=== PATIENT | female | born 1970 | race Caucasian/White ===

== ENCOUNTER → 2018-08-28 13:44 | Outpatient (CLI) | payer OTHER, SELFPAY ==
[2018-08-31 12:50] LABS: HPV Reflexed? NOT INDICATED
== END ==
PROVIDERS: Visit Provider Obstetrics & Gynecology
DX: Z12.4 Encounter for screening for malignant neoplasm of cervix (principal)
CPT/HCPCS: 88175; G0145

== ENCOUNTER → 2018-10-16 16:47 | Outpatient (CLI) | payer OTHER, SELFPAY ==
--- NOTE | 2018-10-16 16:52 | BI_ITS ---
MAMMOGRAPHY - BILATERAL SCREENING REASON FOR EXAM: Female, 48 years old. Routine annual screening examination. PERTINENT HISTORY: Non-contributory. TECHNIQUE: Digital bilateral breast derrick (3D mammographic acquisition) in the CC and MLO projections. 2-D mediolateral oblique (MLO) and craniocaudad (CC) views of both breasts were obtained. CAD: Full Field Digital Mammography with Computer Added Detection was performed. COMPARISON: Comparison is made with prior study dated September 20, 2017 and August 01, 2016. FINDINGS: Breast Composition: The breasts are heterogeneously dense, which may obscure small masses. There are no dominant masses or suspicious calcifications. No other significant abnormalities are identified. There has been no significant change since the prior study. BI/SCREENING MAMM (CAD), BILAT IMPRESSION: Stable bilateral screening mammogram. Yearly follow-up mammogram recommended. (A) ASSESSMENT CATEGORY: BIRADS Category 1: Negative. A letter regarding these results will be sent to the patient by the facility within 30 days. Approximately 10% of breast cancers are not detected by mammography. A normal mammogram should not delay biopsy of a clinically suspicious abnormality. [id number] Electronically Signed: Moody Campbell MD at 8:15 EST Tel [phone], Service support ,
--- OUTSIDE RECORDS SUMMARY | 2019-01-18 05:21 | XMS RPT_ITS ---
:1970 Author Organization [facility] Care Team Providers Name Role Phone Vane Cruz Attending Unavailable Vane Cruz Referring Unavailable Primay Care Physicia, No Primary Care Unavailable Vane Cruz Attending Unavailable PROBLEMS PROBLEMS DATE TYPE CONDITION / CODE ATTENDING STATUS SOURCE 08/28/2018 Unknown Z12.4 - Vane Cruz Active Marlyn Encounter for Community screening for Hospital malignant Repository neoplasm of cervix / Z12.4(ICD-10) PROCEDURES PROCEDURES No Procedure Records FoundRESULTS RESULTS SCREENING MAMM (CAD), Observed: 10/16/2018 Status: F Source: [facility] BILAT 4[facility] Services [address] [place] [address] SCREENING MAMM (CAD), BILAT MR#: [id number] Acct: [id number] Name: BONNIE CHEN Rep #: [id number] : 1970 F 48 From: Moody Campbell MD PCP: Care Physician, No Primary Status: REG CLI Study: SCREENING MAMM (CAD), BILAT Date of Exam: 10/16/18 Exam# [id number] Ordering Dr: Vane Cruz MD MAMMOGRAPHY - BILATERAL SCREENING REASON FOR EXAM: Female, 48 years old. Routine annual screening examination. PERTINENT HISTORY: Non-contributory. TECHNIQUE: Digital bilateral breast derrick (3D mammographic acquisition) in the CC and MLO projections. 2-D mediolateral oblique (MLO) and craniocaudad (CC) views of both breasts were obtained. CAD: Full Field Digital Mammography with Computer Added Detection was performed. COMPARISON: Comparison is made with prior study dated September 20, 2017 and August 01, 2016. FINDINGS: Breast Composition: The breasts are heterogeneously dense, which may obscure small masses. There are no dominant masses or suspicious calcifications. No other significant abnormalities are identified. There has been no significant change since the prior study. BI/SCREENING MAMM (CAD), BILAT IMPRESSION: Stable bilateral screening mammogram. Yearly follow-up mammogram recommended. (A) ASSESSMENT CATEGORY: BIRADS Category 1: Negative. A letter regarding these results will be sent to the patient by the facility within 30 days. Approximately 10% of breast cancers are not detected by mammography. A normal mammogram should not delay biopsy of a clinically suspicious abnormality. [id number] Electronically Signed: Moody Campbell MD at 8:15 EST Tel [phone], Service support , CC: No Primary Care Physician; Vane Cruz MD Manager Performance: Signed PAP I-G W/RFX HRHPV Collected: 08/28/2018 Status: F Source: MAR[facility]N 11:45 AM [facility] REPOSITORY Order Comment: CYTOLOGY INFORMATION: - CLINICAL INFORMATION: - DATE LMP/MENOPAUSE: 07/04/18 LMP - COLLECTION VIAL: Thin Prep Vial - EVP SALES SOURCE: CERVICAL/ENDOCERVICAL - COLLECTION TECHNIQUE: BRUSH/SPATULA Specimen Comment: [id number] Specimen Comment: Source.............Cervix;Endocervix Specimen Comment: LMP / Prev Treat...[id number]=[id number] Specimen Comment: No. of containers..01 ThinPrep Vial TYPE CODE TESTS RESULT OUT OF RANGE REFERENCE UNITS LAB L7400.0800 . Normal DIAGN Comment Result Comment: NEGATIVE FOR INTRAEPITHELIAL LESION AND MALIGNANCY. LAB L7400.0900 . Normal ADEQ Comment Result Comment: Satisfactory for evaluation. Endocervical and/or squamous metaplastic cells (endocervical component) are present. LAB L7400.1400 . Normal PERFORM Comment Result Comment: Kristina Ambriz, Oyster Worker (ASCP) LAB L7400.2575 . Normal TEST METHOD Comment Result Comment: This liquid based ThinPrep(R) pap test was screened with the use of an image guided system. LAB L7400.2600 . Normal . COMM LAB L7400.2700 . Normal PAPSMR Comment Result Comment: The Pap smear is a screening test designed to aid in the detection of premalignant and malignant conditions of the uterine cervix. It is not a diagnostic procedure and should not be used as the sole means of detecting cervical cancer. Both false-positive and false-negative reports do occur. LAB L7400.2800 . Normal HPV RFLX Comment Result Comment: The HPV DNA reflex criteria were not met with this specimen result therefore, no HPV testing was performed. Performed at: [address] [id number] Family Services Assistant: Glendy Lopez MD, Phone: [phone] Performed By: #### L7400.0350 #### [facility] (refer to report for specific site) refer to report for address and phone number ALLERGIES ALLERGIES No Allergies Records FoundENCOUNTERS ENCOUNTERS ADMIT/DISCHARGE ACCOUNT ADMITTING ENCOUNTER LOCATION SOURCE NUMBER CLASS 10/16/2018 [id number] Ambulatory Marlyn Coleman 9 [facility] ing:OPBI Repository 08/28/2018 [id number] Ambulatory Coleman Coleman 3 [facility] ing:LABSPEC Repository PAYERS PAYERS ENCOUNTER GUARANTOR PAYER SUBSCRIBER SOURCE 10/16/2018 BONNIE [facility] BONNIE [id number] Insurance:AULTCAREPol GUSTAVODOB: Community BERT icy [place]: [id number] [id number] Repository [address]Cgj: 330) Date:2971-11-67[phone] () [address], [place] [address]ZS: 10/16/2018 Secondary NOT GIVENUNK Coleman Insurance:SELF PAY [facility] [place] Number: Effective Repository Date:2018-08-29 08/28/2018 Bonnie Primary Bonnie Marlyn [id number] Insurance:AULTCAREPol GustavoDOB: Community Bert icy Number: [id number] [id number] Repository [address]a: (330) Date:1113-89-05[phone] () [address], [place] [address]SF: 08/28/2018 Secondary NOT GIVENUNK Coleman Insurance:SELF PAY [facility] [place] Number: Effective Repository Date:2018-08-28
== END ==
PROVIDERS: Referring Provider Obstetrics & Gynecology; Visit Provider Obstetrics & Gynecology
DX: Z12.31 Encounter for screening mammogram for malignant neoplasm of breast (principal)
CPT/HCPCS: 77063; 77067

== ENCOUNTER → 2019-10-21 12:15 | Outpatient (CLI) | payer OTHER, SELFPAY ==
--- NOTE | 2019-10-21 12:20 | BI_ITS ---
MAMMOGRAPHY - BILATERAL SCREENING 3-D TOMOSYNTHESIS REASON FOR EXAM: Female, 49 years old. NO FM HX , GAINED 20# PERTINENT HISTORY: No significant family history. TECHNIQUE: 2-D mammograms and 3-D Tomosynthesis of the breast (s) were performed. CAD was performed. COMPARISON: 10/16/2018, 09/20/2017, 08/01/2016 FINDINGS: The breast composition is heterogeneously dense that can obscure small breast masses. Scattered benign calcifications are seen. No dense spiculated masses or suspicious microcalcifications are identified. No architectural distortion is identified. There is no skin thickening or retraction. There has been no significant change since the prior study. BI/SCREEN MAMM (CAD) W/MAGUE BILAT IMPRESSION: No mammographic signs of malignancy. Routine yearly mammograms recommended. ASSESSMENT CATEGORY: BIRADS Category 1: Negative. A letter regarding these results will be sent to the patient by the facility within 30 days. FOLLOW UP RECOMMENDATION: Yearly follow up mammogram recommended. (A) Approximately 10% of breast cancers are not detected by mammography. A normal mammogram should not delay biopsy of a clinically suspicious abnormality. Electronically Signed: Nestor Mathis MD at 13:15 EST Tel [phone], Service support ,
== END ==
PROVIDERS: Family Provider Nurse Practitioner; PCP Nurse Practitioner; Referring Provider Obstetrics & Gynecology; Visit Provider Obstetrics & Gynecology
DX: Z12.31 Encounter for screening mammogram for malignant neoplasm of breast (principal)
CPT/HCPCS: 77063; 77067

== ENCOUNTER → 2020-05-26 15:40 | Outpatient (CLI) | payer OTHER, SELFPAY ==
--- NOTE | 2020-05-26 15:43 | RAD_ITS ---
STUDY: X-RAY CHEST REASON FOR EXAM: Female, 50 years old. Pain left lateral chest wall radiating into back 1.5 months TECHNIQUE: PA and lateral views of the chest. COMPARISON: None. FINDINGS: The lungs are clear and expanded. There is no demonstrated pleural abnormality. Normal size heart. Normal mediastinum and my. Normal visualized pulmonary arteries. Normal visualized aortic arch and descending thoracic aorta. Normal visualized thoracic spine. Normal visualized ribs, clavicles, and shoulders. There is no demonstrated abnormality of the visualized soft tissue structures of the upper abdomen. RAD/Chest PA and Lateral IMPRESSION: Normal x-ray examination of the chest. Electronically Signed: Davidson Lee MD at 16:11 EDT , Service support ,
== END ==
PROVIDERS: PCP Nurse Practitioner; Referring Provider Nurse Practitioner; Visit Provider Nurse Practitioner
DX: R07.9 Chest pain, unspecified (principal)
CPT/HCPCS: 71046

== ENCOUNTER → 2020-06-24 09:32 | Outpatient (CLI) | payer OTHER, SELFPAY ==
--- NOTE | 2020-06-24 09:41 | US_ITS ---
STUDY: ULTRASOUND BREAST - LEFT REASON FOR EXAM: Female, 50 years old. Pain in the left breast. TECHNIQUE: Axial and longitudinal images of the LEFT breast were performed with a high resolution ultrasound transducer. # OF IMAGES: 94 COMPARISON: Comparison is made with prior mammogram done earlier in the day. FINDINGS: LEFT Breast: There is a 5 mm x 3 mm x 9 mm slightly irregular hypoechoic nodule at the 12 o''clock lesion of the breast at 1 cm from nipple. A biopsy recommended. US/Breast Limited Unilateral IMPRESSION: 5 mm x 3 mm x 9 mm slightly irregular hypoechoic nodule at the 12 o''clock position of the breast at 1 cm from nipple. Biopsy recommended. ASSESSMENT CATEGORY: BIRADS Category 4: Suspicious - Biopsy Should Be Considered. A letter regarding these results will be sent to the patient by the facility within 30 days. Electronically Signed: Moody Campbell, at 13:31 EDT , Service support ,
--- NOTE | 2020-06-24 09:41 | BI_ITS ---
MAMMOGRAPHY - BILATERAL DIAGNOSTIC REASON FOR EXAM: Female, 50 years old. 3 month history of left breast pain. PERTINENT HISTORY: Non-contributory. TECHNIQUE: Digital bilateral breast derrick (3D mammographic acquisition) in the CC and MLO projections. 2-D mediolateral oblique (MLO) and craniocaudad (CC) views of both breasts were obtained. CAD: Full Field Digital Mammography with Computer Added Detection was performed. COMPARISON: Comparison is made with prior study dated 10/21/2019 and 09/20/2017. FINDINGS: Breast Composition: The breasts are heterogeneously dense, which may obscure small masses. There are no dominant masses or suspicious calcifications. Stable small benign-appearing bilateral axillary lymph nodes. No other significant abnormalities are identified. There has been no significant change since the prior study. BI/DIAG MAMM W/CAD, BILAT IMPRESSION: Stable bilateral diagnostic mammogram. With the patient''s history of left breast pain, correlation with ultrasound is recommended. ASSESSMENT CATEGORY: BIRADS Category 0: Incomplete. Need additional imaging evaluation. A letter regarding these results will be sent to the patient by the facility within 30 days. Approximately 10% of breast cancers are not detected by mammography. A normal mammogram should not delay biopsy of a clinically suspicious abnormality. Electronically Signed: Moody Campbell, at 13:30 EDT , Service support ,
== END ==
PROVIDERS: PCP Nurse Practitioner; Referring Provider Nurse Practitioner; Visit Provider Nurse Practitioner
DX: N64.4 Mastodynia (principal)
CPT/HCPCS: 76642; 77062; 77066; G0279

== ENCOUNTER → 2020-06-26 | Outpatient (CLI) | payer OTHER, SELFPAY ==
--- NOTE | 2020-06-26 14:15 | BRBX_PTH ---
PATIENT: LISA HCEN LOC: [facility] U#:[id number] AGE/SX: 50/F ROOM: RE06/26/[address]: Dr. Manohar Snyder MD : 1970 BED: DIS: 06/26/2020 SPEC #: [id number] RECD: 06/26/20 15:16 STATUS: TOYIN BRAXTON #: [id number] ERI: 06/26/20 14:[address]: Manohar Snyder DEPT: SURGICAL PATHOLOGY RECD BY: Saturnino Helm ENTERED: 06/29/20 09:05 SP TYPE: BREAST BX OTHR DR: VINICIUS Childers Tissues: Left breast, NOS Procedures: Surgery Specimen Level IV HEADER OPERATION: Ultrasound-guided left breast needle core biopsy PRE-OP DIAGNOSIS: Left breast mass N63.20 TISSUE SUBMITTED: Left breast tissue ISCHEMIC TIME: <1 minute FIXATION TIME: 77.5 hours MICROSCOPIC DIAGNOSIS Left breast mass, ultrasound-guided needle core biopsy: Fragments of benign breast tissue with focal dense fibrosis. Negative for atypia or malignancy. See comment. OPAL:sofia 06/30/20 COMMENT Correlation with clinical, radiologic findings and appropriate follow up are necessary. MICROSCOPIC DESCRIPTION Slides are reviewed. GROSS DESCRIPTION Received in fixative is one container labeled with the patient name and designated left breast biopsy. The specimen consists of multiple elongated fragments of emmanuel-yellow fibroadipose tissue that in aggregate measure 2 x 1.5 x 0.1 cm. The entire specimen is submitted in one cassette. / OPAL:sfoia 06/29/20 TC:5 CPT: 46832
[2020-06-26 14:38] VITALS: BMI 27.3
== END | disposition home or self-care (01) ==
LOC: LABSPEC 15:54
PROVIDERS: PCP Nurse Practitioner; Referring Provider Surgery; Visit Provider Surgery
DX: N63.20 Unspecified lump in the left breast, unspecified quadrant (principal)
CPT/HCPCS: 88305

== ENCOUNTER → 2020-11-05 | Outpatient (CLI) | payer OTHER, SELFPAY ==
[2020-11-05 11:55] VITALS: BMI 29.5
[2020-11-11 13:54] LABS: HPV APTIMA, High Risk Negative (Negative)
== END | disposition home or self-care (01) ==
LOC: LABSPEC 16:34
PROVIDERS: PCP Nurse Practitioner; Visit Provider Obstetrics & Gynecology
DX: Z12.4 Encounter for screening for malignant neoplasm of cervix (principal)
CPT/HCPCS: 87624; 88175; G0145

== ENCOUNTER → 2020-12-30 08:55 | Outpatient (CLI) | payer OTHER, SELFPAY ==
[2020-11-05 11:55] VITALS: BMI 29.5
--- NOTE | 2020-12-30 09:00 | US_ITS ---
STUDY: ULTRASOUND BREAST - LEFT REASON FOR EXAM: Female, 50 years old. Six-month follow-up for breast biopsy. TECHNIQUE: Axial and longitudinal images of the LEFT breast were performed with a high resolution ultrasound transducer. # OF IMAGES: 25 COMPARISON: Comparison is made with prior ultrasound dated 06/24/2020. FINDINGS: LEFT Breast: A tissue clip marker is seen within the 9 mm x 8 mm x 3 mm hypoechoic nodule at the 12 o''clock position breast at 1 cm from nipple. A small amount of the residual hematoma is seen surrounding the nodule. US/Breast Limited Unilateral IMPRESSION: Tissue clip marker is seen within the hypoechoic nodule with small residual hematoma. ASSESSMENT CATEGORY: BIRADS Category 2: Benign. A letter regarding these results will be sent to the patient by the facility within 30 days. Electronically Signed: Modoy Campbell MD at 10:37 EST , Service support ,
--- NOTE | 2020-12-30 09:00 | BI_ITS ---
MAMMOGRAPHY - UNILATERAL DIAGNOSTIC: LEFT BREAST REASON FOR EXAM: Female, 50 years old. Six-month follow-up following ultrasound-guided left breast biopsy. PERTINENT HISTORY: Non-contributory. TECHNIQUE: Digital unilateral breast derrick (3D mammographic acquisition) in the CC and MLO projections. 2-D mediolateral oblique (MLO) and craniocaudad (CC) views of both breasts were obtained. CAD: Full Field Digital Mammography with Computer Added Detection was performed. COMPARISON: Comparison is made with prior study dated 06/24/2020. FINDINGS: Breast Composition: The breasts are heterogeneously dense, which may obscure small masses. There are no dominant masses or suspicious calcifications. A tissue clip marker is seen in the slightly upper anterior central portion of the left breast. No other significant abnormalities are identified. BI/DIAG MAMM W/CAD, UNILAT IMPRESSION: Stable unilateral diagnostic mammogram. One year follow-up mammogram recommended. (A) ASSESSMENT CATEGORY: BIRADS Category 2: Benign. A letter regarding these results will be sent to the patient by the facility within 30 days. Approximately 10% of breast cancers are not detected by mammography. A normal mammogram should not delay biopsy of a clinically suspicious abnormality. Electronically Signed: Moody Campbell MD at 10:13 EST , Service support ,
== END ==
PROVIDERS: PCP Nurse Practitioner; Referring Provider Surgery; Visit Provider Surgery
DX: N63.20 Unspecified lump in the left breast, unspecified quadrant (principal)
CPT/HCPCS: 76642; 77061; 77065; G0279

== ENCOUNTER 2021-01-01 06:54 | Day surgery (SDC) | payer OTHER, SELFPAY ==
[2020-11-05 11:55] VITALS: BMI 29.5
[2021-01-01] VITALS (7 sets, daily range): BP systolic 92–118; BP diastolic 57–84; PULSE 59–88; RESP 16–18; TEMP 36.4–37; O2SAT 95–99; BMI 30.6
[2021-01-01 07:23] LABS: Internal QC Validated? YES +Cl - CLEAR BKGD; Pregnancy, Urine Negative Negative
[2021-01-01] MEDS: Lactated Ringers 1,000 ML 100 ML IV (07:38)
--- NOTE | 2021-01-01 08:00 | COL_PTH ---
PATIENT: LISA CHEN LOC: [facility] U#:[id number] AGE/SX: 50/F ROOM: RE01/01/[address]: Dr. Manohar Snyder MD : 1970 BED: DIS: 01/01/2021 SPEC #: [id number] RECD: 01/01/21 10:31 STATUS: TOYIN BRAXTON #: [id number] ERI: 01/01/21 08:[address]: Manohar Snyder DEPT: SURGICAL PATHOLOGY RECD BY: Janell March ENTERED: 01/01/21 11:00 SP TYPE: COLON OTHR DR: Helen Kerr, CHARLY-Emy Tissues: Colon, NOS Procedures: Surgery Specimen Level V HEADER OPERATION: Colonoscopy - open access (MAC) PRE-OP DIAGNOSIS: Screening colonoscopy TISSUE SUBMITTED: Sigmoid polyp MICROSCOPIC DIAGNOSIS Sigmoid colon polyp, biopsy: Hyperplastic polyp. AM:sofia 01/04/2021 MICROSCOPIC DESCRIPTION Slides are reviewed. GROSS DESCRIPTION Received in fixative is one container labeled with the patient's name and designated sigmoid polyp. The specimen consists of multiple irregular fragments of light emmanuel soft tissue that in aggregate measure 0.8 x 0.3 x 0.2 cm. The specimen is totally submitted in one cassette. / SJ:sofia 01/01/21 TC:5 CPT: 82401
--- NOTE | 2021-01-01 08:01 | H&P.OPEN ---
History of Present Illness Date of Admission: 01/01/21 The patient is a 50 year old F here for screening colonoscopy. The patient has never had a colonoscopy in the past. She has no abdominal pain or blood in her stool. The she reports that her grandmother had colon cancer. Past Medical/Surgical History - Planned Operation Planned Operative Procedure/s: cscope open access Date of Operative Procedure: 01/01/21 Permit Signed: No S.O.S: No Is This Patient Having a Total Joint: No - Previous Hospitalizations/Surgeries HX Hospitalizations: No HX of Surgeries: hernia repair. foot surgery. dental work Any Problems With Anesthesia: No - needed extra for dental work You/Your Family Experience Fever (Hyperthermia) With Anes: No Cholinesterase deficiency: No - Cardiovascular Hx Chest Pain within Last 2 months: No Hx of Irregular Heartbeat and/or Afib: No Hx Heart Attack: No Hx Congestive Heart Failure: No Hx Rheumatic Fever: No Hx Hypertension: No Hx Internal Defibrillator: No Hx Pacemaker: No Hx Cardiac Catheterization: No Hx Cardiac Surgery/Stents/Etc.: No Hx Stress Test: No - echo 2017 HX Edema: No Hx Pain in Legs when Walking/Leg Cramps: No - Respiratory Chronic Cough: No HX of Shortness of Breath: Yes - sob with 2 flights of stairs Hoarseness: No Hx Chronic Obstructive Pulmonary Disease (COPD): No Hx Asthma: No Hx Emphysema: No Hx Sleep Apnea: No Hx Oxygen Use at Home: No Hx Respiratory Tract Infection/Cold (presently): No Do You Snore Loudly (louder than talking or can be heard): No Do You Often Feel Tired/ Fatigued/ Sleepy Dring Daytime?: No Has Anyone Observed You Stop Breathing During Sleep?: No Result (for STOP score): Negative Hx Smoking: Yes - quit 5 months ago Smoking Status: Former smoker - Gastrointestinal Hx Gastroesophageal Reflux: No - heartburn just recently Hx Gastrointestinal Disorders: No Hx Gastrointestinal Bleed: No Hx Ulcer: No Hx Hiatal Hernia: No Difficulty Chewing/Swallowing: No Recent Onset of Swallowing Problems: No Special diet followed at home: No Hx Unplanned Weight Loss of 20#: No HX Unplanned Weight Gain of 20#: No - Neurological Hx Seizures: No HX Syncope/Blackout Spells/Unconsciousness: No Hx CVA/Stroke: No Hx Transient Ischemic Attacks (TIA): No Hx Multiple Sclerosis: No Hx Parkinson's Disease: No Hx Head/Neck Injury: No Hx Headaches: No Hx Back Injury/Pain: No Recent Onset of Speech Difficulty: No Restless Legs: No Does patient have nerve stimulator: No Patient instructed to have device shut off: No Rep notified?: No - Blood Disorder Hx Leukemia: No Bleeding Tendencies: No Hx Deep Vein Thrombosis: No Hx High Cholesterol: No Blood Transmitted Disease: No Hx Hepatitis: Yes - auto immune hepatitis Hx Cirrhosis: No Hx Anemia: No Hx Blood Disorders: No - Reproduction : No Is Patient Lactating: No Hx Hysterectomy: No Hx Tubal Ligation: No Are You Post Menopause: No Pt Instructed Not To Have Any Sex From Now Until Surgery: No - Genitourinary Hx Renal Disease: No - Musculoskeletal Hx Arthritis: No Hx Rheumatoid Arthritis: No Hx Gout: No Recent Onset of an Orthopedic Problem: No - Endocrine Hx Diabetes: No Thyroid Disease: No Hx Steroid Therapy: No - Psycho/Social Hx Substance Use: No Hx Alcohol Use: Yes - rarely Hx Anxiety: No Hx Depression: No Mental Illness: No Hx Dementia: No - Miscellaneous Hx Cancer: No Recent Exposure to Contagious Disease: No Active MRSA: No Hx of C-Diff: No Any Loose Teeth: No Allergies No Known Allergies Allergy (Verified 01/01/21 07:19) - Discharge Is Pt Admitted From a [facility], or a [facility]: No After D/C, Where Do you Plan to Go: Return Home - Physical Exam Vitals/I&O's: Vital Signs Temp Pulse Resp BP Pulse Ox 98.6 F 78 16 118/84 H 96 01/01/21 07:27 01/01/21 07:27 01/01/21 07:27 01/01/21 07:27 01/01/21 07:27 Oxygen Delivery Method Room Air Weight: 189 lb 9.561 oz Body Mass Index (BMI) 30.6 General: Alert, Oriented x3 Neck: No JVD Lungs: Normal air movement Cardiovascular: Regular rate, Regular Rhythm Abdomen: Soft, Non Tender, Non-Distended Microbiology Past 72 Hours 12/31/20 10:00 Interface Orders SARS-CoV-2 Antigen (Rapid) - Final Laboratory Results 01/01/21 07:08: Urine Test Negative Current Medications Lactated Ringer's () 1,000 mls @ 100 mls/hr IV .Q10H MAYANK Last Admin: 01/01/21 07:38 Dose: 100 mls/hr Documented by: Assessment/Plan All Active Problems (Last Reviewed 11/05/20 @ 11:55 by Rupali Saucedo) Hx of hernia repair (Acute) Fatigue (Acute) 50-year-old female for screening colonoscopy I explained endoscopy in detail to the patient. I explained the risks including but not limited to stroke or heart attack with anesthesia, perforation of the GI tract, bleeding, infection. I explained that any of these could necessitate further emergency surgery. The patient understands and all questions were answered sufficiently. The patient wishes to proceed with procedure. Manohar Snyder MD Pager: [facility] [address] [place] [address] [address] [place] [address] Office: Surgery Risks - Colonoscopy Risks Include but are not Limited To: Risks include but are not limited to: Bleeding, perforation requiring further surgery, inability to complete colonoscopy requiring barium enema.
--- NOTE | 2021-01-01 08:39 | OP.COLON_ITS ---
Patient Name: Bonnie Pickett Procedure Date: 01/01/2021 8:03 AM Date of : 1970 Age: 50 Procedure: Colonoscopy Indications: Screening for colorectal malignant neoplasm Providers: Manohar Snyder MD Referring MD: Helen Kerr NP Medicines: Monitored Anesthesia Care Patient Profile: This is a 50 year old female. Refer to note in patient chart for documentation of history and physical. Last Colonoscopy: none. The patient's first colonoscopy is today. Complications: No immediate complications. Procedure: Pre-Anesthesia Assessment: - Prior to the procedure, a History and Physical was performed, and patient medications and allergies were reviewed. The patient's tolerance of previous anesthesia was also reviewed. The risks and benefits of the procedure and the sedation options and risks were discussed with the patient. All questions were answered, and informed consent was obtained. Prior Anticoagulants: The patient has taken no previous anticoagulant or antiplatelet agents. After reviewing the risks and benefits, the patient was deemed in satisfactory condition to undergo the procedure. After I obtained informed consent, the scope was passed under direct vision. Throughout the procedure, the patient's blood pressure, pulse, and oxygen saturations were monitored continuously. The pediatric colonoscope was introduced through the anus and advanced to the cecum, identified by appendiceal orifice and ileocecal valve. The colonoscopy was performed without difficulty. The patient tolerated the procedure well. The quality of the bowel preparation was good. Scope In: 8:16:07 AM Scope Withdrawal Time 0 hours 5 minutes 27 seconds Scope Out: 8:37:14 AM Total Procedure Duration Time 0 hours 21 minutes 7 seconds Findings: A small polyp was found in the sigmoid colon. The polyp was removed with a hot snare. Resection and retrieval were complete. The exam was otherwise without abnormality on direct and retroflexion views. Impression: - One small polyp in the sigmoid colon, removed with a hot snare. Resected and retrieved. - The examination was otherwise normal on direct and retroflexion views. Recommendation: - Discharge patient to home. - Resume previous diet. - Continue present medications. - Await pathology results. - Repeat colonoscopy for surveillance based on pathology results. Procedure Code(s): --- Professional --- 09291, Colonoscopy, flexible; with removal of tumor(s), polyp(s), or other lesion(s) by snare technique Diagnosis Code(s): --- Professional --- Z12.11, Encounter for screening for malignant neoplasm of colon D12.5, Benign neoplasm of sigmoid colon CPT copyright 2017 [employer]. All rights reserved. The codes documented in this report are preliminary and upon laundry machine mechanic review may be revised to meet current compliance requirements. Manohar Snyder MD 01/01/2021 8:39:40 AM This report has been signed electronically. Number of Addenda: 0 Note Initiated On: 01/01/2021 8:03 AM
--- NOTE | 2021-01-01 08:40 | OP.CCLET_ITS ---
01/01/2021 Helen Kerr, CHARLY [address] [place] [address] Re : Colonoscopy procedure for Bonnie Pickett Dear Ms. Kerr This procedure was performed on Friday, January 01, 2021. My impressions and recommendations are as follows: Impressions : - One small polyp in the sigmoid colon, removed with a hot snare. Resected and retrieved. - The examination was otherwise normal on direct and retroflexion views. Recommendations : - Discharge patient to home. - Resume previous diet. - Continue present medications. - Await pathology results. - Repeat colonoscopy for surveillance based on pathology results. My findings are described in the full procedure note, which is enclosed. If I can be of further assistance, please feel free to contact me at Doctor phone number(s): , Work: . Sincerely, Manohar Snyder MD 01/01/2021 8:39:40 AM This report has been signed electronically.
== END 2021-01-01 10:04 | disposition home or self-care (01) ==
LOC: EN 06:56 → AC 06:57
PROVIDERS: Anesthesiology; PCP Nurse Practitioner; Referring Provider Nurse Practitioner; Visit Provider Surgery
PROC: 0DJD8ZZ Inspection of Lower Intestinal Tract, Via Natural or Artificial Opening Endoscopic (ICD-10-PCS; CPT 45378; principal; 2021-01-01 07:55)
DX: Z12.11 Encounter for screening for malignant neoplasm of colon (principal); K63.5 Polyp of colon; Z80.0 Family history of malignant neoplasm of digestive organs; Z20.828 Contact with and (suspected) exposure to other viral communicable diseases; K75.4 Autoimmune hepatitis; Z87.891 Personal history of nicotine dependence
CPT/HCPCS: 45385; 81025; 87426; 88307; C9803; J7120; J2405

== ENCOUNTER → 2021-10-18 14:24 | Outpatient (CLI) | payer OTHER, SELFPAY ==
[2021-10-18 17:13] LABS: Cholesterol 159 mg/dL (200); Glucose 91 mg/dL (74-106); High Density Lipoprotein 42 mg/dL; Thyroid Stim Hormone (TSH) 0.88 uIU/mL (0.358-3.74); Triglycerides 69 mg/dL; Very Low Density Lipoprotein 14 mg/dL (5-40)
== END ==
PROVIDERS: PCP Nurse Practitioner; Referring Provider Obstetrics & Gynecology; Visit Provider Obstetrics & Gynecology
DX: N95.1 Menopausal and female climacteric states (principal); Z13.220 Encounter for screening for lipoid disorders; Z13.1 Encounter for screening for diabetes mellitus; Z13.29 Encounter for screening for other suspected endocrine disorder; Z13.21 Encounter for screening for nutritional disorder
CPT/HCPCS: 36415; 80061; 82306; 82947; 84443

== ENCOUNTER 2021-12-31 11:01 | Outpatient (CLI) | payer OTHER, SELFPAY ==
--- NOTE | 2021-12-31 11:04 | BI_ITS ---
MAMMOGRAPHY - BILATERAL SCREENING REASON FOR EXAM: Female, 51 years old. Routine annual screening examination. PERTINENT HISTORY: Non-contributory. Prior left ultrasound-guided breast biopsy. TECHNIQUE: Digital bilateral breast mague (3D mammographic acquisition) in the CC and MLO projections. 2-D mediolateral oblique (MLO) and craniocaudad (CC) views of both breasts were obtained. CAD: Full Field Digital Mammography with Computer Added Detection was performed. COMPARISON: Comparison is made with prior study dated 12/30/2020 and 06/24/2020. FINDINGS: Breast Composition: The breasts are heterogeneously dense, which may obscure small masses. There are no dominant masses or suspicious calcifications. A tissue clip marker seen along the anterior upper medial retroareolar region of the breast and keep with prior biopsy. Stable small benign-appearing bilateral axillary lymph nodes. No other significant abnormalities are identified. There has been no significant change since the prior study. BI/SCRN MAMM (CAD)W/MAGUE BILAT IMPRESSION: Stable bilateral screening mammogram. Yearly follow-up mammogram recommended. (A) ASSESSMENT CATEGORY: BIRADS Category 2: Benign. A letter regarding these results will be sent to the patient by the facility within 30 days. Approximately 10% of breast cancers are not detected by mammography. A normal mammogram should not delay biopsy of a clinically suspicious abnormality. [id number] Electronically Signed: Moody Campbell MD at 12:25 EST ,
== END 2021-12-31 23:59 | disposition home or self-care (01) ==
LOC: OPBI 11:02
PROVIDERS: PCP Nurse Practitioner; Visit Provider Obstetrics & Gynecology
DX: Z12.31 Encounter for screening mammogram for malignant neoplasm of breast (principal)
CPT/HCPCS: 77063; 77067

== ENCOUNTER 2022-01-23 00:17 | Emergency (ER) | payer OTHER, SELFPAY ==
[2022-01-23 00:17] VITALS: BP 165/112; PULSE 132; RESP 19; TEMP 36.9; O2SAT 98; BMI 20.7
--- NOTE | 2022-01-23 00:26 | EKG12_ITS ---
Test Reason : CP Blood Pressure : / mmHG Vent. Rate : 117 BPM Atrial Rate : 117 BPM P-R Int : 150 ms QRS Dur : 072 ms QT Int : 296 ms P-R-T Axes : 048 039 021 degrees QTc Int : 412 ms Sinus tachycardia Nonspecific ST and T wave abnormality Abnormal ECG Confirmed by JUDAH TAPIA, UMM ([id number]), movie editor KVNG SCHWARTZ ([id number]) on 01/25/2022 10:49:05 AM Referred By: Confirmed By:UMM SO MD
--- NOTE | 2022-01-23 00:28 | EDS_ITS ---
HPI History of Present Illness Chief Complaint: Chest Pain Informant: patient Onset/Context/Timing Onset: Yesterday Current Severity: Moderate Maximum Severity: Moderate Narrative Narrative: Patient presents secondary to chest pressure and palpitations. She states all day yesterday she just felt off and would have intermittent palpitations. Over the last hour she feels like it is gotten worse. She describes a squeezing sensation in her chest. She started checking her blood pressure and noted it to be elevated. PFSH PFS Medical History Back problem Breast lump in female Carpal tunnel syndrome Fatigue Hormone deficiency Kidney stones Home Medications lactobacillus combination no.9 4 billion cell capsule 4,000 mmu cells PO DAILY 06/26/20 [History Last Taken Unknown] multivitamin 1 tab PO DAILY 06/26/20 [History Last Taken Unknown] bupropion HCl 150 mg tablet,12 hr sustained-release 150 mg PO BID 09/16/20 [History Last Taken Unknown] estradiol 0.05 mg/24 hr semiweekly transdermal patch 1 patch TD 2XW #8 ea 10/15/21 [Rx Last Taken Unknown] norethindrone acetate [Aygestin] 5 mg PO DAILY 01/23/22 [History Last Taken Unknown] Allergy/AdvReac Type Severity Reaction Status Date / Time No Known Allergies Allergy Verified 01/23/22 00:20 Family History Mother Thyroid cancer Brain aneurysm Father Cancer Heart disease Hypertension CHF (congestive heart failure) Other Arthritis Colon cancer Diabetes Lung cancer Surgical History Hx of hernia repair Social History Smoking Status: Former smoker second hand exposure: Yes alcohol intake: never substance use type: does not use caffeine: No what type of physical activity do you participate in: aerobics and weight training frequency: 3-4 times per week seatbelt use: always do you feel safe at home: Yes additional social history: - Meet Does Not Take Aspirin Does Take Ibuprofen As Needed ROS ROS ED Constitutional Constitutional ED: Denies chills or fever(s) Eyes Eyes: Denies change in vision ENT ENT ED: Denies sore throat Cardiovascular Cardiovascular: Reports chest pain and palpitations Respiratory/Chest Respiratory/Chest: Reports dyspnea; Denies cough Gastrointestinal Gastrointestinal: Denies abdominal pain, nausea or vomiting Genitourinary Genitourinary ED: Denies dysuria Musculoskeletal Musculoskeletal: Denies back pain or neck pain Integumentary Denies rash Psychiatric Psychiatric: Reports anxiety Allergic/Immunologic Allergic/Immunologic ED: Denies urticaria EXAM Physical Exam Const Vital Signs: 01/23/22 00:17 01/23/22 00:38 01/23/22 02:40 Temperature 98.4 F Temperature Source Temporal Pulse Rate 132 H 84 Respiratory Rate 19 H 16 Blood Pressure 165/112 H 168/100 H Blood Pressure Mean 129 122 Pulse Ox 98 100 95 Oxygen Delivery Method Room Air Room Air Room Air 01/23/22 02:55 Temperature Temperature Source Pulse Rate 68 Respiratory Rate 17 Blood Pressure 153/87 H Blood Pressure Mean 109 Pulse Ox 99 Oxygen Delivery Method Room Air Positive well nourished and well developed General Appearance ED: well developed HEENT Reports normocephalic and head/scalp atraumatic Eyes PERRL and EOMs intact bilaterally Neck supple Chest Wall inspection of chest normal and palpation of chest normal Resp normal respiratory effort and clear to auscultation bilaterally Cardio regular rhythm Rate: tachycardic GI normal to inspection, nondistended, normoactive bowel sounds and non-tender Palpation: soft Extremity normal to inspection General Extremety ED: Negative for edema General Extremity: Negative for edema Neuro oriented x3 and no sensory deficits noted Sensorium / Orientation: alert Motor Exam: strength 5/5 throughout Psych Mood & Affect: anxious Skin no rashes or lesions noted MDM MDM MDM Narrative Medical decision making narrative: Patient was given aspirin on arrival. Lab work, chest x-ray, EKG ordered. Lab Data Attestation: I reviewed the patient's lab results. Labs: Laboratory Results - last 24 hr 01/23/22 01/23/22 01/23/22 00:28 00:28 00:30 WBC 5.0 RBC 4.77 Hgb 15.2 H Hct 44.5 MCV 93.3 MCH 31.9 MCHC 34.2 RDW Std Deviation 44.8 H RDW Coeff of Gloria 13.1 Plt Count 251 MPV 9.7 Immature Gran % (Auto) 0.400 Neut % (Auto) 60.6 Lymph % (Auto) 28.3 [place] % (Auto) 7.7 Eos % (Auto) 2.2 Baso % (Auto) 0.8 Absolute Neuts (auto) 3.0 Absolute Lymphs (auto) 1.40 Nucleated RBC % 0 D-Dimer Quant (PE/DVT) < 0.27 L Sodium 140 Potassium 3.7 Chloride 109 H Carbon Dioxide 24.0 Anion Gap 7 BUN 12 Creatinine 1.03 H Estim Creat Clear Calc 96.19 Est GFR (MDRD) Af Amer 72 Est GFR (MDRD) Non-Af 60 BUN/Creatinine Ratio 11.7 Glucose 177 H Calcium 9.0 Troponin I High Sens < 3 L TSH 4.18 H 01/23/22 02:25 WBC RBC Hgb Hct MCV MCH MCHC RDW Std Deviation RDW Coeff of Gloria Plt Count MPV Immature Gran % (Auto) Neut % (Auto) Lymph % (Auto) [place] % (Auto) Eos % (Auto) Baso % (Auto) Absolute Neuts (auto) Absolute Lymphs (auto) Nucleated RBC % D-Dimer Quant (PE/DVT) Sodium Potassium Chloride Carbon Dioxide Anion Gap BUN Creatinine Estim Creat Clear Calc Est GFR (MDRD) Af Amer Est GFR (MDRD) Non-Af BUN/Creatinine Ratio Glucose Calcium Troponin I High Sens 4 TSH Radiography Chest X-Ray - ED: 1 View, Read by ED Physician, Normal, Heart, Lungs and Mediastinum Diagnostic Testing: Clinical Impression(s) from Imaging Studies Chest X-Ray 01/23/22 00:32 IMPRESSION: 1. No active cardiopulmonary disease. 2. No interval change since the previous study of 05/18/2020. Electronically Signed: Ivan Hermosillo MD at 0:54 EDT , EKG Initial EKG: Attestation: I personally reviewed and interpreted this EKG as follows: Interpretation: Sinus Tachycardia (Sinus tach at 117. No acute ST santos ge.) Treatment and Re-Evaluation Narrative: On repeat evaluation patient resting comfortably. Heart rate is in the 80s. EKG reveals no acute ischemia. Lab work reveals normal D-dimer and initial troponin less than 3. Repeat troponin is still normal at 4. Chest x- ray reveals no acute abnormalities. Patient is reassured with these findings. I did encourage return if she develops further chest pain, palpitations, shortness of breath. Otherwise she is to follow with her PCP this week for potential outpatient stress test. Patient is comfortable with this plan. Discharge Plan Triage Chief Complaint: Chest Pain ED Provider: Luann Brothers Dx/Rx/DC Orders Clinical Impression: Atypical chest pain, Palpitations Instructions: ED Chest Pain, Uncertain Cause, ED Palpitations Prescriptions: No Action multivitamin Tablet 1 tab PO DAILY RF: 0 Adult 50 Plus Probiotic 4 billion cell capsule 4,000 mmu cells PO DAILY RF: 0 bupropion HCl [Wellbutrin SR] 150 mg tablet sustained-release 12 hr 150 mg PO BID RF: 0 estradiol 0.05 mg/24 hr patch semiweekly 1 patch TD 2XW Qty: 8 RF: 12 norethindrone acetate [Aygestin] 5 mg tablet 5 mg PO DAILY RF: 0 Primary Care Provider: Helen Kerr NP Referrals: Helen Kerr NP, SUPER[employer] [Primary Care Provider] - 5-7 Days Disposition Disposition: Home, Self Care Discharge Date/Time: 01/23/22 02:58
--- NOTE | 2022-01-23 00:32 | RAD_ITS ---
STUDY: AP PORTABLE UPRIGHT CHEST OF 1132 HOURS ON 01/23/2022 REASON FOR EXAM: 51-year-old female with chest pain. TECHNIQUE: A single view AP portable upright chest x-ray was performed per protocol. COMPARISON: 05/18/2020. FINDINGS: Normal osseous structures. Heart, my, diaphragm, and lungs have a normal appearance. No infiltrates, atelectasis, effusion, pulmonary mass lesions. No interval change since previous study 05/18/2020. RAD/Chest 1 View (Portable) IMPRESSION: 1. No active cardiopulmonary disease. 2. No interval change since the previous study of 05/18/2020. Electronically Signed: Ivan Hermosillo MD at 0:54 EDT ,
[2022-01-23] MEDS: Aspirin 81 MG TAB.CHEW 324 MG PO (00:37)
[2022-01-23 00:38] VITALS: O2SAT 100
[2022-01-23 00:39] LABS: Basophil# 0.04 X10^3/uL; Basophil% 0.8 % (0-1); Eosinophil# 0.11 X10^3/uL; Eosinophils% 2.2 % (0-5); Hematocrit 44.5 % (37-47); Hemoglobin 15.2 g/dL (12.0-15.0); Lymphocyte % 28.3 % (19-41); Mean Corp Hgb Conc 34.2 g/dL (32-36); Mean Corpuscular Hgb 31.9 pg (27.0-32.0); Mean Corpuscular Volume 93.3 fL (81-99); Mean Platelet Vol. 9.7 fl (6.2-12.0); Monocyte# 0.38 X10^3/uL; Monocyte% 7.7 % (0-10); NRBC Flagged by Analyzer 0 % (0-5); Neutrophil % 60.6 % (47-70); Platelet Count 251 K/mm3 (150-450); RBC Distribution Width CV 13.1 % (11.6-14.6); RBC Distribution Width SD 44.8 fl (35.1-43.9); Red Blood Count 4.77 M/mm3 (4.2-5.4)
[2022-01-23 00:51] LABS: D-Dimer Quantitative (DVT/PE) < 0.27 FEU/ug/m (0.27-0.49)
[2022-01-23 01:05] LABS: Anion Gap 7 (5-15); BUN 12 mg/dL (7-18); BUN/Creat Ratio 11.7 RATIO (10-20); Chloride 109 mmol/L (98-107); Creatinine, Serum 1.03 mg/dL (0.55-1.02); EST Glomerular Filtration Rate 60 mL/min (>60); Est Glom Filt Rate - Afr Amer 72 mL/min (>60); Estimated Creatinine Clearance 96.19 ml/min; Glucose 177 mg/dL (74-106); Potassium 3.7 mmol/L (3.5-5.1); Sodium Level 140 mmol/L (136-145); Thyroid Stim Hormone (TSH) 4.18 uIU/mL (0.358-3.74); Troponin-I HS < 3 pg/mL (3.0-54.0)
[2022-01-23 02:40] VITALS: BP 168/100; PULSE 84; RESP 16; O2SAT 95
[2022-01-23 02:49] LABS: Troponin-I HS 4 pg/mL (3.0-54.0)
[2022-01-23 02:55] VITALS: BP 153/87; PULSE 68; RESP 17; O2SAT 99
== END 2022-01-23 02:58 | disposition home or self-care (01) ==
PROVIDERS: Emergency Provider Emergency Medicine; PCP Nurse Practitioner; Visit Provider Emergency Medicine
DX: R07.89 Other chest pain (principal); R00.2 Palpitations; Z87.891 Personal history of nicotine dependence; Z87.442 Personal history of urinary calculi
CPT/HCPCS: 71045; 80048; 84443; 84484; 85025; 85379; 93005; 99285; A4216

== ENCOUNTER → 2023-02-08 | Outpatient (CLI) | payer OTHER, SELFPAY ==
[2023-02-08 14:18] LABS: Hemoglobin A1c 5.8 % (3.8-5.6)
[2023-02-08 14:21] LABS: T4 Free Direct 0.93 ng/dL (0.76-1.46); Thyroid Stim Hormone (TSH) 1.62 uIU/mL (0.358-3.74)
== END | disposition home or self-care (01) ==
LOC: LAB 12:48
PROVIDERS: PCP Nurse Practitioner Family; Referring Provider Registered Nurse; Visit Provider Registered Nurse
DX: R53.83 Other fatigue (principal)
CPT/HCPCS: 36415; 83036; 84439; 84443

== ENCOUNTER → 2023-02-22 | Outpatient (CLI) | payer OTHER, SELFPAY ==
--- NOTE | 2023-02-22 08:09 | BI_ITS ---
MAMMOGRAPHY - BILATERAL SCREENING REASON FOR EXAM: Female, 52 years old. Routine annual screening examination. PERTINENT HISTORY: History of prior left breast biopsy. TECHNIQUE: Digital bilateral breast mague (3D mammographic acquisition) in the CC and MLO projections. 2-D mediolateral oblique (MLO) and craniocaudad (CC) views of both breasts were obtained. CAD: Full Field Digital Mammography with Computer Added Detection was performed. COMPARISON: Comparison is made with prior study dated December 31, 2021 and December 30, 2020. FINDINGS: Breast Composition: The breasts are heterogeneously dense, which may obscure small masses. There are no dominant masses or suspicious calcifications. A tissue clip marker is seen in the superior retroareolar region of the left breast. Stable benign-appearing bilateral axillary lymph nodes. No other significant abnormalities are identified. There has been no significant change since the prior study. BI/SCRN MAMM (CAD)W/MAGUE BILAT IMPRESSION: Stable bilateral screening mammogram. Yearly follow-up mammogram recommended. (A) ASSESSMENT CATEGORY: BIRADS Category 2: Benign. A letter regarding these results will be sent to the patient by the facility within 30 days. Approximately 10% of breast cancers are not detected by mammography. A normal mammogram should not delay biopsy of a clinically suspicious abnormality. [id number] Electronically Signed: Moody Campbell MD at 9:41 EDT ,
== END | disposition home or self-care (01) ==
LOC: OPBI 08:07
PROVIDERS: PCP Nurse Practitioner Family; Referring Provider Obstetrics & Gynecology; Visit Provider Obstetrics & Gynecology
DX: Z12.31 Encounter for screening mammogram for malignant neoplasm of breast (principal)
CPT/HCPCS: 77063; 77067

== ENCOUNTER → 2023-03-31 | Outpatient (CLI) | payer OTHER, SELFPAY ==
[2023-03-31 12:23] LABS: Absolute Lymphocyte Count 1.51 X10^3/uL (0.83-4.51); Absolute Neutrophil Count 2.7 X10^3/uL (2.0-7.7); Basophil# 0.04 X10^3/uL; Basophil% 0.9 % (0-1); Eosinophil# 0.11 X10^3/uL; Eosinophils% 2.4 % (0-5); Hematocrit 43.4 % (37-47); Hemoglobin 13.9 g/dL (12.0-15.0); Lymphocyte # 1.51 X10^3/ul (0.83-4.51); Lymphocyte % 32.7 % (19-41); Mean Corpuscular Volume 93.7 fL (81-99); Monocyte# 0.26 X10^3/uL; Monocyte% 5.6 % (0-10); NRBC Flagged by Analyzer 0 % (0-5); Neutrophil # 2.67 X10^3/uL (2.7-7.7); Neutrophil % 57.8 % (47-70); Platelet Count 258 K/mm3 (150-450); RBC Distribution Width CV 13.6 % (11.6-14.6); RBC Distribution Width SD 46.4 fl (35.1-43.9); Red Blood Count 4.63 M/mm3 (4.2-5.4); White Blood Count 4.6 K/mm3 (4.4-11.0)
[2023-03-31 13:00] LABS: ALB/GLOB Ratio 1.1 RATIO (0.9-2.4); AST(SGOT) 17 U/L (15-37); Alanine Aminotransfer ALT/SGPT 22 U/L (13-56); Albumin, Serum 3.8 g/dL (3.2-5.0); Alkaline Phosphatase 114 U/L (45-117); Anion Gap 6 (5-15); BUN 15 mg/dL (7-18); BUN/Creat Ratio 24.2 RATIO (10-20); Calcium,Total 9.1 mg/dL (8.5-10.1); Chloride 110 mmol/L (98-107); Cholesterol 220 mg/dL (200); Creatinine, Serum 0.62 mg/dL (0.55-1.02); EST Glomerular Filtration Rate 107 mL/min (>60); Est Glom Filt Rate - Afr Amer 129 mL/min (>60); Globulin 3.5 g/dL (2.2-4.2); Glucose 102 mg/dL (74-106); High Density Lipoprotein 55 mg/dL; Potassium 4.3 mmol/L (3.5-5.1); Protein, Total 7.3 g/dL (6.4-8.2); Sodium Level 142 mmol/L (136-145); Triglycerides 127 mg/dL; Very Low Density Lipoprotein 25 mg/dL (5-40)
[2023-03-31 13:34] LABS: Protein, Urine (Random) < 6.0 mg/dL (<11.9)
[2023-04-05 14:10] LABS: Vitamin D 1,25-Dihydroxy 58.1 pg/mL (24.8-81.5)
== END | disposition home or self-care (01) ==
PROVIDERS: PCP Nurse Practitioner Family; Referring Provider Obstetrics & Gynecology; Visit Provider Obstetrics & Gynecology
DX: R73.03 Prediabetes (principal)
CPT/HCPCS: 36415; 80053; 80061; 82570; 82652; 84156; 85025

== ENCOUNTER → 2023-04-17 | Outpatient (CLI) | payer OTHER, SELFPAY | END | disposition home or self-care (01) | PROVIDERS: PCP Nurse Practitioner Family; Referring Provider Obstetrics & Gynecology; Visit Provider Obstetrics & Gynecology | DX: R73.03 Prediabetes (principal) | CPT/HCPCS: 93005 ==

== ENCOUNTER 2023-04-25 08:56 | Outpatient (RCR) | payer OTHER, SELFPAY | END 2023-04-28 23:59 | LOC: NS 08:56 | PROVIDERS: PCP Nurse Practitioner Family; Referring Provider Obstetrics & Gynecology; Visit Provider Obstetrics & Gynecology | DX: Z71.3 Dietary counseling and surveillance (principal); E78.5 Hyperlipidemia, unspecified; E66.9 Obesity, unspecified; Z68.34 Body mass index [BMI] 34.0-34.9, adult; R73.03 Prediabetes | CPT/HCPCS: 97802 ==

== ENCOUNTER → 2023-09-20 | Outpatient (CLI) | payer OTHER, SELFPAY ==
[2023-09-20 17:06] LABS: Absolute Lymphocyte Count 1.58 X10^3/uL (0.83-4.51); Basophil# 0.02 X10^3/uL; Basophil% 0.3 % (0-1); Eosinophil# 0.08 X10^3/uL; Eosinophils% 1.3 % (0-5); Hematocrit 41.9 % (37-47); Hemoglobin 13.5 g/dL (12.0-15.0); Lymphocyte # 1.58 X10^3/ul (0.83-4.51); Lymphocyte % 26.6 % (19-41); Mean Corp Hgb Conc 32.2 g/dL (32-36); Mean Corpuscular Hgb 30.3 pg (27.0-32.0); Mean Corpuscular Volume 93.9 fL (81-99); Monocyte# 0.26 X10^3/uL; Monocyte% 4.4 % (0-10); NRBC Flagged by Analyzer 0 % (0-5); Neutrophil # 3.99 X10^3/uL (2.7-7.7); Neutrophil % 67.2 % (47-70); Platelet Count 249 K/mm3 (150-450); RBC Distribution Width CV 13.6 % (11.6-14.6); Red Blood Count 4.46 M/mm3 (4.2-5.4); White Blood Count 5.9 K/mm3 (4.4-11.0)
[2023-09-20 17:19] LABS: Hemoglobin A1c 5.5 % (3.8-5.6)
[2023-09-20 18:05] LABS: ALB/GLOB Ratio 1.2 RATIO (0.9-2.4); AST(SGOT) 17 U/L (15-37); Alanine Aminotransfer ALT/SGPT 21 U/L (13-56); Albumin, Serum 3.8 g/dL (3.2-5.0); Alkaline Phosphatase 100 U/L (45-117); Anion Gap 8 (5-15); BUN 22 mg/dL (7-18); BUN/Creat Ratio 36.7 RATIO (10-20); Calcium,Total 8.8 mg/dL (8.5-10.1); Chloride 107 mmol/L (98-107); Cholesterol 184 mg/dL (200); EST Glomerular Filtration Rate 111 mL/min (>60); Est Glom Filt Rate - Afr Amer 135 mL/min (>60); Globulin 3.3 g/dL (2.2-4.2); Glucose 86 mg/dL (74-106); High Density Lipoprotein 56 mg/dL; Potassium 3.8 mmol/L (3.5-5.1); Protein, Total 7.1 g/dL (6.4-8.2); Sodium Level 140 mmol/L (136-145); Triglycerides 143 mg/dL; Very Low Density Lipoprotein 29 mg/dL (5-40)
== END | disposition home or self-care (01) ==
LOC: BIMLAB 15:47
PROVIDERS: PCP Internal Medicine; Referring Provider Internal Medicine; Visit Provider Internal Medicine
DX: Z00.00 Encounter for general adult medical examination without abnormal findings (principal); R73.03 Prediabetes
CPT/HCPCS: 36415; 80053; 80061; 83036; 85025

== ENCOUNTER → 2024-01-15 | Outpatient (CLI) | payer OTHER, SELFPAY ==
[2024-01-15 17:03] LABS: Absolute Lymphocyte Count 1.62 X10^3/uL (0.83-4.51); Absolute Neutrophil Count 2.9 X10^3/uL (2.0-7.7); Basophil# 0.04 X10^3/uL; Basophil% 0.8 % (0-1); Eosinophil# 0.13 X10^3/uL; Eosinophils% 2.6 % (0-5); Hematocrit 42.2 % (37-47); Hemoglobin 13.4 g/dL (12.0-15.0); Lymphocyte # 1.62 X10^3/ul (0.83-4.51); Lymphocyte % 32.8 % (19-41); Mean Corp Hgb Conc 31.8 g/dL (32-36); Mean Corpuscular Hgb 29.6 pg (27.0-32.0); Mean Corpuscular Volume 93.2 fL (81-99); Mean Platelet Vol. 10.3 fl (6.2-12.0); Monocyte# 0.28 X10^3/uL; Monocyte% 5.7 % (0-10); NRBC Flagged by Analyzer 0 % (0-5); Neutrophil # 2.86 X10^3/uL (2.7-7.7); Neutrophil % 57.9 % (47-70); Platelet Count 238 K/mm3 (150-450); RBC Distribution Width CV 13.4 % (11.6-14.6); RBC Distribution Width SD 45.8 fl (35.1-43.9); Red Blood Count 4.53 M/mm3 (4.2-5.4); White Blood Count 4.9 K/mm3 (4.4-11.0)
[2024-01-15 17:36] LABS: Vitamin B12 481 pg/mL (211-911)
[2024-01-15 17:52] LABS: Hemoglobin A1c 5.6 % (3.8-5.6)
[2024-01-15 18:13] LABS: ALB/GLOB Ratio 1.2 RATIO (0.9-2.4); AST(SGOT) 21 U/L (15-37); Alanine Aminotransfer ALT/SGPT 23 U/L (13-56); Albumin, Serum 3.7 g/dL (3.2-5.0); Alkaline Phosphatase 89 U/L (45-117); Anion Gap 4 (5-15); BUN 12 mg/dL (7-18); BUN/Creat Ratio 19.9 RATIO (10-20); Calcium,Total 8.8 mg/dL (8.5-10.1); Chloride 108 mmol/L (98-107); Cholesterol 197 mg/dL (200); EST Glomerular Filtration Rate 110 mL/min (>60); Est Glom Filt Rate - Afr Amer 133 mL/min (>60); Globulin 3.1 g/dL (2.2-4.2); Glucose 98 mg/dL (74-106); High Density Lipoprotein 51 mg/dL; Protein, Total 6.8 g/dL (6.4-8.2); Sodium Level 140 mmol/L (136-145); Thyroid Stim Hormone (TSH) 0.94 uIU/mL (0.358-3.74); Triglycerides 393 mg/dL; Very Low Density Lipoprotein 79 mg/dL (5-40)
== END | disposition home or self-care (01) ==
LOC: BIMLAB 15:24
PROVIDERS: PCP Internal Medicine
DX: E56.9 Vitamin deficiency, unspecified (principal); E66.3 Overweight; E34.9 Endocrine disorder, unspecified
CPT/HCPCS: 36415; 80053; 80061; 82607; 82746; 83036; 84443; 85025

== ENCOUNTER → 2024-04-02 | Outpatient (CLI) | payer OTHER, SELFPAY ==
--- NOTE | 2024-04-02 09:41 | BI_ITS ---
MAMMOGRAPHY - BILATERAL SCREENING REASON FOR EXAM: Female, 54 years old. Routine annual screening examination. PERTINENT HISTORY: Non-contributory. Prior left breast biopsy. TECHNIQUE: Digital bilateral breast mague (3D mammographic acquisition) in the CC and MLO projections. 2-D mediolateral oblique (MLO) and craniocaudad (CC) views of both breasts were obtained. CAD: Full Field Digital Mammography with Computer Added Detection was performed. COMPARISON: Comparison is made with prior study dated February 22, 2023 and December 31, 2021. FINDINGS: Breast Composition: The breasts are heterogeneously dense, which may obscure small masses. There are no dominant masses or suspicious calcifications. A tissue clip marker is seen in the superior retroareolar region of the left breast. No other significant abnormalities are identified. There has been no significant change since the prior study. BI/SCRN MAMM (CAD)W/MAGUE BILAT IMPRESSION: Stable bilateral screening mammogram. Yearly follow-up mammogram recommended. (A) ASSESSMENT CATEGORY: BIRADS Category 2: Benign. A letter regarding these results will be sent to the patient by the facility within 30 days. Approximately 10% of breast cancers are not detected by mammography. A normal mammogram should not delay biopsy of a clinically suspicious abnormality. [id number] Electronically Signed: Moody Campbell MD at 10:40 EDT ,
== END | disposition home or self-care (01) ==
LOC: OPBI 09:41
PROVIDERS: PCP Internal Medicine; Referring Provider Nurse Practitioner Women's Health; Visit Provider Nurse Practitioner Women's Health
DX: Z12.31 Encounter for screening mammogram for malignant neoplasm of breast (principal)
CPT/HCPCS: 77063; 77067

== ENCOUNTER → 2024-09-11 | Outpatient (CLI) | payer OTHER, SELFPAY ==
[2024-09-11 12:20] LABS: Hematocrit 42.2 % (37-47); Hemoglobin 13.9 g/dL (12.0-15.0); Mean Corp Hgb Conc 32.9 g/dL (32-36); Mean Corpuscular Hgb 30.8 pg (27.0-32.0); Mean Corpuscular Volume 93.6 fL (81-99); Mean Platelet Vol. 9.9 fl (6.2-12.0); Platelet Count 292 K/mm3 (150-450); RBC Distribution Width CV 13.4 % (11.6-14.6); RBC Distribution Width SD 45.4 fl (35.1-43.9); Red Blood Count 4.51 M/mm3 (4.2-5.4)
[2024-09-11 12:50] LABS: AST(SGOT) 18 U/L (15-37); Alanine Aminotransfer ALT/SGPT 29 U/L (13-56); Albumin, Serum 3.7 g/dL (3.2-5.0); Alkaline Phosphatase 94 U/L (45-117); Anion Gap 4 (5-15); BUN 19 mg/dL (7-18); BUN/Creat Ratio 28.6 RATIO (10-20); Calcium,Total 9.2 mg/dL (8.5-10.1); Chloride 110 mmol/L (98-107); Cholesterol 232 mg/dL (200); Creatinine, Serum 0.66 mg/dL (0.55-1.02); EST Glomerular Filtration Rate 98 mL/min (>60); Est Glom Filt Rate - Afr Amer 119 mL/min (>60); Globulin 3.7 g/dL (2.2-4.2); Glucose 99 mg/dL (74-106); High Density Lipoprotein 49 mg/dL; Potassium 4.4 mmol/L (3.5-5.1); Protein, Total 7.4 g/dL (6.4-8.2); Sodium Level 139 mmol/L (136-145); Thyroid Stim Hormone (TSH) 0.973 uIU/mL (0.358-3.740); Triglycerides 168 mg/dL; Very Low Density Lipoprotein 34 mg/dL (5-40)
[2024-09-11 13:47] LABS: Hemoglobin A1c 5.6 % (3.8-5.6)
== END | disposition home or self-care (01) ==
LOC: BIMLAB 09:47
PROVIDERS: PCP Internal Medicine; Referring Provider Physician Assistant; Visit Provider Physician Assistant
DX: E78.00 Pure hypercholesterolemia, unspecified (principal); R73.03 Prediabetes; E66.89 Other obesity not elsewhere classified; Z68.34 Body mass index [BMI] 34.0-34.9, adult
CPT/HCPCS: 36415; 80053; 80061; 83036; 84443; 85027

== ENCOUNTER → 2024-12-05 | Outpatient (CLI) | payer OTHER, SELFPAY ==
--- NOTE | 2024-12-05 14:59 | BD_ITS ---
PROCEDURE: DEXA BONE DENSITY STUDY REASON FOR EXAM: 54-year-old female. Osteoporosis screening. TECHNIQUE: DEXA scan of the lumbar spine and both hips. COMPARISON: None. FINDINGS: Lumbar spine: T-score -0.6. (Bone mineral density 0.982 g per cm2.); Left hip: T-score 0.790. (Bone mineral density 1.035 g per cm2.); Right hip: T-score -0.2. (Bone mineral density 0.822 g per cm2); FRAX* Results: 10 Year Probability of Fracture: Hip Fracture(1): 0.1% Major Osteoporotic Fracture(2): 5.0% *FRAX is a trademark of the [employer]'s [place] [facility] Metabolic Bone Disease, World Health Organization (WHO) Collaborating [place]. 1-The 10-year probability of fracture may be lower than reported if the patient has received treatment. 2-Major Osteoporotic Fracture: Clinical Spine, Forearm, Hip or Shoulder. The T-scores are also available for review on the [facility] PACS or by accessing the [facility] electronic medical record. BD/Dexa Bone Density Study IMPRESSION: Normal bone mineral density. Reading Location: [facility]
== END | disposition home or self-care (01) ==
LOC: OPBD 14:58
PROVIDERS: PCP Internal Medicine; Referring Provider Nurse Practitioner Family; Visit Provider Nurse Practitioner Family
DX: Z78.0 Asymptomatic menopausal state (principal)
CPT/HCPCS: 77080

== ENCOUNTER 2024-12-19 16:49 | Outpatient (CLI) | payer OTHER, SELFPAY ==
--- NOTE | 2024-12-19 16:54 | CT_ITS ---
PROCEDURE: LOW DOSE CT LUNG SCREENING REASON FOR EXAM: Patient has smoked 1 pack per day for 30 years. Patient quit smoking in July of 2020. TECHNIQUE: Low Dose CT Lung Screening without contrast COMPARISON: None. FINDINGS: PULMONARY NODULES: (Only nodules >6mm are reported) Nodules described below are on series 1 unless otherwise specified. Pulmonary Nodules: No concerning pulmonary nodules. Hardware:None Lymph Nodes:No mediastinal hilar or axillary lymphadenopathy. Heart and Vasculature:Normal heart size. No pericardial effusion.Thoracic aorta and pulmonary arteries have normal contours; noncontrast technique limits evaluation. Coronary Artery Calcifications: Absent Lungs and Airways: Mild emphysematous changes are present. Mild scarring at the lung bases. Pleura:No pleural effusion. No pneumothorax. Upper Abdomen:Visualized portions of the upper abdominal viscera are unremarkable. Bones:Bone windows are unremarkable. CT/Low Dose CT Lung Screening IMPRESSION: 1. BASED ON THE ACR LUNG RADS FOR THE MOST SUSPICIOUS NODULE (IF ANY) DESCRIBE D IN THIS REPORT, THE OVERALL LUNG RADS SCORE IS 1. 1 - NEGATIVE. RECOMMEND 12-MONTH SCREENING LDCT.. 2. SMOKING CESSATION COUNSELING IS RECOMMENDED IF THE PATIENT IS STILL SMOKING . 3. OTHER SIGNIFICANT FINDINGSNone. One or more dose reduction techniques were used (e.g., Automated exposure contr ol, adjustment of the mA and/or kV according to patient size, use of iterative reconstruction technique). The following information is provided for reference:Lung-RADS 2021 Assessment C ategories. Additional information involving Lung-RADS is available at [email or web address]. 0-INCOMPLETE 1-NEGATIVE:No nodules or definitely benign nodules. Complete, central, popcorn , or centric ring calcifications OR fat containing 2-BENIGN APPEARANCE (based on imaging features or indolent behavior). Juxtaple ural nodule: < 10mm AND solid; smooth margins; oval, entiform, or triangular shape Solid nodule: <6mm at baseline or new< 4mm Part solid Nodule: < 6mm total mean diameter at baseline Nonsolid nodule:(GGN) < 30mm OR >=30mm stable or slowly growing Airway nodule, subsegmental at baseline, new, or stable Category 3 nodule stabl e or decreased in size at 6-month follow-up CT or Category 3 or 4A nodules that resolve on follow-up OR category 4B findings prov en to be benign following diagnotic work up. 3 - Probably Benign (Based on imaging features or behavior) Solid Nodule: >= 6 to <8mm at baseline OR new 4 to <6mm Part-solid nodule: >= 6mm toal mean diam. with solid component <6mm at baseline OR new < 6mm total mean diam. Non-solid nodule: GGN >= 30mm at baseline or new Atypical pulmonary cyst: Growing cystic component (mean diam.) of thick-walled cyst Category 4A nodule stable or decreased in size at 3-month follow-up CT (excl.ai rway). 4A - Suspicious Solid nodule: >=8 to < 15mm at baseline OR growing < 8mm OR new 6 to < 8mm Part solid nodule: >= 6mm total mean diam. w/ solid component >=6mm to < 8mm at baseline OR new or growing < 4mm solid component Airway nodule, segmental or more proximal at baseline or new Atypical pulmonary cyst: Thick-walled OR multilocular at baseline OR becomes mu ltilocular 4B - Very Suspicious Airway nodule, segmental or more proximal, and stable or growing Solid nodule: >= 15mm at baseline OR new or growing >= 8mm Part solid nodule: Solid component >= 8mm OR new or growing >= 4mm solid compon ent Atypical pulmonary cyst: Thick-walled with growing wall thickness/nodularity OR Growing multilocular (mean diam.) OR Multilocular with increased loculation or new/increased opacity Slow-growing solid or part solid nodule w/ growth over multiple screening exams 4X - Very Suspicious Category 3 or 4 nodules with additional features that increase the suspicion fo r lung cancer. S - Clinically Significant or potentially significant findings (non-lung cancer ) 3. OTHER SIGNIFICANT FINDINGSNone. One or more dose reduction techniques were used (e.g., Automated exposure contr ol, adjustment of the mA and/or kV according to patient size, use of iterative reconstruction technique). The following information is provided for reference:Lung-RADS 202 Assessment C ategories. Additional information involving Lung-RADS is available at [email or web address]. 0-INCOMPLETE 1-NEGATIVE:No nodules or definitely benign nodules. Complete, central, popcorn , or centric ring calcifications OR fat containing 2-BENIGN APPEARANCE (based on imaging features or indolent behavior). Juxtaple ural nodule: < 10mm AND solid; smooth margins; oval, entiform, or triangular shape Solid nodule: <6mm at baseline or new< 4mm Part solid Nodule: < 6mm total mean diameter at baseline Nonsolid nodule:(GGN) < 30mm OR >=30mm stable or slowly growing Airway nodule, subsegmental at baseline, new, or stable Category 3 nodule stabl e or decreased in size at 6-month follow-up CT or Category 3 or 4A nodules that resolve on follow-up OR category 4B findings prov en to be benign following diagnotic work up. 3 - Probably Benign (Based on imaging features or behavior) Solid Nodule: >= 6 to <8mm at baseline OR new 4 to <6mm Part-solid nodule: >= 6mm toal mean diam. with solid component <6mm at baseline OR new < 6mm total mean diam. Non-solid nodule: GGN >= 30mm at baseline or new Atypical pulmonary cyst: Growing cystic component (mean diam.) of thick-walled cyst Category 4A nodule stable or decreased in size at 3-month follow-up CT (excl.ai rway). 4A - Suspicious Solid nodule: >=8 to < 15mm at baseline OR growing < 8mm OR new 6 to < 8mm Part solid nodule: >= 6mm total mean diam. w/ solid component >=6mm to < 8mm at baseline OR new or growing < 4mm solid component Airway nodule, segmental or more proximal at baseline or new Atypical pulmonary cyst: Thick-walled OR multilocular at baseline OR becomes mu ltilocular 4B - Very Suspicious Airway nodule, segmental or more proximal, and stable or growing Solid nodule: >= 15mm at baseline OR new or growing >= 8mm Part solid nodule: Solid component >= 8mm OR new or growing >= 4mm solid compon ent Atypical pulmonary cyst: Thick-walled with growing wall thickness/nodularity OR Growing multilocular (mean diam.) OR Multilocular with increased loculation or new/increased opacity Slow-growing solid or part solid nodule w/ growth over multiple screening exams 4X - Very Suspicious Category 3 or 4 nodules with additional features that increase the suspicion fo r lung cancer. S - Clinically Significant or potentially significant findings (non-lung cancer ) Reading Location: [place] [id number]
== END 2024-12-19 23:59 | disposition home or self-care (01) ==
LOC: CT 16:53
PROVIDERS: PCP Internal Medicine; Referring Provider Nurse Practitioner Family; Visit Provider Nurse Practitioner Family
DX: Z87.891 Personal history of nicotine dependence (principal)
CPT/HCPCS: 71271

== ENCOUNTER → 2025-05-19 | Outpatient (CLI) | payer OTHER, SELFPAY ==
--- NOTE | 2025-05-19 12:45 | BI_ITS ---
EXAM: Digital screening mammogram with mague and CAD DATE: 05/19/2025 CLINICAL HISTORY: F, Age 55 y/o , SCREEN FOR BREAST CANCER TECHNIQUE: SCRN MAMM (CAD)W/MAGUE BILAT COMPARISON: Prior exam(s) were compared. FINDINGS: TISSUE DENSITY: There are scattered areas of fibroglandular density. Bilateral Breast Mammographic Findings: No suspicious masses, calcifications or areas of architectural distortion. BI/SCRN MAMM (CAD)W/MAGUE BILAT IMPRESSION: No mammographic evidence of malignancy in either breast OVERALL FINAL ASSESSMENT BI-RADS 1: NEGATIVE. RECOMMENDATION: Routine annual follow-up in 1 Year A letter with findings and recommendations will be mailed to the patient. Reading Location: [facility]
== END | disposition home or self-care (01) ==
LOC: OPBI 12:47
PROVIDERS: PCP Nurse Practitioner Family; Referring Provider Nurse Practitioner Family; Visit Provider Nurse Practitioner Family
DX: Z12.31 Encounter for screening mammogram for malignant neoplasm of breast (principal)
CPT/HCPCS: 77063; 77067

== ENCOUNTER 2025-06-28 12:50 | Emergency (ER) | payer OTHER, SELFPAY ==
[2025-06-28 12:50] VITALS: BP 139/87; PULSE 93; RESP 20; TEMP 36.8; O2SAT 100; BMI 28.1
--- OUTSIDE RECORDS SUMMARY | 2025-06-28 13:28 | XMS RPT_ITS | CCD ---
Author Organization [facility] Care Team Providers Care Advertising Strategist Name Role Phone Emmayoni Janice Unavailable Lupe Murillo Unavailable Lela Rabago Unavailable Gene Andrade Unavailable Unavailable Unavailable Unavailable Lucero French Unavailable Unavailable Gravius, Kaycee Unavailable Unavailable Eugenie Lee Unavailable Manohar Snyder Unavailable David, Viviana Unavailable Unavailable Gene Parikh Unavailable Unavailable Ciesa FAITHHelen E Unavailable Lupe Murillo Unavailable Lela Rabago MD Unavailable Eugenie Lee MD Unavailable Manohar Snyder Unavailable Gene Parikh LPN Unavailable Unavailable Viviana Hernandez LPN Unavailable Unavailable Lucero French LPN Unavailable Unavailable Gravius STAGE ELECTRICIAN HELPER, Kaycee Unavailable Unavailable Unavailable Unavailable Ciesa AUTO PARTS HANDLER, AUTO PARTS HANDLER-C [facility] Primary Care Provider Ciesa AUTO PARTS HANDLER, AUTO PARTS HANDLER-C Helen Referring Provider [phone] Dr. Kelsea Chu Attending Provider Marv AUTO PARTS HANDLER, AUTO PARTS HANDLER-C Tiffany Attending Provider [phone] Usha Helen Unavailable Cibarbara Helen Unavailable Ciesa AUTO PARTS HANDLER, AUTO PARTS HANDLER-C [facility] Primary Care Provider Ciesa AUTO PARTS HANDLER, AUTO PARTS HANDLER-C Helen Referring Provider [phone] ABIGAIL Jacobs Attending Provider Dr. Kelsea Chu Attending Provider Len, AUTO PARTS HANDLER-C Lu Primary Care Provider Len, AUTO PARTS HANDLER-C Lu Referring Provider Dr. Kelsea Chu Attending Provider ELKIN Robbins Attending Provider Dr. Chanel Cisneros Attending Provider [phone] Dr. Chanel Cisneros Primary Care Provider Dr. Chanel Cisneros Referring Provider [phone] ELKIN Paul Attending Provider Blayne TAPIA, Dr. Buchanan Primary Care Provider Blayne TAPIA, Dr. Buchanan Referring Provider [phone] [place] PARKS-CErick Attending Provider Kendall AUTO PARTS HANDLER-CSisi Attending Provider Kendall AUTO PARTS HANDLER-C, Sisi Referring Provider Len AUTO PARTS HANDLER-C, Lu Primary Care Provider Len AUTO PARTS HANDLER-C, Lu Referring Provider Dr. Scott Fleming MD Attending Provider Aman Triana Attending Unavailable Oleghe, Efewongbe Primary Care Unavailable Oleghe, Efewongbe Referring Unavailable Michael Fields Attending Unavailable Oleghe, Efewongbe Primary Care Unavailable Oleghe, Efewongbe Referring Unavailable Scott Fleming Attending Unavailable Len, Lu Primary Care Unavailable Len, Lu Referring Unavailable Oleghe, Efewongbe Referring Unavailable Oleghe, Efewongbe Primary Care Unavailable Sisi Argueta Attending Unavailable Oleghe, Efewongbe Referring Unavailable Oleghe, Efewongbe Primary Care Unavailable Erick Niño NP Attending Unavailable Len, Lu Referring Unavailable Oleghe, Efewongbe Primary Care Unavailable Lu Harrington Attending Unavailable Len, Lu Referring Unavailable Oleghe, Efewongbe Primary Care Unavailable Lu Harrington Attending Unavailable Lu Harrington Primary Care Unavailable Scott Fleming Referring Unavailable Scott Fleming Attending Unavailable Aman Triana Attending Unavailable Aman Triana Referring Unavailable Chanel Cisneros Primary Care Unavailable Sisi Argueta Attending Unavailable Sisi Argueta Referring Unavailable Lu Harrington Primary Care Unavailable Medications Current Medications Medication Drug Class(es) Dates Sig (Normalized) Sig (Original) [id number] 200 actuat albuterol 0.09 mg/actuat metered dose inhaler (20 sources) beta2-Adrenergic Agonist Start: 02-16-2025 Albuterol Sulfate 90 mcg/actuation HFA aerosol inhaler Active 2 NMA INHALATION EVERY 4-6 HOURS as needed for shortness of breath or wheezing 6.7 0 February 16, 2025 12:00am Start: 07-28-2014 End: 11-16-2016 Proventil HFA 108 (90 Base) MCG/ACT Inhalation Aerosol Solution 2 (two) Aerosol Soln q 6 hr prn for 0 days Quantity: 1 {Inhaler} Refills: 0 Ordered: 16-Nov-2016 Brenna Edward RN Start : 28-Jul-2014 End : 16-Nov-2016 Inactive Start: 07-28-2014 End: 11-16-2016 Proventil HFA 108 (90 Base) MCG/ACT Inhalation Aerosol Solution 2 (two) Aerosol Soln q 6 hr prn for 0 days Quantity: 1 {Inhaler} Refills: 0 Ordered: 16-Nov-2016 Brenna Edward RN Start : 28-Jul-2014 End : 16-Nov-2016 Inactive cholecalciferol 0.025 mg oral capsule (1 source) Vitamin D Start: 06-06-2025 take 1 capsule by mouth once daily Cholecalciferol (Vitamin D3) 25 mcg (1,000 unit) capsule Active 25 ug PO daily June 06, 2025 12:00am doxycycline hyclate 20 mg oral tablet (20 sources) Tetracycline- class Drug Start: 05-06-2025 take 1 tablet by mouth twice daily Doxycycline Hyclate 20 mg tablet Active 20 mg PO TWICE A DAY May 06, 2025 12:00am Start: 02-16-2025 End: 02-23-2025 take 1 capsule by mouth twice daily Doxycycline Hyclate 100 mg capsule Discontinued 100 mg PO TWICE A DAY 14 7 0 February 16, 2025 12:00am February 22, 2025 12:00am February 23, 2025 12:08am Start: 09-11-2024 End: 02-16-2025 take 1 tablet by mouth twice daily Doxycycline Hyclate 20 mg tablet Discontinued 20 mg PO TWICE A DAY September 11, 2024 1:00am February 16, 2025 9:43am Rosacea Start: 03-12-2024 End: 09-02-2024 Doxycycline Hyclate 50 mg ca psule Discontinued 20 mg PO TWICE A DAY March 12, 2024 12:00am September 02, 2024 12:55pm Start: 12-26-2011 End: 01-09-2012 take 1 tablet by mouth twice daily DOXYCYCLINE HYCLATE, 100MG (Oral Tablet) 1 Tablet bid for 14 days Quantity: 28 {Tablet} Refills: 0 Ordered: 26-Dec-2011 Start : 26-Dec-2011 End : 09-Jan-2012 Inactive ivermectin 10 mg/ml topical cream (4 sources) Antiparasitic, Pediculicide Start: 06-06-2025 Ivermectin 1 % cream Active 1 NMA TOPICAL AT BEDTIME June 06, 2025 12:00am Start: 03-12-2024 End: 02-16-2025 Ivermectin 1 % cream Discont inued 1 NMA TOPICAL DAILY March 12, 2024 12:00am February 16, 2025 9:43am Lactobacillus Combination No.9 (Adult 50 Plus Probiotic) 4 billion cell capsule (9 sources) Start: 06-26-2020 take 4 capsules by mouth once daily Lactobacillus Combination No.9 (Adult 50 Plus Probiotic) 4 billion cell capsule Active 4000 MMU CELLS PO DAILY June 26, 2020 2:41pm administer with a meal Start: 06-26-2020 take 4 capsules by m outh once daily Lactobacillus Combination No.9 (Adult 50 Plus Probiotic) 4 billion cell capsule Active 4000 NMA PO DAILY June 26, 2020 12:00am administer with a meal Start: 06-26-2020 take 4 capsules by m outh once daily Lactobacillus Combination No.9 (Adult 50 Plus Probiotic) 4 billion cell capsule Active 4000 MMU CELLS PO DAILY June 25, 2020 11:00pm administer with a meal Start: 06-26-2020 take 4 capsules by m outh once daily Lactobacillus Combination No.9 (Adult 50 Plus Probiotic) 4 billion cell capsule Active 4000 MMU CELLS PO DAILY June 26, 2020 12:00am administer with a meal 24 hr metFORMIN hydrochloride 500 mg extended release oral tablet (4 sources) Biguanide Start: 06-06-2025 take 1 tablet by mouth once daily Metformin (Glucophage Xr) 500 mg tablet extended release 24 hr Active 500 mg PO daily June 06, 2025 12:00am Start: 05-06-2025 End: 06-06-2025 Metformin 1,000 mg tablet Di scontinued 1250 mg PO daily May 06, 2025 12:00am June 06, 2025 1:34pm Multivitamin preparation (6 sources) Start: 06-26-2020 take 1 tablet by mouth once daily Multivitamin Active 1 TABLET PO DAILY June 26, 2020 2:40pm Start: 06-26-2020 take 1 tablet by fred th once daily Multivitamin Active 1 TABLET PO DAILY June 25, 2020 11:00pm Start: 06-26-2020 take 1 tablet by fred th once daily Multivitamin Active 1 TABLET PO DAILY June 26, 2020 12:00am Multivitamin tablet (3 sources) Start: 06-26-2020 Multivitamin t ablet Active 1 {tbl} PO DAILY June 26, 2020 12:00am saw palmetto-pumpkin seed oi l (1 source) Start: 06-13-2025 saw palmetto-p umpkin seed oil Active 1 NMA PO DAILY June 13, 2025 12:00am topiramate 25 mg oral tablet (8 sources) Start: 05-06-2025 Topiramate 25 mg tablet Active 44 mg PO TWICE A DAY May 06, 2025 12:00am Start: 07-31-2023 End: 03-12-2024 take 1 tablet by mouth twice daily before breakfast Topiramate (Topamax) 25 mg tablet Discontinued 25 mg PO TWICE A DAY 60 July 31, 2023 12:00am March 12, 2024 3:22pm take before breakfast and before dinner Completed/Discontinued Medications Medication Drug Class(es) Dates Sig (Normalized) Sig (Original) amoxicillin 500 mg oral capsule (5 sources) Penicillin-class Antibacterial Start: 08-13-2023 End: 08-23-2023 take 1 capsule by mouth twice daily Amoxicillin 500 mg capsule Discontinued 500 mg PO TWICE A DAY 20 10 August 13, 2023 12:00am August 22, 2023 12:00am August 23, 2023 12:10am amoxicillin 875 mg / clavulanate 125 mg oral tablet (20 sources) Penicillin-class Antibacterial Start: 09-11-2024 End: 02-16-2025 Amoxicillin-Pot Clavulanate 875-125 mg tablet Discontinued 1 {tbl} PO TWICE A DAY September 11, 2024 1:00am February 16, 2025 9:43am Start: 12-08-2016 End: 05-26-2020 take 1 tablet by mouth twice daily Augmentin 875-125 MG Oral Tablet 1 Tablet bid for 0 days Quantity: 20 {Tablet} Refills: 0 Ordered: 08-Dec-2016 Gene Parikh LPN Start : 08-Dec-2016 End : 26-May-2020 Discontinued Comments: This order discontinued per [facility]. Comment on above: This order discontin ued per [facility]. azaTHIOprine 50 mg oral tablet (17 sources) Purine Antimetabolite End: 06-27-20 12 take 1 tablet by mouth once daily AZATHIOPRINE, 50MG (Oral Tablet) 1 qd for 0 days Refills: 0 Ordered: 27-Jun-2012 Jelena Frost End : 27-Jun-2012 Inactive 12 hr buPROPion hydrochloride 150 mg extended release oral tablet (20 sources) Aminoketone Start: 01-15-20 22 take 1 tablet by mouth twice daily Wellbutrin SR 150 MG Oral Tablet Extended Release 12 Hour 1 (one) Tablet bid for 90 days Quantity: 180 {Tablet} Refills: 1 Ordered: 14-Jan-2022 Helen Kerr Mary Start : 14-Jan-2022 Active Start: 07-07-2021 take 1 tablet by fred th twice daily Wellbutrin SR 150 MG Oral Tablet Extended Release 12 Hour 1 (one) Tablet bid for 90 days Quantity: 180 {Tablet} Refills: 1 Ordered: 07-Jul-2021 Helen Kerr CNP, CNP Helen Barnhart Start : 07-Jul-2021 Active Start: 01-04-2021 take 1 tablet by fred th twice daily Wellbutrin SR 150 MG Oral Tablet Extended Release 12 Hour 1 (one) Tablet bid for 90 days Quantity: 180 {Tablet} Refills: 1 Ordered: 04-Jan-2021 Helen Kerr CNP, CNP, Mary E Start : 04-Jan-2021 Active Start: 06-15-2020 End: 02-08-2023 take 1 tablet by mouth twice daily Bupropion Hcl (Wellbutrin Sr) 150 mg tablet sustained-release 12 hr Discontinued 150 mg PO TWICE A DAY September 16, 2020 1:00am February 08, 2023 12:00pm calcium carbonate 1500 mg / cholecalciferol 200 unt oral tablet (17 sources) Vitamin D End: 05-13-2013 take 1 tablet by mouth once daily CALCIUM + D, [id number] (Oral Tablet) 1 qd for 0 days Refills: 0 Ordered: 13-May-2013 End : 13-May-2013 Inactive cefuroxime 500 mg oral tablet (17 sources) Cephalosporin Antibacterial Start: 12-26-2011 End: 01-09-2012 take 1 tablet by mouth twice daily CEFTIN, 500MG (Oral Tablet) 1 Tablet bid for 14 days Quantity: 28 Refills: 0 Ordered: 26-Dec-2011 Start : 26-Dec-2011 End : 09-Jan-2012 Inactive cephalexin 500 mg oral capsule (17 sources) Cephalosporin Antibacterial Start: 11-18-2013 End: 07-28-2014 take 1 capsule by mouth three times daily KEFLEX, 500MG (Oral Capsule) 1 (one) Capsule tid for 0 days Quantity: 30 {Capsule} Refills: 0 Ordered: 28-Jul-2014 Brenna Edward RN Start : 18-Nov-2013 End : 28-Jul-2014 Inactive 24 hr clarithromycin 500 mg extended release oral tablet (17 sources) Macrolide Antimicrobial Start: 07-23-2007 End: 08-27-2007 take 2 tablets by mouth once daily BIAXIN XL PAC, 500MG (Oral Tablet Extended Release 24 Hour) 2 (two) Tablet ER 24HR QD for 0 days Quantity: 14 {Tablet_ER_24HR} Refills: 0 Ordered: 23-Jul-2007 MARIA Minor LPN Start : 23-Jul-2007 End : 27-Aug-2007 Discontinued codeine phosphate 2 mg/ml / guaiFENesin 20 mg/ml oral solution (17 sources) Opioid Agonist Start: 07-28-2014 End: 11-16-2016 Cheratussin AC 100-10 MG/5ML Oral Syrup 1 Teaspoon(s) q6 hrs prn cough for 0 days Quantity: 6 {Ounce} Refills: 0 Ordered: 16-Nov-2016 Brenna Edward RN Start : 28-Jul-2014 End : 16-Nov-2016 Inactive Comments: six ounces Comment on above: six ounces Curamed + DIM Complex (12 sources) Curamed + DIM Complex Active dexamethasone 6 mg oral tablet (4 sources) Corticosteroid Start: 10-19-2023 End: 09-11-2024 take 1 tablet by mouth once daily Dexamethasone 6 mg tablet Discontinued 6 mg PO DAILY 5 0 October 19, 2023 1:00am September 11, 2024 9:58am docosahexaenoic acid 120 mg / eicosapentaenoic acid 180 mg oral capsule (16 sources) End: 05-13-2013 take 1 capsule by mouth once daily OMEGA-3, 1000MG (Oral Capsule) 1 qd for 0 days Refills: 0 Ordered: 13-May-2013 End : 13-May-2013 Inactive ergocalciferol 1.25 mg oral capsule (17 sources) Provitamin D2 Compound Start: 12-28-2011 End: 06-27-2012 take 1 capsule by mouth two times weekly ERGOCALCIFEROL, [id number] (Oral Capsule) 1 Capsule twice weekly for 0 days Quantity: 24 {Capsule} Refills: 0 Ordered: 27-Jun-2012 Jelena Frost Start : 28-Dec-2011 End : 27-Jun-2012 Inactive 84 hr estradiol 0.85346 mg/hr transdermal system (20 sources) Estrogen Start: 05-24-2022 End: 05-06-2025 apply 1 dose transdermal route two times weekly, then apply 1 dose transdermal route once Estradiol 0.025 mg/24 hr patch semiweekly Discontinued 1 NMA TD TWICE A WEEK April 23, 2025 9:15am May 06, 2025 10:40am apply 1 patch for 3 days alternating with 1 patch for 4 days each week Start: 05-24-2022 End: 02-08-2023 apply 1 dose transdermal route two times weekly, then apply 1 dose transdermal route once Estradiol Discontinued 1 PATCH TD TWICE A WEEK January 18, 2023 2:36pm February 08, 2023 12:27pm apply 1 patch for 3 days alternating with 1 patch for 4 days each week Start: 03-11-2022 End: 02-08-2023 Estradiol 0.0375 mg/24 hr pa tch semiweekly Discontinued 1 NMA TD TWICE A WEEK 8 March 11, 2022 12:00am February 08, 2023 12:05pm apply 1 patch for 3 days alternating with 1 patch for 4 days each week for 3 wks per 4-wk cycle Start: 03-11-2022 End: 02-08-2023 Estradiol Discontinued 1 PAT CH TD TWICE A WEEK March 11, 2022 12:00am February 08, 2023 12:05pm apply 1 patch for 3 days alternating with 1 patch for 4 days each week for 3 wks per 4-wk cycle Start: 10-15-2021 End: 02-08-2023 apply 1 dose transdermal route two times weekly, then apply 1 dose transdermal route once Estradiol 0.05 mg/24 hr patch semiweekly Discontinued 1 NMA TD TWICE A WEEK 8 October 15, 2021 2:17pm February 08, 2023 12:01pm apply 1 patch for 3 days alternating with 1 patch for 4 days each week Start: 10-15-2021 End: 02-08-2023 apply 1 dose transdermal route two times weekly, then apply 1 dose transdermal route once Estradiol Discontinued 1 PATCH TD TWICE A WEEK 8 October 15, 2021 2:17pm February 08, 2023 12:01pm apply 1 patch for 3 days alternating with 1 patch for 4 days each week Start: 09-28-2020 End: 10-15-2021 apply 1 dose transdermal route two times weekly, then apply 1 dose transdermal route once Estradiol 0.025 mg/24 hr patch semiweekly Discontinued 1 NMA TD TWICE A WEEK 8 January 25, 2021 1:12pm October 15, 2021 2:25pm apply 1 patch for 3 days alternating with 1 patch for 4 days each week Start: 09-28-2020 End: 10-15-2021 apply 1 dose transdermal route two times weekly, then apply 1 dose transdermal route once Estradiol Discontinued 1 PATCH TD TWICE A WEEK January 25, 2021 1:12pm October 15, 2021 2:25pm apply 1 patch for 3 days alternating with 1 patch for 4 days each week 84 hr estradiol 0.96110 mg/hr / norethindrone acetate 0.69713 mg/hr transdermal system (9 sources) Estrogen Start: 09-16-2020 End: 09-28-2020 Estradiol-Norethindrone Acet (Combipatch) 0.05-0.14 mg/24 hr patch semiweekly Discontinued 1 NMA TD TWICE A WEEK 06 10September 16, 2020 1:00am September 28, 2020 12:06pm apply 1 patch every 3 days alternating with 1 patch every 4 days Start: 09-16-2020 End: 09-28-2020 Estradiol-Norethindrone Acet (Combipatch) 0.05-0.14 mg/24 hr patch semiweekly Discontinued 1 PATCH TD TWICE A WEEK September 16, 2020 1:00am September 28, 2020 12:06pm apply 1 patch every 3 days alternating with 1 patch every 4 days hormonal supplement (9 sources) Start: 06-26-2020 End: 01-15-2021 take 1 tablet by mouth once daily hormonal supplement Discontinued 1 TABLET PO daily June 26, 2020 2:54pm January 15, 2021 8:11am Start: 06-26-2020 End: 01-15-2021 hormonal supplement Disconti nued 1 {tbl} PO daily 0 June 26, 2020 12:00am January 15, 2021 8:11am Start: 06-26-2020 End: 01-15-2021 take 1 tablet by mouth once daily hormonal supplement Discontinued 1 TABLET PO daily June 25, 2020 11:00pm January 15, 2021 7:11am Start: 06-26-2020 End: 01-15-2021 take 1 tablet by mouth once daily hormonal supplement Discontinued 1 TABLET PO daily June 26, 2020 12:00am January 15, 2021 8:11am lansoprazole 30 mg delayed release oral capsule (17 sources) Proton Pump Inhibitor Start: 11-02-2007 End: 01-13-2009 PREVACID, 30MG (Oral Capsule Delayed Release) Capsule DR QD for 0 days Quantity: 30 {Capsule_DR} Refills: 2 Ordered: 13-Jan-2009 MARIA Minor LPN Start : 02-Nov-2007 End : 13-Jan-2009 Inactive LORazepam 0.5 mg oral tablet (17 sources) Benzodiazepine Start: 06-27-2011 End: 06-27-2012 take 1 tablet by mouth every eight hours as needed for anxiety ATIVAN, 0.5MG (Oral Tablet) 1 Tablet q8hrs prn anxiety for 0 days Quantity: 15 {Tablet} Refills: 0 Ordered: 27-Jun-2012 Jelena Frost Start : 27-Jun-2011 End : 27-Jun-2012 Inactive magnesium glycinate 100 mg oral tablet (5 sources) Start: 09-20-2023 End: 09-11-2024 take 1 tablet by mouth once daily Magnesium Glycinate 100 mg tablet Discontinued 100 mg PO DAILY September 20, 2023 1:00am September 11, 2024 9:58am magnesium hydroxide 1200 mg chewable tablet (7 sources) Start: 03-31-2023 End: 10-18-2023 Magnesium Hydroxide (Dulcolax (Magnesium Hydroxide)) 1,200 mg tablet,chewable Discontinued mg PO March 31, 2023 12:00am October 18, 2023 5:21pm medroxyPROGESTERone acetate 2.5 mg oral tablet (20 sources) Progestin Start: 05-24-2022 End: 03-17-2025 take 1 tablet by mouth once daily Medroxyprogesterone 2.5 mg tablet Discontinued 2.5 mg PO DAILY 28 10February 19, 2024 11:46am March 12, 2024 3:44pm norethindrone acetate 5 mg oral tablet (20 sources) Start: 10-15-2021 End: 02-08-2023 Norethindrone Acetate (Aygestin) 5 mg tablet Discontinued 5 mg PO DAILY January 23, 2022 12:20am February 08, 2023 12:02pm take 14 days out of the month. Start: 01-15-2021 End: 10-15-2021 take 1 tablet by mouth once daily Norethindrone Acetate 5 mg tablet Discontinued 5 mg PO DAILY 28 10January 25, 2021 2:26pm October 15, 2021 2:25pm OMEGA-3, 1000MG (Oral Capsule) (1 source) End: 05-13-2013 take 1 capsule by mouth once daily OMEGA-3, 1000MG (Oral Capsule) 1 qd for 0 days Refills: 0 Ordered: 13-May-2013 End : 13-May-2013 Inactive phentermine hydrochloride 37.5 mg oral tablet (20 sources) Sympathomimetic Amine Anorectic Start: 04-28-2023 End: 03-12-2024 Phentermine (Adipex-P) 37.5 mg tablet Discontinued 18.75 mg PO daily 13 11July 31, 2023 4:23pm March 12, 2024 3:22pm Menopausal syndrome Menopausal and female climacteric states BMI 32 microencapsulated potassium chloride 10 meq extended release oral tablet (17 sources) End: 01-13-2009 take 4 tablets by mouth once daily K-DUR, 10MEQ (Oral Tablet Extended Release) 4 qd for 0 days Refills: 0 Ordered: 13-Jan-2009 MARIA Minor LPN End : 13-Jan-2009 Inactive predniSONE 20 mg oral tablet (20 sources) Start: 07-28-2014 End: 11-16-2016 take 1 tablet by mouth twice daily, then take 1 tablet by mouth once daily, then take 0.5 tablet by mouth once daily PredniSONE 20 MG Oral Tablet 1 Tablet uad for 0 days Quantity: 11 {Tablet} Refills: 0 Ordered: 16-Nov-2016 Brenna Edward RN Start : 28-Jul-2014 End : 16-Nov-2016 Inactive Comments: 1 tab bid for 2 days, 1 tab qd for 3 days then 1/2 tab qd for 4 days End: 01-13-2009 take 1.5 tablets by mouth once daily PREDNISONE, 10MG (Oral Tablet) 1.5 tablets qd for 0 days Refills: 0 Ordered: 13-Jan-2009 MARIA Minor LPN End : 13-Jan-2009 Inactive Comment on above: 1 tab bid for 2 days , 1 tab qd for 3 days then 1/2 tab qd for 4 days 24 hr venlafaxine 75 mg extended release oral capsule (20 sources) Serotonin and Norepinephrine Reuptake Inhibitor Start: 3 End: 7 take 1 capsule by mouth once daily Effexor XR 75 MG Oral Capsule Extended Release 24 Hour 1 Capsule ER 24HR daily for 0 days Quantity: 30 {Capsule_ER_24HR} Refills: 0 Ordered: 16-Nov-2016 Brenna Edward RN Start : 13-May-2013 End : 16-Nov-2016 Inactive Start: 06-27-2011 End: 05-13-2013 take 1 capsule by mouth once daily EFFEXOR XR, 37.5MG (Oral Capsule Extended Release 24 Hour) 1 Capsule ER 24HR daily for 0 days Quantity: 30 {Capsule_ER_24HR} Refills: 0 Ordered: 13-May-2013 Start : 27-Jun-2011 End : 13-May-2013 Inactive NEGATED: Highlighted row has not occurred!drug or medication (14 sources) No Known Histori joel Medications NEGATED: Highlighted row has not occurred!No Known Historical Medications (2 sources) No Known Histori joel Medications Problems Active Problems Problem Classification Problem Date Documented Date Episodic/Chronic Abdominal pain (20 sources) Acute abdominal pain; Translations: [Generalized abdominal pain] Resolved : 05-26-20 20 05-26-2020 Episodic Comment on above: deveoping flu? vs gb /pancreas?-gastritis? no ppi at this time better after PPIreve iwed with patient recent tests Administrative/soci al admission (7 sources) Patient encounter status; Translations: [Encounter for smoking cessation counseling] 06-15-2020 Episodic Allergic reactions (18 sources) Contact dermatitis due to poison jose manuel; Translations: [Poison jose manuel] Resolved : 05-26-20 20 05-26-2020 Episodic Anxiety disorders (20 sources) Anxiety state; Translations: [Anxiety] 05-26-2020 Chronic Comment on above: marriage better, mor e patience, weight back now. talk about when stop. if just situational could take til spring. if notice help all round had for years, could stay on. 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 Calculus of urinary tract (9 sources) Kidney stone; Translations: [Calculus of kidney] 09-21-2021 Episodic Cardiac dysrhythmias (9 sources) Palpitations; Translations: [Palpitations] 01-31-2022 Episodic Chronic obstructive pulmonary disease and bronchiectasis (19 sources) Bronchitis; Translations: [Bronchitis] Resolved : 08-27-20 07 05-26-2020 Episodic Chronic obstructive pulmonary disease and bronchiectasis (20 sources) Chronic obstructive pulmonary disease and bronchiectasis Disorders of lipid metabolism (15 sources) Hypercholesterolemia; Translations: [Pure hypercholesterolemia, unspecified] Onset: 10-10-20 24 04-28-2023 Chronic Fever of unknown origin (20 sources) Fever with chills; Translations: [Fever and chills] Resolved : 05-26-20 20 05-26-2020 Episodic Hepatitis (20 sources) Other chronic hepatitis; Translations: [Chronic hepatitis] Onset: 04-29-2005-26-2020 Chronic Comment on above: autoimmune hepatitis on imuran 50mg daily since 2006, [place] Jeremiah Abdalla biopsied liver 2007Normal liver function Hepatitis (3 sources) Hepatitis Influenza (18 sources) Influenza due to Influenza A virus subtype H1N1; Translations: [Influenza A (H1N1)] Resolved : 05-26-2005-26-2020 Episodic Malaise and fatigue (20 sources) Fatigue; Translations: [Fatigue] Onset: 06-13-20 Resolved : 05-26-2005-26-2020 Episodic Menopausal disorders (20 sources) Menopausal syndrome; Translations: [Menopausal and female climacteric states] Chronic Comment on above: estradiol patch, ora l progesterone Miscellaneous mental health disorders (12 sources) Binge eating disorder; Translations: [Binge eating disorder] 03-31-2023 Chronic Comment on above: 1-2x monthly. review ed CBT support. recommended book. discussed warning signs with food restrictions. Mood disorders (20 sources) Depression; Translations: [Depressive disorder] Onset: 06-27-2005-26-2020 Chronic Comment on above: better Nonmalignant breast conditions (20 sources) Pain of breast; Translations: [Breast pain] 06-15-2020 Episodic Comment on above: left breast chest wa ll Nonspecific chest pain (20 sources) Chest pain; Translations: [Atypical chest pain] Onset: 06-13-2005-26-2020 Episodic Comment on above: work up normal, ches t xray normal, last mammogram in Sep 2019 normal, has anxiety and menopause like symptoms. Had relief with prednisone. Now pain in other side of breast reproducible. Nutritional deficiencies (19 sources) Vitamin D deficiency; Translations: [Vitamin D deficiency, unspecified] 05-26-2020 Chronic Other circulatory disease (20 sources) Abnormal chest sounds; Translations: [Abnormal lung sounds] Resolved : 05-26-2005-26-2020 Episodic Other endocrine disorders (9 sources) Decreased estradiol level; Translations: [Other specified endocrine disorders] 10-15-2021 Episodic Other injuries and conditions due to external causes (19 sources) Injury of upper extremity; Translations: [Arm wound] Resolved : 11-16-19 17 05-26-2020 Episodic Comment on above: left elbow Other lower respiratory disease (20 sources) Cough; Translations: [Cough] Resolved : 05-26-20 20 05-26-2020 Episodic Other lower respiratory disease (2 sources) Other forms of dyspnea; Translations: [Other forms of dyspnea] Onset: 06-13-20 Episodic Other nervous system disorders (9 sources) Carpal tunnel syndrome; Translations: [Carpal tunnel syndrome, unspecified upper limb] 09-21-2021 Chronic Other nutritional; endocrine; and metabolic disorders (20 sources) Body mass index 30+ - obesity; Translations: [BMI 30.0-30.9,adult] 05-26-2020 Chronic Comment on above: LCF. plan adipex. m onitor bps Other nutritional; endocrine; and metabolic disorders (20 sources) Overweight; Translations: [Overweight] 05-26-2020 Chronic Other nutritional; endocrine; and metabolic disorders (20 sources) Body mass index 25-29 - overweight; Translations: [BMI 28.0-28.9,adult] 05-26-2020 Chronic Other nutritional; endocrine; and metabolic disorders (1 source) Body mass index (BMI) 30.0-30.9, adult; Translations: [Body Mass Index 30.0-30.9, adult] Chronic Other nutritional; endocrine; and metabolic disorders (13 sources) Obesity; Translations: [Other obesity] 04-03-2023 Chronic Comment on above: Nutrition plan: low glycemic index, 145-1800/2000calorie Balanced calorie restricted nutritional plan. s/p administrative staff supervisor consult Medication plan: continue 18.75mg phentermine. added topamax 25 BID on 07/31/23 control- postmenopausalBehavior intervention: recommend daily journal of food intake with electronic methodsExercise plan: increase daily steps and NEAT activity Other nutritional; endocrine; and metabolic disorders (6 sources) Body mass index (BMI) 34.0-34.9, adult; Translations: [Body Mass Index 34.0-34.9, adult] Onset: 09-11-20 24 03-31-2023 Chronic Other nutritional; endocrine; and metabolic disorders (6 sources) Other obesity; Translations: [Obesity, unspecified] Onset: 09-11-20 24 03-31-2023 Chronic Other nutritional; endocrine; and metabolic disorders (4 sources) Body mass index 25-29 - overweight; Translations: [BMI 28.0-28.9,adult] 06-24-2020 Episodic Other nutritional; endocrine; and metabolic disorders (6 sources) Overweight; Translations: [Overweight] 06-15-2020 Episodic Other nutritional; endocrine; and metabolic disorders (4 sources) Overweight in adulthood with body mass index of 25 or more but less than 30; Translations: [BMI 28.0-28.9,adult] 06-15-2020 Episodic Other nutritional; endocrine; and metabolic disorders (5 sources) Weight gain; Translations: [Abnormal weight gain] 02-08-2023 Episodic Other nutritional; endocrine; and metabolic disorders (3 sources) Abnormal weight gain; Translations: [Abnormal weight gain] 02-08-2023 Episodic Other nutritional; endocrine; and metabolic disorders (3 sources) Weight increased; Translations: [Abnormal weight gain] 02-08-2023 Episodic Other screening for suspected conditions (not mental disorders or infectious disease) (20 sources) Ultrasonography of breast abnormal; Translations: [Abnormal ultrasound of breast] Onset: 05-22-20 25 06-24-2020 Episodic Other upper respiratory infections (20 sources) Chronic sinusitis; Translations: [Sinobronchitis] Resolved : 05-26-20 20 05-26-2020 Chronic Pneumonia (except that caused by tuberculosis or sexually transmitted disease) (18 sources) Infective pneumonia; Translations: [Pneumonia, organism unspecified] Resolved : 11-16-19 17 05-26-2020 Episodic Residual codes; unclassified (18 sources) FH: Cardiac disorder; Translations: [Family history of heart disease] 05-26-2020 Episodic Residual codes; unclassified (18 sources) Influenza-like symptoms; Translations: [Flu-like symptoms] Resolved : 05-26-20 20 05-26-2020 Episodic Residual codes; unclassified (9 sources) History of hernia repair; Translations: [Other specified postprocedural states] 09-21-2021 Episodic Comment on above: 1989 Spondylosis; intervertebral disc disorders; other back problems (20 sources) Degeneration of intervertebral disc; Translations: [Degenerative disc disease] 05-26-2020 Chronic Spondylosis; intervertebral disc disorders; other back problems (9 sources) Back problem; Translations: [Dorsopathy, unspecified] 09-21-2021 Episodic Substance-related disorders (20 sources) Smoker; Translations: [Smoker] 05-26-2020 Chronic Syncope (18 sources) Vasovagal syncope; Translations: [Vasovagal episode] Resolved : 05-26-20 20 05-26-2020 Episodic Comment on above: occured during sutur ing left elbow resolved with oxygen, and recumbant position Unclassified (20 sources) Unclassified (20 sources) DEFICIENCY, VITAMIN D NOS (268.9) Unclassified (20 sources) Degenerative Disc Disease (722.6) Unclassified (20 sources) Patient encounter status; Translations: [Encounter for screening mammogram for breast cancer (Renamed from Encounter for screening mammogram for malignant neoplasm of breast)] 05-26-2020 Unclassified (20 sources) Chronic prednisone use Resolved : 05-26-2005-26-2020 Unclassified (16 sources) Screening for lipid disorders (V77.91) Unclassified (20 sources) WWV Resolved : 05-19-20 09 05-26-2020 Comment on above: Dr. minor Unclassified (20 sources) BMI 28.0-28.9,adult Unclassified (4 sources) BRONCHITIS, NOT SPECIFIED ACUTE OR CHRONIC (490.) Viral infection (20 sources) Viral infection, unspecified; Translations: [Viral disease] Resolved : 05-19-20 09 09-14-2015 Episodic Comment on above: not seem bacterial-- -will hold off because not want to make stomach works Past or Other Problems Problem Classification Problem Date Documented Date Episodic/Chronic Diabetes mellitus without complication (19 sources) Prediabetes; Translations: [Prediabetes] Onset: 09-11-2024 04-03-2023 Episodic Comment on above: consider low glycemi c index diet with calorie restriction, recommend nutrition consult and consider mounjaro/ozempic with 5-10% weight reduction recommended Influenza (16 sources) Influenza Mood disorders (20 sources) Mood disorders Other upper respiratory infections (20 sources) Acute sinusitis; Translations: [Sinusitis, acute] Onset: 02-16-2025 05-26-2020 Episodic Pneumonia (except that caused by tuberculosis or sexually transmitted disease) (20 sources) Pneumonia (except that caused by tuberculosis or sexually transmitted disease) Residual codes; unclassified (1 source) Asymptomatic menopausal state; Translations: [Asymptomatic menopausal state] Onset: 12-20-2024 Episodic Screening and history of mental health and substance abuse codes (1 source) Personal history of nicotine dependence; Translations: [Personal history of nicotine dependence] Onset: 01-14-2025 Episodic Unclassified (20 sources) Anxiety state, unspecified (300.00) Unclassified (20 sources) Abdominal pain, acute Unclassified (16 sources) Vasovagal episode Unclassified (17 sources) Deliveries (Parity); Translations: [Deliveries (Parity)] 05-26-2020 Comment on above: Term, 2 Unclassified (20 sources) Arm wound Unclassified (17 sources) Pregnancies (); Translations: [Pregnancies ()] 05-26-2020 Comment on above: 2 Unclassified (20 sources) Abdominal Pain,General (789.07) Unclassified (16 sources) Abnormal Lung Sounds/Rales (786.7) Unclassified (16 sources) SINUSITIS, ACUTE NOS (461.9) Unclassified (16 sources) Family history of heart disease Unclassified (16 sources) BMI 31.0-31.9,adult Unclassified (16 sources) BMI 30.0-30.9,adult Unclassified (16 sources) Flu-like symptoms Unclassified (16 sources) Abnormal lung sounds Unclassified (16 sources) Poison jose manuel (692.6) Unclassified (20 sources) Breast pain Unclassified (12 sources) Encounter for smoking cessation counseling Unclassified (20 sources) Abnormal ultrasound of breast Unclassified (4 sources) Sinobronchitis Results Test Name Value Interpretation Reference Range Facility Cardiology Visit Reporton Cardiology Visit Report [facility] [address] [place] [address] OFFICE VISIT Date of Service: 06/13/25 MR#: [id number] Acct: [id number] Name: LISA CHEN Rep #: [id number] : 1970 Provider: Dr. Scott augustin MD Age/Sex: 55/F Location: [facility] [place] Status: Signed HPI HPI History of Present Illness Details: Patient is a very pleasant 55-year-old white female that comes today for new patient visit. She is the of one of our patients with coronary disease. Then noting that for the past year she has been having dyspnea on exertion and a squeezing sensation in her chest with a climbing a flight of stairs. She has gotten back into a walking program over the last 4 weeks and the symptoms have started to jony. She does have a significant family history of coronary disease her father at age 55 and she is been going through menopause for several years. She also has a history of hyperlipidemia and diabetes mellitus. Hemoglobin A1c is runs between 5.8 and 5.9. Patient quit smoking about 5 years ago she was evaluated in the emergency department December 2021 with chest pressure and palpitations. She had heart rates in the 160 bpm range which appeared to be sinus tachycardia. She was taking Wellbutrin at the time and it was thought that this was the etiology of her symptoms. Her troponins were negative and her EKG showed sinus tachycardia with no ST or T wave changes. Patient's last lipids August 2024 total cholesterol was 232 HDL 49 LDL 149 and triglycerides 168. And remote echo in 2016 showed normal LV size and function with a EF of 55% 1+ TR and pulmonary artery pressures of 24. Patient denies any PND orthopnea denies any lower extremity edema. Intake Vital Signs 05/06/25 10:03 06/13/25 14:57 Height 5 ft 7 in 5 ft 7 in Weight: 214 lb 6 oz 214 lb BMI 33.5 33.5 BP 117/80 119/80 Blood Pressure Location Lt brachial Position Sitting Respiration 18 Pulse 72 Pulse Source Monitor Pulse Oximetry (%) 92 Oxygen Delivery Method room air Intake Visit Reasons: Angina/SOB/Edema/Fatig ue (Self) Skidder Driver Required: No Accompanied by: Self Is patient in pain?: No Allergies No Known Allergies Allergy (Verified 06/13/25 14:57) Medications ???Medication ???Instructions ???Recorded ???Confirmed ???Type lactobacillus combination no.9 4 4,000 mmu cells PO DAILY 06/26/20 06/13/25 History billion cell capsule (Adult 50 Plus Probiotic) multivitamin 1 tab PO DAILY 06/26/20 06/13/25 H istory albuterol sulfate 90 mcg/actuation 2 puff inhalation Q4-6H PRN /06/13/25 Rx aerosol inhaler shortness of breath or wheezing #6.7 grams medroxyprogesterone 2.5 mg tablet 2.5 mg PO DAILY #30 TABLETS 03/1706/13/25 Rx doxycycline hyclate 20 mg tablet 20 mg PO BID 05/06/25 06/13/25 His tory estradiol 0.025 mg/24 hr 1 patch transdermal 2XW #24 ea 06/2306/13/25 Rx semiweekly transdermal patch topiramate 25 mg tablet 44 mg PO BID 05/06/25 06/13/25 His tory cholecalciferol (vitamin D3) 25 25 mcg PO QDAY 06/06/25 06/13/25 H istory mcg (1,000 unit) capsule ivermectin 1 % topical cream 1 applic topical QHS 06/06/2505/30 History metformin 500 mg tablet,extended 500 mg PO QDAY 06/06/25 06/13/25 H istory release 24 hr (Glucophage XR) saw palmetto-pumpkin seed oil 1 cap PO DAILY 06/13/25 06/13/25 H istory Ejection fraction %: 55 Have you fallen in the past year?: No PFSH Medical History Autoimmune hepatitis Hyperlipidemia Borderline type 2 diabetes mellitus Kidney stones Hormone deficiency Carpal tunnel syndrome Breast lump in female Back problem Fatigue Surgical History H/O foot surgery Hx of hernia repair Family History Mother Thyroid cancer Brain aneurysm Father Cancer Heart disease Hypertension CHF (congestive heart failure) Other Arthritis Colon cancer Diabetes Lung cancer Social History Smoking Status: Former smoker alcohol intake: current alcohol intake frequency: holidays/special occasions only substance use type: does not use caffeine: No what type of physical activity do you participate in: none seatbelt use: always do you feel safe at home: Yes additional social history: - Meet ROS Const Const: Positive for fatigue; Negative for weakness ENT ENT: Positive for dizziness (intermittently); Negative for balance problems Cardio Chest Pain: Yes Palpitations: Yes Edema: Bilateral Muscle aches with walking: None Resp Respiratory: Positive for SOB with acti (more content not included)... [facility] Breast imaging reportOrdered By: Jessica José on 05-19-2025 Study report [facility] Imaging Services [address] [place] [address] SCRN MAMM (CAD)W/MAGUE BILAT MR#: [id number] Acct: [id number] Name: LISA CHEN Rep #: [id number] : 1970 F 55 From: Hubert Gonzalez MD PCP: VINICIUS Deras Status: REG C LI Study:SCRN MAMM (CAD)W/MAGUE BILAT Date of Exa m: 05/19/25 Exam# [id number] Ordering Dr: Sisi Argueta EXAM: Digital screening mammogram with mague and CAD DATE: 05/19/2025 CLINICAL HISTORY: F, Age 55 y/o , SCREEN FOR BREAST CANCER TECHNIQUE: SCRN MAMM (CAD)W/MAGUE BILAT COMPARISON: Prior exam(s) were compared. FINDINGS: TISSUE DENSITY: There are scattered areas of fibroglandular density. Bilateral Breast Mammographic Findings: No suspicious masses, calcifications or areas of architectural distortion. BI/SCRN MAMM (CAD)W/MAGUE BILAT IMPRESSION: No mammographic evidence of malignancy in either breast OVERALL FINAL ASSESSMENT BI-RADS 1: NEGATIVE. RECOMMENDATION: Routine annual follow-up in 1 Year A letter with findings and recommendations will be mailed to the patient. Reading Location: [facility] CC: VINICIUS Argueta; VINICIUS Harrington ~ Wellness Program Manager: Signed [facility] SCRN MAMM (CAD)W/MAGUE BILATo n 05-19-2025 SCRN MAMM (CAD)W/MAGUE BILAT [facility] Imaging Services [address] [place], [place] [address] SCRN MAMM (CAD)W/MAGUE BILAT MR#: [id number] Acct: [id number] Name: LISA CHEN Rep #: [id number] : 1970 F 55 From: Jessica King i, MD PCP: VINICIUS Deras Status: REG CLI Study: SCRN MAMM (CAD)W/MAGUE BILAT Date of Exam: 04/30 11/23 Exam# [id number] Ordering Dr: Sisi Argueta EXAM: Digital screening mammogram with mague and CAD DATE: 05/19/2025 CLINICAL HISTORY: F, Age 55 y/o , SCREEN FOR BREAST CANCER TECHNIQUE: SCRN MAMM (CAD)W/MAGUE BILAT COMPARISON: Prior exam(s) were compared. FINDINGS: TISSUE DENSITY: There are scattered areas of fibroglandular density. Bilateral Breast Mammographic Findings: No suspicious masses, calcifications or areas of architectural distortion. BI/SCRN MAMM (CAD)W/MAGUE BILAT IMPRESSION: No mammographic evidence of malignancy in either breast OVERALL FINAL ASSESSMENT BI-RADS 1: NEGATIVE. RECOMMENDATION: Routine annual follow-up in 1 Year A letter with findings and recommendations will be mailed to the patient. Reading Location: [facility] CC: VINICIUS Argueta; VINICIUS Harrington Wellness Program Manager: Signed [facility] Business Services Analyst Office Visit Reporton 05-06-2025 Business Services Analyst Office Visit Report [facility] [address], [address] [place] [address] OFFICE VISIT Date of Service: 05/06/25 MR#: [id number] Acct: [id number] Name: LISA CHEN Rep #: [id number] : 1970 Provider: VINICIUS Georges Age/Sex: 55/F [place] [facility] Status: Signed Intake Vital Signs 09/11/24 09:00 05/06/25 10:03 Height 5 ft 7 in 5 ft 7 in Weight: 214 lb 6 oz BMI 33.5 BP 117/80 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) Skidder Driver Required: No Is patient in pain?: No Allergies No Known Allergies Allergy (Verified 05/06/25 10:07) Medications ???Medication ???Instructions ???Recorded ???Confirmed ???Type lactobacillus combination no.9 4 4,000 mmu cells PO DAILY 06/26/20 05/06/25 History billion cell capsule (Adult 50 Plus Probiotic) multivitamin 1 tab PO DAILY 06/26/20 05/06/25 H istory albuterol sulfate 90 mcg/actuation 2 puff inhalation Q4-6H PRN 01/2905/06/25 Rx aerosol inhaler shortness of breath or wheezing #6.7 grams medroxyprogesterone 2.5 mg tablet 2.5 mg PO DAILY #30 TABLETS 03/1705/06/25 Rx doxycycline hyclate 20 mg tablet 20 mg PO BID 05/06/25 05/06/25 His tory estradiol 0.025 mg/24 hr 1 patch transdermal 2XW #24 ea 06/2305/06/25 Rx semiweekly transdermal patch metformin 1,000 mg tablet 1,250 mg PO QDAY 05/06/25 05/06/25 History topiramate 25 mg tablet 44 mg PO BID 05/06/25 05/06/25 His tory Is last menstrual period known: No Patient : No : No PFSH Medical History Hyperlipidemia Borderline type 2 diabetes mellitus Kidney stones Hormone deficiency Carpal tunnel syndrome Breast lump in female Back problem Fatigue Surgical History H/O foot surgery Hx of hernia repair Family History Mother Thyroid cancer Brain aneurysm Father Cancer Heart disease Hypertension CHF (congestive heart failure) Other Arthritis Colon cancer Diabetes Lung cancer Social History Smoking Status: Former smoker second hand exposure: Yes alcohol intake: never substance use type: does not use caffeine: No what type of physical activity do you participate in: none seatbelt use: always do you feel safe at home: Yes additional social history: - Meet History 2 Elective abortions Hx Para 2 Spontaneous abortions Hx # Term Pregnancies Ectopic pregnancies Hx # Pregnancies Multiple births # of living children Past Pregnancies Del. Date Name GA/Weeks Outcome Route Bth Weight Gen Labor Lgth Anesthesia Del [facility] Provider FOB Unknown Efrain Unknown [facility] Encounter for routine gynecological examination Details: LISA CHEN is a 55 year old who presents for annual exam. She reports no concerns today; feels knee deep in menopause. She continues with estradiol patch and progesterone. Doing well with these. Feels they are helpful to her symptoms. Last PAP: 2020; normal. HPV neg History of abnormal PAP: no Last mammogram: 2023; normal History of abnormal mammogram: previous biopsy left breast negative. Colon cancer screenin; normal Other preventative health care screenings: Dr. Harrington, PCP Female Reproductive History Questions: metorrhagia: No, sexually active: Yes, dyspareunia: No and PCB: No Menopausal Symptoms: Yes hot flashes, No night sweats, Yes weight change, Yes mood changes, No difficulty concentrating, Yes sleep problems and Yes change in libido ROS Const Constitutional: Denies body ache, fatigue, fever(s) or night sweats Eyes Eyes: Denies change in vision ENT ENT: Denies dizziness Cardio Card: Denies chest pain, chest pain at rest or palpitations Resp Resp: Denies cough or dyspnea on exertion GI GI: Denies abdominal pain, constipation or nausea : Reports hot flashes; Denies nipple discharge, pelvic pain, vaginal discharge, vaginal dryness, vaginal odor or vaginal pruritus Skin Skin/Breast: Denies alopecia, rash, breast mass, breast pain, breast skin changes or nipple discharge Neuro Neuro: Denies dizziness Psych Psych: Reports change in libido; Denies anxiety, depression or difficulty concentrating Endo Endo: Denies cold intolerance, excessive sweating or heat intolerance Exam Const General: cooperative, healthy appearing, comfortable, no acute distress, well groomed and well hydrated Nutritional Appearance: well nourished Orientation: alert, awake and oriented x3 HENMT Head: normal to inspection and normocephalic Ears: hearing grossly normal bilaterally and external ears normal Nose: exte (more content not included)... [facility] Urgent Care Visit Reporton 0 02-16-2025 Urgent Care Visit Report [facility] [address], [address] [place] [address] OFFICE VISIT Date of Service: 02/16/25 MR#: [id number] Acct: [id number] Name: LISA CHEN Rep #: [id number] : 1970 Provider: VINICIUS palacios Age/Sex: 54/F Location[place] [facility] Status: Signed Intake Vital Signs 09/11/24 09:00 02/16/25 09:42 Height 5 ft 7 in Weight: 223 lb 2 oz BMI 34.9 BP 122/84 H 120/78 Blood Pressure Location Lt brachial Rt brachial Position Sitting Sitting Respiration 16 16 Pulse 69 65 Pulse Source Monitor NIBP Temp 97.0 F L 98.5 F Temp Source Temporal Oral Pulse Oximetry (%) 96 98 Oxygen Delivery Method room air room air Intake Visit Reasons: CONCERN FOR SINUS INFECTION Chief Complaint: cough, MANN, drainage, fatigue, congest Skidder Driver Required: No Is patient in pain?: No Allergies No Known Allergies Allergy (Verified 02/16/25 09:43) Medications ???Medication ???Instructions ???Recorded ???Confirmed ???Type lactobacillus combination no.9 4 4,000 mmu cells PO DAILY 06/26/20 09/11/24 History billion cell capsule (Adult 50 Plus Probiotic) multivitamin 1 tab PO DAILY 06/26/20 09/11/24 H istory estradiol 0.025 mg/24 hr 1 patch transdermal 2XW #24 ea 09/11/24 Rx semiweekly transdermal patch medroxyprogesterone 2.5 mg tablet 2.5 mg PO DAILY #90 tabs 03/12/24 09/11/24 Rx albuterol sulfate 90 mcg/actuation 2 puff inhalation Q4-6H PRN 01/2902/16/25 Rx aerosol inhaler shortness of breath or wheezing #6.7 grams doxycycline hyclate 100 mg capsule 100 mg PO BID 7 days #14 caps 02/16/25 Rx Is last menstrual period known: No Post menopausal: Yes Patient : No Have you fallen in the past year?: No Nurse's Note: cough, MANN, drainage, fatigue, congest x 9 days. denies fever PFSH Medical History Hyperlipidemia Borderline type 2 diabetes mellitus Kidney stones Hormone deficiency Carpal tunnel syndrome Breast lump in female Back problem Fatigue Surgical History H/O foot surgery Hx of hernia repair Family History Mother Thyroid cancer Brain aneurysm Father Cancer Heart disease Hypertension CHF (congestive heart failure) Other Arthritis Colon cancer Diabetes Lung cancer Social History Smoking Status: Former smoker second hand exposure: Yes alcohol intake: never substance use type: does not use caffeine: No what type of physical activity do you participate in: none seatbelt use: always do you feel safe at home: Yes additional social history: - Meet HPI HPI Chief Complaint: cough, MANN, drainage, fatigue, congest Details: LISA CHEN, is a 54 F who presents to the office today for concerns regarding cough, headache, nasal drainage, fatigue, and nasal congestion for the last 9 days. She denies fever. This is worsening. She denies history of seasonal allergies. Her drainage is yellow/green. She feels it to settle in her chest. Her symptoms worsening when bending. ROS Const Constitutional: Positive for fatigue and headache(s); No body ache, chills, fever(s) or change in appetite Eyes Eyes: No blurry vision, change in vision, double vision, irritation, discharge, vision loss, dry eyes, bulging eyes, floaters, visual disturbances, eye pain, Light sensitivity, spots in vision, tunnel vision or other ENT ENT: Positive for nasal congestion, nasal discharge and headache(s); No ear or mastoid pain, ear discharge, ear pressure, tinnitus, dizziness/vertigo, nosebleed/epistaxis, nose pain, sinus pressure, sinus pain, post nasal drip, facial pain, dental pain, difficulty swallowing, bad breath, hoarseness, lip swelling, mouth lesions, mouth pain, neck pain, sore throat, tongue swelling or throat swelling Resp Respiratory: Positive for cough; No change in phlegm color, chest congestion, hemoptysis, pain on inspiration, shortness of breath, pain with cough, stridor or wheezing Cardio Cardiology: No chest pain at rest, chest pain with exertion, shortness of breath, dyspnea on exertion or lightheadedness Gastro GI: No abdominal pain, change in bowel habits or difficulty swallowing Genitourinary-Female: No burning urination or urinary frequency Musc Musculoskeletal: No joint pain or neck pain Skin Skin: No rash Neuro Neurology: Positive for headache(s); No visual disturbances Psych Psychiatric: No change in appetite Endo Endocrine: Positive for fatigue Aller/Imm Allergy/Immunologic: No lip swelling, throat swelling, tongue swelling or wheezing Exam Const General: cooperative, (more content not included)... Normal [facility] Low Dose CT Lung Screeningon 12-19-[address] Lung Screening [facility] Imaging Services [address] [place] [address] Lung Screening MR#: [id number] Acct: [id number] Name: LISA CHEN Rep #: [id number] : 1970 F 54 From: Moody bradley MD PCP: Dr. Chanel Cisneros MD Status: REG CLI Study: Low Dose CT Lung Screening Date of Exam: 12/19 Exam# [id number] Ordering Dr: Lu Harrington [employer] PROCEDURE: LOW DOSE CT LUNG SCREENING REASON FOR EXAM: Patient has smoked 1 pack per day for 30 years. Patient quit smoking in July of 2020. TECHNIQUE: Low Dose CT Lung Screening without contrast COMPARISON: None. FINDINGS: PULMONARY NODULES: (Only nodules >6mm are reported) Nodules described below are on series 1 unless otherwise specified. Pulmonary Nodules: No concerning pulmonary nodules. Hardware:None Lymph Nodes:No mediastinal hilar or axillary lymphadenopathy. Heart and Vasculature:Normal heart size. No pericardial effusion.Thoracic aorta and pulmonary arteries have normal contours; noncontrast technique limits evaluation. Coronary Artery Calcifications: Absent Lungs and Airways: Mild emphysematous changes are present. Mild scarring at the lung bases. Pleura:No pleural effusion. No pneumothorax. Upper Abdomen:Visualized portions of the upper abdominal viscera are unremarkable. Bones:Bone windows are unremarkable. CT/Low Dose CT Lung Screening IMPRESSION: 1. BASED ON THE ACR LUNG RADS FOR THE MOST SUSPICIOUS NODULE (IF ANY) DESCRIBED IN THIS REPORT, THE OVERALL LUNG RADS SCORE IS 1. 1 - NEGATIVE. RECOMMEND 12-MONTH SCREENING LDCT.. 2. SMOKING CESSATION COUNSELING IS RECOMMENDED IF THE PATIENT IS STILL SMOKING. 3. OTHER SIGNIFICANT FINDINGSNone. One or more dose reduction techniques were used (e.g., Automated exposure control, adjustment of the mA and/or kV according to patient size, use of iterative reconstruction technique). The following information is provided for reference:Lung-RADS 202 Assessment Categories. Additional information involving Lung-RADS is available at www.acr.org. 0-INCOMPLETE 1-NEGATIVE:No nodules or definitely benign nodules. Complete, central, popcorn, or centric ring calcifications OR fat containing 2-BENIGN APPEARANCE (based on imaging features or indolent behavior). Juxtapleural nodule: < 10mm AND solid; smooth margins; oval, entiform, or triangular shape Solid nodule: <6mm at baseline or new< 4mm Part solid Nodule: < 6mm total mean diameter at baseline Nonsolid nodule:(GGN) < 30mm OR >=30mm stable or slowly growing Airway nodule, subsegmental at baseline, new, or stable Category 3 nodule stable or decreased in size at 6-month follow-up CT or Category 3 or 4A nodules that resolve on follow-up OR category 4B findings proven to be benign following diagnotic work up. 3 - Probably Benign (Based on imaging features or behavior) Solid Nodule: >= 6 to <8mm at baseline OR new 4 to <6mm Part-solid nodule: >= 6mm toal mean diam. with solid component <6mm at baseline OR new < 6mm total mean diam. Non-solid nodule: GGN >= 30mm at baseline or new Atypical pulmonary cyst: Growing cystic component (mean diam.) of thick-walled cyst Category 4A nodule stable or decreased in size at 3-month follow-up CT (excl.airway). 4A - Suspicious Solid nodule: >=8 to < 15mm at baseline OR growing < 8mm OR new 6 to < 8mm Part solid nodule: >= 6mm total mean diam. w/ solid component >=6mm to < 8mm at baseline OR new or growing < 4mm solid component Airway nodule, segmental or more proximal at baseline or new Atypical pulmonary cyst: Thick-walled OR multilocular at baseline OR becomes multilocular 4B - Very Suspicious Airway nodule, segmental or more proximal, and stable or growing Solid nodule: >= 15mm at baseline OR new or growing >= 8mm Part solid nodule: Solid component >= 8mm OR new or growing >= 4mm solid component Atypical pulmonary cyst: Thick-walled with growing wall thickness/nodularity OR Growing multilocular (mean diam.) OR Multilocular with increased loculation or new/increased opacity Slow-growing solid or part solid nodule w/ growth over multiple screening exams 4X - Very Suspicious Category 3 or 4 nodules with additional features that increase the suspicion for lung cancer. S - Clinically Significant or potentially significant findings (non-lung cancer) 3. OTHER SIGNIFICANT FINDINGSNone. One or more dose reduction techniques were used (e.g., Automated exposure control, adjustment of the mA and/or kV according to patient size, use of iterative reconstruction technique). The following information is provided for reference:Lung-RADS 2022 Assessment Categories. Additional information involving Lung-RADS is available at www.acr.org. 0-INCOMPLETE 1-NEGATIVE:No nodules or definitely benign nodules. Complete, central, popcorn, or centric ri (more content not included)... Normal [facility] Dexa Bone Density Studyon Dexa Bone Density Study [facility] Imaging Services [address] [place] [address] Dexa Bone Density Study MR#: [id number] Acct: [id number] Name: LISA CHEN Rep #: [id number] : 1970 F 54 From: Alonzo Connell i DO PCP: Dr. Chanel Cisneros MD Status: REG CLI Study: Dexa Bone Density Study Date of Exam: 12/05/24 Exam# [id number] Ordering Dr: Lu Harrington [employer] PROCEDURE: DEXA BONE DENSITY STUDY REASON FOR EXAM: 54-year-old female. Osteoporosis screening. TECHNIQUE: DEXA scan of the lumbar spine and both hips. COMPARISON: None. FINDINGS: Lumbar spine: T-score -0.6. (Bone mineral density 0.982 g per cm2.); Left hip: T-score 0.790. (Bone mineral density 1.035 g per cm2.); Right hip: T-score -0.2. (Bone mineral density 0.822 g per cm2); FRAX* Results: 10 Year Probability of Fracture: Hip Fracture(1): 0.1% Major Osteoporotic Fracture(2): 5.0% *FRAX is a trademark of the [employer]'s [place] for Metabolic Bone Disease, World Health Organization (WHO) Collaborating [place]. 1-The 10-year probability of fracture may be lower than reported if the patient has received treatment. 2-Major Osteoporotic Fracture: Clinical Spine, Forearm, Hip or Shoulder. The T-scores are also available for review on the [facility] PACS or by accessing the [facility] electronic medical record. BD/Dexa Bone Density Study IMPRESSION: Normal bone mineral density. Reading Location: [facility] CC: VINICIUS Harrington; Dr. Chanel Cisneros MD Wellness Program Manager: Signed Normal [facility] CBC-Complete Blood Cnt No Di ffon 09-11-2024 Erythrocyte distribution width (RBC) [Ratio] 13.4 % Normal 11.6-14.6 [facility] Comment on above: Performed By: #### L 501.9985, L100.0500, L501.9520, L500.4050, L500.4100 #### [facility] [address] [place], [address] Hematocrit (Bld) [Volume fraction] 42.2 % Normal 37-47 [facility] Comment on above: Performed By: #### L 501.9985, L100.0500, L501.9520, L500.4050, L500.4100 #### [facility] [address] [place], [address] Hemoglobin (Bld) [Mass/Vol] 13.9 g/dL Normal 12.0-15.0 [facility] Comment on above: Performed By: #### L 501.9985, L100.0500, L501.9520, L500.4050, L500.4100 #### [facility] [address] [place], [address] MCH (RBC) [Entitic mass] 30.8 pg Normal 27.0-32.0 [facility] Comment on above: Performed By: #### L 501.9985, L100.0500, L501.9520, L500.4050, L500.4100 #### [facility] [address] [place], [address] MCHC (RBC) [Mass/Vol] 32.9 g/dL Normal 32-36 [facility] Comment on above: Performed By: #### L 501.9985, L100.0500, L501.9520, L500.4050, L500.4100 #### [facility] [address] [place], [address] MCV (RBC) [Entitic vol] 93.6 fL Normal 81-99 [facility] Comment on above: Performed By: #### L 501.9985, L100.0500, L501.9520, L500.4050, L500.4100 #### [facility] [address] [place], [address] Platelet mean volume (Bld) [Entitic vol] 9.9 fL Normal 6.2-12.0 [facility] Comment on above: Performed By: #### L 501.9985, L100.0500, L501.9520, L500.4050, L500.4100 #### [facility] [address] [place], [address] Platelets (Bld) [#/Vol] 292 10*3/uL Normal 150-450 [facility] Comment on above: Performed By: #### L 501.9985, L100.0500, L501.9520, L500.4050, L500.4100 #### [facility] [address] [place], [address] RBC (Bld) [#/Vol] 4.51 10*6/uL Normal 4.2-5.4 [facility] Comment on above: Performed By: #### L 501.9985, L100.0500, L501.9520, L500.4050, L500.4100 #### [facility] [address] [place], [address] RDW SD 45.4 fl High 35.1-43.9 [facility] Comment on above: Performed By: #### L 501.9985, L100.0500, L501.9520, L500.4050, L500.4100 #### [facility] [address] [place], [address] WBC (Bld) [#/Vol] 6.0 10*3/uL Normal 4.4-11.0 [facility] Comment on above: Performed By: #### L 501.9985, L100.0500, L501.9520, L500.4050, L500.4100 #### [facility] [address] [place], [address] Comprehensive Metabolic Prof ilon 09-11-2024 Albumin [Mass/Vol] 3.7 g/dL Normal 3.2-5.0 [facility] Comment on above: Performed By: #### L 501.9985, L100.0500, L501.9520, L500.4050, L500.4100 #### [facility] [address] [place], [address] Albumin/Globulin [Mass ratio] 1.0 {ratio} Normal 0.9-2.4 [facility] Comment on above: Performed By: #### L 501.9985, L100.0500, L501.9520, L500.4050, L500.4100 #### [facility] [address] [place], [address] ALK P 94 U/L Normal 45-117 [facility] Comment on above: Performed By: #### L 501.9985, L100.0500, L501.9520, L500.4050, L500.4100 #### [facility] [address] [place], [address] ALT [Catalytic activity/Vol] 29 U/L Normal 13-56 [facility] Comment on above: Performed By: #### L 501.9985, L100.0500, L501.9520, L500.4050, L500.4100 #### [facility] [address] [place], [address] AST [Catalytic activity/Vol] 18 U/L Normal 15-37 [facility] Comment on above: Performed By: #### L 501.9985, L100.0500, L501.9520, L500.4050, L500.4100 #### [facility] [address] [place], [address] Bilirubin [Mass/Vol] 0.40 mg/dL Normal 0.20-1.00 [facility] Comment on above: Result Comment: For patients on eltrombopag therapy, use of Dimension [place] TBIL is not recommended. Performed By: #### L 501.9985, L100.0500, L501.9520, L500.4050, L500.4100 #### [facility] [address] [place], [address] BUN/CRE 28.6 RATIO High 10-20 [facility] Comment on above: Performed By: #### L 501.9985, L100.0500, L501.9520, L500.4050, L500.4100 #### [facility] [address] [place], [address] CA,Total 9.2 mg/dL Normal 8.5-10.1 [facility] Comment on above: Performed By: #### L 501.9985, L100.0500, L501.9520, L500.4050, L500.4100 #### [facility] [address] [place], [address] Chloride [Moles/Vol] 110 mmol/L High 98-107 [facility] Comment on above: Performed By: #### L 501.9985, L100.0500, L501.9520, L500.4050, L500.4100 #### [facility] [address] [place], [address] CO2 [Moles/Vol] 26.0 mmol/L Normal 21.0-32.0 [facility] Comment on above: Performed By: #### L 501.9985, L100.0500, L501.9520, L500.4050, L500.4100 #### [facility] [address] [place], [address] Creatinine [Mass/Vol] 0.66 mg/dL Normal 0.55-1.02 [facility] Comment on above: Result Comment: The validity of the calculated GFR GFRAA in patients over 70 years has not been determined. Clinical correlation is essential. Performed By: #### L 501.9985, L100.0500, L501.9520, L500.4050, L500.4100 #### [facility] [address] [place], [address] EST GFR - AA 119 mL/min Normal >60 [facility] Comment on above: Result Comment: Afri can Ivorian GFR Calc Performed By: #### L 501.9985, L100.0500, L501.9520, L500.4050, L500.4100 #### [facility] [address] [place], [address] GAP 4 Low 5-15 [facility] Comment on above: Performed By: #### L 501.9985, L100.0500, L501.9520, L500.4050, L500.4100 #### [facility] [address] [place], [address] GFR/1.73 sq M.predicted among non-blacks MDRD (S/P/Bld) [Vol rate/Area] 98 mL/min/{1.73_m2} Normal >60 [facility] Comment on above: Result Comment: Non- GFR Calc Performed By: #### L 501.9985, L100.0500, L501.9520, L500.4050, L500.4100 #### [facility] [address] [place], [address] Globulin (S) [Mass/Vol] 3.7 g/dL Normal 2.2-4.2 [facility] Comment on above: Performed By: #### L 501.9985, L100.0500, L501.9520, L500.4050, L500.4100 #### [facility] [address] [place], [address] Glucose [Mass/Vol] 99 mg/dL Normal 74-106 [facility] Comment on above: Performed By: #### L 501.9985, L100.0500, L501.9520, L500.4050, L500.4100 #### [facility] [address] [place], [address] Potassium [Moles/Vol] 4.4 mmol/L Normal 3.5-5.1 [facility] Comment on above: Performed By: #### L 501.9985, L100.0500, L501.9520, L500.4050, L500.4100 #### [facility] [address] [place], [address] Sodium [Moles/Vol] 139 mmol/L Normal 136-145 [facility] Comment on above: Performed By: #### L 501.9985, L100.0500, L501.9520, L500.4050, L500.4100 #### [facility] [address] [place], [address] T PROT 7.4 g/dL Normal 6.4-8.2 [facility] Comment on above: Performed By: #### L 501.9985, L100.0500, L501.9520, L500.4050, L500.4100 #### [facility] [address] [place], [address] Urea nitrogen [Mass/Vol] 19 mg/dL High 7-18 [facility] Comment on above: Performed By: #### L 501.9985, L100.0500, L501.9520, L500.4050, L500.4100 #### [facility] [address] [place], [address] Hemoglobin A1con 09-11-2024 HbA1c (Bld) [Mass fraction] 5.6 % Normal 3.8-5.6 [facility] Comment on above: Result Comment: Norm al < 5.7 % Prediabetic 5.7 - 6.4 % Diabetic >or= 6.5 % Please note range changes. Performed By: #### L 501.9985, L100.0500, L501.9520, L500.4050, L500.4100 ####[facility] [address] [place], [address] Internal Medicine Office Vis iton 09-11-2024 Internal Medicine Office Visit [facility] [address] [place], [place] [address] OFFICE VISIT Date of Service: 09/11/24 MR#: [id number] Acct: [id number] Name: LISA CHEN Rep #: [id number] : 1970 Provider: ELKIN Alexandre Age/Sex: 54/F Location[place] [facility] Status: Signed Intake Vital Signs 03/12/24 15:23 09/11/24 09:00 Height 5 ft 7 in 5 ft 7 in Weight: 223 lb 2 oz BMI 34.9 BP 122/84 H Blood Pressure Location Lt brachial Position Sitting Respiration 16 Pulse 69 Pulse Source Monitor Temp 97.0 F L Temp Source Temporal Pulse Oximetry (%) 96 Oxygen Delivery Method room air Intake Visit Reasons: acute - wellness Chief Complaint: wellness Skidder Driver Required: No Accompanied by: Self Is patient in pain?: No Allergies No Known Allergies Allergy (Verified 09/11/24 08:58) Medications ???Medication ???Instructions ???Recorded ???Confirmed ???Type lactobacillus combination no.9 4 4,000 mmu cells PO DAILY 06/26/20 09/11/24 History billion cell capsule (Adult 50 Plus Probiotic) multivitamin 1 tab PO DAILY 06/26/20 09/11/24 History estradiol 0.025 mg/24 hr 1 patch transdermal 2XW #24 ea 03/12/24 09/11/24 Rx semiweekly transdermal patch ivermectin 1 % topical cream 1 applic topical DAILY 03/12/24 09/11/24 History medroxyprogesterone 2.5 mg tablet 2.5 mg PO DAILY #90 tabs 03/12/24 09/11/24 Rx amoxicillin 875 mg-potassium 1 tab PO BID #20 tabs 09/11/24 09/11/24 Rx clavulanate 125 mg tablet doxycycline hyclate 20 mg tablet 20 mg PO BID Rosacea 09/11/24 09/11/24 History PFSH Medical History Hyperlipidemia Borderline type 2 diabetes mellitus Kidney stones Hormone deficiency Carpal tunnel syndrome Breast lump in female Back problem Fatigue Surgical History H/O foot surgery Hx of hernia repair Family History Mother Thyroid cancer Brain aneurysm Father Cancer Heart disease Hypertension CHF (congestive heart failure) Other Arthritis Colon cancer Diabetes Lung cancer Social History Smoking Status: Former smoker second hand exposure: Yes alcohol intake: never substance use type: does not use caffeine: No what type of physical activity do you participate in: none seatbelt use: always do you feel safe at home: Yes additional social history: - Meet HPI HPI Chief Complaint: wellness Details: LISA CHEN, is a 54 F who presents to the office today for some routine blood work. She states that she has always been borderline with her diabetes and so wanted to have some things checked again There is family history thyroid cancer in her mother, CHF and diabetes in her father, Patient has been dealing with some nasal congestion as well as some sinus pains or pressures and headaches in the past few weeks. she denies blood pressure issues She does see eye doctor annually She sees dentist twice a year She does not exercise regularly. 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 She states that she knows she has too much sugar and that she consumes a lot of calories. Patient does not use nicotine (has been 4 years since quitting) She does not consume ETOH but a couple times a year Patient is UTD with colonoscopy Patient does see CASE CONSULTANT regularly and thus is UTD with PAP smears and mammograms. They do have her on a lot of hormone medications at this time. She has not had DEXA scan She states that as far as she knows she is UTD with adult immunizations. She does not get flu shot and has not had covid shots, singles shots or pneumonia shots. ROS Const Constitutional: No body ache, chills, excessive sweating, fatigue, fever(s), frequent falls, headache(s), snoring, weakness or change in appetite Eyes Eyes: No blurry vision, change in vision, eye pain or Light sensitivity ENT ENT: No abnormal hearing, ear or mastoid pain, tinnitus, nasal congestion, headache(s), neck pain or sore throat Resp Respiratory: No cough, shortness of breath, snoring or wheezing Cardio Cardiology: No chest pain at rest, chest pain with exertion, excessive sweating, dyspnea on exertion, lightheadedness, orthopnea or palpitations Gastro GI: No abdominal pain, change in bowel habits, constipation, cramping, diarrhea, nausea/dyspepsia or vomiting Genitourinary-Female: No burning urination, painful urination, urinary incontinence or urinary frequency Musc Musculoskeletal: No abnormal gait, joint pain, back pain, limited range of motion, muscle weakness, neck pain or numbness Skin Skin: No dry skin, redness, lesions, itchy eyes, rash or (more content not included)... Normal [facility] Lipid Profileon 09-11-2024 Cholesterol [Mass/Vol] 232 mg/dL High 200 [facility] Comment on above: Result Comment: <200 mg/dL Desirable 200-240 mg/dL Borderline >240 mg/dL High Risk Performed By: #### L 501.9985, L100.0500, L501.9520, L500.4050, L500.4100 #### [facility] [address] [place], [address] Cholesterol in HDL [Mass/Vol] 49 mg/dL Normal [facility] Comment on above: Result Comment: The drugs N-Acetylcysteine and Metamizole may falsely depress this assay. Reference Range HDL <40 mg/dL Low HDL Cholesterol HDL >or= 60 mg/dL High HDL Cholesterol Performed By: #### L 501.9985, L100.0500, L501.9520, L500.4050, L500.4100 #### [facility] [address] [place], [address] Cholesterol in LDL [Mass/Vol] 149 mg/dL High 0-130 [facility] Comment on above: Performed By: #### L 501.9985, L100.0500, L501.9520, L500.4050, L500.4100 #### [facility] [address] [place], [address] Cholesterol in VLDL [Mass/Vol] 34 mg/dL Normal 5-40 [facility] Comment on above: Performed By: #### L 501.9985, L100.0500, L501.9520, L500.4050, L500.4100 #### [facility] [address] [place], [address] Triglyceride [Mass/Vol] 168 mg/dL Normal [facility] Comment on above: Result Comment: The drugs N-Acetylcysteine and Metamizole may falsely depress this assay. Serum Triglycerides Reference Interval Normal <150 mg/dL Borderline high 150 - 199 mg/dL High 200 - 499 mg/dL Very High > or = 500 mg/dL Performed By: #### L 501.9985, L100.0500, L501.9520, L500.4050, L500.4100 #### [facility] [address] [place], [address] Thyroid Stim Hormone (TSH)on 09-11-2024 TSH 0.973 uIU/mL Normal 0.358-3.740 [facility] Comment on above: Performed By: #### L 501.9985, L100.0500, L501.9544, L500.4055, L500.3349 #### [facility] [address] [place], [address] Urgent Care Visit Reporton 1 11-02-2023 Urgent Care Visit Report [facility] [address], [address] [place] [address] OFFICE VISIT Date of Service: 09/02/24 MR#: [id number] Acct: [id number] Name: LISA CHEN Rep #: [id number] : 1970 Provider: ELKIN Borges Age/Sex: 54/F Location: [facility] Status: Signed Intake Vital Signs 03/12/24 15:23 09/02/24 11:46 Height 5 ft 7 in BP 122/60 H Blood Pressure Location Rt brachial Position Sitting Respiration 16 Pulse 83 Pulse Source NIBP Temp 98.3 F Temp Source Oral Pulse Oximetry (%) 96 Oxygen Delivery Method room air Intake Visit Reasons: fever/st/cough/mann Chief Complaint: ST, MANN, fever, cough Skidder Driver Required: No Is patient in pain?: Yes Allergies No Known Allergies Allergy (Verified 09/02/24 11:55) Medications ???Medication ???Instructions ???Recorded ???Confirmed ???Type lactobacillus combination no.9 4 4,000 mmu cells PO DAILY 06/26/20 03/12/24 History billion cell capsule (Adult 50 Plus Probiotic) multivitamin 1 tab PO DAILY 06/26/20 03/12/24 History magnesium glycinate 100 mg (as 100 mg PO DAILY 09/20/23 03/12/24 History glycinate) tablet dexamethasone 6 mg tablet 6 mg PO DAILY #5 tabs 10/19/23 03/12/24 Rx estradiol 0.025 mg/24 hr 1 patch transdermal 2XW #24 ea 03/12/24 03/12/24 Rx semiweekly transdermal patch ivermectin 1 % topical cream 1 applic topical DAILY 03/12/24 03/12/24 History medroxyprogesterone 2.5 mg tablet 2.5 mg PO DAILY #90 tabs 03/12/24 03/12/24 Rx Is last menstrual period known: No Post menopausal: Yes Patient : No Have you fallen in the past year?: No Nurse's Note: ST, MANN, fever, slight cough x 24 hours. concern for strep. considering covid/flu testing, unsure if willing. PFSH Medical History (Updated 03/12/24 @ 15:46 by Tiffany Fair [employer], [employer]) Hyperlipidemia Borderline type 2 diabetes mellitus Kidney stones Hormone deficiency Carpal tunnel syndrome Breast lump in female Back problem Fatigue Surgical History H/O foot surgery Hx of hernia repair Family History Mother Thyroid cancer Brain aneurysm Father Cancer Heart disease Hypertension CHF (congestive heart failure) Other Arthritis Colon cancer Diabetes Lung cancer Social History Smoking Status: Former smoker second hand exposure: Yes alcohol intake: never substance use type: does not use caffeine: No what type of physical activity do you participate in: none seatbelt use: always do you feel safe at home: Yes additional social history: - Meet HPI HPI Chief Complaint: ST, MANN, fever, cough Details: LISA CHEN, is a 54 F who presents to the office today for initial evaluation [facility] the [facility] for approximately 1 day history of sore throat, headache, fever (? Tmax), cough. Patient notes no complaints of chest pain or shortness of breath or dyspnea on exertion. Several close contacts recently dx???d w/ similar URI complaints. No ddtk-okx-elvtuox taken to assist. No other associated symptoms and no other alleviating/aggravatin g factors. ROS Const Constitutional: No other (As above) Exam Const General: cooperative, healthy appearing and no acute distress Orientation: alert, awake and oriented x3 HENMT Head: normal to inspection Ears: hearing grossly normal bilaterally, external ears normal, TM's normal bilaterally and EAC's normal Nose: external nose normal, nares normal, septum normal and clear nasal discharge Face and sinus: normal facial exam, sinuses nontender and face symmetric Mouth: oral mucosae normal, lip normal, tongue normal and oropharynx normal Throat: posterior oropharynx normal, tonsils w/ trace erythema, uvula midline and no postnasal drainage Eyes General: appearance normal, both eyes and all related structures Neck Neck: normal visual inspection, full ROM, no lymphadenopathy, no meningeal signs and supple Neck mass: No Thyroid: thyroid normal Lymphatic: no lymphadenopathy noted Chest Chest palpation inspection: normal inspection of the chest Resp Effort Inspection: normal respiratory effort, able to speak in complete sentences and no unsolicited cough during today's exam Auscultation: Bilateral: Clear to Auscultation Cardio Palpation: normal PMI Rate: tachycardic Rhythm: regular rhythm Heart Sounds: S1 normal, S2 normal, no gallops, no murmurs and no rubs Pulses: radial pulses present Skin General: no rashes or lesions noted Neuro General: patient alert, patient awake and patient oriented x3 Cognition: normal cognition Speech: speech normal Psych Appearance: grossly normal Mental Status: mental status grossly no (more content not included)... Normal [facility] Absolute lymphocyte counton 01-15-2024 Lymphocytes Auto (Unsp spec) [#/Vol] 1.62 10*3/uL 0.83-4.51 [facility] Automated lymphocyte count a s percentage of total leukocyteson 01-15-2024 Lymphocytes/100 WBC Auto (Unsp spec) 32.8 % 19-41 [facility] Basophil percentageon 2023 Basophils/100 WBC (Bld) 0.8 % 0-1 [facility] Bilirubin [Mass/Vol] 0.40 mg/dL 0.20-1.00 [facility] Comment on above: For patients on eltr ombopag therapy, use of Dimension [place] TBIL is not recommended. Chloride [Moles/Vol] 108 mmol/L 98-107 [facility] Cholesterol [Mass/Vol] 197 mg/dL <200 [facility] Comment on above: <200 mg/dL Desirable 200-240 mg/dL Borderline >240 mg/dL High Risk Eosinophils/100 WBC (Bld) 2.6 % 0-5 [facility] Glucose [Mass/Vol] 98 mg/dL 74-106 [facility] Hemoglobin (Bld) [Mass/Vol] 13.4 g/dL 12.0-15.0 [facility] Monocytes/100 WBC (Bld) 5.7 % 0-10 [facility] Neutrophils (Bld) [#/Vol] 2.9 10*3/uL 2.0-7.7 [facility] Neutrophils/100 WBC (Bld) 57.9 % 47-70 [facility] Potassium [Moles/Vol] 4.0 mmol/L 3.5-5.1 [facility] Protein [Mass/Vol] 6.8 g/dL 6.4-8.2 [facility] Sodium [Moles/Vol] 140 mmol/L 136-145 [facility] Triglyceride [Mass/Vol] 393 mg/dL <199 [facility] Comment on above: The drugs N-Acetylcy steine and Metamizole may falsely depress this assay.Serum Triglycerides Reference Interval Normal <150 mg/dL Borderline high 150 - 199 mg/dL High 200 - 499 mg/dL Very High > or = 500 mg/dL WBC (Bld) [#/Vol] 4.9 10*3/uL 4.4-11.0 [facility] Determination of erythrocyte mean corpuscular volume (MCV)on 01-15-2024 MCV (RBC) [Entitic vol] 93.2 fL 81-99 [facility] Erythrocyte distribution wid th ratioon 01-15-2024 Erythrocyte distribution width (RBC) [Ratio] 13.4 % 11.6-14.6 [facility] Erythrocyte distribution wid th standard deviationon 01-15-2024 Erythrocyte distribution width (RBC) [Entitic vol] 45.8 fL 35.1-43.9 [facility] Hematocrit Auto (Bld) [Volum e fraction]on 01-15-2024 Hematocrit (Bld) [Volume fraction] 42.2 % 37-47 [facility] Immature granulocytes/100 WB C Auto (Bld)on 01-15-2024 Immature granulocytes/100 WBC (Bld) 0.200 % 0.0-0.9 [facility] Comment on above: IG% - Immature Granu locytes (promyelocytes, myelocytes and metamyelocytes) > 1% indicates that a LEFT SHIFT is Present. Laboratory - Chemistry and C hemistry - challengeon 01-15-2024 Albumin/Globulin [Mass ratio] 1.2 {ratio} 0.9-2.4 [facility] ALP [Catalytic activity/Vol] 89 U/L 45-117 [facility] ALT [Catalytic activity/Vol] 23 U/L 13-56 [facility] Cholesterol in HDL [Mass/Vol] 51 mg/dL >40 [facility] Comment on above: The drugs N-Acetylcy steine and Metamizole may falsely depress this assay. Reference Range HDL <40 mg/dL Low HDL Cholesterol HDL >or= 60 mg/dL High HDL Cholesterol Cholesterol in LDL [Mass/Vol] 67 mg/dL 0-130 [facility] CO2 [Moles/Vol] 28.0 mmol/L 21.0-32.0 [facility] Cobalamin (Vitamin B12) [Mass/Vol] 481 pg/mL 211-911 [facility] Globulin (S) [Mass/Vol] 3.1 g/dL 2.2-4.2 [facility] Urea nitrogen/Creatinine [Mass ratio] 19.9 mg/mg 10-20 [facility] Laboratory - Hematology and Cell countson 01-15-2024 MCH (RBC) [Entitic mass] 29.6 pg 27.0-32.0 [facility] MCHC (RBC) [Mass/Vol] 31.8 g/dL 32-36 [facility] Nucleated RBC/100 WBC (Bld) [Ratio] 0 % 0-5 [facility] Platelet mean volume (Bld) [Entitic vol] 10.3 fL 6.2-12.0 [facility] Platelets (Bld) [#/Vol] 238 10*3/uL 150-450 [facility] No Panel Informationon 01-14 Estimated GFR (MDRD) Amer 133 mL/min >60 [facility] Comment on above: GFR Calc Estimated GFR (MDRD) Non-Af Amer 110 mL/min >60 [facility] Comment on above: Non- GFR Calc Folate 30.60 ng/mL 3.1-55.4 [facility] Comment on above: Slight Hemolysis, Re sult may be falsely increased. VLDL Cholesterol 79 mg/dL 5-40 [facility] RBC Auto (Bld) [#/Vol]on RBC (Bld) [#/Vol] 4.53 10*6/uL 4.2-5.4 [facility] Serum or plasma calcium jade urement (mass/volume)on 01-15-2024 Calcium [Mass/Vol] 8.8 mg/dL 8.5-10.1 [facility] Serum or plasma creatinine m easurement (mass/volume)on 01-15-2024 Creatinine [Mass/Vol] 0.60 mg/dL 0.55-1.02 [facility] Comment on above: The validity of the calculated GFR & GFRAA in patients over 70 years has not been determined. Clinical correlation is essential. Serum or plasma thyroid stim ulating hormone (TSH) measurement (units/volume)on 01-15-2024 TSH Qn 0.94 uIU/mL 0.358-3.74 [facility] Serum or plasma urea nitroge n measurement (mass/volume)on 01-15-2024 Urea nitrogen [Mass/Vol] 12 mg/dL 7-18 [facility] Thin prep Papanicolaou smear with manual screeningon 01-15-2024 Thin prep Papanicolaou smear with manual screening 3.7 g/dL 3.2-5.0 [facility] Thin prep Papanicolaou smear with manual screening 21 U/L 15-37 [facility] Thin prep Papanicolaou smear with manual screening 4 5-15 [facility] Whole blood hemoglobin A1c/t otal hemoglobin ratio (mass fraction)on 01-15-2024 HbA1c (Bld) [Mass fraction] 5.6 % 3.8-5.6 [facility] Comment on above: Normal < 5.7 % Predi abetic 5.7 - 6.4 % Diabetic >or= 6.5 % Please note range changes. Laboratory - Microbiology an d Antimicrobial susceptibilityon 10-18-2023 SARS-CoV-2 (COVID-19) RNA TOM+probe Ql (Unsp spec) Detected [facility] No Panel Informationon 10-18 Influenza Types A,B Rapid (Clinic) Not detected [facility] Absolute lymphocyte countOrd ered By: Chanel Cisneros on 09-20-2023 Lymphocytes Auto (Unsp spec) [#/Vol] 1.58 10*3/uL 0.83-4.51 [facility] Basophil percentageOrdered B y: Chanel Cisneros on 09-20-2023 Basophils/100 WBC (Bld) 0.3 % 0-1 [facility] Bilirubin [Mass/Vol] 0.30 mg/dL 0.20-1.00 [facility] Comment on above: For patients on eltr ombopag therapy, use of Dimension [place] TBIL is not recommended. Chloride [Moles/Vol] 107 mmol/L 98-107 [facility] Cholesterol [Mass/Vol] 184 mg/dL <200 [facility] Comment on above: <200 mg/dL Desirable 200-240 mg/dL Borderline >240 mg/dL High Risk Eosinophils/100 WBC (Bld) 1.3 % 0-5 [facility] Glucose [Mass/Vol] 86 mg/dL 74-106 [facility] Neutrophils (Bld) [#/Vol] 4.0 10*3/uL 2.0-7.7 [facility] Neutrophils/100 WBC (Bld) 67.2 % 47-70 [facility] Potassium [Moles/Vol] 3.8 mmol/L 3.5-5.1 [facility] Protein [Mass/Vol] 7.1 g/dL 6.4-8.2 [facility] Sodium [Moles/Vol] 140 mmol/L 136-145 [facility] Triglyceride [Mass/Vol] 143 mg/dL <199 [facility] Comment on above: The drugs N-Acetylcy steine and Metamizole may falsely depress this assay.Serum Triglycerides Reference Interval Normal <150 mg/dL Borderline high 150 - 199 mg/dL High 200 - 499 mg/dL Very High > or = 500 mg/dL WBC (Bld) [#/Vol] 5.9 10*3/uL 4.4-11.0 [facility] Blood erythrocytes count (nu mber/volume)Ordered By: Chanel Cisneros on 09-20-2023 RBC (Bld) [#/Vol] 4.46 10*6/uL 4.2-5.4 [facility] Blood hemoglobin measurement (mass/volume)Ordered By: Chanel Cisneros on 09-20-2023 Hemoglobin (Bld) [Mass/Vol] 13.5 g/dL 12.0-15.0 [facility] Blood lymphocytes/100 leukoc ytesOrdered By: Chanel Cisneros on 09-20-2023 Lymphocytes/100 WBC (Bld) 26.6 % 19-41 [facility] Blood monocytes/100 leukocyt esOrdered By: [facility] on 09-20-2023 Monocytes/100 WBC (Bld) 4.4 % 0-10 [facility] Blood platelet mean volumeOr dered By: vanessafanwoodniesha Cisneros on 09-20-2023 Platelet mean volume (Bld) [Entitic vol] 10.0 fL 6.2-12.0 [facility] Determination of erythrocyte mean corpuscular volume (MCV)Ordered By: vanessafanwoodniesha Cisneros on 09-20-2023 MCV (RBC) [Entitic vol] 93.9 fL 81-99 [facility] Hematocrit Auto (Bld) [Volum e fraction]Ordered By: [facility] Jamesobey on 09-20-2023 Hematocrit (Bld) [Volume fraction] 41.9 % 37-47 [facility] Laboratory - Chemistry and C hemistry - challengeOrdered By: jacob Cisnreos on 09-20-2023 ALP [Catalytic activity/Vol] 100 U/L 45-117 [facility] ALT [Catalytic activity/Vol] 21 U/L 13-56 [facility] CO2 [Moles/Vol] 25.0 mmol/L 21.0-32.0 [facility] Globulin (S) [Mass/Vol] 3.3 g/dL 2.2-4.2 [facility] Urea nitrogen/Creatinine [Mass ratio] 36.7 mg/mg 10-20 [facility] Laboratory - Hematology and Cell countsOrdered By: jacob Ramirezobey on 09-20-2023 Erythrocyte distribution width (RBC) [Entitic vol] 47.0 fL 35.1-43.9 [facility] Erythrocyte distribution width (RBC) [Ratio] 13.6 % 11.6-14.6 [facility] Immature granulocytes/100 WBC (Bld) 0.200 % 0.0-0.9 [facility] Comment on above: IG% - Immature Granu locytes (promyelocytes, myelocytes and metamyelocytes) > 1% indicates that a LEFT SHIFT is Present. MCH (RBC) [Entitic mass] 30.3 pg 27.0-32.0 [facility] Nucleated RBC/100 WBC (Bld) [Ratio] 0 % 0-5 [facility] MCHC Auto (RBC) [Mass/Vol]Or dered By: Chanel Cisneros on 09-20-2023 MCHC (RBC) [Mass/Vol] 32.2 g/dL 32-36 [facility] No Panel InformationOrdered By: Chanel Cisneros on 09-20-2023 Estimated GFR (MDRD) Amer 135 mL/min >60 [facility] Comment on above: GFR Calc Estimated GFR (MDRD) Non-Af Amer 111 mL/min >60 [facility] Comment on above: Non- GFR Calc Platelets bldOrdered By: Jostin Cisneros on 09-20-2023 Platelets (Bld) [#/Vol] 249 10*3/uL 150-450 [facility] Serum or plasma albumin jade urement (mass/volume)Ordered By: Chanel Cisneros on 09-20-2023 Albumin [Mass/Vol] 3.8 g/dL 3.2-5.0 [facility] Serum or plasma albumin/glob ulin mass ratioOrdered By: Chanel Cisneros on 09-20-2023 Albumin/Globulin [Mass ratio] 1.2 {ratio} 0.9-2.4 [facility] Serum or plasma calcium jade urement (mass/volume)Ordered By: Chanel Cisneros on 09-20-2023 Calcium [Mass/Vol] 8.8 mg/dL 8.5-10.1 [facility] Serum or plasma cholesterol in HDL measurement (mass/volume)Ordered By: Chanel Cisneros on 09-20-2023 Cholesterol in HDL [Mass/Vol] 56 mg/dL >40 [facility] Comment on above: The drugs N-Acetylcy steine and Metamizole may falsely depress this assay. Reference Range HDL <40 mg/dL Low HDL Cholesterol HDL >or= 60 mg/dL High HDL Cholesterol Serum or plasma cholesterol in VLDL measurement (mass/volume)Ordered By: Chanel Cisneros on 09-20-2023 Cholesterol in VLDL [Mass/Vol] 29 mg/dL 5-40 [facility] Serum or plasma creatinine m easurement (mass/volume)Ordered By: Chanel Cisneros on 09-20-2023 Creatinine [Mass/Vol] 0.60 mg/dL 0.55-1.02 [facility] Comment on above: The validity of the calculated GFR & GFRAA in patients over 70 years has not been determined. Clinical correlation is essential. Serum or plasma low density lipoprotein (LDL) cholesterol measurement (mass/volume)Ordered By: Chanel Cisneros on 09-20-2023 Cholesterol in LDL [Mass/Vol] 99 mg/dL 0-130 [facility] Serum or plasma urea nitroge n measurement (mass/volume)Ordered By: Chanel Cisneros on 09-20-2023 Urea nitrogen [Mass/Vol] 22 mg/dL 7-18 [facility] Thin prep Papanicolaou smear with manual screeningOrdered By: jacob Cisneros on 09-20-2023 Thin prep Papanicolaou smear with manual screening 17 U/L 15-37 [facility] Thin prep Papanicolaou smear with manual screening 8 5-15 [facility] Whole blood hemoglobin A1c/t otal hemoglobin ratio (mass fraction)Ordered By: Chanel Cisneros on 09-20-2023 HbA1c (Bld) [Mass fraction] 5.5 % 3.8-5.6 [facility] Comment on above: Normal < 5.7 % Predi abetic 5.7 - 6.4 % Diabetic >or= 6.5 % Please note range changes. Absolute lymphocyte countOrd ered By: Dr. Chu on 03-31-2023 Lymphocytes Auto (Unsp spec) [#/Vol] 1.51 10*3/uL 0.83-4.51 [facility] Basophil percentageOrdered B y: Dr. Cuh on 03-31-2023 Basophils/100 WBC (Bld) 0.9 % 0-1 [facility] Bilirubin [Mass/Vol] 0.30 mg/dL 0.20-1.00 [facility] Comment on above: For patients on eltr ombopag therapy, use of Dimension [place] TBIL is not recommended. Chloride [Moles/Vol] 110 mmol/L 98-107 [facility] Cholesterol [Mass/Vol] 220 mg/dL <200 [facility] Comment on above: <200 mg/dL Desirable 200-240 mg/dL Borderline >240 mg/dL High Risk Eosinophils/100 WBC (Bld) 2.4 % 0-5 [facility] Glucose [Mass/Vol] 102 mg/dL 74-106 [facility] Comment on above: Fasting Glucose resu lt from 100 to 125 mg/dL suggests IMPAIRED HOMEOSTASIS per A.D.A. criteria. Neutrophils (Bld) [#/Vol] 2.7 10*3/uL 2.0-7.7 [facility] Neutrophils/100 WBC (Bld) 57.8 % 47-70 [facility] Potassium [Moles/Vol] 4.3 mmol/L 3.5-5.1 [facility] Protein [Mass/Vol] 7.3 g/dL 6.4-8.2 [facility] Sodium [Moles/Vol] 142 mmol/L 136-145 [facility] Triglyceride [Mass/Vol] 127 mg/dL <199 [facility] Comment on above: The drugs N-Acetylcy steine and Metamizole may falsely depress this assay.Serum Triglycerides Reference Interval Normal <150 mg/dL Borderline high 150 - 199 mg/dL High 200 - 499 mg/dL Very High > or = 500 mg/dL WBC (Bld) [#/Vol] 4.6 10*3/uL 4.4-11.0 [facility] Blood erythrocytes count (nu mber/volume)Ordered By: Dr. Chu on 03-31-2023 RBC (Bld) [#/Vol] 4.63 10*6/uL 4.2-5.4 [facility] Blood hemoglobin measurement (mass/volume)Ordered By: Dr. Chu on 03-31-2023 Hemoglobin (Bld) [Mass/Vol] 13.9 g/dL 12.0-15.0 [facility] Blood lymphocytes/100 leukoc ytesOrdered By: Dr. Chu on 03-31-2023 Lymphocytes/100 WBC (Bld) 32.7 % 19-41 [facility] Blood monocytes/100 leukocyt esOrdered By: Dr. Chu on 03-31-2023 Monocytes/100 WBC (Bld) 5.6 % 0-10 [facility] Blood platelet mean volumeOr dered By: Dr. Chu on 03-31-2023 Platelet mean volume (Bld) [Entitic vol] 10.0 fL 6.2-12.0 [facility] Determination of erythrocyte mean corpuscular volume (MCV)Ordered By: Dr. Chu on 03-31-2023 MCV (RBC) [Entitic vol] 93.7 fL 81-99 [facility] Hematocrit Auto (Bld) [Volum e fraction]Ordered By: Dr. Chu on 03-31-2023 Hematocrit (Bld) [Volume fraction] 43.4 % 37-47 [facility] Laboratory - Chemistry and C hemistry - challengeOrdered By: Dr. Chu on 03-31-2023 ALP [Catalytic activity/Vol] 114 U/L 45-117 [facility] ALT [Catalytic activity/Vol] 22 U/L 13-56 [facility] CO2 [Moles/Vol] 26.0 mmol/L 21.0-32.0 [facility] Globulin (S) [Mass/Vol] 3.5 g/dL 2.2-4.2 [facility] Urea nitrogen/Creatinine [Mass ratio] 24.2 mg/mg 10-20 [facility] Laboratory - Hematology and Cell countsOrdered By: Dr. Chu on 03-31-2023 Erythrocyte distribution width (RBC) [Entitic vol] 46.4 fL 35.1-43.9 [facility] Erythrocyte distribution width (RBC) [Ratio] 13.6 % 11.6-14.6 [facility] Immature granulocytes/100 WBC (Bld) 0.600 % 0.0-0.9 [facility] Comment on above: IG% - Immature Granu locytes (promyelocytes, myelocytes and metamyelocytes) > 1% indicates that a LEFT SHIFT is Present. MCH (RBC) [Entitic mass] 30.0 pg 27.0-32.0 [facility] Nucleated RBC/100 WBC (Bld) [Ratio] 0 % 0-5 [facility] MCHC Auto (RBC) [Mass/Vol]Or dered By: Dr. Chu on 03-31-2023 MCHC (RBC) [Mass/Vol] 32.0 g/dL 32-36 [facility] No Panel InformationOrdered By: Dr. Chu on 03-31-2023 Estimated GFR (MDRD) Amer 129 mL/min >60 [facility] Comment on above: GFR Calc Estimated GFR (MDRD) Non-Af Amer 107 mL/min >60 [facility] Comment on above: Non- GFR Calc Platelets bldOrdered By: Dr. Chu on 03-31-2023 Platelets (Bld) [#/Vol] 258 10*3/uL 150-450 [facility] Serum or plasma albumin jade urement (mass/volume)Ordered By: Dr. Chu on 03-31-2023 Albumin [Mass/Vol] 3.8 g/dL 3.2-5.0 [facility] Serum or plasma albumin/glob ulin mass ratioOrdered By: Dr. Chu on 03-31-2023 Albumin/Globulin [Mass ratio] 1.1 {ratio} 0.9-2.4 [facility] Serum or plasma calcitriol m easurement (mass/volume)Ordered By: Dr. Chu on 03-31-2023 1,25-dihydroxyvitamin D3 [Mass/Vol] 58.1 pg/mL 24.8-81.5 [facility] Comment on above: Performed at: [facility] [address] [id number] Director: Angie Reyes MD, Phone: [phone] Serum or plasma calcium jade urement (mass/volume)Ordered By: Dr. Chu on 03-31-2023 Calcium [Mass/Vol] 9.1 mg/dL 8.5-10.1 [facility] Serum or plasma cholesterol in HDL measurement (mass/volume)Ordered By: Dr. Chu on 03-31-2023 Cholesterol in HDL [Mass/Vol] 55 mg/dL >40 [facility] Comment on above: The drugs N-Acetylcy steine and Metamizole may falsely depress this assay. Reference Range HDL <40 mg/dL Low HDL Cholesterol HDL >or= 60 mg/dL High HDL Cholesterol Serum or plasma cholesterol in VLDL measurement (mass/volume)Ordered By: Dr. Chu on 03-31-2023 Cholesterol in VLDL [Mass/Vol] 25 mg/dL 5-40 [facility] Serum or plasma creatinine m easurement (mass/volume)Ordered By: Dr. Chu on 03-31-2023 Creatinine [Mass/Vol] 0.62 mg/dL 0.55-1.02 [facility] Comment on above: The validity of the calculated GFR & GFRAA in patients over 70 years has not been determined. Clinical correlation is essential. Serum or plasma low density lipoprotein (LDL) cholesterol measurement (mass/volume)Ordered By: Dr. Chu on 03-31-2023 Cholesterol in LDL [Mass/Vol] 140 mg/dL 0-130 [facility] Serum or plasma urea nitroge n measurement (mass/volume)Ordered By: Dr. Chu on 03-31-2023 Urea nitrogen [Mass/Vol] 15 mg/dL 7-18 [facility] Thin prep Papanicolaou smear with manual screeningOrdered By: Dr. Chu on 03-31-2023 Thin prep Papanicolaou smear with manual screening 17 U/L 15-37 [facility] Thin prep Papanicolaou smear with manual screening 6 5-15 [facility] Urine creatinine measurement (mass/volume)Ordered By: Dr. Chu on 03-31-2023 Creatinine (U) [Mass/Vol] 18.40 mg/dL NO RANGE EST. [facility] Urine protein measurement (m ass/volume)Ordered By: Dr. Chu on 03-31-2023 Protein (U) [Mass/Vol] mg/dL 0.0-11.8 [facility] Urine protein/creatinine mas s ratioOrdered By: Dr. Chu on 03-31-2023 Protein/Creatinine (U) [Mass ratio] TNP [facility] Comment on above: Test not performed Laboratory - Chemistry and C hemistry - challengeOrdered By: Gail Jacobs on 02-08-2023 Free T4 [Mass/Vol] 0.93 ng/dL 0.76-1.46 [facility] No Panel InformationOrdered By: Gail Jacobs on 02-08-2023 Thyroid Stimulating Hormone (TSH) 1.62 uIU/mL 0.358-3.74 [facility] Whole blood hemoglobin A1c/t otal hemoglobin ratio (mass fraction)Ordered By: Gail Jacobs on 02-08-2023 HbA1c (Bld) [Mass fraction] 5.8 % 3.8-5.6 [facility] Comment on above: Normal < 5.7 % Predi abetic 5.7 - 6.4 % Diabetic >or= 6.5 % Please note range changes. Absolute lymphocyte counton 01-23-2022 Lymphocytes Auto (Unsp spec) [#/Vol] 1.40 10*3/uL 0.83-4.51 [facility] Work Phone: Basophil percentageon 2021 Basophils/100 WBC (Bld) 0.8 % 0-1 [facility] Work Phone: Chloride [Moles/Vol] 109 mmol/L 98-107 [facility] Work Phone: Eosinophils/100 WBC (Bld) 2.2 % 0-5 [facility] Work Phone: Glucose [Mass/Vol] 177 mg/dL 74-106 [facility] Work Phone: Comment on above: Fasting Glucose resu lt greater than or equal to 126 mg/dL suggests DIABETES MELLITUS per A.D.A. criteria. Neutrophils (Bld) [#/Vol] 3.0 10*3/uL 2.0-7.7 [facility] Work Phone: Neutrophils/100 WBC (Bld) 60.6 % 47-70 [facility] Work Phone: Potassium [Moles/Vol] 3.7 mmol/L 3.5-5.1 [facility] Work Phone: Sodium [Moles/Vol] 140 mmol/L 136-145 [facility] Work Phone: WBC (Bld) [#/Vol] 5.0 10*3/uL 4.4-11.0 [facility] Work Phone: Blood erythrocytes count (nu mber/volume)on 01-23-2022 RBC (Bld) [#/Vol] 4.77 10*6/uL 4.2-5.4 [facility] Work Phone: Blood hemoglobin measurement (mass/volume)on 01-23-2022 Hemoglobin (Bld) [Mass/Vol] 15.2 g/dL 12.0-15.0 [facility] Work Phone: Blood lymphocytes/100 leukoc yteson 01-23-2022 Lymphocytes/100 WBC (Bld) 28.3 % 19-41 [facility] Work Phone: Blood monocytes/100 leukocyt eson 01-23-2022 Monocytes/100 WBC (Bld) 7.7 % 0-10 [facility] Work Phone: Blood platelet mean volumeon 01-23-2022 Platelet mean volume (Bld) [Entitic vol] 9.7 fL 6.2-12.0 [facility] Work Phone: Determination of erythrocyte mean corpuscular volume (MCV)on 01-23-2022 MCV (RBC) [Entitic vol] 93.3 fL 81-99 [facility] Work Phone: Hematocrit Auto (Bld) [Volum e fraction]on 01-23-2022 Hematocrit (Bld) [Volume fraction] 44.5 % 37-47 [facility] Work Phone: Laboratory - Chemistry and C hemistry - challengeon 01-23-2022 CO2 [Moles/Vol] 24.0 mmol/L 21.0-32.0 [facility] Work Phone: Urea nitrogen/Creatinine [Mass ratio] 11.7 mg/mg 10-20 [facility] Work Phone: Laboratory - Hematology and Cell countson 01-23-2022 Erythrocyte distribution width (RBC) [Entitic vol] 44.8 fL 35.1-43.9 [facility] Work Phone: Erythrocyte distribution width (RBC) [Ratio] 13.1 % 11.6-14.6 [facility] Work Phone: Immature granulocytes/100 WBC (Bld) 0.400 % 0.0-0.9 [facility] Work Phone: Comment on above: IG% - Immature Granu locytes (promyelocytes, myelocytes and metamyelocytes) > 1% indicates that a LEFT SHIFT is Present. MCH (RBC) [Entitic mass] 31.9 pg 27.0-32.0 [facility] Work Phone: Nucleated RBC/100 WBC (Bld) [Ratio] 0 % 0-5 [facility] Work Phone: MCHC Auto (RBC) [Mass/Vol]on 01-23-2022 MCHC (RBC) [Mass/Vol] 34.2 g/dL 32-36 [facility] Work Phone: No Panel Informationon 01-23 Troponin I High Sensitivity 4 pg/mL 3.0-54.0 [facility] Work Phone: Comment on above: Please Note: New Shara t Units and Gender Specific Reference Ranges. For more information see Policy Stat Procedure [place] High Sensitivity Troponin (TNIH) and attachments. D-Dimer Quantitative (PE/DVT) < 0.27 FEU/ug/m 0.27-0.49 [facility] Work Phone: Comment on above: NORMAL D-Dimer level (<0.50) indicates no DVT or PE. Estimated Creatinine Clearance Calc 96.19 ml/min [facility] Work Phone: Estimated GFR (MDRD) Amer 72 mL/min >60 [facility] Work Phone: Comment on above: GFR Calc Estimated GFR (MDRD) Non-Af Amer 60 mL/min >60 [facility] Work Phone: Comment on above: Non- GFR Calc Thyroid Stimulating Hormone (TSH) 4.18 uIU/mL 0.358-3.74 [facility] Work Phone: Platelets bldon 01-23-2022 Platelets (Bld) [#/Vol] 251 10*3/uL 150-450 [facility] Work Phone: Serum or plasma calcium jade urement (mass/volume)on 01-23-2022 Calcium [Mass/Vol] 9.0 mg/dL 8.5-10.1 [facility] Work Phone: Serum or plasma creatinine m easurement (mass/volume)on 01-23-2022 Creatinine [Mass/Vol] 1.03 mg/dL 0.55-1.02 [facility] Work Phone: Comment on above: The validity of the calculated GFR & GFRAA in patients over 70 years has not been determined. Clinical correlation is essential. Serum or plasma urea nitroge n measurement (mass/volume)on 01-23-2022 Urea nitrogen [Mass/Vol] 12 mg/dL 7-18 [facility] Work Phone: Thin prep Papanicolaou smear with manual screeningon 01-23-2022 Thin prep Papanicolaou smear with manual screening 7 5-15 [facility] Work Phone: Basophil percentageon 2020 Cholesterol [Mass/Vol] 159 mg/dL <200 [facility] Work Phone: Comment on above: <200 mg/dL Desirable 200-240 mg/dL Borderline >240 mg/dL High Risk Glucose [Mass/Vol] 91 mg/dL 74-106 [facility] Work Phone: Comment on above: Please note revised GLUCOSE reference range effective 2017. Triglyceride [Mass/Vol] 69 mg/dL [facility] Work Phone: Comment on above: The drugs N-Acetylcy steine and Metamizole may falsely depress this assay.Serum Triglycerides Reference Interval Normal <150 mg/dL Borderline high 150 - 199 mg/dL High 200 - 499 mg/dL Very High > or = 500 mg/dL No Panel Informationon 10-18 Thyroid Stimulating Hormone (TSH) 0.88 uIU/mL 0.358-3.74 [facility] Work Phone: Vitamin D 25-Hydroxy 45.0 ng/mL [facility] Work Phone: Comment on above: Vitamin D 25(OH) Sta tus Range Deficiency <20 ng/mL (50nmol/L) Insufficiency 20 - 30 ng/mL (50 - 75 nmol/L) Sufficiency 30 - 100 ng/mL (75 - 250 nmol/L) Toxicity >100 ng/mL (>250 nmol/L) Serum or plasma cholesterol in HDL measurement (mass/volume)on 10-18-2021 Cholesterol in HDL [Mass/Vol] 42 mg/dL [facility] Work Phone: Comment on above: The drugs N-Acetylcy steine and Metamizole may falsely depress this assay. Reference Range HDL <40 mg/dL Low HDL Cholesterol HDL >or= 60 mg/dL High HDL Cholesterol Serum or plasma cholesterol in VLDL measurement (mass/volume)on 10-18-2021 Cholesterol in VLDL [Mass/Vol] 14 mg/dL 5-40 [facility] Work Phone: Serum or plasma low density lipoprotein (LDL) cholesterol measurement (mass/volume)on 10-18-2021 Cholesterol in LDL [Mass/Vol] 103 mg/dL 0-130 [facility] Work Phone: CBC, Platelets & Auto Diff ( [id number])Ordered By: Soccer Referee on 05-26-2020 Basophils (Bld) [#/Vol] 0.1 {x10E3/uL} Normal 0.0-0.2 [facility] Work Phone: Comment on above: PATIENT NOT FASTINGP ERFORMED BY: BRITTON [employer]70 [facility]Critical [facility] [id number] Basophils (Bld) [#/Vol] 0.1 10*3/uL Normal 0.0-0.2 [facility]; [facility] Work Phone: Comment on above: PATIENT NOT FASTINGP ERFORMED BY: [facility]RabbitPaint[facility] [id number] Basophils/100 WBC (Bld) 1 % Normal [facility] Work Phone: Comment on above: PATIENT NOT FASTINGP ERFORMED BY: 6sicuro.itCritical access hospital [id number] Eosinophils (Bld) [#/Vol] 0.0 {x10E3/uL} Normal 0.0-0.4 [facility] Work Phone: Comment on above: PATIENT NOT FASTINGP ERFORMED BY: CB [facility] Frjrah7[address] RoadDublin [place] [id number] Eosinophils (Bld) [#/Vol] 0.0 10*3/uL Normal 0.0-0.4 [facility]; [facility] Work Phone: Comment on above: PATIENT NOT FASTINGP ERFORMED BY: CB [facility] Xgukni2240 [address] RoadDublin [place] [id number] Eosinophils/100 WBC (Bld) 1 % Normal [facility] Work Phone: Comment on above: PATIENT NOT FASTINGP ERFORMED BY: CB [facility] Xxkjmo7730 [address] RoadDublin [place] [id number] Erythrocyte distribution width (RBC) [Ratio] 13.4 % Normal 11.7-15.4 [facility] Work Phone: Comment on above: PATIENT NOT FASTINGP ERFORMED BY: CB [facility] Nqewlj6547 [address] RoadDublin [place] [id number] Hematocrit (Bld) [Volume fraction] 42.5 % Normal 34.0-46.6 [facility] Work Phone: Comment on above: PATIENT NOT FASTINGP ERFORMED BY: CB [facility] Jpenvv7086 [address] RoadDublin [place] [id number] Hemoglobin (Bld) [Mass/Vol] 14.6 g/dL Normal 11.1-15.9 [facility] Work Phone: Comment on above: PATIENT NOT FASTINGP ERFORMED BY: CB [facility] Tmsluz4983 [address] RoadDublin [place] [id number] Immature granulocytes (Bld) [#/Vol] 0.0 {x10E3/uL} Normal 0.0-0.1 [facility] Work Phone: Comment on above: PATIENT NOT FASTINGP ERFORMED BY: CB [facility] Jthbcg4494 [address] RoadDublin [place] [id number] Immature granulocytes (Bld) [#/Vol] 0.0 10*3/uL Normal 0.0-0.1 [facility]; [facility] Work Phone: Comment on above: PATIENT NOT FASTINGP ERFORMED BY: BRITTON InocenciaCorhonda GerberNkjfqj7288 [address]r RoadDublin [place] [id number] Immature granulocytes/100 WBC (Bld) 0 % Normal [facility] Work Phone: Comment on above: PATIENT NOT FASTINGP ERFORMED BY: BRITTON [facility] Vpuisn6131 [address] RoadDublin [place] [id number] Lymphocytes (Bld) [#/Vol] 1.5 {x10E3/uL} Normal 0.7-3.1 [facility] Work Phone: Comment on above: PATIENT NOT FASTINGP ERFORMED BY: BRITTON InocenciaCox Walnut Lawn Ciyktl[address] [facility] [place] [id number] Lymphocytes (Bld) [#/Vol] 1.5 10*3/uL Normal 0.7-3.1 [facility]; [facility] Work Phone: Comment on above: PATIENT NOT FASTINGP ERFORMED BY: BRITTON Arletrhonda VeronicaGosste[address] [facility] [place] [id number] Lymphocytes/100 WBC (Bld) 17 % Normal [facility] Work Phone: Comment on above: PATIENT NOT FASTINGP ERFORMED BY: BRITTON [facility] Cetklk[address] [facility] [place] [id number] MCH (RBC) [Entitic mass] 31.3 pg Normal 26.6-33.0 [facility] Work Phone: Comment on above: PATIENT NOT FASTINGP ERFORMED BY: BRITTON [facility] Duenmr[address] [facility] [place] [id number] MCHC (RBC) [Mass/Vol] 34.4 g/dL Normal 31.5-35.7 [facility] prehensive Internal Medicine Work Phone: Comment on above: PATIENT NOT FASTINGP ERFORMED BY: [facility] Jikdbe3458 [address] RoadDublin [place] [id number] MCV (RBC) [Entitic vol] 91 fL Normal 79-97 [facility] Work Phone: Comment on above: PATIENT NOT FASTINGP ERFORMED BY: BRITTON Neyda Gerber6[address] RoadDublin [place] [id number] Monocytes (Bld) [#/Vol] 0.4 {x10E3/uL} Normal 0.1-0.9 [facility] Work Phone: Comment on above: PATIENT NOT FASTINGP ERFORMED BY: BRITTON [facility] Fayhqe7465 [address] RoadDublin [place] [id number] Monocytes (Bld) [#/Vol] 0.4 10*3/uL Normal 0.1-0.9 [facility]; [facility] Work Phone: Comment on above: PATIENT NOT FASTINGP ERFORMED BY: BRITTON Arletrhonda VeronicaRcsnru1721 [address] RoadDublin [place] [id number] Monocytes/100 WBC (Bld) 5 % Normal [facility] Work Phone: Comment on above: PATIENT NOT FASTINGP ERFORMED BY: BRITTON InocenciaCorhonda Zmvuaw1547 [address] RoadDublin [place] [id number] Neutrophils (Bld) [#/Vol] 6.7 {x10E3/uL} Normal 1.4-7.0 [facility] Work Phone: Comment on above: PATIENT NOT FASTINGP ERFORMED BY: BRITTON [facility] Ajbteo2289 [address] RoadDublin [place] [id number] Neutrophils (Bld) [#/Vol] 6.7 10*3/uL Normal 1.4-7.0 [facility]; [facility] Work Phone: Comment on above: PATIENT NOT FASTINGP ERFORMED BY: BRITTON [facility] Vvhhau3879 [address] RoadDublin [place] [id number] Neutrophils/100 WBC (Bld) 76 % Normal [facility] Work Phone: Comment on above: PATIENT NOT FASTINGP ERFORMED BY: BRITTON [facility] Pmomnh7282 [address] RoadDublin [place] [id number] Platelets (Bld) [#/Vol] 247 {x10E3/uL} Normal 150-450 [facility] Work Phone: Comment on above: PATIENT NOT FASTINGP ERFORMED BY: BRITTON LabCorhonda Viqnsz7933 [address] RoadDublin [place] [id number] Platelets (Bld) [#/Vol] 247 10*3/uL Normal 150-450 [facility]; [facility] Work Phone: Comment on above: PATIENT NOT FASTINGP ERFORMED BY: CB [facility] Njqrze7120 [address] RoadDublin [place] [id number] RBC (Bld) [#/Vol] 4.66 {x10E6/uL} Normal 3.77-5.28 [facility] Work Phone: Comment on above: PATIENT NOT FASTINGP ERFORMED BY: BRITTON [facility] Vysile3984 [address] RoadDublin [place] [id number] RBC (Bld) [#/Vol] 4.66 10*6/uL Normal 3.77-5.28 [facility]; [facility] Work Phone: Comment on above: PATIENT NOT FASTINGP ERFORMED BY: BRITTON [facility] Iunbfj4744 [address] RoadDublin [place] [id number] WBC (Bld) [#/Vol] 8.8 {x10E3/uL} Normal 3.4-10.8 [facility] Work Phone: Comment on above: PATIENT NOT FASTINGP ERFORMED BY: CB [facility] Jtyjrh5384 [address] RoadDublin [place] [id number] WBC (Bld) [#/Vol] 8.8 10*3/uL Normal 3.4-10.8 [facility]; [facility] Work Phone: Comment on above: PATIENT NOT FASTINGP ERFORMED BY: CB [facility] Vxqcfv2625 [address] RoadDublin [place] [id number] Metabolic Panel, Comprehensi ve (02242)Ordered By: Soccer Referee on 05-26-2020 Albumin [Mass/Vol] 4.5 g/dL Normal 3.8-4.8 [facility] Work Phone: Comment on above: PATIENT NOT FASTINGP ERFORMED BY: BRITTON [facility] Fhjssk5819 [address] RoadDublin [place] [id number] Albumin/Globulin [Mass ratio] 2.0 {ratio} Normal 1.2-2.2 [facility] Work Phone: Comment on above: PATIENT NOT FASTINGP ERFORMED BY: CB [facility] Oodyvp6284 [address] RoadDublin [place] [id number] ALP [Catalytic activity/Vol] 79 [iU]/L Normal 39-117 [facility] Work Phone: Comment on above: PATIENT NOT FASTINGP ERFORMED BY: CB [facility] Vhjcba8360 [address] RoadDublin [place] [id number] ALP [Catalytic activity/Vol] 79 U/L Normal 39-117 [facility]; [facility] Work Phone: Comment on above: PATIENT NOT FASTINGP ERFORMED BY: CB [facility] Kqqems7076 [address] RoadDublin [place] [id number] ALT [Catalytic activity/Vol] 13 [iU]/L Normal 0-32 [facility] Work Phone: Comment on above: PATIENT NOT FASTINGP ERFORMED BY: CB [facility] Pmkncx8378 [address] RoadDublin [place] [id number] ALT [Catalytic activity/Vol] 13 U/L Normal 0-32 [facility]; [facility] Work Phone: Comment on above: PATIENT NOT FASTINGP ERFORMED BY: CB [facility] Csvlyx6313 [address] RoadDublin [place] [id number] AST [Catalytic activity/Vol] 17 [iU]/L Normal 0-40 [facility] Work Phone: Comment on above: PATIENT NOT FASTINGP ERFORMED BY: CB [facility] Xstybf2849 [address] RoadDublin [place] [id number] AST [Catalytic activity/Vol] 17 U/L Normal 0-40 [facility]; [facility] Work Phone: Comment on above: PATIENT NOT FASTINGP ERFORMED BY: CB [facility] Lrrctu8576 [address] RoadDublin [place] [id number] Bilirubin [Mass/Vol] 0.3 mg/dL Normal 0.0-1.2 [facility] Work Phone: Comment on above: PATIENT NOT FASTINGP ERFORMED BY: CB [facility] Eshbpj6504 [address] RoadDublin [place] [id number] Calcium [Mass/Vol] 9.4 mg/dL Normal 8.7-10.2 [facility] Work Phone: Comment on above: PATIENT NOT FASTINGP ERFORMED BY: CB [facility] Qsoxes2058 [address] RoadDublin [place] [id number] Chloride [Moles/Vol] 105 mmol/L Normal 96-106 [facility] Work Phone: Comment on above: PATIENT NOT FASTINGP ERFORMED BY: CB [facility] Sajcat4718 [address] RoadDublin [place] [id number] CO2 [Moles/Vol] 24 mmol/L Normal 20-29 [facility] Work Phone: Comment on above: PATIENT NOT FASTINGP ERFORMED BY: CB [facility] Fjushn26[address] RoadDublin [place] [id number] Creatinine [Mass/Vol] 0.66 mg/dL Normal 0.57-1.00 [facility] Work Phone: Comment on above: PATIENT NOT FASTINGP ERFORMED BY: CB [facility] Ddrhlu7170 [address] RoadDublin [place] [id number] GFR/1.73 sq M predicted among blacks CKD-EPI (S/P/Bld) [Vol rate/Area] 119 mL/min/1.73 Normal [facility] Work Phone: Comment on above: PATIENT NOT FASTINGP ERFORMED BY: CB [facility] Ilmxmv2946 [address] RoadDublin [place] [id number] GFR/1.73 sq M predicted among non-blacks CKD-EPI (S/P/Bld) [Vol rate/Area] 103 mL/min/1.73 Normal [facility] Work Phone: Comment on above: PATIENT NOT FASTINGP ERFORMED BY: CB [facility] Icekex1499 [address] RoadDublin [place] [id number] Globulin (S) [Mass/Vol] 2.3 g/dL Normal 1.5-4.5 [facility] Work Phone: Comment on above: PATIENT NOT FASTINGP ERFORMED BY: CB [facility] Ygkzdz2919 [address] RoadDublin [place] [id number] Glucose [Mass/Vol] 99 mg/dL Normal 65-99 [facility] Work Phone: Comment on above: PATIENT NOT FASTINGP ERFORMED BY: CB [facility] Hqysrw8785 [address] RoadDublin [place] [id number] Potassium [Moles/Vol] 4.2 mmol/L Normal 3.5-5.2 [facility] Work Phone: Comment on above: PATIENT NOT FASTINGP ERFORMED BY: CB [facility] Zgfjvv3501 [address] RoadDublin [place] [id number] Protein [Mass/Vol] 6.8 g/dL Normal 6.0-8.5 [facility] Work Phone: Comment on above: PATIENT NOT FASTINGP ERFORMED BY: CB [facility] Rsoapl4000 [address] RoadDublin [place] [id number] Sodium [Moles/Vol] 141 mmol/L Normal 134-144 [facility] Work Phone: Comment on above: PATIENT NOT FASTINGP ERFORMED BY: CB [facility] Uiyrnd1631 [address] RoadDublin [place] [id number] Urea nitrogen [Mass/Vol] 11 mg/dL Normal 6-24 [facility] Work Phone: Comment on above: PATIENT NOT FASTINGP ERFORMED BY: CB [facility] Tcnivt2009 [address] RoadDublin [place] [id number] Urea nitrogen/Creatinine [Mass ratio] 17 mg/mg Normal 9-23 [facility] Work Phone: Comment on above: PATIENT NOT FASTINGP ERFORMED BY: BRITTON [facility] Ogpfzt[address] Or[address] Veducablin [place] [id number] TSH (THYROID STIMULATING HOR JANE) (04498)Ordered By: Soccer Referee on 05-26-2020 TSH Qn 1.150 {uIU/mL} Normal 0.450-4.[address] [facility] [facility] Work Phone: Comment on above: PATIENT NOT FASTINGP ERFORMED BY: CB [facility] Pvpazz0236 [address] RoadDublin [place] [id number] Troponin I (25633)Ordered By : Soccer Referee on 05-26-2020 Troponin I.cardiac [Mass/Vol] ng/mL Normal 0.00-0.04 [facility] Work Phone: Comment on above: PATIENT NOT FASTINGP ERFORMED BY: BRITTON [facility] Bpquew8151 Orr RoadDuCritical access hospital [id number] Troponin I.cardiac [Mass/Vol] ng/mL Normal 0.00-0.04 [facility]; [facility] Work Phone: Comment on above: PATIENT NOT FASTINGP ERFORMED BY: [facility] Nqakrf3882 [address]r RoadDuin [place] [id number] Rapid Flu (16515 x 2)Ordered By: Brenna Edward on 12-08-2016 FLUAV Ag IA Ql (Throat) Positive Normal [facility] Work Phone: Comment on above: . FLUAV Ag IA Ql (Throat) Positive Normal [facility]; [facility] Work Phone: Comment on above: . HGB A1C (31289)Ordered By: S ystem Director Communications on 11-23-2016 HbA1c (Bld) [Mass fraction] 5.6 % Normal 4.8-5.6 [facility] Work Phone: Comment on above: . Pre-diabetes: 5.7 - 6.4 Diabetes: >6.4 Glycemic control for adults with diabetes: <7.0 PATIENT NOT FASTINGP ERFORMED BY: CB [facility] Hlxfyf3210 [address]r RoadDublin [place] [id number] CBC, Platelets & Auto Diff ( 95052)Ordered By: Soccer Referee on 05-13-2013 Basophils (Bld) [#/Vol] 0.0 {x10E3/uL} Normal 0.0-0.2 [facility] Work Phone: Comment on above: PATIENT NOT FASTINGP ERFORMED BY: [address] [id number] Information: ADD [id number] AND DRAW FEE 99 6660 Basophils (Bld) [#/Vol] 0.0 10*3/uL Normal 0.0-0.2 [facility]; [facility] Work Phone: Comment on above: PATIENT NOT FASTINGP ERFORMED BY: [address] [id number] Information: ADD [id number] AND DRAW FEE 99 6660 Basophils/100 WBC (Bld) 1 % Normal 0-3 [facility] Work Phone: Comment on above: PATIENT NOT FASTINGP ERFORMED BY: [address] [id number] Information: ADD [id number] AND DRAW FEE 99 6660 Eosinophils (Bld) [#/Vol] 0.1 {x10E3/uL} Normal 0.0-0.4 [facility] Work Phone: Comment on above: PATIENT NOT FASTINGP ERFORMED BY: [address] [id number] Information: ADD [id number] AND DRAW FEE 99 6660 Eosinophils (Bld) [#/Vol] 0.1 10*3/uL Normal 0.0-0.4 [facility]; [facility] Work Phone: Comment on above: PATIENT NOT FASTINGP ERFORMED BY: [address] [id number] Information: ADD [id number] AND DRAW FEE 99 6660 Eosinophils/100 WBC (Bld) 2 % Normal 0-7 [facility] Work Phone: Comment on above: PATIENT NOT FASTINGP ERFORMED BY: BRITTON Gerber6370 [facility] [id number] Information: ADD [id number] AND DRAW FEE 99 6660 Erythrocyte distribution width (RBC) [Ratio] 13.7 % Normal 12.3-15.4 [facility] Work Phone: Comment on above: PATIENT NOT FASTINGP ERFORMED BY: Arlet Wuhuvl6488 [facility] [id number] Information: ADD [id number] AND DRAW FEE 99 6660 Hematocrit (Bld) [Volume fraction] 42.8 % Normal 34.0-46.6 [facility] Work Phone: Comment on above: PATIENT NOT FASTINGP ERFORMED BY: BRITTON Neyda Veronica[address] [id number] Information: ADD [id number] AND DRAW FEE 99 6660 Hemoglobin (Bld) [Mass/Vol] 14.2 g/dL Normal 11.1-15.9 [facility] Work Phone: Comment on above: PATIENT NOT FASTINGP ERFORMED BY: InocenciaC[facility] Wal[facility] Lawn Yjmfrb[address] [id number] Information: ADD [id number] AND DRAW FEE 99 6660 Immature granulocytes (Bld) [#/Vol] 0.0 {x10E3/uL} Normal 0.0-0.1 [facility] Work Phone: Comment on above: PATIENT NOT FASTINGP ERFORMED BY: InocenciaC[facility] La[facility] Ifbmcq6540[address] [id number] Information: ADD [id number] AND DRAW FEE 99 6660 Immature granulocytes (Bld) [#/Vol] 0.0 10*3/uL Normal 0.0-0.1 [facility]; [facility] Work Phone: Comment on above: PATIENT NOT FASTINGP ERFORMED BY: BRITTON [employer] Uhwzlo4145 [facility] [id number] Information: ADD [id number] AND DRAW FEE 99 6660 Immature granulocytes/100 WBC (Bld) 0 % Normal 0-2 [facility] Work Phone: Comment on above: PATIENT NOT FASTINGP ERFORMED BY: BRITTON Gerber6370 [facility] [id number] Information: ADD [id number] AND DRAW FEE 99 6660 Lymphocytes (Bld) [#/Vol] 1.2 {x10E3/uL} Normal 0.7-4.5 [facility] Work Phone: Comment on above: PATIENT NOT FASTINGP ERFORMED BY: BRITTON [facility] Dsohzj4623 [facility] [id number] Information: ADD [id number] AND DRAW FEE 99 6660 Lymphocytes (Bld) [#/Vol] 1.2 10*3/uL Normal 0.7-4.5 [facility]; [facility] Work Phone: Comment on above: PATIENT NOT FASTINGP ERFORMED BY: BRITTON LabuRpa Rgqiwd7888 [facility] [id number] Information: ADD [id number] AND DRAW FEE 99 6660 Lymphocytes/100 WBC (Bld) 22 % Normal 14-46 [facility] Work Phone: Comment on above: PATIENT NOT FASTINGP ERFORMED BY: BRITTON Veronicalin6370 [facility] [id number] Information: ADD [id number] AND DRAW FEE 99 6660 MCH (RBC) [Entitic mass] 29.9 pg Normal 26.6-33.0 [facility] Work Phone: Comment on above: PATIENT NOT FASTINGP ERFORMED BY: BRITTON [facility] Ujlzxh8944 [facility] [id number] Information: ADD [id number] AND DRAW FEE 99 6660 MCHC (RBC) [Mass/Vol] 33.2 g/dL Normal 31.5-35.7 [facility] Internal Medicine Work Phone: Comment on above: PATIENT NOT FASTINGP ERFORMED BY: BRITTON [facility] Tmnofw8953 [facility] [id number] Information: ADD [id number] AND DRAW FEE 99 6660 MCV (RBC) [Entitic vol] 90 fL Normal 79-97 [facility] Work Phone: Comment on above: PATIENT NOT FASTINGP ERFORMED BY: BRITTON InocenciaRey VeronicaNmchth0569 [facility] [id number] Information: ADD [id number] AND DRAW FEE 99 6660 Monocytes (Bld) [#/Vol] 0.4 {x10E3/uL} Normal 0.1-1.0 [facility] Work Phone: Comment on above: PATIENT NOT FASTINGP ERFORMED BY: BRITTON [facility] Kdiyim[address] [id number] Information: ADD [id number] AND DRAW FEE 99 6660 Monocytes (Bld) [#/Vol] 0.4 10*3/uL Normal 0.1-1.0 [facility]; [facility] Work Phone: Comment on above: PATIENT NOT FASTINGP ERFORMED BY: BRITTON Veronicalin6370 [facility] [id number] Information: ADD [id number] AND DRAW FEE 99 6660 Monocytes/100 WBC (Bld) 8 % Normal 4-13 [facility] Work Phone: Comment on above: PATIENT NOT FASTINGP ERFORMED BY: BRITTON InocenciaRupa Wobbbx88[address] [id number] Information: ADD [id number] AND DRAW FEE 99 6660 Neutrophils (Bld) [#/Vol] 3.7 {x10E3/uL} Normal 1.8-7.8 [facility] Work Phone: Comment on above: PATIENT NOT FASTINGP ERFORMED BY: BRITTON [facility] Elwuyo7881 [facility] [id number] Information: ADD [id number] AND DRAW FEE 99 6660 Neutrophils (Bld) [#/Vol] 3.7 10*3/uL Normal 1.8-7.8 [facility]; [facility] Work Phone: Comment on above: PATIENT NOT FASTINGP ERFORMED BY: BRITTON Gerber6370 [facility]Fre[facility] [id number] Information: ADD [id number] AND DRAW FEE 99 6660 Neutrophils/100 WBC (Bld) 67 % Normal 40-74 [facility] Work Phone: Comment on above: PATIENT NOT FASTINGP ERFORMED BY: BRITTON Gerber6370 [facility]rFre[facility] Institute [id number] Information: ADD [id number] AND DRAW FEE 99 6660 Platelets (Bld) [#/Vol] 261 {x10E3/uL} Normal 140-415 [facility] Work Phone: Comment on above: PATIENT NOT FASTINGP ERFORMED BY: BRITTON Gerber6370 [facility] [id number] Information: ADD [id number] AND DRAW FEE 99 6660 Platelets (Bld) [#/Vol] 261 10*3/uL Normal 140-415 [facility] Internal [facility]; [facility] Work Phone: Comment on above: PATIENT NOT FASTINGP ERFORMED BY: BRITTON Veronicalin6370 [facility] [id number] Information: ADD [id number] AND DRAW FEE 99 6660 RBC (Bld) [#/Vol] 4.75 {x10E6/uL} Normal 3.77-5.28 [facility] Internal Medicine Work Phone: Comment on above: PATIENT NOT FASTINGP ERFORMED BY: BRITTON Veronicalin6370 [facility] [id number] Information: ADD [id number] AND DRAW FEE 99 6660 RBC (Bld) [#/Vol] 4.75 10*6/uL Normal 3.77-5.28 [facility]; [facility] Work Phone: Comment on above: PATIENT NOT FASTINGP ERFORMED BY: BRITTON Veronicalin6370 [facility] [id number] Information: ADD [id number] AND DRAW FEE 99 6660 WBC (Bld) [#/Vol] 5.5 {x10E3/uL} Normal 4.0-10.5 [facility] Internal Medicine Work Phone: Comment on above: PATIENT NOT FASTINGP ERFORMED BY: BRITTON [facility] Ckbyki7655 [address] RoadDublin [place] [id number] Information: ADD [id number] AND DRAW FEE 99 6660 WBC (Bld) [#/Vol] 5.5 10*3/uL Normal 4.0-10.5 [facility]; [facility] Work Phone: Comment on above: PATIENT NOT FASTINGP ERFORMED BY: CB [facility] Tbgcdz5288 [address] RoadDublin [place] [id number] Information: ADD [id number] AND DRAW FEE [id number] HEPATIC FUNCTION PANEL (8007 6)Ordered By: Soccer Referee on 05-13-2013 Bilirubin.direct [Mass/Vol] 0.09 mg/dL Normal 0.00-0.40 [facility] Internal Medicine Work Phone: Comment on above: PATIENT NOT FASTINGP ERFORMED BY: CB [facility] Mkemxj8079 [address] RoadDublin [place] [id number] Metabolic Panel, Comprehensi ve (25644)Ordered By: Soccer Referee on 05-13-2013 Albumin [Mass/Vol] 4.1 g/dL Normal 3.5-5.5 [facility] Work Phone: Comment on above: PATIENT NOT FASTINGP ERFORMED BY: BRITTON [facility] Tzlfps4699 [address] RoadDublin [place] [id number] Albumin/Globulin [Mass ratio] 1.5 {ratio} Normal 1.1-2.5 [facility] Internal Medicine Work Phone: Comment on above: PATIENT NOT FASTINGP ERFORMED BY: CB [facility] Dfhkou0818 [address] RoadDublin [place] [id number] ALP [Catalytic activity/Vol] 95 [iU]/L Normal 42-107 [facility] Internal Medicine Work Phone: Comment on above: Please note refere nce interval change PATIENT NOT FASTINGP ERFORMED BY: CB [facility] Zttjlk4982 [address] RoadDublin [place] [id number] ALP [Catalytic activity/Vol] 95 U/L Normal 42-107 [facility]; [facility] Work Phone: Comment on above: Please note refere nce interval change PATIENT NOT FASTINGP ERFORMED BY: CB [facility] Gbpqrf9605 [address] RoadDublin [place] [id number] ALT [Catalytic activity/Vol] 30 [iU]/L Normal 0-32 [facility] Work Phone: Comment on above: PATIENT NOT FASTINGP ERFORMED BY: CB [facility] Ufhhed1823 [address] RoadDublin [place] [id number] ALT [Catalytic activity/Vol] 30 U/L Normal 0-32 [facility]; [facility] Work Phone: Comment on above: PATIENT NOT FASTINGP ERFORMED BY: CB [facility] Gxerax9189 [address] RoadDublin [place] [id number] AST [Catalytic activity/Vol] 23 [iU]/L Normal 0-40 [facility] Work Phone: Comment on above: PATIENT NOT FASTINGP ERFORMED BY: CB [facility] Izftac2902 [address] RoadDublin [place] [id number] AST [Catalytic activity/Vol] 23 U/L Normal 0-40 [facility]; [facility] Work Phone: Comment on above: PATIENT NOT FASTINGP ERFORMED BY: CB [facility] Jfsudv0176 [address] RoadDublin [place] [id number] Bilirubin [Mass/Vol] 0.3 mg/dL Normal 0.0-1.2 [facility] Work Phone: Comment on above: PATIENT NOT FASTINGP ERFORMED BY: CB [facility] Pmpnkb1789 [address] RoadDublin [place] [id number] Calcium [Mass/Vol] 9.1 mg/dL Normal 8.7-10.2 [facility] Work Phone: Comment on above: PATIENT NOT FASTINGP ERFORMED BY: CB [facility] Wpbrxp5257 [address] RoadDublin [place] [id number] Chloride [Moles/Vol] 105 mmol/L Normal 97-108 [facility] Work Phone: Comment on above: PATIENT NOT FASTINGP ERFORMED BY: CB [facility] Dyvidh3422 [address] RoadDublin [place] [id number] CO2 [Moles/Vol] 21 mmol/L Normal 19-28 [facility] Internal Medicine Work Phone: Comment on above: PATIENT NOT FASTINGP ERFORMED BY: CB [facility] Audifq1006 [address] RoadDublin [place] [id number] Creatinine [Mass/Vol] 0.61 mg/dL Normal 0.57-1.00 [facility] Internal Medicine Work Phone: Comment on above: PATIENT NOT FASTINGP ERFORMED BY: CB [facility] Bxvayc6419 [address] RoadDublin [place] [id number] GFR/1.73 sq M predicted among blacks CKD-EPI (S/P/Bld) [Vol rate/Area] 128 mL/min/1.73 Normal [facility] Work Phone: Comment on above: PATIENT NOT FASTINGP ERFORMED BY: CB [facility] Vcyiyq4600 [address] RoadDublin [place] [id number] GFR/1.73 sq M predicted among non-blacks CKD-EPI (S/P/Bld) [Vol rate/Area] 111 mL/min/1.73 Normal [facility] Work Phone: Comment on above: PATIENT NOT FASTINGP ERFORMED BY: CB [facility] Qcbckm3592 [address] RoadDublin [place] [id number] Globulin (S) [Mass/Vol] 2.7 g/dL Normal 1.5-4.5 [facility] Work Phone: Comment on above: PATIENT NOT FASTINGP ERFORMED BY: CB [facility] Yuioqx0106 [address] RoadDublin [place] [id number] Glucose [Mass/Vol] 94 mg/dL Normal 65-99 [facility] Work Phone: Comment on above: PATIENT NOT FASTINGP ERFORMED BY: CB [facility] Qompgj6393 [address] RoadDublin [place] [id number] Potassium [Moles/Vol] 4.6 mmol/L Normal 3.5-5.2 [facility] Internal Medicine Work Phone: Comment on above: PATIENT NOT FASTINGP ERFORMED BY: BRITTON [facility] Rinkhj6352 [address] RoadDublin [place] [id number] Protein [Mass/Vol] 6.8 g/dL Normal 6.0-8.5 [facility] Work Phone: Comment on above: PATIENT NOT FASTINGP ERFORMED BY: CB [facility] Ehlfru6762 [address] RoadDublin [place] [id number] Sodium [Moles/Vol] 138 mmol/L Normal 134-144 [facility] Work Phone: Comment on above: PATIENT NOT FASTINGP ERFORMED BY: BRITTON [facility] Iwvszj5680 [address] RoadDublin [place] [id number] Urea nitrogen [Mass/Vol] 8 mg/dL Normal 6-24 [facility] Internal Medicine Work Phone: Comment on above: PATIENT NOT FASTINGP ERFORMED BY: BRITTON [facility] Aohvql1395 [address] RoadDublin [place] [id number] Urea nitrogen/Creatinine [Mass ratio] 13 mg/mg Normal 9-23 [facility] Internal Medicine Work Phone: Comment on above: PATIENT NOT FASTINGP ERFORMED BY: BRITTON [facility] Ttbnbz8428 [address] RoadDublin [place] [id number] TSH ([id number])Ordered By: Ryann m Director Communications on 05-13-2013 TSH Qn 1.140 {uIU/mL} Normal 0.450-4.500 [facility] Internal Medicine Work Phone: Comment on above: PATIENT NOT FASTINGP ERFORMED BY: CB [facility] Plgnui6314 [address] RoadDublin [place] [id number] CALCIFEDIOL (76451)Ordered B y: Soccer Referee on 06-27-2012 25-Hydroxyvitamin D2+25-Hydroxyvitamin D3 [Mass/Vol] 50.7 ng/mL Normal 30.0-100.0 [facility] Internal Medicine Work Phone: Comment on above: Vitamin D deficiency has been defined by the [place] of[place]icine and an Endocrine Society practice guideline as alevel of serum 25-OH vitamin D less than 20 ng/mL (1,2).The Endocrine Society went on to further define vitamin Dinsufficiency as a level between 21 and 29 ng/mL (2).1. IOM ([place] of [place]). 2010. Dietary reference intakes for calcium and D. [place]: The National Academies Press.2. Gregory Donahue, Kevon MANN, et al. Evaluation, treatment, and prevention of vitamin D deficiency: an Endocrine Society clinical practice guideline. JCEM. 2010; 96(7):1911-30. PATIENT NOT FASTINGP ERFORMED BY: Sarbari70 [address] [place] [id number] Information: [id number] C-REACTIVE PROTEIN (00172)Or dered By: Soccer Referee on 12-26-2011 CRP [Mass/Vol] 9.4 mg/L Abnormal 0.0-4.9 [facility] Internal Medicine Work Phone: Comment on above: PATIENT NOT FASTINGP ERFORMED BY: [employer] Hfbuxg3874 GlySureblin [place] [id number] CALCIFIDIOL (36198) VIT D 25 Ordered By: Soccer Referee on 12-26-2011 25-Hydroxyvitamin D2+25-Hydroxyvitamin D3 [Mass/Vol] 29.6 ng/mL Abnormal 30.0-100.0 [facility] Work Phone: Comment on above: Vitamin D deficiency has been defined by the [place] of[place] and an Endocrine Society practice guideline as alevel of serum 25-OH vitamin D less than 20 ng/mL (1,2).The Endocrine Society went on to further define vitamin Dinsufficiency as a level between 21 and 29 ng/mL (2).1. IOM ([place]). 2010. Dietary reference intakes for calcium and D. [place]: The National Academies Press.2. Gregory Donahue, Kevon MANN, et al. Evaluation, treatment, and prevention of vitamin D deficiency: an Endocrine Society clinical practice guideline. JCEM. 2010; 96(7):1911-30. PATIENT NOT FASTINGP ERFORMED BY: CB [facility] Nlgbmi2307 Orr [facility] [place] [id number] CBC (AUTO) (78218)Ordered By : Soccer Referee on 12-26-2011 Erythrocyte distribution width (RBC) [Ratio] 13.5 % Normal 11.7-15.0 [facility] Medicine Work Phone: Comment on above: PATIENT NOT FASTINGP ERFORMED BY: CB [facility] Yghlnq7129 [address] [facility] [id number] Hematocrit (Bld) [Volume fraction] 39.8 % Normal 34.0-44.0 [facility] Internal Medicine Work Phone: Comment on above: PATIENT NOT FASTINGP ERFORMED BY: CB [facility] Cbqwov8881 [address] [facility] [id number] Hemoglobin (Bld) [Mass/Vol] 13.6 g/dL Normal 11.5-15.0 [facility] Internal Medicine Work Phone: Comment on above: PATIENT NOT FASTINGP ERFORMED BY: CB [facility] Afxkvk0008 [address] [facility] [id number] MCH (RBC) [Entitic mass] 31.1 pg Normal 27.0-34.0 [facility] Medicine Work Phone: Comment on above: PATIENT NOT FASTINGP ERFORMED BY: CB [facility] Qelrpf5205 [address] [facility] [id number] MCHC (RBC) [Mass/Vol] 34.2 g/dL Normal 32.0-36.0 [facility] Internal Medicine Work Phone: Comment on above: PATIENT NOT FASTINGP ERFORMED BY: CB [facility] Xwplve7371 [address] [facility] [place] [id number] MCV (RBC) [Entitic vol] 91 fL Normal 80-98 [facility] Internal Medicine Work Phone: Comment on above: PATIENT NOT FASTINGP ERFORMED BY: CB [facility] Lfwfqn1929 [address] [facility] [id number] Platelets (Bld) [#/Vol] 227 {x10E3/uL} Normal 140-415 [facility] Work Phone: Comment on above: PATIENT NOT FASTINGP ERFORMED BY: BRITTON Gerber6[address] JarrettD[place] [id number] Platelets (Bld) [#/Vol] 227 10*3/uL Normal 140-415 [facility]; [facility] Work Phone: Comment on above: PATIENT NOT FASTINGP ERFORMED BY: CB [facility] VeronicaLxauyg8038 [address] [facility] [id number] RBC (Bld) [#/Vol] 4.37 {x10E6/uL} Normal 3.80-5.10 [facility] Internal Medicine Work Phone: Comment on above: PATIENT NOT FASTINGP ERFORMED BY: BRITTON Lab[facility]honda GerberXxmxvw4886 [address] [facility] [id number] RBC (Bld) [#/Vol] 4.37 10*6/uL Normal 3.80-5.10 [facility]; [facility] Work Phone: Comment on above: PATIENT NOT FASTINGP ERFORMED BY: BRITTON [facility] Jvtntd3254 [address] [facility] [id number] WBC (Bld) [#/Vol] 5.9 {x10E3/uL} Normal 4.0-10.5 [facility] Internal Medicine Work Phone: Comment on above: PATIENT NOT FASTINGP ERFORMED BY: CB [facility] Fugcom1000 [address] [facility] [place] [id number] WBC (Bld) [#/Vol] 5.9 10*3/uL Normal 4.0-10.5 [facility]; [facility] Work Phone: Comment on above: PATIENT NOT FASTINGP ERFORMED BY: BRITTON [facility] Immhgs2287 [address] [facility] [place] [id number] EBV Panel (79235)Ordered By: Soccer Referee on 12-26-2011 EBV Panel (60341) SPRCS Normal Compreh ensive Internal Medicine Work Phone: Comment on above: EBV Interpretation Emy manriquez . Interpretation VCA-IgM EA-IgG VCA- IgG NA-ABS . Susceptible - - - - Acute Infection + +or- +or- - Convalescent Phase +or- +or- + + Chronic or Reactivated - + + +or- Old Infection - - +or- + + Antibody Present - Antibody Absent PATIENT NOT FASTINGP ERFORMED BY: [employer] Wxxuio6510 [facility] [id number] EBV Panel (50003) >8.0 Abnormal 0.0-0.8 Compre[facility] ensive Internal Medicine Work Phone: Comment on above: Negative <0.9 Equivo joel 0.9 - 1.0 Positive >1.0 PATIENT NOT FASTINGP ERFORMED BY: [employer] Aatvzl7028 [facility] [id number] EBV Panel (59028) <0.2 Normal 0.0-0.8 Compreh ensive Internal Medicine Work Phone: Comment on above: Negative <0.9 Equivo joel 0.9 - 1.0 Positive >1.0 PATIENT NOT FASTINGP ERFORMED BY: [employer] Nucdew3328 [facility] [id number] EBV Panel (43229) 0.5 {AI} Normal 0.0-0.8 Compreh ensive Internal Medicine Work Phone: Comment on above: Negative <0.9 Equivo joel 0.9 - 1.0 Positive >1.0 PATIENT NOT FASTINGP ERFORMED BY: [employer] Znkdqp0113 [facility] [id number] Influenza A&B Viral Culture (58317)Ordered By: Soccer Referee on 12-26-2011 FLUV identified Org specific cx Nom (Unsp spec) FLUABN Normal [facility] Work Phone: Comment on above: Negative:No Influenz a A or B detected. PATIENT NOT FASTINGP ERFORMED BY: [employer] Jjcdnw2058 [facility] [id number] Information: SRC:NOS [id number] METABOLIC PANEL, COMPREHENSI VE (72797)Ordered By: Soccer Referee on 12-26-2011 Albumin [Mass/Vol] 3.8 g/dL Normal 3.5-5.5 [facility] Work Phone: Comment on above: PATIENT NOT FASTINGP ERFORMED BY: BRITTON [facility] Pudpbh3112 [address] RoadDublin [place] [id number] Albumin/Globulin [Mass ratio] 1.5 {ratio} Normal 1.1-2.5 [facility] Work Phone: Comment on above: PATIENT NOT FASTINGP ERFORMED BY: CB [facility] Lmtove0812 [address] RoadDublin [place] [id number] ALP [Catalytic activity/Vol] 77 [iU]/L Normal 25-150 [facility] Work Phone: Comment on above: PATIENT NOT FASTINGP ERFORMED BY: CB [facility] Rikhpa2184 [address] RoadDublin [place] [id number] ALP [Catalytic activity/Vol] 77 U/L Normal 25-150 [facility]; [facility] Work Phone: Comment on above: PATIENT NOT FASTINGP ERFORMED BY: CB [facility] Mxphuu5095 [address] RoadDublin [place] [id number] ALT [Catalytic activity/Vol] 11 [iU]/L Normal 0-40 [facility] Work Phone: Comment on above: PATIENT NOT FASTINGP ERFORMED BY: CB [facility] Vcpocx4246 [address] RoadDublin [place] [id number] ALT [Catalytic activity/Vol] 11 U/L Normal 0-40 [facility]; [facility] Work Phone: Comment on above: PATIENT NOT FASTINGP ERFORMED BY: CB [facility] Mxsyit6754 [address] RoadDublin [place] [id number] AST [Catalytic activity/Vol] 16 [iU]/L Normal 0-40 [facility] Work Phone: Comment on above: PATIENT NOT FASTINGP ERFORMED BY: CB [facility] Amtdqe1831 [address] RoadDublin [place] [id number] AST [Catalytic activity/Vol] 16 U/L Normal 0-40 [facility]; [facility] Work Phone: Comment on above: PATIENT NOT FASTINGP ERFORMED BY: CB [facility] Xgjjcz8559 [address] RoadDublin [place] [id number] Bilirubin [Mass/Vol] 0.3 mg/dL Normal 0.0-1.2 Comp rehensive Internal Medicine Work Phone: Comment on above: PATIENT NOT FASTINGP ERFORMED BY: CB [facility] Yzbgsf5064 [address] RoadDublin [place] [id number] Calcium [Mass/Vol] 8.8 mg/dL Normal 8.7-10.2 [facility] Internal Medicine Work Phone: Comment on above: PATIENT NOT FASTINGP ERFORMED BY: CB [facility] Allopf5258 [address] RoadDublin [place] [id number] Chloride [Moles/Vol] 105 mmol/L Normal 97-108 [facility] Work Phone: Comment on above: PATIENT NOT FASTINGP ERFORMED BY: CB [facility] Pglfvf7442 [address] RoadDublin [place] [id number] CO2 [Moles/Vol] 23 mmol/L Normal 20-[address] [facility] Work Phone: Comment on above: PATIENT NOT FASTINGP ERFORMED BY: CB [facility] Dfugfg0537 [address] RoadDublin [place] [id number] Creatinine [Mass/Vol] 0.58 mg/dL Normal 0.57-1.00 [facility] Work Phone: Comment on above: PATIENT NOT FASTINGP ERFORMED BY: CB [facility] Auzzwk9697 [address] RoadDublin [place] [id number] GFR/1.73 sq M predicted among blacks MDRD (S/P/Bld) [Vol rate/Area] 132 mL/min/{1.73_m2} Normal Comprehensi ve Internal Medicine Work Phone: Comment on above: Note: A persistent e GFR <60 mL/min/1.73 m2 (3 months or more) mayindicate chronic kidney disease. An eGFR >59 mL/min/1.73 m2 with anelevated urine protein also may indicate chronic kidney disease.Calculated using CKD-EPI formula. PATIENT NOT FASTINGP ERFORMED BY: CB [facility] Paxbxu9148 [address] RoadDublin [place] [id number] GFR/1.73 sq M predicted among non-blacks CKD-EPI (S/P/Bld) [Vol rate/Area] 115 mL/min/1.73 Normal [facility] Internal Medicine Work Phone: Comment on above: PATIENT NOT FASTINGP ERFORMED BY: CB [facility] Puxkhd3983 [address] RoadDublin [place] [id number] Globulin (S) [Mass/Vol] 2.6 g/dL Normal 1.5-4.5 [facility] Internal Medicine Work Phone: Comment on above: PATIENT NOT FASTINGP ERFORMED BY: CB [facility] Kujdql9453 [address] RoadDublin [place] [id number] Glucose [Mass/Vol] 85 mg/dL Normal 65-99 [facility] Work Phone: Comment on above: PATIENT NOT FASTINGP ERFORMED BY: CB [facility] Tbwqmw3348 [address] RoadDublin [place] [id number] Potassium [Moles/Vol] 4.3 mmol/L Normal 3.5-5.2 [facility] Internal Medicine Work Phone: Comment on above: PATIENT NOT FASTINGP ERFORMED BY: CB [facility] Bovfjf4439 [address] RoadDublin [place] [id number] Protein [Mass/Vol] 6.4 g/dL Normal 6.0-8.5 [facility] Work Phone: Comment on above: PATIENT NOT FASTINGP ERFORMED BY: CB [facility] Fwqnya7577 [address] RoadDublin [place] [id number] Sodium [Moles/Vol] 140 mmol/L Normal 134-144 [facility] Work Phone: Comment on above: PATIENT NOT FASTINGP ERFORMED BY: CB [facility] Sermuz9699 [address] RoadDublin [place] [id number] Urea nitrogen [Mass/Vol] 7 mg/dL Normal 6-24 [facility] Internal Medicine Work Phone: Comment on above: PATIENT NOT FASTINGP ERFORMED BY: CB [facility] Xdeydw5463 [address] RoadDublin [place] [id number] Urea nitrogen/Creatinine [Mass ratio] 12 mg/mg Normal 9-23 [facility] Internal Medicine Work Phone: Comment on above: PATIENT NOT FASTINGP ERFORMED BY: CB [facility] Qosiwu8632 [address] RoadD[address] [place] [id number] TSH (78982)Ordered By: Syste m Director Communications on 12-26-2011 TSH Qn 1.070 {uIU/mL} Normal 0.450-4.500 [facility] Internal Medicine Work Phone: Comment on above: PATIENT NOT FASTINGP ERFORMED BY: CB [facility] Zjfkiv4476 [address] RoadDublin [place] [id number] CALCIFEDIOL (25302)Ordered B y: Soccer Referee on 06-27-2011 Calcitriol [Mass/Vol] 57.0 ng/mL Normal 32.0-100.0 [facility] Internal Medicine Work Phone: Comment on above: Recent studies consi shivam the lower limit of 32.0 ng/mL to be athreshold for optimal health.Sixto KINGSLEY. J Nutr. 2004;135(2):317-22. PATIENT NOT FASTINGP ERFORMED BY: CB [facility] Gdrwgw7662 [address] RoadDublin [place] [id number] TSH (23392)Ordered By: Ryann m Director Communications on 06-27-2011 TSH Qn 0.709 {uIU/mL} Normal 0.450-4.500 [facility] Internal Medicine Work Phone: Comment on above: PATIENT NOT FASTINGP ERFORMED BY: CB [facility] Gudrch9312 Or[address] [facility] HospitalD[place] [id number] Information: [id number] Amylase (32485)Ordered By: Jose Rabago on 11-02-2007 Amylase [Catalytic activity/Vol] 56 U/L Normal 0-99 [facility] Internal Medicine Work Phone: Comment on above: PATIENT NOT FASTINGP ERFORMED BY: CB [facility] Fwuukq4366 [address] RoadD[address] [place] [id number] CBC (Auto) (90772)Ordered By : Lela Rabago on 11-02-2007 Erythrocyte distribution width (RBC) [Ratio] 14.3 % Normal 11.7-15.0 [facility] Work Phone: Comment on above: PATIENT NOT FASTINGP ERFORMED BY: CB [facility] Edrvcp2887 [address] RoadDublin [place] [id number] Hematocrit (Bld) [Volume fraction] 41.9 % Normal 34.0-44.0 [facility] Work Phone: Comment on above: PATIENT NOT FASTINGP ERFORMED BY: CB [facility] Cfdjtj0988 [address] RoadDublin [place] [id number] Hemoglobin (Bld) [Mass/Vol] 14.7 g/dL Normal 11.5-15.0 [facility] Work Phone: Comment on above: PATIENT NOT FASTINGP ERFORMED BY: CB [facility] Zimwgi5417 [address] RoadDublin [place] [id number] MCH (RBC) [Entitic mass] 32.4 pg Normal 27.0-34.0 [facility] Work Phone: Comment on above: PATIENT NOT FASTINGP ERFORMED BY: CB [facility] Wjkqtv0402 [address] RoadDublin [place] [id number] MCHC (RBC) [Mass/Vol] 35.1 g/dL Normal 32.0-36.0 [facility] Internal Medicine Work Phone: Comment on above: PATIENT NOT FASTINGP ERFORMED BY: CB [facility] Pwgxgh2737 [address] RoadDublin [place] [id number] MCV (RBC) [Entitic vol] 92 fL Normal 80-98 [facility] Work Phone: Comment on above: PATIENT NOT FASTINGP ERFORMED BY: CB [facility] Ndctqq8137 [address] RoadDublin [place] [id number] Platelets (Bld) [#/Vol] 240 {x10E3/uL} Normal 140-415 [facility] Work Phone: Comment on above: PATIENT NOT FASTINGP ERFORMED BY: CB [facility] Xjxkfi4973 [address] RoadDublin [place] [id number] Platelets (Bld) [#/Vol] 240 10*3/uL Normal 140-415 [facility]; [facility] Work Phone: Comment on above: PATIENT NOT FASTINGP ERFORMED BY: CB [facility] Zxlpds3915 [address] RoadDublin [place] [id number] RBC (Bld) [#/Vol] 4.54 {x10E6/uL} Normal 3.80-5.10 [facility] Internal Medicine Work Phone: Comment on above: PATIENT NOT FASTINGP ERFORMED BY: CB [facility] Nbjjct5645 [address] RoadD[address] [place] [id number] RBC (Bld) [#/Vol] 4.54 10*6/uL Normal 3.80-5.10 [facility]; [facility] Internal Medicine Work Phone: Comment on above: PATIENT NOT FASTINGP ERFORMED BY: CB [facility] Hnoohe5664 [address] RoadDublin [place] [id number] WBC (Bld) [#/Vol] 10.1 {x10E3/uL} Normal 4.0-10.5 [facility] Internal Medicine Work Phone: Comment on above: PATIENT NOT FASTINGP ERFORMED BY: CB [facility] Abmnjy9515 [address] RoadDuin [place] [id number] WBC (Bld) [#/Vol] 10.1 10*3/uL Normal 4.0-10.5 [facility]; [facility] Work Phone: Comment on above: PATIENT NOT FASTINGP ERFORMED BY: CB [facility] Lwgsjn3488 [address] [facility]D[place] [id number] Lipase (03550)Ordered By: Yash Rabago on 11-02-2007 Lipase [Catalytic activity/Vol] 27 U/L Normal 0-59 [facility] Work Phone: Comment on above: PATIENT NOT FASTINGP ERFORMED BY: CB [facility] Rgcpbt1189 [address] Roadblin [place] [id number] Metabolic Panel, Comprehensi ve ([id number])Ordered By: Lela Rabago on 11-02-2007 Albumin [Mass/Vol] 4.1 g/dL Normal 3.5-5.5 [facility] Work Phone: Comment on above: PATIENT NOT FASTINGC linical Information: ADD DRAW FEE [id number] A DD [id number] PERFORMED BY: BRITTON [facility] Vmammo9017 [address] [facility] [place] [id number] Albumin/Globulin [Mass ratio] 1.7 {ratio} Normal 1.1-2.5 [facility] Work Phone: Comment on above: PATIENT NOT FASTINGC linical Information: ADD DRAW FEE [id number] A DD [id number] PERFORMED BY: BRITTON LabCorhonda VeronicaLrkwpv5306 [address] [facility] [id number] ALP [Catalytic activity/Vol] 72 [iU]/L Normal 25-150 [facility] Work Phone: Comment on above: PATIENT NOT FASTINGC linical Information: ADD DRAW FEE [id number] A DD [id number] PERFORMED BY: BRITTON LabCorhonda VeronicaOdquvx1052 [address] [facility] [id number] ALP [Catalytic activity/Vol] 72 U/L Normal 25-150 [facility]; [facility] Work Phone: Comment on above: PATIENT NOT FASTINGC linical Information: ADD DRAW FEE [id number] A DD [id number] PERFORMED BY: BRITTON [facility] Ddgjoe2457 [address] [facility] [id number] ALT [Catalytic activity/Vol] 22 [iU]/L Normal 0-40 [facility] Work Phone: Comment on above: PATIENT NOT FASTINGC linical Information: ADD DRAW FEE [id number] A DD [id number] PERFORMED BY: BRITTON [facility] Kwnoca5926 [address] [facility] [id number] ALT [Catalytic activity/Vol] 22 U/L Normal 0-40 [facility]; [facility] Work Phone: Comment on above: PATIENT NOT FASTINGC linical Information: ADD DRAW FEE [id number] A DD [id number] PERFORMED BY: [facility] [employer] [id number] [facility] [id number] AST [Catalytic activity/Vol] 21 [iU]/L Normal 0-40 [facility] Work Phone: Comment on above: PATIENT NOT FASTINGC linical Information: ADD DRAW FEE [id number] A DD [id number] PERFORMED BY: [facility] [employer] [id number] [facility] [id number] AST [Catalytic activity/Vol] 21 U/L Normal 0-40 [facility]; [facility] Work Phone: Comment on above: PATIENT NOT FASTINGC linical Information: ADD DRAW FEE [id number] A DD [id number] PERFORMED BY: [facility] [employer] [id number] [facility] [id number] Bilirubin [Mass/Vol] 0.4 mg/dL Normal 0.1-1.2 [facility] Work Phone: Comment on above: PATIENT NOT FASTINGC linical Information: ADD DRAW FEE [id number] A DD [id number] PERFORMED BY: [facility] [employer] [id number] [facility] [id number] Calcium [Mass/Vol] 9.3 mg/dL Normal 8.5-10.6 [facility] Internal Medicine Work Phone: Comment on above: PATIENT NOT FASTINGC linical Information: ADD DRAW FEE [id number] A DD [id number] PERFORMED BY: [facility] [employer] [id number] [facility] [id number] Chloride [Moles/Vol] 106 mmol/L Normal 96-109 [facility] Work Phone: Comment on above: PATIENT NOT FASTINGC linical Information: ADD DRAW FEE [id number] A DD [id number] PERFORMED BY: [facility] [employer] [id number] [facility] [id number] CO2 [Moles/Vol] 22 mmol/L Normal 20-32 [facility] Internal [facility] Work Phone: Comment on above: PATIENT NOT FASTINGC linical Information: ADD DRAW FEE [id number] A DD [id number] PERFORMED BY: [facility] [id number] [facility] [id number] Creatinine [Mass/Vol] 0.7 mg/dL Normal 0.5-1.5 [facility] Internal Medicine Work Phone: Comment on above: PATIENT NOT FASTINGC linical Information: ADD DRAW FEE [id number] A DD [id number] PERFORMED BY: [facility] [id number] [facility] [id number] Globulin (S) [Mass/Vol] 2.4 g/dL Normal 1.5-4.5 [facility] Internal Medicine Work Phone: Comment on above: PATIENT NOT FASTINGC linical Information: ADD DRAW FEE [id number] A DD [id number] PERFORMED BY: [facility] [id number] [facility] [id number] Glucose [Mass/Vol] 104 mg/dL Abnormal 65-99 [facility] Internal Medicine Work Phone: Comment on above: PATIENT NOT FASTINGC linical Information: ADD DRAW FEE [id number] A DD [id number] PERFORMED BY: [facility] [id number] [facility] [id number] Potassium [Moles/Vol] 4.5 mmol/L Normal 3.5-5.5 [facility] Internal Medicine Work Phone: Comment on above: PATIENT NOT FASTINGC linical Information: ADD DRAW FEE [id number] A DD [id number] PERFORMED BY: [facility]6370 [facility] [id number] Protein [Mass/Vol] 6.5 g/dL Normal 6.0-8.5 [facility] Internal Medicine Work Phone: Comment on above: PATIENT NOT FASTINGC linical Information: ADD DRAW FEE [id number] A DD [id number] PERFORMED BY: [facility]6370 [facility] [id number] Sodium [Moles/Vol] 142 mmol/L Normal 135-148 Com[facility] Work Phone: Comment on above: PATIENT NOT FASTINGC linical Information: ADD DRAW FEE [id number] A DD [id number] PERFORMED BY: [facility] [employer] [id number] Urea nitrogen [Mass/Vol] 13 mg/dL Normal 5-26 [facility] Work Phone: Comment on above: PATIENT NOT FASTINGC linical Information: ADD DRAW FEE [id number] A DD [id number] PERFORMED BY: [facility] [employer] [id number] Urea nitrogen/Creatinine [Mass ratio] 19 mg/mg Normal 8-27 [facility] Work Phone: Comment on above: PATIENT NOT FASTINGC linical Information: ADD DRAW FEE [id number] A DD [id number] PERFORMED BY: [facility] [employer] [facility] [id number] Sed Rate Erythrocyte ([id number]) Ordered By: Lela Rabago on 11-02-2007 ESR (Bld) [Velocity] 2 mm/h Normal 0-20 Comp rehensive [facility] Medicine Work Phone: Comment on above: PATIENT NOT FASTINGP ERFORMED BY: [id number] [facility] [id number] Urinalysis, Office ([id number])Or dered By: MARIA Minor on 11-02-2007 Bilirubin Ql (U) Negative Normal Compre[facility] Work Phone: Bilirubin Ql (U) Negative Normal [facility]; [facility] Work Phone: Glucose Test strip (U) [Mass/Vol] Negative Normal [facility] Work Phone: Glucose Test strip (U) [Mass/Vol] Negative Normal [facility]; [facility] Work Phone: Hemoglobin Ql (U) Negative Normal Compre[facility] ens[facility] Work Phone: Hemoglobin Ql (U) Negative Normal Compre[facility]; [facility] Work Phone: Ketones Ql (U) Negative Normal Comprehens [facility]illary [facility] Work Phone: Ketones Ql (U) Negative Normal [facility]; [facility] Work Phone: Leukocyte esterase Test strip Ql (U) Negative Normal [facility] Work Phone: Leukocyte esterase Test strip Ql (U) Negative Normal [facility]; [facility] Work Phone: Nitrite Ql (U) Negative Normal [facility] Work Phone: Nitrite Ql (U) Negative Normal [facility]; [facility] Work Phone: pH (U) 6.0 [pH] Normal [facility] Work Phone: Protein Ql (U) Negative Normal [facility] Work Phone: Protein Ql (U) Negative Normal [facility]; [facility] Work Phone: Specific gravity (U) [Rel density] 1.025 1 Normal [facility] Work Phone: Urobilinogen (24H U) [Mass/Time] 2 mg/dL Normal [facility] Work Phone: Vital Signs Date Time Vital Sign Value Performing Clinician Facility 06-13-2025 14:57-0400 Body height 170.[address] Chanel Cisneros MD Work Phone: [facility] 06-13-2025 14:57-0400 Body mass index (BMI) [Ratio] 33.5 kg/m2 Dr. Chanel Cisneros MD Work Phone: [facility] 06-13-2025 14:57-0400 Body weight 97.[address] Chanel Cisneros MD Work Phone: [facility] 06-13-2025 14:57-0400 Diastolic blood pressure 80 mm[Hg] Dr. Chanel Cisneros MD Work Phone: [facility] 06-13-2025 14:57-0400 Heart rate 72 /min Dr. Chanel Cisneros MD Work Phone: [facility] 06-13-2025 14:57-0400 Respiratory rate 18 /min Dr. Chanel Cisneros MD Work Phone: [facility] 06-13-2025 14:57-0400 SaO2% (BldA) [Mass fraction] 92 % Dr. Chanel Cisneros MD Work Phone: [facility] 06-13-2025 14:57-0400 Systolic blood pressure 119 mm[Hg] Dr. Chanel Cisneros MD Work Phone: [facility] 05-06-2025 10:03-0400 Body height 170.[address] Chanel Cisneros MD Work Phone: [facility] 05-06-2025 10:03-0400 Body mass index (BMI) [Ratio] 33.5 kg/m2 Dr. Chanel Cisneros MD Work Phone: [facility] 05-06-2025 10:03-0400 Body weight 97.[address] Chanel Cisneros MD Work Phone: [facility] 05-06-2025 10:03-0400 Diastolic blood pressure 80 mm[Hg] Dr. Chanel Cisneros MD Work Phone: [facility] 05-06-2025 10:03-0400 Systolic blood pressure 117 mm[Hg] Dr. Chanel Cisneros MD Work Phone: [facility] 02-16-2025 09:42-0400 Body temperature 98.5 [degF] Dr. Chanel Cisneros MD Work Phone: [facility] 02-16-2025 09:42-0400 Diastolic blood pressure 78 mm[Hg] Dr. Chanel Cisneros MD Work Phone: [facility] 02-16-2025 09:42-0400 Heart rate 65 /min Dr. Chanel Cisneros MD Work Phone: [facility] 02-16-2025 09:42-0400 Respiratory rate 16 /min Dr. Chanel Cisneros MD Work Phone: [facility] 02-16-2025 09:42-0400 SaO2% (BldA) [Mass fraction] 98 % Dr. Chanel Cisneros MD Work Phone: [facility] 02-16-2025 09:42-0400 Systolic blood pressure 120 mm[Hg] Dr. Chanel Cisneros MD Work Phone: [facility] 10-18-2023 16:20-0500 Body temperature 98.4 [degF] Dr. Chanel Cisneros Work Phone: [facility] 10-18-2023 16:20-0500 Diastolic blood pressure 74 mm[Hg] Dr. Chanel Cisneros Work Phone: [facility] 10-18-2023 16:20-0500 Heart rate 92 /min Dr. Chanel Cisneros Work Phone: [facility] 10-18-2023 16:20-0500 Respiratory rate 15 /min Dr. Chanel Cisneros Work Phone: [facility] 10-18-2023 16:20-0500 SaO2% (BldA) [Mass fraction] 97 % Dr. Chanel Cisneros Work Phone: [facility] 10-18-2023 16:20-0500 Systolic blood pressure 136 mm[Hg] Dr. Chanel Cisneros Work Phone: [facility] 09-20-2023 15:23-0500 Body height 170.18 cm [employer]a Harrington Work Phone: [facility] 09-20-2023 15:23-0500 Body mass index (BMI) [Ratio] 31.3 kg/m2 [employer]-Emy Harrington Work Phone: [facility] 09-20-2023 15:23-0500 Body temperature 99.1 [degF] [employer] Lu Len Work Phone: [facility] 09-20-2023 15:23-0500 Body weight 90.71 kg [employer] Lu Len Work Phone: [facility] 09-20-2023 15:23-0500 Diastolic blood pressure 86 mm[Hg] [employer] Lu Len Work Phone: [facility] 09-20-2023 15:23-0500 Heart rate 78 /min [employer] Lu Len Work Phone: [facility] 09-20-2023 15:23-0500 Respiratory rate 16 /min [employer] Lu Len Work Phone: [facility] 09-20-2023 15:23-0500 SaO2% (BldA) [Mass fraction] 96 % [employer] Lu Len Work Phone: [facility] 09-20-2023 15:23-0500 Systolic blood pressure 116 mm[Hg] [employer] Lu Len Work Phone: [facility] 08-13-2023 11:26-0400 Body mass index (BMI) [Ratio] 30.9 kg/m2 [employer] Lu Len Work Phone: [facility] 08-13-2023 11:26-0400 Body temperature 98.6 [degF] [employer] Lu Len Work Phone: [facility] 08-13-2023 11:26-0400 Body weight 89.41 kg [employer] Lu Len Work Phone: [facility] 08-13-2023 11:26-0400 Diastolic blood pressure 78 mm[Hg] [employer] Lu Len Work Phone: [facility] 08-13-2023 11:26-0400 Heart rate 109 /min [employer] Lu Len Work Phone: [facility] 08-13-2023 11:26-0400 Respiratory rate 12 /min [employer] Lu Len Work Phone: [facility] 08-13-2023 11:26-0400 SaO2% (BldA) [Mass fraction] 97 % [employer] Lu Len Work Phone: [facility] 08-13-2023 11:26-0400 Systolic blood pressure 110 mm[Hg] [employer] Lu Len Work Phone: [facility] 07-31-2023 15:36-0400 Body mass index (BMI) [Ratio] 31.1 kg/m2 [employer] Lu Len Work Phone: [facility] 07-31-2023 15:36-0400 Body weight 90.26 kg [employer] Lu Len Work Phone: [facility] 07-31-2023 15:36-0400 Diastolic blood pressure 82 mm[Hg] [employer] Lu Len Work Phone: [facility] 07-31-2023 15:36-0400 Heart rate 81 /min [employer] Lu Len Work Phone: [facility] 07-31-2023 15:36-0400 Systolic blood pressure 128 mm[Hg] [employer] Lu Len Work Phone: [facility] 06-26-2023 15:29-0400 Body mass index (BMI) [Ratio] 31.1 kg/m2 [employer] Lu Len Work Phone: [facility] 06-26-2023 15:29-0400 Body weight 90.32 kg [employer] Lu Len Work Phone: [facility] 06-26-2023 15:29-0400 Diastolic blood pressure 82 mm[Hg] [employer] Lu Len Work Phone: [facility] 06-26-2023 15:29-0400 Heart rate 75 /min [employer] Lu Youngam Work Phone: [facility] 06-26-2023 15:29-0400 Systolic blood pressure 124 mm[Hg] [employer] Lu Youngam Work Phone: [facility] 05-29-2023 14:08-0400 Body mass index (BMI) [Ratio] 32.2 kg/m2 [employer] Lu Len Work Phone: [facility] 05-29-2023 14:08-0400 Body weight 93.44 kg [employer] Lu Len Work Phone: [facility] 05-29-2023 14:08-0400 Diastolic blood pressure 70 mm[Hg] [employer] Lu Len Work Phone: [facility] 05-29-2023 14:08-0400 Heart rate 85 /min [employer] Lu Len Work Phone: [facility] 05-29-2023 14:08-0400 Systolic blood pressure 99 mm[Hg] [employer] Lu Len Work Phone: [facility] 03-31-2023 10:44-0400 Body height 170.18 cm [employer] Helen Emmaa [employer] Work Phone: [facility] 03-31-2023 10:44-0400 Body mass index (BMI) [Ratio] 34.6 kg/m2 [employer] Helen Ciesa [employer] Work Phone: [facility] 03-31-2023 10:44-0400 Body weight 100.3 kg [employer] Helen Ciesa [employer] Work Phone: [facility] 03-31-2023 10:44-0400 Diastolic blood pressure 86 mm[Hg] [employer] Helen Ciesa [employer] Work Phone: [facility] 03-31-2023 10:44-0400 Heart rate 64 /min [employer] Helen Ciesa [employer] Work Phone: [facility] 03-31-2023 10:44-0400 Respiratory rate 16 /min [employer] Helen Cartera [employer] Work Phone: [facility] 03-31-2023 10:44-0400 Systolic blood pressure 132 mm[Hg] [employer] Helen Cartera [employer] Work Phone: [facility] 02-08-2023 11:42-0400 Body height 170.18 cm [employer] Helen Cartera [employer] Work Phone: [facility] 02-08-2023 11:42-0400 Body mass index (BMI) [Ratio] 33.6 kg/m2 [employer] Helen Cartera [employer] Work Phone: [facility] 02-08-2023 11:42-0400 Body weight 97.52 kg [employer] Helen Cartera [employer] Work Phone: [facility] 02-08-2023 11:42-0400 Diastolic blood pressure 86 mm[Hg] [employer] Helen Cartera [employer] Work Phone: [facility] 02-08-2023 11:42-0400 Systolic blood pressure 143 mm[Hg] [employer] Helen Cartera [employer] Work Phone: [facility] 01-23-2022 02:55-0400 Diastolic blood pressure 87 mm[Hg] [employer] Helen Cartera [employer] Work Phone: [facility] Work Phone: 01-23-2022 02:55-0400 Heart rate 68 /min [employer] Helen Cartera [employer] Work Phone: [facility] Work Phone: 01-23-2022 02:55-0400 Respiratory rate 17 /min [employer] Helen Cartera [employer] Work Phone: [facility] Work Phone: 01-23-2022 02:55-0400 SaO2% (BldA) [Mass fraction] 99 % [employer] Helen Cartera [employer] Work Phone: [facility] Work Phone: 01-23-2022 02:55-0400 Systolic blood pressure 153 mm[Hg] [employer] Helen Cartera [employer] Work Phone: [facility] Work Phone: 01-23-2022 00:17-0400 Body height 213.36 cm [employer] Helen Roseannaesa [employer] Work Phone: [facility] Work Phone: 01-23-2022 00:17-0400 Body mass index (BMI) [Ratio] 20.7 kg/m2 [employer] Helen Roseannaesa [employer] Work Phone: [facility] Work Phone: 01-23-2022 00:17-0400 Body temperature 98.4 [degF] [employer] Helen Condonesa [employer] Work Phone: [facility] Work Phone: 01-23-2022 00:17-0400 Body weight 94.3 kg [employer] Helen Cartera [employer] Work Phone: [facility] Work Phone: 11-24-2021 09:54-0500 Body mass index (BMI) [Ratio] 30.2 kg/m2 [employer] Helen Roseannaesa [employer] Work Phone: [facility] Work Phone: 11-24-2021 09:54-0500 Body weight 92.98 kg [employer] Helen Condonesa [employer] Work Phone: [facility] Work Phone: 11-24-2021 09:54-0500 Diastolic blood pressure 90 mm[Hg] [employer] Helen Ciesa [employer] Work Phone: [facility] Work Phone: 11-24-2021 09:54-0500 Systolic blood pressure 129 mm[Hg] [employer] Helen Ciesa [employer] Work Phone: [facility] Work Phone: 10-15-2021 12:03-0500 Body mass index (BMI) [Ratio] 30.4 kg/m2 [employer] Helen Cartera [employer] Work Phone: [facility] Work Phone: 10-15-2021 12:03-0500 Body weight 93.44 kg [employer] Helen Cartera [employer] Work Phone: [facility] Work Phone: 10-15-2021 12:03-0500 Diastolic blood pressure 82 mm[Hg] [employer] Helen Cartera [employer] Work Phone: [facility] Work Phone: 10-15-2021 12:03-0500 Systolic blood pressure 112 mm[Hg] [employer] Helen Cartera [employer] Work Phone: [facility] Work Phone: 06-15-2020 10:15-0400 BMI (Body Mass Index) 28.63 kg/m2 Gene Parikh LPN [facility] Internal Medicine Work Phone: 06-15-2020 10:15-0400 Body Temperature 97.1 [degF] Gene Parikh LPN [facility] Internal Medicine Work Phone: Comment on above: Method: Infrared 06-15-2020 10:15-0400 Body weight 78.03 kg Helen Kerr [facility] Work Phone: 06-15-2020 10:15-0400 Body weight 78.04 kg Gene Parikh LPN [facility] Work Phone: 06-15-2020 10:15-0400 BP Diastolic 70 mm[Hg] Gene Parikh LPN [facility] Work Phone: Comment on above: Patient Position: Sitting; Cuff Location : Left Arm; Cuff Size: Standard 06-15-2020 10:15-0400 BP Systolic 110 mm[Hg] Gene Parikh LPN [facility] Internal Medicine Work Phone: Comment on above: Patient Position: Sitting; Cuff Location : Left Arm; Cuff Size: Standard 06-15-2020 10:15-0400 BSA (Body Surface Area) 1.86 m2 Gene Parikh LPN [facility] Work Phone: 06-15-2020 10:15-0400 Height 165.1 cm Gene Parikh LPN [facility] Work Phone: 06-15-2020 10:15-0400 Pulse (Heart Rate) 81 /min Gene Parikh LPN [facility] Work Phone: Comment on above: Pattern: Regular 06-15-2020 10:15-0400 Pulse Oximetry 97 % Helen Kerr [facility] Work Phone: Comment on above: Room air 06-15-2020 10:15-0400 Respiratory Rate 16 /min Gene Parikh LPN [facility] Internal [facility] Work Phone: Comment on above: Pattern: Unlabored 06-15-2020 10:15-0400 SaO2% (BldA) [Mass fraction] 97 % Geen Parikh LPN [facility]; [facility] Work Phone: Comment on above: Room air 05-26-2020 13:59-0400 BMI (Body Mass Index) 28.63 kg/m2 Gene Parikh LPN Compre[facility] s[facility] Work Phone: 05-26-2020 13:59-0400 Body Temperature 97.1 [degF] Gene Parikh LPN [facility] Medicine Work Phone: Comment on above: Method: Infrared 05-26-2020 13:59-0400 Body weight 78.03 kg Gene Parikh LPN [facility] Work Phone: 05-26-2020 13:59-0400 BP Diastolic 70 mm[Hg] Gene Parikh LPN [facility] Work Phone: Comment on above: Patient Position: Sitting; Cuff Location : Left Arm; Cuff Size: Standard 05-26-2020 13:59-0400 BP Systolic 122 mm[Hg] Gene Parikh LPN [facility] Work Phone: Comment on above: Patient Position: Sitting; Cuff Location : Left Arm; Cuff Size: Standard 05-26-2020 13:59-0400 BSA (Body Surface Area) 1.86 m2 Gene Parikh LPN [facility] Work Phone: 05-26-2020 13:59-0400 Height 165.1 cm Gene Parikh LPN [facility] Work Phone: 05-26-2020 13:59-0400 Pulse (Heart Rate) 84 /min Gene Parikh LPN [facility] Work Phone: Comment on above: Pattern: Regular 05-26-2020 13:59-0400 Pulse Oximetry 94 % Helen Kerr [facility] Work Phone: Comment on above: Room air 05-26-2020 13:59-0400 Respiratory Rate 16 /min Gene Parikh LPN [facility] Work Phone: Comment on above: Pattern: Unlabored 05-26-2020 13:59-0400 SaO2% (BldA) [Mass fraction] 94 % Gene Parikh LPN [facility]; [facility] Work Phone: Comment on above: Room air 12-08-2016 11:52-0500 BMI (Body Mass Index) 30.79 kg/m2 Brenna Edward RN [facility] Work Phone: 12-08-2016 11:52-0500 Body weight 83.92 kg Brenna Edward RN [facility] Work Phone: 12-08-2016 11:52-0500 BP Diastolic 80 mm[Hg] Brenna Edward RN [facility] Work Phone: Comment on above: Patient Position: Sitting; Cuff Location : Left Arm; Cuff Size: Large 12-08-2016 11:52-0500 BP Systolic 122 mm[Hg] Brenna Edward RN [facility] Work Phone: Comment on above: Patient Position: Sitting; Cuff Location : Left Arm; Cuff Size: Large 12-08-2016 11:52-0500 BSA (Body Surface Area) 1.91 m2 Brenna Edward RN [facility] Work Phone: 12-08-2016 11:52-0500 Height 165.1 cm Brenna Edward RN [facility] Work Phone: 12-08-2016 11:52-0500 Pulse (Heart Rate) 79 /min Brenna Edward RN [facility] Work Phone: Comment on above: Pattern: Regular 12-08-2016 11:52-0500 Pulse Oximetry 97 % Helen Kerr [facility] Work Phone: Comment on above: Room air 12-08-2016 11:52-0500 Respiratory Rate 18 /min Brenna Edward RN [facility] Work Phone: Comment on above: Pattern: Unlabored 12-08-2016 11:52-0500 SaO2% (BldA) [Mass fraction] 97 % Brenna Edward RN [facility]; [facility] Work Phone: Comment on above: Room air 11-16-2016 13:33-0500 BMI (Body Mass Index) 31.12 kg/m2 Brenna Edward RN [facility] Work Phone: 11-16-2016 13:33-0500 Body weight 84.82 kg Brenna Edward RN [facility] Work Phone: 11-16-2016 13:33-0500 BP Diastolic 70 mm[Hg] Brenna Edward RN [facility] Work Phone: Comment on above: Patient Position: Sitting; Cuff Location : Left Arm; Cuff Size: Large 11-16-2016 13:33-0500 BP Systolic 102 mm[Hg] Brenna Edward RN [facility] Work Phone: Comment on above: Patient Position: Sitting; Cuff Location : Left Arm; Cuff Size: Large 11-16-2016 13:33-0500 BSA (Body Surface Area) 1.92 m2 Brenna Edward RN [facility] Work Phone: 11-16-2016 13:33-0500 Height 165.1 cm Brenna Edward RN [facility] Work Phone: 11-16-2016 13:33-0500 Pulse (Heart Rate) 83 /min Brenna Edward RN [facility] Work Phone: Comment on above: Pattern: Regular 11-16-2016 13:33-0500 Pulse Oximetry 98 % Helen Kerr [facility] Work Phone: Comment on above: Room air 11-16-2016 13:33-0500 Respiratory Rate 18 /min Brenna Edward RN [facility] Work Phone: Comment on above: Pattern: Unlabored 11-16-2016 13:33-0500 SaO2% (BldA) [Mass fraction] 98 % Brenna Edward RN [facility]; [facility] Work Phone: Comment on above: Room air 07-28-2014 13:06-0400 BMI (Body Mass Index) 30.83 kg/m2 Brenna Edward RN [facility] Work Phone: 07-28-2014 13:06-0400 Body Temperature 98.2 [degF] Brenna Edward RN [facility] Work Phone: Comment on above: Method: Oral 07-28-2014 13:06-0400 Body weight 84.03 kg Brenna Edward RN [facility] Work Phone: 07-28-2014 13:06-0400 BP Diastolic 68 mm[Hg] Brenna Edward RN [facility] Work Phone: Comment on above: Patient Position: Sitting; Cuff Location : Left Arm; Cuff Size: Large 07-28-2014 13:06-0400 BP Systolic 110 mm[Hg] Brenna Edward RN [facility] Work Phone: Comment on above: Patient Position: Sitting; Cuff Location : Left Arm; Cuff Size: Large 07-28-2014 13:06-0400 BSA (Body Surface Area) 1.91 m2 Brenna Edward RN [facility] Work Phone: 07-28-2014 13:06-0400 Height 165.1 cm Brenna Edward RN [facility] Work Phone: 07-28-2014 13:06-0400 Pulse (Heart Rate) 89 /min Brenna Edward RN [facility] Work Phone: Comment on above: Pattern: Regular 07-28-2014 13:06-0400 Pulse Oximetry 98 % Helen Kerr [facility] Work Phone: Comment on above: Room air 07-28-2014 13:06-0400 Respiratory Rate 18 /min Brenna Edward RN [facility] Work Phone: Comment on above: Pattern: Unlabored 07-28-2014 13:06-0400 SaO2% (BldA) [Mass fraction] 98 % Brenna Edward RN [facility]; [facility] Work Phone: Comment on above: Room air 11-12-2013 09:27-0500 BMI (Body Mass Index) 30.83 kg/m2 Helen Kerr [facility] Internal Medicine Work Phone: 11-12-2013 09:27-0500 Body Temperature 98.2 [degF] Helen Kerr [facility] Internal Medicine Work Phone: Comment on above: Method: Oral 11-12-2013 09:27-0500 [facility] 84.03 [facility]: 11-12-2013 09:27-0500 BP Diastolic 80 mm[Hg] [facility] Work Phone: Comment on above: Patient Position: Sitting; Cuff Location : Left Arm; Cuff Size: Standard 11-12-2013 09:27-0500 BP Systolic 120 mm[Hg] [facility] Work [facility]: Comment on above: Patient Position: Sitting; Cuff Location : Left Arm; Cuff Size: Standard 11-12-2013 09:27-0500 BSA (Body Surface Area) 1.91 m2 [facility] Work Phone: 11-12-2013 09:27-0500 Height 165.1 cm [facility] Work Phone: 11-12-2013 09:27-0500 Pulse (Heart Rate) 94 /min [facility] Work Phone: Comment on above: Pattern: Regular 11-12-2013 09:27-0500 Pulse Oximetry 98 % [facility] Work Phone: Comment on above: Room air 11-12-2013 09:27-0500 SaO2% (BldA) [Mass fraction] 98 % Helen Kerr [employer] Work Phone: [facility]; [facility] Work Phone: Comment on above: Room air 05-13-2013 14:41-0400 BMI (Body Mass Index) 30.83 kg/m2 Helen Quintana [facility] Internal Medicine Work Phone: 05-13-2013 14:41-0400 Body Temperature 98.1 [degF] Helen Kerr [facility] Internal Medicine Work Phone: Comment on above: Method: Oral 05-13-2013 14:41-0400 Body weight 84.03 kg Helen Kerr [facility] Internal Medicine Work Phone: 05-13-2013 14:41-0400 BP Diastolic 72 mm[Hg] Helen Kerr [facility] Internal Medicine Work Phone: Comment on above: Patient Position: Sitting; Cuff Location : Left Arm; Cuff Size: Standard 05-13-2013 14:41-0400 BP Systolic 112 mm[Hg] Helen Kerr [facility] Internal Medicine Work Phone: Comment on above: Patient Position: Sitting; Cuff Location : Left Arm; Cuff Size: Standard 05-13-2013 14:41-0400 BSA (Body Surface Area) 1.91 m2 Helen Kerr [facility] Internal Medicine Work Phone: 05-13-2013 14:41-0400 Height 165.1 cm Helen Kerr [facility] Internal Medicine Work Phone: 05-13-2013 14:41-0400 Pulse (Heart Rate) 70 /min Helen Kerr [facility] Internal Medicine Work Phone: Comment on above: Pattern: Regular 05-13-2013 14:41-0400 Pulse Oximetry 98 % Helen Kerr [facility] Internal Medicine Work Phone: Comment on above: Room air 05-13-2013 14:41-0400 SaO2% (BldA) [Mass fraction] 98 % Helen Kerr [employer] Work Phone: [facility]; [facility] Work Phone: Comment on above: Room air 06-27-2012 11:14-0400 BMI (Body Mass Index) 28.12 kg/m2 Jelena Quintana [facility] Internal Medicine Work Phone: 06-27-2012 11:14-0400 Body Temperature 98.2 [degF] Jelena Frost [facility] Internal Medicine Work Phone: Comment on above: Method: Oral 06-27-2012 11:14-0400 Body weight 76.66 kg Jelena Frost [facility] Internal Medicine Work Phone: 06-27-2012 11:14-0400 BP Diastolic 78 mm[Hg] Jelena Frost [facility] Internal Medicine Work Phone: Comment on above: Patient Position: Sitting; Cuff Location : Left Arm; Cuff Size: Standard 06-27-2012 11:14-0400 BP Systolic 118 mm[Hg] Jelena Frost [facility] Internal Medicine Work Phone: Comment on above: Patient Position: Sitting; Cuff Location : Left Arm; Cuff Size: Standard 06-27-2012 11:14-0400 BSA (Body Surface Area) 1.84 m2 Jelena Frost [facility] Internal Medicine Work Phone: 06-27-2012 11:14-0400 Height 165.1 cm Jelena Frost [facility] Internal Medicine Work Phone: 06-27-2012 11:14-0400 Pulse (Heart Rate) 68 /min Jelena Frost [facility] Internal Medicine Work Phone: Comment on above: Pattern: Regular 06-27-2012 11:14-0400 Respiratory Rate 16 /min Jelena Frost [facility] Internal Medicine Work Phone: Comment on above: Pattern: Unlabored 01-06-2012 14:54-0500 BMI (Body Mass Index) 23.96 kg/m2 Helen Quintana [facility] Internal Medicine Work Phone: 01-06-2012 14:54-0500 Body Temperature 98.4 [degF] Helen Kerr [facility] Internal Medicine Work Phone: Comment on above: Method: Oral 01-06-2012 14:54-0500 Body weight 65.32 kg Helen Kerr [facility] Internal Medicine Work Phone: 01-06-2012 14:54-0500 BP Diastolic 70 mm[Hg] Helen Kerr [facility] Internal Medicine Work Phone: Comment on above: Patient Position: Sitting; Cuff Location : Left Arm; Cuff Size: Standard 01-06-2012 14:54-0500 BP Systolic 112 mm[Hg] Helen Kerr [facility] Internal Medicine Work Phone: Comment on above: Patient Position: Sitting; Cuff Location : Left Arm; Cuff Size: Standard 01-06-2012 14:54-0500 BSA (Body Surface Area) 1.72 m2 Helen Kerr [facility] Internal Medicine Work Phone: 01-06-2012 14:54-0500 Height 165.1 cm Helen Kerr [facility] Internal Medicine Work Phone: 01-06-2012 14:54-0500 Pulse (Heart Rate) 76 /min Helen Kerr [facility] Internal Medicine Work Phone: Comment on above: Pattern: Regular 01-06-2012 14:54-0500 Pulse Oximetry 97 % Helen Kerr [facility] Internal Medicine Work Phone: Comment on above: Room air 01-06-2012 14:54-0500 SaO2% (BldA) [Mass fraction] 97 % Helen Kerr [employer] Work Phone: [facility] Internal Medicine; [facility] Work Phone: Comment on above: Room air 12-28-2011 11:23-0500 BMI (Body Mass Index) 23.96 kg/m2 Helen Kerr [facility] Internal Medicine Work Phone: 12-28-2011 11:23-0500 Body Temperature 98.3 [degF] Helen Kerr [facility] Internal Medicine Work Phone: Comment on above: Method: Oral 12-28-2011 11:23-0500 Body weight 65.32 kg Helen Kerr [facility] Internal Medicine Work Phone: 12-28-2011 11:23-0500 BP Diastolic 68 mm[Hg] Helen Kerr [facility] Internal Medicine Work Phone: Comment on above: Patient Position: Sitting; Cuff Location : Left Arm; Cuff Size: Standard 12-28-2011 11:23-0500 BP Systolic 112 mm[Hg] Helen Kerr [facility] Internal Medicine Work Phone: Comment on above: Patient Position: Sitting; Cuff Location : Left Arm; Cuff Size: Standard 12-28-2011 11:23-0500 BSA (Body Surface Area) 1.72 m2 Helen Kerr [facility] Internal Medicine Work Phone: 12-28-2011 11:23-0500 Height 165.1 cm Helen Kerr [facility] Internal Medicine Work Phone: 12-28-2011 11:23-0500 Pulse (Heart Rate) 82 /min Helen Kerr [facility] Internal Medicine Work Phone: Comment on above: Pattern: Regular 12-28-2011 11:23-0500 Pulse Oximetry 97 % Helen Kerr [facility] Internal Medicine Work Phone: Comment on above: Room air 12-28-2011 11:23-0500 Respiratory Rate 15 /min Helen Kerr [facility] Medicine Work Phone: 12-28-2011 11:23-0500 SaO2% (BldA) [Mass fraction] 97 % Helen Kerr [employer] Work Phone: [facility]; [facility] Work Phone: Comment on above: Room air 12-26-2011 13:09-0500 Body Temperature 98.9 [degF] Selena Galindo RN [facility] Work Phone: Comment on above: Method: Oral 12-26-2011 13:09-0500 BP Diastolic 68 mm[Hg] Selena Galindo RN [facility] Work Phone: Comment on above: Patient Position: Sitting; Cuff Location : Left Arm; Cuff Size: Standard 12-26-2011 13:09-0500 BP Systolic 110 mm[Hg] Selena Galindo RN [facility] Work Phone: Comment on above: Patient Position: Sitting; Cuff Location : Left Arm; Cuff Size: Standard 12-26-2011 13:09-0500 Pulse (Heart Rate) 67 /min Selena Galindo RN [facility] Work Phone: Comment on above: Pattern: Regular 12-26-2011 13:09-0500 Pulse Oximetry 97 % Helen Kerr [facility] Work Phone: Comment on above: Room air 12-26-2011 13:09-0500 Respiratory Rate 14 /min Selena Galindo RN [facility] Work Phone: Comment on above: Pattern: Unlabored 12-26-2011 13:09-0500 SaO2% (BldA) [Mass fraction] 97 % Selena Galindo RN [facility]; [facility] Work Phone: Comment on above: Room air 08-25-2011 09:24-0400 BMI (Body Mass Index) 23.96 kg/m2 Kim Cortez RN [facility] Internal Medicine Work Phone: 08-25-2011 09:24-0400 Body Temperature 99.2 [degF] Kim Cortez RN [facility] Work Phone: Comment on above: Method: Oral 08-25-2011 09:24-0400 Body weight 65.32 kg Kim Cortez RN [facility] Work Phone: 08-25-2011 09:24-0400 BP Diastolic 60 mm[Hg] Kim Cortez RN [facility] Work Phone: Comment on above: Patient Position: Sitting; Cuff Location : Left Arm; Cuff Size: Standard 08-25-2011 09:24-0400 BP Systolic 112 mm[Hg] Kim Cortez RN [facility] Work Phone: Comment on above: Patient Position: Sitting; Cuff Location : Left Arm; Cuff Size: Standard 08-25-2011 09:24-0400 BSA (Body Surface Area) 1.72 m2 Kim Cortez RN [facility] Work Phone: 08-25-2011 09:24-0400 Height 165.1 cm Kim Cortez RN [facility] Work Phone: 08-25-2011 09:24-0400 Pulse (Heart Rate) 76 /min Kim Cortez RN [facility] Work Phone: Comment on above: Pattern: Regular 08-25-2011 09:24-0400 Respiratory Rate 18 /min Kim Cortez RN [facility] Work Phone: Comment on above: Pattern: Unlabored 07-13-2011 09:48-0400 BMI (Body Mass Index) 25.5 kg/m2 Helen Kerr [facility] Internal Medicine Work Phone: 07-13-2011 09:48-0400 Body Temperature 99 [degF] [facility] Work Phone: Comment on above: Method: Oral 07-13-2011 09:48-0400 Body weight 69.51 kg [facility] Work Phone: 07-13-2011 09:48-0400 BP Diastolic 68 mm[Hg] [facility] Work Phone: Comment on above: Patient Position: Sitting; Cuff Location : Left Arm; Cuff Size: Standard 07-13-2011 09:48-0400 BP Systolic 102 mm[Hg] [facility] Work Phone: Comment on above: Patient Position: Sitting; Cuff Location : Left Arm; Cuff Size: Standard 07-13-2011 09:48-0400 BSA (Body Surface Area) 1.77 m2 [facility] Work Phone: 07-13-2011 09:48-0400 Height 165.1 cm [facility] Internal Medicine Work Phone: 07-13-2011 09:48-0400 Pulse (Heart Rate) 74 /min [facility] [place] [facility] Work Phone: Comment on above: Pattern: Regular 07-13-2011 09:48-0400 Respiratory Rate 16 /min [facility] Work Phone: 06-27-2011 11:02-0400 BMI (Body Mass Index) 25.5 kg/m2 [facility] Work Phone: 06-27-2011 11:02-0400 Body Temperature 98.5 [degF] [facility] Internal Medicine Work Phone: Comment on above: Method: Oral 06-27-2011 11:02-0400 Body weight 69.51 kg Helen Kerr [facility] Internal Medicine Work Phone: 06-27-2011 11:02-0400 BP Diastolic 70 mm[Hg] Helen Kerr [facility] Medicine Work Phone: Comment on above: Patient Position: Sitting; Cuff Location : Left Arm; Cuff Size: Standard 06-27-2011 11:02-0400 BP Systolic 118 mm[Hg] Helen Kerr [facility] Internal Medicine Work Phone: Comment on above: Patient Position: Sitting; Cuff Location : Left Arm; Cuff Size: Standard 06-27-2011 11:02-0400 BSA (Body Surface Area) 1.77 m2 Helen Kerr [facility] Internal Medicine Work Phone: 06-27-2011 11:02-0400 Height 165.1 cm Helen Kerr [facility] Internal Medicine Work Phone: 06-27-2011 11:02-0400 Pulse (Heart Rate) 72 /min Helen Kerr [facility] Medicine Work Phone: Comment on above: Pattern: Regular 06-27-2011 11:02-0400 Respiratory Rate 16 /min Helen Kerr [facility] Internal Medicine Work Phone: Comment on above: Pattern: Unlabored 03-21-2011 11:22-0400 Body Temperature 98.4 [degF] Brenna Edward RN [facility] Work Phone: Comment on above: Method: Oral 03-21-2011 11:22-0400 Body weight 78.49 kg Brenna Edward RN [facility] Work Phone: 03-21-2011 11:22-0400 BP Diastolic 68 mm[Hg] Brenna Edward RN [facility] Work Phone: Comment on above: Patient Position: Sitting; Cuff Location : Left Arm; Cuff Size: Large 03-21-2011 11:22-0400 BP Systolic 108 mm[Hg] Brenna Edward RN [facility] Work Phone: Comment on above: Patient Position: Sitting; Cuff Location : Left Arm; Cuff Size: Large 03-21-2011 11:22-0400 Pulse (Heart Rate) 68 /min Brenna Edward RN [facility] Work Phone: Comment on above: Pattern: Regular 03-21-2011 11:22-0400 Respiratory Rate 20 /min Brenna Edward RN [facility] Work Phone: Comment on above: Pattern: Unlabored 01-13-2009 10:18-0400 Body weight 78.49 kg MARIA Minor LPN [facility] Work Phone: 01-13-2009 10:18-0400 BP Diastolic 78 mm[Hg] MARIA Minor LPN [facility] Work Phone: Comment on above: Patient Position: Sitting; Cuff Location : Left Arm; Cuff Size: Large 01-13-2009 10:18-0400 BP Systolic 104 mm[Hg] MARIA Minor LPN [facility] Work Phone: Comment on above: Patient Position: Sitting; Cuff Location : Left Arm; Cuff Size: Large 01-13-2009 10:18-0400 Head Circumference 0 cm Helen Kerr [facility] Work Phone: 01-13-2009 10:18-0400 Head Occipital-frontal circumference 0 cm MARIA Minor LPN [facility]; [facility] Work Phone: 01-13-2009 10:18-0400 Height 0 cm MARIA Minor LPN [facility] Work Phone: 01-13-2009 10:18-0400 Pulse (Heart Rate) 62 /min MARIAEDSON Minor LPN [facility] Work Phone: Comment on above: Pattern: Regular 01-13-2009 10:18-0400 Respiratory Rate 16 /min MARIA Minor LPN [facility] Work Phone: Comment on above: Pattern: Unlabored 11-09-2007 08:53-0500 Body Temperature 97.8 [degF] MARIA Minor LPN [facility] Work Phone: Comment on above: Method: Oral 11-09-2007 08:53-0500 Body weight 0 kg MARIA Minor LPN [facility] Work Phone: 11-09-2007 08:53-0500 BP Diastolic 76 mm[Hg] MARIA Minor LPN [facility] Work Phone: Comment on above: Patient Position: Sitting; Cuff Location : Left Arm; Cuff Size: Standard 11-09-2007 08:53-0500 BP Systolic 114 mm[Hg] MARIA Minor LPN [facility] Work Phone: Comment on above: Patient Position: Sitting; Cuff Location : Left Arm; Cuff Size: Standard 11-09-2007 08:53-0500 Head Circumference 0 cm Helen Kerr [facility] Work Phone: 11-09-2007 08:53-0500 Head Occipital-frontal circumference 0 cm MARIA Minor LPN [facility]; [facility] Work Phone: 11-09-2007 08:53-0500 Height 0 cm MARIA Minor LPN [facility] Work Phone: 11-09-2007 08:53-0500 Pulse (Heart Rate) 68 /min MARIA Minor LPN [facility] Work Phone: Comment on above: Pattern: Regular 11-09-2007 08:53-0500 Respiratory Rate 16 /min MARIA Minor LPN [facility] Medicine Work Phone: Comment on above: Pattern: Unlabored 11-02-2007 14:36-0500 Body Temperature 98.3 [degF] MARIA Minor LPN [facility] Work Phone: Comment on above: Method: Oral 11-02-2007 14:36-0500 Body weight 0 kg MARIA Minor LPN [facility] Work Phone: 11-02-2007 14:36-0500 BP Diastolic 78 mm[Hg] MARIA Minor LPN [facility] Medicine Work Phone: Comment on above: Patient Position: Sitting; Cuff Location : Left Arm; Cuff Size: Standard 11-02-2007 14:36-0500 BP Systolic 118 mm[Hg] MARIA Minor LPN [facility] Work Phone: Comment on above: Patient Position: Sitting; Cuff Location : Left Arm; Cuff Size: Standard 11-02-2007 14:36-0500 Head Circumference 0 cm Helen Kerr [facility] Work Phone: 11-02-2007 14:36-0500 Head Occipital-frontal circumference 0 cm MARIA Minor LPN [facility]; [facility] Work Phone: 11-02-2007 14:36-0500 Height 0 cm MARIA Minor LPN [facility] Work Phone: 11-02-2007 14:36-0500 Pulse (Heart Rate) 74 /min MARIA Minor [employer]ICATION[employer] WR[employer] [facility] Work Phone: Comment on above: Pattern: Regular 11-02-2007 14:36-0500 Respiratory Rate 18 /min MARIA Minor LPN [facility] Work Phone: Comment on above: Pattern: Unlabored 08-27-2007 11:56-0400 Body Temperature 98.6 [degF] MARIA Minor LPN [facility] Work Phone: Comment on above: Method: Oral 08-27-2007 11:56-0400 Body weight 0 kg MARIA Minor [employer]ICATION[employer] WRITER [facility] Work Phone: 08-27-2007 11:56-0400 BP Diastolic 76 mm[Hg] MARIA Minor [employer]ICATION[employer] WRITER [facility] Work Phone: Comment on above: Patient Position: Sitting; Cuff Location : Left Arm; Cuff Size: Standard 08-27-2007 11:56-0400 BP Systolic 120 mm[Hg] MARIA Minor LPN [facility] Work Phone: Comment on above: Patient Position: Sitting; Cuff Location : Left Arm; Cuff Size: Standard 08-27-2007 11:56-0400 Head Circumference 0 cm Helen Kerr [facility] Work Phone: 08-27-2007 11:56-0400 Head Occipital-frontal circumference 0 cm MARIA Minor LPN [facility]; [facility] Work Phone: 08-27-2007 11:56-0400 Height 0 cm MARIA Minor LPN [facility] Work Phone: 08-27-2007 11:56-0400 Pulse (Heart Rate) 76 /min MARIA Minor LPN [facility] Work Phone: Comment on above: Pattern: Regular 08-27-2007 11:56-0400 Respiratory Rate 18 /min MARIA Minor LPN [facility] Work Phone: Comment on above: Pattern: Unlabored 07-23-2007 11:19-0400 BMI (Body Mass Index) 28.14 kg/m2 MARIA Minor LPN [facility] Work Phone: 07-23-2007 11:19-0400 Body Temperature 97.6 [degF] MARIA Minor LPN [facility] Work Phone: Comment on above: Method: Oral 07-23-2007 11:19-0400 Body weight 78.47 kg MARIA Minor LPN [facility] Work Phone: 07-23-2007 11:19-0400 BP Diastolic 78 mm[Hg] MARIA Minor LPN [facility] Work Phone: Comment on above: Patient Position: Sitting; Cuff Location : Left Arm; Cuff Size: Standard 07-23-2007 11:19-0400 BP Systolic 122 mm[Hg] MARIA Minor LPN [facility] Work Phone: Comment on above: Patient Position: Sitting; Cuff Location : Left Arm; Cuff Size: Standard 07-23-2007 11:19-0400 BSA (Body Surface Area) 1.88 m2 MARIA Minor LPN [facility] Work Phone: 07-23-2007 11:19-0400 Head Circumference 0 cm Helen Kerr [facility] Work Phone: 07-23-2007 11:19-0400 Head Occipital-frontal circumference 0 cm MARIA Minor LPN [facility]; [facility] Work Phone: 07-23-2007 11:19-0400 Height 167 cm MARIA Minor LPN [facility] Work Phone: 07-23-2007 11:19-0400 Pulse (Heart Rate) 74 /min MARIA Minor LPN [facility] Work Phone: Comment on above: Pattern: Regular 07-23-2007 11:19-0400 Respiratory Rate 20 /min MARIA Minor LPN [facility] Work Phone: Comment on above: Pattern: Unlabored Encounters Encounter Date Encounter Type Care Provider Facility Start: 07-08-2025 ambulatory [facility] Facility :[facility] Start: 06-13-2025 End: 06-13-[address] Scott Fleming MD -[facility] Work Phone: Start: 06-13-2025 End: 06-13-[address] Chanel Cisneros MD Work Phone: -[facility] Start: 05-19-2025 End: 05-19-[address] Chanel Cisneros MD Work Phone: -[facility] Start: 05-19-2025 End: 05-19-2025 Patient encounter procedure Sisi Argueta NP-C [facility] Work Phone: Start: 05-19-2025 End: 05-19-2025 ambulatory Sisi Argueta Facility:[facility] Start: 05-06-2025 End: 05-06-2025 Patient encounter procedure Sisi Argueta [employer]-C -[facility] Work Phone: Start: 05-06-2025 End: 05-06-2025 Patient encounter status Sisi Argueta NP-C [facility] Start: 05-06-2025 End: 05-06-[address] Chanel Cisneros MD Work Phone: -[facility] Start: 02-16-2025 End: 02-16-2025 Patient encounter procedure Erick Niño [employer]-C -[facility] Work Phone: Start: 02-16-2025 End: 02-16-2025 ambulatory Chanel Cisneros Facility:[facility] Start: 12-19-2024 End: 12-19-2024 ambulatory Lu Harrington Facility:[facility] Start: 12-05-2024 End: 12-05-2024 ambulatory Lu Harrington Facility:[facility] Start: 09-11-[address] Chanel Cisneros MD Work Phone: [facility] Start: 09-11-2024 End: 09-11-2024 ambulatory Aman GRANGER Facility:[facility] Start: 09-11-2024 End: 09-11-2024 ambulatory Aman GRANGER Facility:[facility] Start: 09-02-2024 End: 09-02-2024 ambulatory Michael GRANGER Facility:[facility] Start: 01-15-2024 End: 01-15-[address] Chanel Cisneros Work Phone: [facility] Work Phone: Start: 01-15-2024 End: 01-15-[address] Chanel Cisneros Work Phone: [facility] [place] Start: 10-18-2023 End: 10-18-[address] Chanel Cisneros Work Phone: [facility] Work Phone: Start: 09-20-2023 End: 09-20-2023 ambulatory [employer] Lu Harrington Work Phone: [facility] Work Phone: Start: 09-20-2023 Patient encounter status [employer] Lu Harrington Work Phone: [facility] Start: 09-20-2023 End: 09-20-2023 Encounter for general adult medical examination without abnormal findings [employer]-Emy Harrington Work Phone: [facility] Start: 09-20-2023 End: 09-20-2023 Patient encounter procedure [employer] Lu Harrington Work Phone: [facility] Work Phone: Start: 08-13-2023 End: 08-13-2023 Patient encounter procedure [employer] Lu Harrington Work Phone: [facility] Work Phone: Start: 07-31-2023 End: 07-31-2023 Patient encounter procedure [employer] Lu Harrington Work Phone: [facility] Work Phone: Start: 06-26-2023 End: 06-26-2023 Patient encounter procedure [employer] Lu Harrington Work Phone: [facility] Work Phone: Start: 05-29-2023 End: 05-29-2023 Patient encounter procedure [employer] Lu Harrington Work Phone: [facility] Work Phone: Start: 04-17-2023 End: 04-17-2023 ambulatory [employer] Helen Cartera [employer] Work Phone: [facility] Work Phone: Start: 04-17-2023 End: 04-17-2023 Patient encounter procedure [employer]C Helen Cartera [employer] Work Phone: [facility]/Neurology Start: 03-31-2023 End: 03-31-2023 ambulatory [employer]S HANDLER-C Helen Cartera [employer] Work Phone: [facility] Work Phone: Start: 03-31-2023 End: 03-31-2023 Patient encounter procedure [employer] HAND[employer]ER-C Helen Cartera [employer] Work Phone: [facility] Start: 03-31-2023 End: 03-31-2023 Patient encounter procedure [employer]-C Helen Cartera [employer]ER Work Phone: [facility] Start: 02-22-2023 End: 02-22-2023 ambulatory AUT[employer] HAND[employer]ER-C Helen Cartera [employer] Work Phone: [facility] Work Phone: Start: 02-22-2023 End: 02-22-2023 Patient encounter procedure [employer] HAND[employer]ER-C Helen Kerr [employer] Work Phone: [facility] Start: 02-08-2023 End: 02-08-2023 Patient encounter procedure [employer]S [employer]-C Helen Cartera [employer]ER Work Phone: [facility] Start: 01-23-2022 End: 01-23-2022 Emergency department patient visit [employer]-C Helen Kerr [employer] Work Phone: [facility] Start: 12-31-2021 End: 12-31-2021 Patient encounter procedure [employer]S HAND[employer]ER-C Helen Cartera [employer]ER Work Phone: [facility] Start: 11-24-2021 End: 11-24-2021 Patient encounter procedure [employer]S [employer]-C Helen Kerr [employer] Work Phone: [facility] Start: 10-18-2021 Patient encounter procedure [employer]-C Helen Cartera [employer]ER Work Phone: [facility] Start: 10-15-2021 End: 10-15-2021 Patient encounter procedure [employer]S [employer]-C Helen Kerr [employer] Work Phone: [facility] Start: 01-01-2021 End: 01-01-2021 Annotation/Addendum Helen Emmayoni [facility] Start: 06-26-2020 End: 06-26-2020 Annotation/Addendum Helen Emmayoni [facility] Start: 06-26-2020 End: 06-26-2020 Annotation/Addendum Helen Kerr [facility] Start: 06-24-2020 End: 06-24-2020 Annotation/Addendum Helen Condoncharliyoni [facility] Start: 06-18-2020 End: 06-18-2020 Phone Encounter Helen Kerr [facility] Start: 06-15-2020 End: 06-15-2020 Office outpatient visit 15 minutes Helen Ciesa [facility] Start: 06-15-2020 Review Helen Condonbarbara [facility] Start: 05-26-2020 End: 05-26-2020 Office outpatient new 45 minutes Helen Alvarado [facility] Start: 12-08-2016 End: 12-08-2016 Office outpatient visit 25 minutes Helen Alvarado [facility] Start: 11-18-2016 End: 11-18-2016 Lab Order Helen Alvarado [facility] Start: 11-16-2016 End: 11-16-2016 Office outpatient visit 40 minutes Helen Alvarado [facility] Start: 07-28-2014 End: 07-28-2014 Office outpatient visit 25 minutes Helen Alvarado [facility] Start: 11-18-2013 End: 11-18-2013 Patient encounter procedure Helen Alvarado [facility] Start: 11-12-2013 End: 11-12-2013 Office outpatient visit 25 minutes Helen Alvarado [facility] Start: 05-13-2013 End: 05-13-2013 Office outpatient visit 25 minutes Helen Alvarado [facility] Start: 06-27-2012 End: 06-27-2012 Patient encounter procedure Helen Alvarado [facility] Start: 01-06-2012 End: 01-06-2012 Office outpatient visit 15 minutes Helen Alvarado [facility] Start: 12-28-2011 End: 12-28-2011 Office outpatient visit 25 minutes Helen Alvarado [facility] Start: 12-26-2011 End: 12-26-2011 Office outpatient visit 25 minutes Helen Alvarado [facility] Start: 08-25-2011 End: 08-25-2011 Patient encounter procedure Helen Alvarado [facility] Start: 07-13-2011 End: 07-13-2011 Office outpatient visit 15 minutes Helen Alvarado [facility] Start: 06-27-2011 End: 06-27-2011 Office outpatient visit 15 minutes Helen Alvarado [facility] Start: 03-21-2011 End: 03-21-2011 Patient encounter procedure Helen Alvarado [facility] Start: 01-13-2009 End: 01-13-2009 Patient encounter procedure Helen Alvarado [facility] Start: 11-09-2007 End: 11-09-2007 Office outpatient visit 15 minutes Helen Alvarado [facility] Start: 11-02-2007 End: 11-06-2007 Patient encounter procedure Helen Alvarado [facility] Start: 08-27-2007 End: 08-27-2007 Office outpatient visit 15 minutes Helen Kerr [facility] Start: 07-23-2007 End: 07-23-2007 Patient encounter procedure Helen Kerr [facility] Internal [facility] Procedures Date Procedure Procedure Detail Performing Clinician Start: 05-19-[address] Chanel Cisneros MD Work Phone: Start: 02-22-2023 Screening mammography [employer]-C Helen Usha CHARLY Work Phone: Start: 02-22-2023 End: 02-22-2023 SCRN MAMM (CAD)W/MAGUE BILAT Procedure Note: See Note; NOTES: [facility] Imaging Services [address] [place] [address] SCRN MAMM (CAD)W/MAGUE BILAT MR#: [id number] Acct: [id number] Name: LISA CHEN Rep #: [id number] : 1970 F 52 From: Moody bradley MD PCP: Lu Harrington NP-C Status: REG CLI Study: SCRN MAMM (CAD)W/MAGUE BILAT Date of Exam: 01/29 04/21 Exam# [id number] Ordering Dr: Luann Wren DO MAMMOGRAPHY - BILATERAL SCREENING REASON FOR EXAM: Female, 52 years old. Routine annual screening examination. PERTINENT HISTORY: History of prior left breast biopsy. TECHNIQUE: Digital bilateral breast mague (3D mammographic acquisition) in the CC and MLO projections. 2-D mediolateral oblique (MLO) and craniocaudad (CC) views of both breasts were obtained. CAD: Full Field Digital Mammography with Computer Added Detection was performed. COMPARISON: Comparison is made with prior study dated December 31, 2021 and December 30, 2020. FINDINGS: Breast Composition: The breasts are heterogeneously dense, which may obscure small masses. There are no dominant masses or suspicious calcifications. A tissue clip marker is seen in the superior retroareolar region of the left breast. Stable benign-appearing bilateral axillary lymph nodes. No other significant abnormalities are identified. There has been no significant change since the prior study. BI/SCRN MAMM (CAD)W/MAGUE BILAT IMPRESSION: Stable bilateral screening mammogram. Yearly follow-up mammogram recommended. (A) ASSESSMENT CATEGORY: BIRADS Category 2: Benign. A letter regarding these results will be sent to the patient by the facility within 30 days. Approximately 10% of breast cancers are not detected by mammography. A normal mammogram should not delay biopsy of a clinically suspicious abnormality. [id number] Electronically Signed: Moody Campbell MD at 9:41 EDT Reading Location ID and State: [facility] / ID , Service support , CC: AUTO PARTS HANDLERChela Harrington; Dr. Luann Wren DO Wellness Program Manager: Signed Helen Kerr Work Phone: Start: 02-08-2023 End: 02-10-2023 Business Services Analyst Office Visit Report Procedure Note: See Note; NOTES: [facility] 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: No Is patient in pain?: No Allergies No Known Allergies Allergy (Verified 02/08/23 11:41) Medications lactobacillus combination no.9 4 billion cell capsule (Adult 50 Plus Probiotic) 4,000 mmu cells PO DAILY 06/26/20 [History Confirmed 02/08/23] multivitamin 1 tab PO DAILY 06/26/20 [History Confirmed 02/08/23] estradiol 0.025 mg/24 hr semiweekly transdermal patch 1 patch transdermal 2XW #8 ea 02/08/23 [Rx Confirmed 02/08/23] medroxyprogesterone 2.5 mg tablet 2.5 mg PO DAILY #30 tabs 02/08/23 [Rx Confirmed 02/08/23] Post menopausal: No Patient : No : No PFSH Medical History Back problem Breast lump in female Carpal tunnel syndrome Fatigue Hormone deficiency Kidney stones Surgical History Hx of hernia repair Family History Mother Thyroid cancer Brain aneurysm Father Cancer Heart disease Hypertension CHF (congestive heart failure) Other Arthritis Colon cancer Diabetes Lung cancer Social History (Updated 02/08/23 @ 12:03 by Rupali Saucedo) Smoking Status: Former smoker second hand exposure: Yes alcohol intake: never substance use type: does not use caffeine: No what type of physical activity do you participate in: none seatbelt use: always do you feel safe at home: Yes additional social history: - Meet History 2 Elective abortions Hx Para 2 Spontaneous abortions Hx # Term Pregnancies Ectopic pregnancies Hx # Pregnancies Multiple births # of living children Past Pregnancies Del. Date Name GA/Weeks Outcome Route Bth Weight Gen Labor Lgth Anesthesia Del Locatn Provider FOB Unknown Efrain Unknown [facility] Encounter for routine gynecological examination Details: LISA CHEN is a 52 year old who presents for annual exam. Pt continues on HRT for hot flashes symptoms, currently are controlled for her. denies sexual concerns. is concerned with weight gain despite clean eating lifestyle. Has consulted with Vlad in the past for weight management and is interesting in persuing again. reports symptoms of hair loss, fatigue and weight gain. Last PAP: 11/05/2020 History of abnormal PAP: no Last mammogram: 12/31/2021, normal History of abnormal mammogram: na Colon cancer screenin, normal screening Other preventative health care screenings: pcp Female Reproductive History Questions: metorrhagia: No, sexually active: Yes, dyspareunia: No and PCB: No Menopausal Symptoms: No hot flashes, No weight change, No mood changes, No difficulty concentrating, No sleep problems and No change in libido ROS Const ROS Unobtainable: All systems reviewed are unremarkable except as noted in H Constitutional: Reports system reviewed and no additional complaints, except as documented Eyes Eyes: Reports system reviewed and no additional complaints, except as documented ENT ENT: Reports system reviewed and no additional complaints, except as documented Cardio Card: Reports system reviewed and no additional complaints, except as documented Resp Resp: Reports system reviewed and no additional complaints, except as documented GI GI: Reports system reviewed and no additional complaints, except as documented : Reports system reviewed and no additional complaints, except as documented; Denies hot flashes Skin Skin/Breast: Reports system reviewed and no additional complaints, except as documented Neuro Neuro: Reports system reviewed and no additional complaints, except as documented Psych Psych: Reports system reviewed and no additional complaints, except as documented; Denies change in libido or difficulty concentrating Endo Endo: Reports system reviewed and no additional complaints, except as documented Evelio/Lymph Hematologic/Lymphatic: Reports system reviewed and no additional complaints, except as documented Aller/Immun Allergic/Immunologic: Reports system reviewed and no additional complaints, except as documented Exam Const General: cooperative, healthy appearing, comfortable, no acute distress, well developed and well groomed Neck Neck: normal visual inspection, full ROM, no lymphadenopathy and supple Thyroid: thyroid normal Chest Chest palpation inspection: normal inspection of the chest and normal palpation of entire chest wall Breast inspection: normal inspection of the breasts and normal inspection of the axillae Breast palpation: normal palpation of the breasts and normal palpation of the axillae Resp Effort Inspection: normal respiratory effort, able to speak in complete sentences and symmetric chest movement GI Inspection: normal to inspection Palpation: soft and no hepatosplenomegaly Speculum Exam - Vagina: normal appearance of the vagina and normal vaginal discharge Bimanual Exam- Vagina Uterus: normal bimanual exam, normal palpation and uterine size normal Bimanual Exam- Adnexa, other: normal Pelvic Support: normal Skin General: no rashes or lesions noted Psych Appearance: grossly normal and well kempt Coding Level of Care Code Off vis,est,prev 40-64yrs Diagnoses Encounter for routine gynecological examination Z01.419 Weight gain R63.5 Climacteric N95.1 Assessment and Plan Assessment and Plan (1) Encounter for routine gynecological examination: Plan: Cervical cancer screening: utd Breast cancer screening: order placed, DEXA at age 65 colon cancer screening utd other health maintenance examination reviewed and orders placed if needed. Encouraged maintenance of a healthy weight and active lifestyle and handout given. Annual exam handout including recommendations for good health guidelines, Calcium/vitamin D recommendations, and basic screening information given. Problem list up to date, see problem list details for any additional plan information. Follow up in one year for annual health maintenance exam or sooner if needed. (2) Weight gain: Status: Acute Plan: TSH function and hbgA1C ordered (3) Climacteric: Status: Acute Comment: etradiol patch, oral progesterone 14days. increased to .05. Is no longer taking wellbutrin Orders: Orders SCRN MAMM (CAD)W/MAGUE BILAT 02/08/23 Z12.31 - Encounter for screening mammogram for malignant neoplasm of breast Dr. Luann Wren, T4 Free Direct 02/08/23 R53.83 - Other fatigue Gail Jacobs CNM Thyroid Stim Hormone (TSH) 02/08/23 R53.83 - Other fatigue Gail Jacobs CNM Hemoglobin A1c 02/08/23 Z68.30 - Body mass index [BMI] 30.0-30.9, adult Gail Jacobs CNM Medications: Refilled medroxyprogesterone 2.5 mg PO DAILY 30 tabs 12RF Gail Jacobs CNM estradiol apply 1 patch for 3 days alternating with 1 patch for 4 days each week 1 patch transdermal 2XW 8 ea 12RF Gail Jacobs CNM 02/10/23 1741 <Electronically signed by Luann Wren DO> Date Luann Wren DO 02/08/23 1336<Electronically signed by Gail Jacobs CNM> Cosigner Signature: Date (if applicable) Gail Jacobs CNM CC: Helen Kerr Work Phone: Start: 01-26-2022 End: 01-26-2022 Business Services Analyst Office Visit Report Comments: See Note; NOTES: [facility] [address] [place] [address] OFFICE VISIT Date of Service: 01/26/22 MR#: [id number] Acct: [id number] Name: LISA CHEN Rep #: [id number] : 1970 Provider: Dr. 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 Is patient in pain?: No Allergies No Known Allergies Allergy (Verified 01/26/22 09:14) Medications lactobacillus combination no.9 4 billion cell capsule 4,000 mmu cells PO DAILY 06/26/20 [History Confirmed 01/26/22] multivitamin 1 tab PO DAILY 06/26/20 [History Confirmed 01/26/22] bupropion HCl 150 mg tablet,12 hr sustained-release 150 mg PO BID 09/16/20 [History Confirmed 01/26/22] estradiol 0.05 mg/24 hr semiweekly transdermal patch 1 patch TD 2XW #8 ea 10/15/21 [Rx Confirmed 01/26/22] norethindrone acetate [Aygestin] 5 mg PO DAILY 01/23/22 [History Confirmed 01/26/22] Post menopausal: No Patient : No : No PFSH Medical History Back problem Breast lump in female Carpal tunnel syndrome Fatigue Hormone deficiency Kidney stones Surgical History Hx of hernia repair Family History Mother Thyroid cancer Brain aneurysm Father Cancer Heart disease Hypertension CHF (congestive heart failure) Other Arthritis Colon cancer Diabetes Lung cancer Social History Smoking Status: Former smoker second hand exposure: Yes alcohol intake: never substance use type: does not use caffeine: No what type of physical activity do you participate in: aerobics and weight training frequency: 3-4 times per week seatbelt use: always do you feel safe at home: Yes additional social history: - Meet Does Not Take Aspirin Does Take Ibuprofen As Needed Pregancy History 2 Elective abortions Hx Para 2 Spontaneous abortions Hx # Term Pregnancies Ectopic pregnancies Hx # Pregnancies Multiple births # of living children Past Pregnancies Del. Date Name GA/Weeks Outcome Route Bth Weight Gen Labor Lgth Anesthesia Del Locatn Provider FOB Trell Mitchell HPI Encounter for routine gynecological examination: Details: LISA CHEN is a 51 year old who presents for annual exam. She is using vivelle dot and progesterone but still has hot flashes, weight gain and recently high blood pressure. She is on wellbutrin for smoking cessation and it worked but wonders if can stop the wellbutrin now because she is feeling more anxious and tearful Last PAP: 11/05/20- neg with neg HPV History of abnormal PAP: no Last mammogram: this year - normal History of abnormal mammogram: no Colon cancer screening: up to date Other preventative health care screenings: up to date per pcp however needs to follow up for recent ER visit which addressed Details: LISA CHEN is a 51 year old who presents for annual exam. Last PAP: [] History of abnormal PAP: [] Last mammogram: [] History of abnormal mammogram: [] Colon cancer screening: [] Other preventative health care screenings: [] Female Reproductive History Questions: metorrhagia: No, sexually active: Yes, dyspareunia: No and PCB: No Menopausal Symptoms: No hot flashes, No night sweats, No weight change, No mood changes, No difficulty concentrating, No sleep problems and No change in libido ROS Const Constitutional: Reports as per HPI; Denies fatigue, increased appetite, poor appetite, night sweats, weight gain or weight loss Cardio Card: Denies chest pain Resp Resp: Denies cough or dyspnea GI GI: Reports as per HPI; Denies abdominal pain, bloating, constipation, nausea or vomiting : Reports as per HPI and other; Denies difficulty voiding, dysuria, hematuria, hot flashes, nipple discharge, pelvic pain, prolapse symptoms, urinary frequency, urinary incontinence, urinary urgency, vaginal discharge, vaginal dryness, vaginal odor or vaginal pruritus Skin Skin/Breast: Denies changing lesions, breast mass, breast pain, breast skin changes or nipple discharge Psych Psych: Denies anxiety, change in libido, depression or difficulty concentrating Exam Const General: cooperative, healthy appearing, comfortable, no acute distress, well developed and well groomed [facility] Head: normal to inspection and normocephalic Ears: hearing grossly normal bilaterally and external ears normal Nose: external nose normal Face and sinus: normal facial exam Neck Neck: normal visual inspection, full ROM and no lymphadenopathy Thyroid: thyroid normal Chest Chest palpation inspection: normal inspection of the chest Breast inspection: normal inspection of the breasts and normal inspection of the axillae Breast palpation: normal palpation of the breasts, normal palpation of the axillae and no axillary lymphadenopathy Resp Effort Inspection: normal respiratory effort GI Inspection: normal to inspection and non-distended Palpation: soft, no hepatosplenomegaly and no guarding General: bladder normal to palpation External Female Exam: normal external appearance, normal appearance of the urethra and no lesions Urethra: normal appearance of the urethra and normal palpation Speculum Exam - Vagina: normal appearance of the vagina and normal vaginal discharge Speculum Exam - Cervix: normal appearance of the cervix, no cervical discharge, no lesions and nontender Bimanual Exam- Vagina Uterus: normal bimanual exam, uterine size normal, bladder normal to palpation, No tender, uterine mobility normal, consistency normal, non-tender and no cervical motion tenderness Bimanual Exam- Adnexa, other: normal adnexae, no masses and non-tender Skin General: no rashes or lesions noted Neuro General: patient alert, moves all extremities and no focal motor deficits Extrem General: normal to inspection and no pedal edema Psych Appearance: grossly normal Mental Status: mental status grossly normal Affect: normal affect Speech and Movement: speech and movement normal Attitude: cooperative Coding Level of Care Code Off vis,est,prev 40-64yrs Diagnoses Encounter for routine gynecological examination Z01.419 Assessment and Plan Assessment and Plan (1) Encounter for routine gynecological examination: Plan - Dr. Luann Wren, DO: Cervical cancer screening: up to date Breast cancer screening: up to date other health maintenance examination reviewed and orders placed if needed. Encouraged maintenance of a healthy weight and active lifestyle and handout given. Annual exam handout including recommendations for good health guidelines, Calcium/vitamin D recommendations, and basic screening information given. Problem list up to date, see problem list details for any additional plan information. Follow up in one year for annual health maintenance exam or sooner if needed. plan to wean off wellbutrin and possibly wean off estrogen/progesterone Plan Details Other Orders: Orders: SCRN MAMM (CAD)W/MAGUE BILAT 12/31/21 01/26/22 0950 <Electronically signed by Luann Wren DO> Date Luann Wren DO Cosigner Signature: Date (if applicable) CC: Helen Usha Work Phone: Start: 01-23-2022 End: 01-23-2022 Chest 1 View (Portable) Comments: See Note; NOTES: [facility] Imaging Services [address] [place] [id number] Chest 1 View (Portable) MR#: [id number] Acct: [id number] Name: LISA CHEN Rep #: [id number] : 1970 F 51 From: Ivan Hermosillo MD PCP: MICHAEL ChildersC Status: [facility] ER Study: Chest 1 View (Portable) Date of Exam: 01/23/22 Exam# [id number] Ordering Dr: Luann Brothers MD STUDY: AP PORTABLE UPRIGHT CHEST OF 1132 HOURS ON 01/23/2022 REASON FOR EXAM: 51-year-old female with chest pain. TECHNIQUE: A single view AP portable upright chest x-ray was performed per protocol. COMPARISON: 05/18/2020. FINDINGS: Normal osseous structures. Heart, my, diaphragm, and lungs have a normal appearance. No infiltrates, atelectasis, effusion, pulmonary mass lesions. No interval change since previous study 05/18/2020. RAD/Chest 1 View (Portable) IMPRESSION: 1. No active cardiopulmonary disease. 2. No interval change since the previous study of 05/18/2020. Electronically Signed: Ivan Hermosillo MD at 0:54 EDT , CC: VINICIUS Kerr; Dr. Luann Brothers MD Wellness Program Manager: Signed Helen Kerr Work Phone: Start: 01-23-2022 Plain chest X-ray [employer] PARTS HANDLER-Emy Kerr NP Work Phone: Start: 01-23-2022 End: 01-23-2022 Emergency Department Summary Comments: See Note; NOTES: [facility] Medical Records Department [address] [place] [address] Emergency Department Summary 01/23/22 MR#: [id number] Acct: [id number] Name: LISA CHEN Rep #: [id number] : 1970 51 From: Luann Brothers MD PCP: VINICIUS Childers Status:DEP ER Location: ED HPI History of Present Illness Chief Complaint: Chest Pain Informant: patient Onset/Context/Timing Onset: Yesterday Current Severity: Moderate Maximum Severity: Moderate Narrative Narrative: Patient presents secondary to chest pressure and palpitations. She states all day yesterday she just felt off and would have intermittent palpitations. Over the last hour she feels like it is gotten worse. She describes a squeezing sensation in her chest. She started checking her blood pressure and noted it to be elevated. [facility] Medical History Back problem Breast lump in female Carpal tunnel syndrome Fatigue Hormone deficiency Kidney stones Home Medications lactobacillus combination no.9 4 billion cell capsule 4,000 mmu cells PO DAILY 06/26/20 [History Last Taken Unknown] multivitamin 1 tab PO DAILY 06/26/20 [History Last Taken Unknown] bupropion HCl 150 mg tablet,12 hr sustained-release 150 mg PO BID 09/16/20 [History Last Taken Unknown] estradiol 0.05 mg/24 hr semiweekly transdermal patch 1 patch TD 2XW #8 ea 10/15/21 [Rx Last Taken Unknown] norethindrone acetate [Aygestin] 5 mg PO DAILY 01/23/22 [History Last Taken Unknown] Allergy/AdvReac Type Severity Reaction Status Date / Time No Known Allergies Allergy Verified 01/23/22 00:20 Family History Mother Thyroid cancer Brain aneurysm Father Cancer Heart disease Hypertension CHF (congestive heart failure) Other Arthritis Colon cancer Diabetes Lung cancer Surgical History Hx of hernia repair Social History Smoking Status: Former smoker second hand exposure: Yes alcohol intake: never substance use type: does not use caffeine: No what type of physical activity do you participate in: aerobics and weight training frequency: 3-4 times per week seatbelt use: always do you feel safe at home: Yes additional social history: - Meet Does Not Take Aspirin Does Take Ibuprofen As Needed ROS ROS ED Constitutional Constitutional ED: Denies chills or fever(s) Eyes Eyes: Denies change in vision ENT ENT ED: Denies sore throat Cardiovascular Cardiovascular: Reports chest pain and palpitations Respiratory/Chest Respiratory/Chest: Reports dyspnea; Denies cough Gastrointestinal Gastrointestinal: Denies abdominal pain, nausea or vomiting Genitourinary Genitourinary ED: Denies dysuria Musculoskeletal Musculoskeletal: Denies back pain or neck pain Integumentary Denies rash Psychiatric Psychiatric: Reports anxiety Allergic/Immunologic Allergic/Immunologic ED: Denies urticaria EXAM Physical Exam Const Vital Signs: 01/23/22 00:17 01/23/22 00:38 01/23/22 02:40 Temperature 98.4 F Temperature Source Temporal Pulse Rate 132 H 84 Respiratory Rate 19 H 16 Blood Pressure 165/112 H 168/100 H Blood Pressure Mean 129 122 Pulse Ox 98 100 95 Oxygen Delivery Method Room Air Room Air Room Air 01/23/22 02:55 Temperature Temperature Source Pulse Rate 68 Respiratory Rate 17 Blood Pressure 153/87 H Blood Pressure Mean 109 Pulse Ox 99 Oxygen Delivery Method Room Air Positive well nourished and well developed General Appearance ED: well developed HEENT Reports normocephalic and head/scalp atraumatic Eyes PERRL and EOMs intact bilaterally Neck supple Chest Wall inspection of chest normal and palpation of chest normal Resp normal respiratory effort and clear to auscultation bilaterally Cardio regular rhythm Rate: tachycardic GI normal to inspection, nondistended, normoactive bowel sounds and non-tender Palpation: soft Extremity normal to inspection General Extremety ED: Negative for edema General Extremity: Negative for edema Neuro oriented x3 and no sensory deficits noted Sensorium / Orientation: alert Motor Exam: strength 5/5 throughout Psych Mood Affect: anxious Skin no rashes or lesions noted MDM MDM MDM Narrative Medical decision making narrative: Patient was given aspirin on arrival. Lab work, chest x-ray, EKG ordered. Lab Data Attestation: I reviewed the patient's lab results. Labs: Laboratory Results - last 24 hr 01/23/22 01/23/22 01/23/22 00:28 00:28 00:30 WBC 5.0 RBC 4.77 Hgb 15.2 H Hct 44.5 MCV 93.3 MCH 31.9 MCHC 34.2 RDW Std Deviation 44.8 H RDW Coeff of Gloria 13.1 Plt Count 251 MPV 9.7 Immature Gran % (Auto) 0.400 Neut % (Auto) 60.6 Lymph % (Auto) 28.3 Barton % (Auto) 7.7 Eos % (Auto) 2.2 Baso % (Auto) 0.8 Absolute Neuts (auto) 3.0 Absolute Lymphs (auto) 1.40 Nucleated RBC % 0 D-Dimer Quant (PE/DVT) < 0.27 L Sodium 140 Potassium 3.7 Chloride 109 H Carbon Dioxide 24.0 Anion Gap 7 BUN 12 Creatinine 1.03 H Estim Creat Clear Calc 96.19 Est GFR (MDRD) Af Amer 72 Est GFR (MDRD) Non-Af 60 BUN/Creatinine Ratio 11.7 Glucose 177 H Calcium 9.0 Troponin I High Sens < 3 L TSH 4.18 H 01/23/22 02:25 WBC RBC Hgb Hct MCV MCH MCHC RDW Std Deviation RDW Coeff of Gloria Plt Count MPV Immature Gran % (Auto) Neut % (Auto) Lymph % (Auto) Barton % (Auto) Eos % (Auto) Baso % (Auto) Absolute Neuts (auto) Absolute Lymphs (auto) Nucleated RBC % D-Dimer Quant (PE/DVT) Sodium Potassium Chloride Carbon Dioxide Anion Gap BUN Creatinine Estim Creat Clear Calc Est GFR (MDRD) Af Amer Est GFR (MDRD) Non-Af BUN/Creatinine Ratio Glucose Calcium Troponin I High Sens 4 TSH Radiography Chest X-Ray - ED: 1 View, Read by ED Physician, Normal, Heart, Lungs and Mediastinum Diagnostic Testing: Clinical Impression(s) from Imaging Studies Chest X-Ray 01/23/22 00:32 IMPRESSION: 1. No active cardiopulmonary disease. 2. No interval change since the previous study of 05/18/2020. Electronically Signed: Ivan Hermosillo MD at 0:54 EDT , EKG Initial EKG: Attestation: I personally reviewed and interpreted this EKG as follows: Interpretation: Sinus Tachycardia (Sinus tach at 117. No acute ST change.) Treatment and Re-Evaluation Narrative: On repeat evaluation patient resting comfortably. Heart rate is in the 80s. EKG reveals no acute ischemia. Lab work reveals normal D-dimer and initial troponin less than 3. Repeat troponin is still normal at 4. Chest x-ray reveals no acute abnormalities. Patient is reassured with these findings. I did encourage return if she develops further chest pain, palpitations, shortness of breath. Otherwise she is to follow with her PCP this week for potential outpatient stress test. Patient is comfortable with this plan. Discharge Plan Triage Chief Complaint: Chest Pain ED Provider: Luann Brothers Dx/Rx/DC Orders Clinical Impression: Atypical chest pain, Palpitations Instructions: ED Chest Pain, Uncertain Cause, ED Palpitations Prescriptions: No Action multivitamin Tablet 1 tab PO DAILY RF: 0 Adult 50 Plus Probiotic 4 billion cell capsule 4,000 mmu cells PO DAILY RF: 0 bupropion HCl [Wellbutrin SR] 150 mg tablet sustained-release 12 hr 150 mg PO BID RF: 0 estradiol 0.05 mg/24 hr patch semiweekly 1 patch TD 2XW Qty: 8 RF: 12 norethindrone acetate [Aygestin] 5 mg tablet 5 mg PO DAILY RF: 0 Primary Care Provider: Helen Kerr NP Referrals: Helen Kerr NP, [employer] [Primary Care Provider] - 5-7 Days Disposition Disposition: Home, Self Care Discharge Date/Time: 01/23/22 02:58 What to do if you have Problems For any increased pain, shortness of breath, bleeding, nausea or vomiting, chest pain, or any unexpected problems, contact your Primary Care Provider. Call [employer] [facility] ([phone]) or report to the closest Emergency Room. Call 911 if necessary. 01/23/220 <Electronically signed by Luann Brothers MD> Cosigner Signature (if applicable): CC: [employer] Helen Kerr Signed Helen Kerr Work Phone: Start: 01-23-2022 End: 01-25-2022 12 Lead EKG Comments: See Note; NOTES: [facility] Cardiovascular Services [address] [place] [id number] 12 Lead EKG 01/23/22 0023 MR#: [id number] Acct: [id number] Name: LISA CHEN Rep #: [id number] : 1970 51 From: Helder Ballesteros MD Attending Dr: Status: DEP ER Ordering Dr: Luann Brothers MD Date: 01/23/22 Location: ED Sex: F C Admitted: Test Reason : CP Blood Pressure : / mmHG Vent. Rate : 117 BPM Atrial Rate : 117 BPM P-R Int : 150 ms QRS Dur : 072 ms QT Int : 296 ms P-R-T Axes : 048 039 021 degrees QTc Int : 412 ms Sinus tachycardia Nonspecific ST and T wave abnormality Abnormal ECG Confirmed by HELDER BALLESTEROS MD ([id number]), news copy editor KVNG SCHWARTZ ([id number]) on 01/25/2022 10:49:05 AM Referred By: Confirmed By:HELDER BALLESTEROS MD 01/25/22 1049 Date Helder Ballesteros MD CC: [employer] Helen Kerr; Dr. Luann Brothers MD Signed Helen Kerr Work Phone: Start: 12-31-2021 Screening mammography [employer] Helen Kerr [employer] Work Phone: Start: 12-31-2021 End: 12-31-2021 SCRN MAMM (CAD)W/MAGUE BILAT Comments: See Note; NOTES: [facility] Imaging Services [address] [place] [id number] SCRN MAMM (CAD)W/MAGUE BILAT MR#: [id number] Acct: [id number] Name: LISA CHEN Rep #: [id number] : 1970 F 51 From: Moody bradley MD PCP: VINICIUS Childers Status: REG CL Study: SCRN MAMM (CAD)W/MAGUE BILAT Date of Exam: 02/18 Exam# [id number] Ordering Dr: Kelsea Chu MAMMOGRAPHY - BILATERAL SCREENING REASON FOR EXAM: Female, 51 years old. Routine annual screening examination. PERTINENT HISTORY: Non-contributory. Prior left ultrasound-guided breast biopsy. TECHNIQUE: Digital bilateral breast mague (3D mammographic acquisition) in the CC and MLO projections. 2-D mediolateral oblique (MLO) and craniocaudad (CC) views of both breasts were obtained. CAD: Full Field Digital Mammography with Computer Added Detection was performed. COMPARISON: Comparison is made with prior study dated 12/30/2020 and 06/24/2020. FINDINGS: Breast Composition: The breasts are heterogeneously dense, which may obscure small masses. There are no dominant masses or suspicious calcifications. A tissue clip marker seen along the anterior upper medial retroareolar region of the breast and keep with prior biopsy. Stable small benign-appearing bilateral axillary lymph nodes. No other significant abnormalities are identified. There has been no significant change since the prior study. BI/SCRN MAMM (CAD)W/MAGUE BILAT IMPRESSION: Stable bilateral screening mammogram. Yearly follow-up mammogram recommended. (A) ASSESSMENT CATEGORY: BIRADS Category 2: Benign. A letter regarding these results will be sent to the patient by the facility within 30 days. Approximately 10% of breast cancers are not detected by mammography. A normal mammogram should not delay biopsy of a clinically suspicious abnormality. [id number] Electronically Signed: Moody Campbell MD at 12:25 EST Reading Location ID and State: [facility] / ID , Service support , CC: VINICIUS Kerr; Dr. Kelsea Chu MD Wellness Program Manager: Signed Helen Kerr Work Phone: Start: 11-24-2021 End: 11-24-2021 Office Visit Report Comments: See Note; NOTES: [facility] [address] [place] [address] OFFICE VISIT Date of Service: 11/24/21 MR#: [id number] Acct: [id number] Patient: LISA CHEN Rep #: [id number] : 1970 Provider: VINICIUS duque Age/Sex: 51/F [place] [facility] [place]: Signed Intake Vital Signs 11/24/21 10:54 Height 5 ft 9 in Weight: 205 lb BMI 30.2 BP 129/90 H Intake Visit Reasons: adipex weight check 1st visit Chief Complaint: weight check Skidder Driver Required: No Allergies No Known Allergies Allergy (Verified 10/15/21 13:04) Medications lactobacillus combination no.9 4 billion cell capsule 4,000 mmu cells PO DAILY 06/26/20 [History Confirmed 11/24/21] multivitamin 1 tab PO DAILY 06/26/20 [History Confirmed 11/24/21] bupropion HCl 150 mg tablet,12 hr sustained-release 150 mg PO BID 09/16/20 [History Confirmed 11/24/21] estradiol 0.05 mg/24 hr semiweekly transdermal patch 1 patch TD 2XW #8 ea 10/15/21 [Rx Confirmed 11/24/21] norethindrone acetate 5 mg tablet 5 mg PO DAILY #30 tab 10/15/21 [Rx Confirmed 11/24/21] phentermine 37.5 mg tablet 37.5 mg PO QDAY #30 tab 10/15/21 [Rx Confirmed 11/24/21] Is last menstrual period known: No Post menopausal: No Patient : No Nursing Note Only 1# weight loss and elevated BP. Will consult with SM before refilling adipex. 11/24/21 1112 <Electronically signed by Tiffany Fair NP, NP-C> Date Tiffany Fair NP [employer] Cosigner Signature: Date (if applicable) CC: Helen Kerr Work Phone: Start: 10-15-2021 End: 10-15-2021 Business Services Analyst Office Visit Report Comments: See Note; NOTES: [facility] [address] [place] [address] OFFICE VISIT Date of Service: 10/15/21 MR#: [id number] Acct: [id number] Name: LISA CHEN Rep #: [id number] : 1970 Provider: Dr. Kelsea vleasco MD Age/Sex: 51/F [place] [facility] Status: Signed Intake Vital Signs 10/15/21 13:03 Height 5 ft 9 in Weight: 206 lb BMI 30.4 BP 112/82 H Intake Visit Reasons: med check Chief Complaint: med check Skidder Driver Required: No Is patient in pain?: No Allergies No Known Allergies Allergy (Verified 10/15/21 13:04) Medications lactobacillus combination no.9 4 billion cell capsule 4,000 mmu cells PO DAILY 06/26/20 [History Confirmed 10/15/21] multivitamin 1 tab PO DAILY 06/26/20 [History Confirmed 10/15/21] bupropion HCl 150 mg tablet,12 hr sustained-release 150 mg PO BID 09/16/20 [History Confirmed 10/15/21] estradiol 0.05 mg/24 hr semiweekly transdermal patch 1 patch TD 2XW #8 ea 10/15/21 [Rx Confirmed 10/15/21] norethindrone acetate 5 mg tablet 5 mg PO DAILY #30 tab 10/15/21 [Rx Confirmed 10/15/21] phentermine 37.5 mg tablet 37.5 mg PO QDAY #30 tab 10/15/21 [Rx Confirmed 10/15/21] Is last menstrual period known: No Post menopausal: No Patient : No : No PFSH Medical History (Updated 10/15/21 @ 13:[address] Kelsea Chu MD) Back problem Breast lump in female Carpal tunnel syndrome Fatigue Hormone deficiency Kidney stones Surgical History Hx of hernia repair Family History Mother Thyroid cancer Brain aneurysm Father Cancer Heart disease Hypertension CHF (congestive heart failure) Other Arthritis Colon cancer Diabetes Lung cancer Social History Smoking Status: Former smoker second hand exposure: Yes alcohol intake: never substance use type: does not use caffeine: No what type of physical activity do you participate in: aerobics and weight training frequency: 3-4 times per week seatbelt use: always do you feel safe at home: Yes additional social history: - Meet Does Not Take Aspirin Does Take Ibuprofen As Needed HPI med check Details: LISA CHEN is a 51 year old who presents for a med follow up of climacteric. she has had a forty pounds weight gain and initially did well on the combo hrt but now has breakthrough hot flashes, night sweats and issues. she feels fatigued. Pregancy History 2 Elective abortions Hx Para 2 Spontaneous abortions Hx # Term Pregnancies Ectopic pregnancies Hx # Pregnancies Multiple births # of living children Past Pregnancies Del. Date Name GA/Weeks Outcome Route Bth Weight Infant Gen Labor Lgth Anesthesia Del Locatn Provider FOB Unknown Efrain Unknown Paula ROS Const Constitutional: Reports fatigue, weight gain and weight loss; Denies fever(s), headache(s), increased appetite or poor appetite GI GI: Reports as per HPI; Denies abdominal pain, constipation, nausea or vomiting : Reports as per HPI; Denies difficulty voiding, dysuria, hematuria, pelvic pain, urinary frequency, urinary incontinence, urinary hesitancy, urinary urgency, vaginal discharge, vaginal dryness, vaginal odor, vaginal pruritus or other Exam Const General: cooperative, healthy appearing, comfortable, no acute distress and well developed Orientation: alert HENMT Head: normal to inspection and normocephalic Ears: hearing grossly normal bilaterally and external ears normal Nose: external nose normal and nares normal Face and sinus: normal facial exam Neck Neck: normal visual inspection, no lymphadenopathy and trachea midline Thyroid: thyroid normal Resp Effort Inspection: normal respiratory effort Musc Other: gross motor intact no deficits, full bilateral strength Skin General: no rashes or lesions noted Neuro Motor: muscle tone normal throughout Coding Level of Care Code Off vis,est,level 4 Diagnoses Climacteric N95.1 BMI 30.0-30.9,adult Z68.30 Assessment and Plan Assessment and Plan (1) Climacteric: Status: Acute Comment: etradiol patch, oral progesteron 14days. increased to .05. discussed effexor and stopping wellbutrin if persistent mood symptoms. Plan - Dr. Kelsea Chu MD: Problem list updated and treatment plans were reviewed with the patient and relevant educational handouts given. See problem list details for specific plan information. (2) BMI 30.0-30.9,adult: Status: Acute Comment: LCHF. plan adipex. monitor bps Plan Details Other Medications: New: phentermine (Adipex-P) 37.5 mg PO QDAY 30 tabs 0RF Changed: From: estradiol apply 1 patch for 3 days alternating with 1 patch for 4 days each week 1 patch transdermal 2XW 8 ea 12RF To: estradiol apply 1 patch for 3 days alternating with 1 patch for 4 days each week 1 patch transdermal 2XW 8 ea 12RF From: norethindrone acetate 5 mg PO DAILY 30 tabs 12RF To: norethindrone acetate take 14 days out of the month. 5 mg PO DAILY 30 tabs 12RF 10/15/21 1347 <Electronically signed by Kelsea Chu MD> Date Kelsea Chu MD Cosigner Signature: Date (if applicable) CC: Helen Kerr TEST CLERK Work Phone: Start: 01-01-2021 End: 01-01-2021 Operative Report - CC Letter Comments: See Note; NOTES: [facility] Medical Records Department [address] [place] [address] Operative Report - CC Letter MR#: [id number] Acct: [id number] Name: LISA CHEN Rep #: [id number] : 1970 50 From: Manohar Snyder MD PCP: Helen Kerr NP-C Status:[place] [facility] [place] 01/01/2021 Helen Kerr NP [address] [facility] [address] [place] [address] Re : Colonoscopy procedure for Lisa Chen Dear Emmayoni This procedure was performed on Friday, January 01, 2021. My impressions and recommendations are as follows: Impressions : - One small polyp in the sigmoid colon, removed with a hot snare. Resected and retrieved. - The examination was otherwise normal on direct and retroflexion views. Recommendations : - Discharge patient to home. - Resume previous diet. - Continue present medications. - Await pathology results. - Repeat colonoscopy for surveillance based on pathology results. My findings are described in the full procedure note, which is enclosed. If I can be of further assistance, please feel free to contact me at Doctor phone number(s): , Work: . Sincerely, Manohar Snyder MD 01/01/2021 8:39:40 AM This report has been signed electronically. 01/01/21838 Date Manohar Snyder MD Cosigner Signature: Date (if indicated) CC: [employer]-C Helen Kerr; Dr. Manohar Snyder MD Date Dictated: 01/01/21802 Date Transcribed: Wellness Program Manager: AC Signed Helen Kerr Start: 01-01-2021 End: 01-01-2021 Colonoscopy Report Comments: See Note; NOTES: [facility] Medical Records Department [address] [place] [address] Colonoscopy Report MR#: [id number] Acct: [id number] Name: LISA CHNE Rep #: [id number] : 1970 50 From: Manohar Snyder MD PCP: VINICIUS Childers Status:REG [facility] [place] Patient Name: Lisa Chen Procedure Date: 01/01/2021 8:03 AM Date of : 1970 Age: 50 Procedure: Colonoscopy Indications: Screening for colorectal malignant neoplasm Providers: Manohar Snyder MD Referring MD: Helen Kerr NP Medicines: Monitored Anesthesia Care Patient Profile: This is a 50 year old female. Refer to note in patient chart for documentation of history and physical. Last Colonoscopy: none. The patient's first colonoscopy is today. Complications: No immediate complications. Procedure: Pre-Anesthesia Assessment: - Prior to the procedure, a History and Physical was performed, and patient medications and allergies were reviewed. The patient's tolerance of previous anesthesia was also reviewed. The risks and benefits of the procedure and the sedation options and risks were discussed with the patient. All questions were answered, and informed consent was obtained. Prior Anticoagulants: The patient has taken no previous anticoagulant or antiplatelet agents. After reviewing the risks and benefits, the patient was deemed in satisfactory condition to undergo the procedure. After I obtained informed consent, the scope was passed under direct vision. Throughout the procedure, the patient's blood pressure, pulse, and oxygen saturations were monitored continuously. The pediatric colonoscope was introduced through the anus and advanced to the cecum, identified by appendiceal orifice and ileocecal valve. The colonoscopy was performed without difficulty. The patient tolerated the procedure well. The quality of the bowel preparation was good. Scope In: 8:16:07 AM Scope Withdrawal Time 0 hours 5 minutes 27 seconds Scope Out: 8:37:14 AM Total Procedure Duration Time 0 hours 21 minutes 7 seconds Findings: A small polyp was found in the sigmoid colon. The polyp was removed with a hot snare. Resection and retrieval were complete. The exam was otherwise without abnormality on direct and retroflexion views. Impression: - One small polyp in the sigmoid colon, removed with a hot snare. Resected and retrieved. - The examination was otherwise normal on direct and retroflexion views. Recommendation: - Discharge patient to home. - Resume previous diet. - Continue present medications. - Await pathology results. - Repeat colonoscopy for surveillance based on pathology results. Procedure Code(s): --- Professional --- 86778, Colonoscopy, flexible; with removal of tumor(s), polyp(s), or other lesion(s) by snare technique Diagnosis Code(s): --- Professional --- Z12.11, Encounter for screening for malignant neoplasm of colon D12.5, Benign neoplasm of sigmoid colon CPT copyright 2017 [employer]. All rights reserved. The codes documented in this report are preliminary and upon grain operations manager review may be revised to meet current compliance requirements. Manohar Snyder MD 01/01/2021 8:39:40 AM This report has been signed electronically. Number of Addenda: 0 Note Initiated On: 01/01/2021 8:03 AM 01/01/21 0839 Date [facility] Snyder MD [facility] Signature: Date (if indicated) CC: [employer]-C Helen Kerr; Dr. Manohar Snyder MD Date Dictated: 01/01/21802 Date Transcribed: Wellness Program Manager: AMBER Signed Helen Kerr Start: 01-01-2021 End: 01-01-2021 History and Physical Exam Comments: See Note; NOTES: [facility] Medical Records Department [address] [place] [address] History and Physical 01/01/21 0801 MR#: [id number] Acct: [id number] Name: LISA CHNE Rep #: [id number] : 1970 50 From: Manohar Snyder MD PCP: VINICIUS Childers Status:REG [facility] Y Location: [place] [address] History of Present Illness Date of Admission: 01/01/21 The patient is a 50 year old F here for screening colonoscopy. The patient has never had a colonoscopy in the past. She has no abdominal pain or blood in her stool. The she reports that her grandmother had colon cancer. Past Medical/Surgical History - Planned Operation Planned Operative Procedure/s: cscope open access Date of Operative Procedure: 01/01/21 Permit Signed: No S.O.S: No Is This Patient Having a Total Joint: No - Previous Hospitalizations/Surgeries HX Hospitalizations: No HX of Surgeries: hernia repair. foot surgery. dental work Any Problems With Anesthesia: No - needed extra for dental work You/Your Family Experience Fever (Hyperthermia) With Anes: No Cholinesterase deficiency: No - Cardiovascular Hx Chest Pain within Last 2 months: No Hx of Irregular Heartbeat and/or Afib: No Hx Heart Attack: No Hx Congestive Heart Failure: No Hx Rheumatic Fever: No Hx Hypertension: No Hx Internal Defibrillator: No Hx Pacemaker: No Hx Cardiac Catheterization: No Hx Cardiac Surgery/Stents/Etc.: No Hx Stress Test: No - echo 2017 HX Edema: No Hx Pain in Legs when Walking/Leg Cramps: No - Respiratory Chronic Cough: No HX of Shortness of Breath: Yes - sob with 2 flights of stairs Hoarseness: No Hx Chronic Obstructive Pulmonary Disease (COPD): No Hx Asthma: No Hx Emphysema: No Hx Sleep Apnea: No Hx Oxygen Use at Home: No Hx Respiratory Tract Infection/Cold (presently): No Do You Snore Loudly (louder than talking or can be heard): No Do You Often Feel Tired/ Fatigued/ Sleepy Dring Daytime?: No Has Anyone Observed You Stop Breathing During Sleep?: No Result (for STOP score): Negative Hx Smoking: Yes - quit 5 months ago Smoking Status: Former smoker - Gastrointestinal Hx Gastroesophageal Reflux: No - heartburn just recently Hx Gastrointestinal Disorders: No Hx Gastrointestinal Bleed: No Hx Ulcer: No Hx Hiatal Hernia: No Difficulty Chewing/Swallowing: No Recent Onset of Swallowing Problems: No Special diet followed at home: No Hx Unplanned Weight Loss of 20#: No HX Unplanned Weight Gain of 20#: No - Neurological Hx Seizures: No HX Syncope/Blackout Spells/Unconsciousness: No Hx CVA/Stroke: No Hx Transient Ischemic Attacks (TIA): No Hx Multiple Sclerosis: No Hx Parkinson's Disease: No Hx Head/Neck Injury: No Hx Headaches: No Hx Back Injury/Pain: No Recent Onset of Speech Difficulty: No Restless Legs: No Does patient have nerve stimulator: No Patient instructed to have device shut off: No Rep notified?: No - Blood Disorder Hx Leukemia: No Bleeding Tendencies: No Hx Deep Vein Thrombosis: No Hx High Cholesterol: No Blood Transmitted Disease: No Hx Hepatitis: Yes - auto immune hepatitis Hx Cirrhosis: No Hx Anemia: No Hx Blood Disorders: No - Reproduction : No Is Patient Lactating: No Hx Hysterectomy: No Hx Tubal Ligation: No Are You Post Menopause: No Pt Instructed Not To Have Any Sex From Now Until Surgery: No - Genitourinary Hx Renal Disease: No - Musculoskeletal Hx Arthritis: No Hx Rheumatoid Arthritis: No Hx Gout: No Recent Onset of an Orthopedic Problem: No - Endocrine Hx Diabetes: No Thyroid Disease: No Hx Steroid Therapy: No - Psycho/Social Hx Substance Use: No Hx Alcohol Use: Yes - rarely Hx Anxiety: No Hx Depression: No Mental Illness: No Hx Dementia: No - Miscellaneous Hx Cancer: No Recent Exposure to Contagious Disease: No Active MRSA: No Hx of C-Diff: No Any Loose Teeth: No Allergies No Known Allergies Allergy (Verified 01/01/21 07:19) - Discharge Is Pt Admitted From a Custodial, or a Nursing Home: No After D/C, Where Do you Plan to Go: Return Home - Physical Exam Vitals/I O's: Vital Signs Temp Pulse Resp BP Pulse Ox 98.6 F 78 16 118/84 H 96 01/01/21 07:27 01/01/21 07:27 01/01/21 07:27 01/01/21 07:27 01/01/21 07:27 Oxygen Delivery Method Room Air Weight: 189 lb 9.561 oz Body Mass Index (BMI) 30.6 General: Alert, Oriented x3 Neck: No JVD Lungs: Normal air movement Cardiovascular: Regular rate, Regular Rhythm Abdomen: Soft, Non Tender, Non-Distended Microbiology Past 72 Hours 12/31/20 10:00 Interface Orders SARS-CoV-2 Antigen (Rapid) - Final Laboratory Results 01/01/21 07:08: Urine Test Negative Current Medications Lactated Ringer's () 1,000 mls @ 100 mls/hr IV .Q10H MAYANK Last Admin: 01/01/21 07:38 Dose: 100 mls/hr Documented by: Assessment/Plan All Active Problems (Last Reviewed 11/05/20 @ 11:55 by Rupali Saucedo) Hx of hernia repair (Acute) Fatigue (Acute) 50-year-old female for screening colonoscopy I explained endoscopy in detail to the patient. I explained the risks including but not limited to stroke or heart attack with anesthesia, perforation of the GI tract, bleeding, infection. I explained that any of these could necessitate further emergency surgery. The patient understands and all questions were answered sufficiently. The patient wishes to proceed with procedure. Manohar Snyder MD Pager: [facility] [address] [place] [address], [address] [place] [address] Office: Surgery Risks - Colonoscopy Risks Include but are not Limited To: Risks include but are not limited to: Bleeding, perforation requiring further surgery, inability to complete colonoscopy requiring barium enema. 01/01/21 0803 <Electronically signed by Manohar Snyder MD> Date Manohar Snyder MD Cosign Signature: Date (if applicable) CC: [employer]S HANDLER-C Helen Kerr; Dr. Manohar Snyder MD Signed Helen Kerr Start: 12-30-2020 End: 12-30-2020 Breast Limited Unilateral Comments: See Note; NOTES: [facility] [address] [facility] [place] [address] Breast Limited Unilateral MR#: [id number] Acct: [id number] Name: LISA CHEN Rep #: [id number] : 1970 F 50 From: Moody bradley MD PCP: VINICIUS Childers Status: REG CLI Study: Breast Limited Unilateral Date of Exam: Exam# [id number] Ordering Dr: Manohar Snyder STUDY: ULTRASOUND BREAST - LEFT REASON FOR EXAM: Female, 50 years old. Six-month follow-up for breast biopsy. TECHNIQUE: Axial and longitudinal images of the LEFT breast were performed with a high resolution ultrasound transducer. # OF IMAGES: 25 COMPARISON: Comparison is made with prior ultrasound dated 06/24/2020. FINDINGS: LEFT Breast: A tissue clip marker is seen within the 9 mm x 8 mm x 3 mm hypoechoic nodule at the 12 o''clock position breast at 1 cm from nipple. A small amount of the residual hematoma is seen surrounding the nodule. US/Breast Limited Unilateral IMPRESSION: Tissue clip marker is seen within the hypoechoic nodule with small residual hematoma. ASSESSMENT CATEGORY: BIRADS Category 2: Benign. A letter regarding these results will be sent to the patient by the facility within 30 days. Electronically Signed: Moody Campbell MD at 10:37 EST , Service support , CC: AUT[employer] PART[employer] HANDLERChela Kerr; Dr. Manohar Snyder MD Wellness Program Manager: Signed Manohar Snyder Work Phone: Start: 12-30-2020 End: 12-30-2020 DIAG MAMM W/CAD, UNILAT Comments: See Note; NOTES: [facility] Services [address] [place] [id number] DIAG MAMM W/CAD, UNILAT MR#: [id number] Acct: [id number] Name: LISA CHEN Rep #: [id number] : 1970 F 50 From: Moody bradley MD PCP: VINICIUS Childers Status: [facility] CLI Study: DIAG MAMM W/CAD, UNILAT Date of Exam: 12/30/20 Exam# [id number] Ordering Dr: Manohar Snyder MAMMOGRAPHY - UNILATERAL DIAGNOSTIC: LEFT BREAST REASON FOR EXAM: Female, 50 years old. Six-month follow-up following ultrasound-guided left breast biopsy. PERTINENT HISTORY: Non-contributory. TECHNIQUE: Digital unilateral breast mague (3D mammographic acquisition) in the CC and MLO projections. 2-D mediolateral oblique (MLO) and craniocaudad (CC) views of both breasts were obtained. CAD: Full Field Digital Mammography with Computer Added Detection was performed. COMPARISON: Comparison is made with prior study dated 06/24/2020. FINDINGS: Breast Composition: The breasts are heterogeneously dense, which may obscure small masses. There are no dominant masses or suspicious calcifications. A tissue clip marker is seen in the slightly upper anterior central portion of the left breast. No other significant abnormalities are identified. BI/DIAG MAMM W/CAD, UNILAT IMPRESSION: Stable unilateral diagnostic mammogram. One year follow-up mammogram recommended. (A) ASSESSMENT CATEGORY: BIRADS Category 2: Benign. A letter regarding these results will be sent to the patient by the facility within 30 days. Approximately 10% of breast cancers are not detected by mammography. A normal mammogram should not delay biopsy of a clinically suspicious abnormality. Electronically Signed: Moody Campbell MD at 10:13 EST , Service support , CC: VINICIUS Kerr; Dr. Manohar Snyder MD Wellness Program Manager: Signed Manohar Snyder Work Phone: Start: 11-05-2020 End: 11-05-2020 Business Services Analyst Office Visit Report Comments: See Note; NOTES: [facility] [address] [place] [address]. [address] [place] [address] OFFICE VISIT Date of Service: 11/05/20 MR#: [id number] Acct: [id number] Name: LSIA CHEN Rep #: [id number] : 1970 Provider: Dr. Mariama man MD Age/Sex: 50/F Location[place] [facility] Status: Signed Intake Vital Signs 11/05/20 BP 144/92 11/05/20 Height 5 ft 7 in 11/05/20 Weight: 188 lb 6 oz 11/05/20 BP 144/92 H Intake Visit Reasons: 2 mo FU/med check Allergies No Known Allergies Allergy (Verified 11/05/20 11:55) Medications hormonal supplement 1 tab PO QDAY 06/26/20 [History Confirmed 11/05/20] lactobacillus combination no.9 4 billion cell capsule 4,000 mmu cells PO DAILY 06/26/20 [History Confirmed 11/05/20] multivitamin 1 tab PO DAILY 06/26/20 [History Confirmed 11/05/20] bupropion HCl 150 mg tablet,12 hr sustained-release 150 mg PO BID 09/16/20 [History Confirmed 11/05/20] norethindrone acetate 5 mg tablet 5 mg PO DAILY #30 tab 09/28/20 [Rx Confirmed 11/05/20] estradiol 0.025 mg/24 hr semiweekly transdermal patch 1 patch TD 2XW #8 ea 10/19/20 [Rx Confirmed 11/05/20] PFSH Medical History Fatigue (Acute) Surgical History Hx of hernia repair (Acute) Family History Mother Thyroid cancer Brain aneurysm Father Cancer Heart disease Hypertension CHF (congestive heart failure) Social History (Updated 11/05/20 @ 20:[address] Mariama Clarke MD) Smoking Status: Current every day smoker second hand exposure: Yes alcohol intake: never substance use type: does not use caffeine: No what type of physical activity do you participate in: aerobics, weight training frequency: 3-4 times per week seatbelt use: always do you feel safe at home: Yes additional social history: - Meet Pregancy History 2 Elective abortions Hx Para 2 Spontaneous abortions Hx # Term Pregnancies Ectopic pregnancies Hx # Pregnancies Multiple births # of living children Past Pregnancies Del. Date Name GA/Weeks Outcome Route Bth Weight Infant Gen Labor Lgth Anesthesia Del Locatn Provider FOB Unknown Efrain [facility] 2 mo FU/med check: Details: LISA CHEN is a 50 year old who presents for follow-up of hormone replacement therapy and annual exam. Periods every 3-4 months for the past year. Reports vasomotor symptoms significantly improved since starting hormone replacement therapy. Also reports significant decrease in vaginal dryness. Reports overall feeling significantly better. Denies pain with intercourse. Does still endorse decreased sexual desire. Occasional stress incontinence. Still having difficulty losing weight. Reports has now committed more strongly to trying to improve diet and exercise. Last PAP: 2018 History of abnormal PAP: Denies Last mammogram: 2019 History of abnormal mammogram: had benign lump last year Colon cancer screening: Has never had colonoscopy-interested in seeing general surgery to have done. Female Reproductive History Questions: Metorrhagia: No, Sexually active: Yes, Dyspareunia: No, PCB: No Menopausal Symptoms: Yes hot flashes, No night sweats, Yes weight change, No sleep problems, No change in libido Menopausal Treatment: Yes HRT ROS Const Constitutional: Denies difficulty sleeping, fatigue, fever(s), night sweats, weight gain or weight loss GI GI: Denies change in bowel habits, constipation, nausea or vomiting : Reports hot flashes; denies genital lesions, genital itching, blood in urine, light periods, heavy periods, metrorrhagia, nipple discharge, frequent nightime urination, pelvic pain, prolapse symptoms, sexual problems, urinary incontinence, urinary hesitancy, urinary urgency, vaginal discharge, vaginal dryness, vaginal odor or vaginal itching Skin Skin/Breast: Denies breast lump, breast pain, breast skin changes or nipple discharge Psych Psych: Denies anxiety, change in sex drive or depression Exam Const General: cooperative, healthy appearing, comfortable, no acute distress, well developed, well groomed Nutritional Appearance: average body habitus, well nourished Orientation: alert, awake, oriented x3 HENMT Head: normal to inspection, normocephalic, atraumatic Eyes Sclera: sclerae normal Cornea: corneas normal Pupils: PERRL, normal by confrontation, accommodation normal Neck Neck: normal visual inspection Thyroid: thyroid normal, symmetrical, not diffusely enlarged, not firm, no masses, nontender Lymphatic: no lymphadenopathy noted Chest Chest palpation inspection: normal inspection of the chest Breast inspection: normal inspection of the breasts, normal inspection of the axillae Breast palpation: normal palpation of the breasts, normal palpation of the axillae, no axillary lymphadenopathy Resp Effort Inspection: normal respiratory effort, able to speak in complete sentences, symmetric chest movement Cardio Rate: regular rate GI Inspection: normal to inspection Palpation: soft, no guarding, no masses, not rigid, nontender General: bladder normal to palpation External Female Exam: normal external appearance, no erythema, No tenderness of urethra Urethra: nontender Speculum Exam - Vagina: normal appearance of the vagina, normal vaginal discharge, not erythematous, no lacerations, no lesions, No vaginal bleeding, no swelling, nontender Speculum Exam - Cervix: normal appearance of the cervix, no cervical discharge, no lesions, no masses, nontender Bimanual Exam- Vagina Uterus: normal bimanual exam, normal vaginal palpation, uterine size normal, bladder normal to palpation, uterine shape normal, No cervical tenderness, uterine mobility normal, uterine consistency normal, normal cervical palpation, uterus non-tender Bimanual Exam- Adnexa, other: normal adnexae, adnexae mobile, no adnexal masses, pelvic support normal, adnexae non-tender, No cul-de-sac fullness, No cul-de-sac tenderness, No cul-de-sac nodularity, apex supported Recto-Vaginal: no cul-de-sac fullness, no cul-de-sac tenderness, no cul-de-sac nodularlity Pelvic Support: normal, no cystocele, no rectocele, no enterocele, apex supported OB/External Speculum: No vaginal bleeding Speculum Exam: no vaginal bleeding Skin General: no rashes or lesions noted, elasticity normal, turgor normal Neuro General: alert, awake, oriented x3 Cranial Nerves: CN's II-XI intact bilaterally, PERRL, accommodation normal, EOM intact bilaterally Cognition: normal cognition Speech: speech normal Gait: normal gait Psych Appearance: grossly normal, well kempt Mental Status: mental status grossly normal Mood: congruent mood Speech and Movement: speech and movement normal Attitude: cooperative Thought Process: normal Thought Content: normal Judgment: judgment good Assessment Plan 1. Encounter for gynecological examination (general) (routine) without abnormal findings Z01.419 Plan Normal breast and pelvic exams. Last Pap 2018-Pap performed today. Had mammogram earlier this year. Discussed breast self-awareness. Referral placed to Dr. Snyder for colonoscopy for colon cancer screening. Vasomotor symptoms significantly improved since starting hormone replacement therapy. Discussed that we will revisit need for hormone replacement therapy every year to determine timing of weaning off of therapy. Discussed lifestyle modifications for weight loss. Support provided. Handout provided with information regarding healthy lifestyle and health maintenance information Plan Detail Other Orders Orders: PAP IG HPV APTIMA 16/18,45 Today Z12.4 Coding Level of Care Code Off vis,est,prev 40-64yrs Diagnoses Encounter for gynecological examination (general) (routine) without abnormal findings Z01.419 11/05/202018 <Electronically signed by Mariama Clarke MD> Date Mariama Clarke MD Cosigner Signature: Date (if applicable) CC: Helen Kerr Start: 09-16-2020 End: 09-16-2020 Business Services Analyst Office Visit Report Comments: See Note; NOTES: [facility] [address] [place] [address] OFFICE VISIT Date of Service: 09/16/20 MR#: [id number] Acct: [id number] Name: LISA CHEN Rep #: [id number] : 1970 Provider: Dr. 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) Discuss menopause Skidder Driver Required: No Is patient in pain?: No Allergies No Known Allergies Allergy (Verified 09/16/20 14:09) Medications hormonal supplement 1 tab PO QDAY 06/26/20 [History Confirmed 09/16/20] lactobacillus combination no.9 4 billion cell capsule 4,000 mmu cells PO DAILY 06/26/20 [History Confirmed 09/16/20] multivitamin 1 tab PO DAILY 06/26/20 [History Confirmed 09/16/20] bupropion HCl 150 mg tablet,12 hr sustained-release 150 mg PO BID 09/16/20 [History Confirmed 09/16/20] estradiol 0.05 mg-norethindrone 0.14 mg/24 hr semiwkly transderm patch 1 patch TRANSDERMAL 2XW #8 ea 09/16/20 [Rx Confirmed 09/16/20] Post menopausal: No Patient : No : No PFSH Medical History Fatigue (Acute) Surgical History Hx of hernia repair (Acute) Family History Mother Thyroid cancer Brain aneurysm Father Cancer Heart disease Hypertension CHF (congestive heart failure) Social History (Updated 09/16/20 @ 19:[address] 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 Occur at least 1x per hour. Disrupting sleep. Noticing hair loss and brittle hair. Moods very labile. This has gradually worsened over the last 1.5 years. Still having periods about every 3 months. Last period June. Also reports weight gain. Reports occasional vaginal dryness, but no pain with intercourse. Reports these symptoms are so severe that they are interfering with her normal daily life. Female Reproductive History Menopausal Symptoms: Yes hot flashes, Yes night sweats, Yes weight change, Yes mood changes, Yes sleep problems Pregancy History 2 Elective abortions Hx Para 2 Spontaneous abortions Hx # Term Pregnancies Ectopic pregnancies Hx # Pregnancies Multiple births # of living children Past Pregnancies Del. Date Name GA/Weeks Outcome Route Bth Weight Infant Gen Labor Lgth Anesthesia Del Locatn Provider FOB Unknown Efrain Unknown [place] ROS Const Constitutional: Reports difficulty sleeping, night sweats and weight gain : Reports hot flashes; denies pelvic pain Exam Const General: cooperative, healthy appearing, comfortable, well developed, well groomed Neck Neck: normal visual inspection, full ROM Resp Effort Inspection: normal respiratory effort, able to speak in complete sentences, symmetric chest movement Cardio Rate: regular rate Skin General: no rashes or lesions noted, elasticity normal, turgor normal Lesions: no lesions Rashes: no rashes Neuro General: alert, awake, oriented x3 Cranial Nerves: CN's II-XI intact bilaterally, PERRL, EOM intact bilaterally Cognition: normal cognition Speech: speech normal Gait: normal gait Extrem General: normal to inspection, full ROM, no pedal edema Psych Appearance: grossly normal Mental Status: mental status grossly normal Mood: congruent mood Affect: normal affect Speech and Movement: speech and movement normal Attitude: cooperative Thought Process: normal Thought Content: normal Assessment Plan 1. Vasomotor symptoms due to menopause N95.1 Plan Patient presents for discussion of worsening vasomotor symptoms due to menopause. Reports that symptoms have become so severe that they are interfering with her daily life. Reports that her friend was recently started on HRT for management of menopausal symptoms and she is interested in initiation of hormone replacement therapy. Discussed risks, benefits, and alternatives for management of symptoms and patient chooses to remain on HRT. discussed with the patient I will continue to prescribe the lowest dose needed to manage symptoms for the duration of desired therapy. will address annually regarding necessity. Handout provided with information regarding risks and benefits of hormone replacement therapy. We will see patient back in 2 to 3 months to reevaluate symptoms. Plan Detail Other Medications New: estradiol-norethindrone acet 0.05-0.14 mg/24 hr (CombiPatch) apply 1 patch every 3 days alternating with 1 patch every 4 days 1 patch transdermal 2XW 8 ea 12RF Coding Level of Care Code Off vis,est,level 3 Diagnoses Vasomotor symptoms due to menopause N95.1 09/16/201920 <Electronically signed by Mariama Clarke MD> Date Mariama Clarke MD Cosigner Signature: Date (if applicable) CC: Helen Kerr Start: 06-26-2020 End: 06-29-2020 Surgery Visit Report Comments: See Note; NOTES: [facility] [address] [place] [address] OFFICE VISIT Date of Service: 06/26/20 MR#: [id number] Acct: [id number] Name: LISA CHEN Rep #: [id number] : 1970 Provider: Dr. Manohar cifuentes MD Age/Sex: 50/F Location: [facility] Status: Signed Intake Vital Signs 06/26/20 Height 5 ft 7 in 06/26/20 Weight: 175 lb 06/26/20 BMI 27.3 06/26/20 BP 116/80 06/26/20 Blood Pressure Location Rt brachial 06/26/20 Position Sitting 06/26/20 Respiration 16 06/26/20 Pulse 79 06/26/20 Pulse Source Monitor 06/26/20 Temp 98.6 F 06/26/20 Temp Source Temporal 06/26/20 Pulse Oximetry (%) 96 06/26/20 Oxygen Delivery Method room air Intake Visit Reasons: LEFT BREAST BIRADS 4 Skidder Driver Required: No Is patient in pain?: No Allergies No Known Allergies Allergy (Verified 06/26/20 14:39) Medications hormonal supplement 1 tab PO QDAY 06/26/20 [History] lactobacillus combination no.9 4 billion cell capsule 4,000 mmu cells PO DAILY 06/26/20 [History Confirmed 06/26/20] multivitamin 1 tab PO DAILY 06/26/20 [History Confirmed 06/26/20] PFSH Medical History Fatigue (Acute) Surgical History Hx of hernia repair (Acute) Family History Mother Thyroid cancer Brain aneurysm Father Cancer Heart disease Hypertension CHF (congestive heart failure) Social History (Updated 06/29/20 @ 09:[address] Manohar Snyder MD) Smoking Status: Current every day smoker second hand exposure: Yes alcohol intake: current alcohol intake frequency: holidays/special occasions only substance use type: does not use caffeine: No what type of physical activity do you participate in: aerobics, weight training frequency: 3-4 times per week HPI HPI HPI: LISA CHEN is a 50 F who presents to the office today for HPI HPI HPI: LISA CHEN is a 50 F who presents to the office today for left breast lesion. The patient reports no pain in her breast. She says she was having left breast pain but it was more lateral. They did find a lesion at the 12 o'clock position which was given a BI-RADS 4 4. She does not have any family history of breast cancer. ROS General General: Yes weight change and fatigue; no appetite, colon cancer, breast cancer or weakness HEENT HEENT: No difficulty swallowing, eye injury, eye surgery, swollen glands or hoarseness Endo Endocrine: No thyroid disease, diabetes mellitus, thyroid cancer, Hair loss, heat intolerance or cold intolerance Skin Skin: No rash or changing moles Breast Breast: Yes left breast lump, breast pain, abnormal mammogram, abnormal US and breast enlargement; no right breast lump or nipple discharge Musc Musculoskeletal: No back problems, arthritis, rheumatoid arthritis, gout or joint pain Cardio Cardiovascular: No murmur, pacemaker, heart disease, atrial fibrillation, high blood pressure, heart attack, heart stent, palpitations, shortness of breat with exertion or chest pain Psych Psychiatric: No depression, anxiety or hearing voices Resp Respiratory: No shortness of breath, No sleep apnea, No cough, No COPD, No asthma, No emphysema, No wheezing Gastro Gastrointestinal: No abdominal pain, No nausea or vomiting, No diarrhea, No constipation, No blood in stool, No acid reflux, No hemorrhoids, No ulcers, No gallbladder problem, No black,tarry stools Evelio Hematologic: No blood thinners, No blood disorders, No bleeding, No anemia, No blood clots Neuro Neurologic: No system reviewed and no additional complaints, except as docu, No as per HPI, No abnormal walking, No abnormal hearing, No abnormal movements, No abnormal speech, No behavioral changes, No burning sensations, No confusion, No seizure-like activity, No unsteadiness, No dizziness, No localized weakness, No frequent falls, No headache(s), No lack of coordination, No loss of vision, No memory loss, No numbness, No other visual disturbances, No radiating pain, No restless legs, No sensory deficit, No fainting, No tingling, No tremor(s), No weakness, No other Exam Const General: cooperative Orientation: alert, oriented x3 Chest Breast Palpation: No nipple discharge Resp Effort Inspection: normal respiratory effort Auscultation: clear to auscultation bilaterally Cardio Rate: regular rate Rhythm: regular rhythm Heart Sounds: no murmurs GI Inspection: non-distended Palpation: soft, nontender Office Procedures Biopsy Provider Documentation The left breast was prepped and draped in usual sterile fashion ultrasound was used to identify the lesion. The lateral breast was anesthetized with local anesthetic and a small lyndsey was made with a scalpel. The mammotome was placed into the breast tissue under direct ultrasound guidance and the mass was biopsied. The needle was removed and a clip was placed into the mass. The Steri-Strip was then placed over the incision and a bandage was placed over this. Patient tolerated procedure well. Alert Santos Yes Biopsy Breast Biopsy: [id number] US Guidance Procedure Time Out Time Out Informed consent given: Yes Consent signed: Yes Time out checklist: patient, procedure, site marked/identified, positioning of patient, supplies available, allergies confirmed, team agrees on procedure Time out staff in room: Yes Time out verified: Yes Time out date: 06/26/20 Time out time: 13:57 Assessment Plan Problems 1. Left breast mass N63.20 Plan The patient has a small breast mass in the superior position of the left breast. It was identified under ultrasound and an ultrasound-guided biopsy was performed. The patient was given a BI-RADS score of 4. It appears fairly benign on ultrasound. I will call her with results. Manohar Snyder MD Pager: [facility] [address] [place] [address], [address] [place] [address] Office: Orders Orders: Biopsy 06/26/20 N63.20 Coding Level of Care Code Attention Santos Diagnoses Left breast mass N63.20 Additional Codes Biopsy - Breast Biopsy: 95431 US Guidance (81436) 06/29/20 0937 <Electronically signed by Manohar Snyder MD> Date Manohar Antonio Signature: Date (if applicable) CC: VINICIUS Kerr Start: 06-24-2020 End: 06-24-2020 Breast Limited Unilateral Comments: See Note; NOTES: [facility] [address] [place] [address] Breast Limited Unilateral MR#: [id number] Acct: [id number] Name: LISA CHEN Rep #: [id number] : 1970 F 50 From: Moody bradley MD PCP: VINICIUS Childers Status: REG CLI Study: Breast Limited Unilateral Date of Exam: Exam# [id number] Ordering Dr: Helen Kerr STUDY: ULTRASOUND BREAST - LEFT REASON FOR EXAM: Female, 50 years old. Pain in the left breast. TECHNIQUE: Axial and longitudinal images of the LEFT breast were performed with a high resolution ultrasound transducer. # OF IMAGES: 94 COMPARISON: Comparison is made with prior mammogram done earlier in the day. FINDINGS: LEFT Breast: There is a 5 mm x 3 mm x 9 mm slightly irregular hypoechoic nodule at the 12 o''clock lesion of the breast at 1 cm from nipple. A biopsy recommended. US/Breast Limited Unilateral IMPRESSION: 5 mm x 3 mm x 9 mm slightly irregular hypoechoic nodule at the 12 o''clock position of the breast at 1 cm from nipple. Biopsy recommended. ASSESSMENT CATEGORY: BIRADS Category 4: Suspicious - Biopsy Should Be Considered. A letter regarding these results will be sent to the patient by the facility within 30 days. Electronically Signed: Moody Campbell, at 13:31 EDT , Service support , CC: VINICIUS Kerr Wellness Program Manager: Signed Helen Kerr Work Phone: Start: 06-24-2020 End: 06-24-2020 DIAG MAMM W/CAD, BILAT Comments: See Note; NOTES: [facility] Imaging Services [address] [place] [address] DIAG MAMM W/CAD, BILAT MR#: [id number] Acct: [id number] Name: LISA CHEN Rep #: [id number] : 1970 F 50 From: Moody bradley MD PCP: VINICIUS Childers Status: REG CLI Study: DIAG MAMM W/CAD, BILAT Date of Exam: 06/24/20 Exam# [id number] Ordering Dr: Helen Kerr MAMMOGRAPHY - BILATERAL DIAGNOSTIC REASON FOR EXAM: Female, 50 years old. 3 month history of left breast pain. PERTINENT HISTORY: Non-contributory. TECHNIQUE: Digital bilateral breast mague (3D mammographic acquisition) in the CC and MLO projections. 2-D mediolateral oblique (MLO) and craniocaudad (CC) views of both breasts were obtained. CAD: Full Field Digital Mammography with Computer Added Detection was performed. COMPARISON: Comparison is made with prior study dated 10/21/2019 and 09/20/2017. FINDINGS: Breast Composition: The breasts are heterogeneously dense, which may obscure small masses. There are no dominant masses or suspicious calcifications. Stable small benign-appearing bilateral axillary lymph nodes. No other significant abnormalities are identified. There has been no significant change since the prior study. BI/DIAG MAMM W/CAD, BILAT IMPRESSION: Stable bilateral diagnostic mammogram. With the patient''s history of left breast pain, correlation with ultrasound is recommended. ASSESSMENT CATEGORY: BIRADS Category 0: Incomplete. Need additional imaging evaluation. A letter regarding these results will be sent to the patient by the facility within 30 days. Approximately 10% of breast cancers are not detected by mammography. A normal mammogram should not delay biopsy of a clinically suspicious abnormality. Electronically Signed: Moody Adrian, at 13:30 EDT , Service support , CC: VINICIUS Kerr Wellness Program Manager: Signed Helen Kerr Work Phone: Start: 05-26-2020 End: 05-26-2020 Chest PA and Lateral Comments: See Note; NOTES: [facility] Imaging Services [address] [place] [address] Chest PA and Lateral MR#: [id number] Acct: [id number] Name: LISA CHEN Rep #: [id number] : 1970 F 50 From: Davidson Arana i, MD PCP: VINICIUS Childers Status: REG CLI Study: Chest PA and Lateral Date of Exam: 05/26/20 Exam# [id number] Ordering Dr: Helen Kerr STUDY: X-RAY CHEST REASON FOR EXAM: Female, 50 years old. Pain left lateral chest wall radiating into back 1.5 months TECHNIQUE: PA and lateral views of the chest. COMPARISON: None. FINDINGS: The lungs are clear and expanded. There is no demonstrated pleural abnormality. Normal size heart. Normal mediastinum and my. Normal visualized pulmonary arteries. Normal visualized aortic arch and descending thoracic aorta. Normal visualized thoracic spine. Normal visualized ribs, clavicles, and shoulders. There is no demonstrated abnormality of the visualized soft tissue structures of the upper abdomen. RAD/Chest PA and Lateral IMPRESSION: Normal x-ray examination of the chest. Electronically Signed: Davidson Lee MD at 16:11 EDT , Service support , CC: VINICIUS Kerr Wellness Program Manager: Signed Helen Kerr Work Phone: Start: 10-21-2019 End: 10-22-2019 SCREEN MAMM (CAD) W/MAGUE BILAT Comments: See Note; NOTES: [facility] Imaging Services [address] [place] [address] SCREEN MAMM (CAD) W/MAGUE BILAT MR#: [id number] Acct: [id number] Name: LISA CHEN Rep #: [id number] : 1970 F 49 From: Nestor Mathis MD PCP: VINICIUS Childers Status: REG CLI Study: SCREEN MAMM (CAD) W/MAGUE BILAT Date of Exam: 10/21/19 Exam# [id number] Ordering Dr: Vane Cruz MD MAMMOGRAPHY - BILATERAL SCREENING 3-D TOMOSYNTHESIS REASON FOR EXAM: Female, 49 years old. NO FM HX , GAINED 20# PERTINENT HISTORY: No significant family history. TECHNIQUE: 2-D mammograms and 3-D Tomosynthesis of the breast (s) were performed. CAD was performed. COMPARISON: 10/16/2018, 09/20/2017, 08/01/2016 FINDINGS: The breast composition is heterogeneously dense that can obscure small breast masses. Scattered benign calcifications are seen. No dense spiculated masses or suspicious microcalcifications are identified. No architectural distortion is identified. There is no skin thickening or retraction. There has been no significant change since the prior study. BI/SCREEN MAMM (CAD) W/MAGUE BILAT IMPRESSION: No mammographic signs of malignancy. Routine yearly mammograms recommended. ASSESSMENT CATEGORY: BIRADS Category 1: Negative. A letter regarding these results will be sent to the patient by the facility within 30 days. FOLLOW UP RECOMMENDATION: Yearly follow up mammogram recommended. (A) Approximately 10% of breast cancers are not detected by mammography. A normal mammogram should not delay biopsy of a clinically suspicious abnormality. Electronically Signed: Nestor Mathis MD at 13:15 EST Tel [phone], Service support , CC: VINICIUS Kerr; Vane Cruz MD Wellness Program Manager: Signed Helen Kerr Start: 09-20-2017 End: 09-22-2017 SCREENING MAMM (CAD), BILAT Comments: See Note; NOTES: [facility] Services [address] [place] [address] SCREENING MAMM (CAD), BILAT MR#: [id number] Acct: [id number] Name: LISA CHEN Rep #: [id number] : 1970 F 47 From: Moody Campbell MD PCP: Sarah Beth Steele DO Status: [facility] Study: SCREENING MAMM (CAD), BILAT Date of Exam: 09/20/17 Exam# [id number] Ordering Dr: Vane Cruz MD MAMMOGRAPHY - BILATERAL SCREENING REASON FOR EXAM: Female, 47 years old. Routine annual screening examination. PERTINENT HISTORY: Non-contributory. TECHNIQUE: Digital bilateral breast mague (3D mammographic acquisition) in the CC and MLO projections. 2-D mediolateral oblique (MLO) and craniocaudad (CC) views of both breasts were obtained. CAD: Full Field Digital Mammography with Computer Added Detection was performed. COMPARISON: Comparison is made with prior outside examination dated August 01, 2016. FINDINGS: Breast Composition: The breasts are heterogeneously dense, which may obscure small masses. There are no dominant masses or suspicious calcifications. Stable bilateral benign appearing axillary lymphadenopathy. No other significant abnormalities are identified. There has been no significant change since the prior study. HPBI/SCREENING MAMM (CAD), BILAT IMPRESSION: Stable bilateral screening mammogram. Yearly follow-up mammogram recommended. (A) ASSESSMENT CATEGORY: BIRADS Category 2: Benign. A letter regarding these results will be sent to the patient by the facility within 30 days. Approximately 10% of breast cancers are not detected by mammography. A normal mammogram should not delay biopsy of a clinically suspicious abnormality. [id number] Electronically Signed: Moody Campbell MD at 8:01 EST Tel [phone], Service support , CC: Vane Cruz MD; Sarah Beth Steele DO Wellness Program Manager: Signed Helen Kerr Start: 11-21-2016 End: 11-21-2016 Echocardiogram Complete Comments: See Note; NOTES: [facility] Cardiovascular Services [address] [place] [address] Echo Complete 11/21/16 1055 MR#: [id number] Acct: [id number] Name: LISA CHEN Rep #: [id number] : 1970 46 From: Helder Ballesteros MD Attending Dr: Sarah Beth Steele DO Status: REG CLI Ordering Dr: Sarah Beth Steele DO Date: 11/21/16 Location: [facility] Sex: F C Admitted: Reason For Study: ATYPICAL CHEST PAIN Procedure This was a 2D Doppler, Color Flow transthoracic echocardiogram. Exam performed in department. Left Ventricle Normal LV size. Left ventricular systolic function is normal. The estimated ejection fraction is 55 %. No regional wall motion abnormalities noted. Right Ventricle Normal RV size. Normal systolic function. Atria Normal left atrium. Normal right atrium. Mitral Valve Normal mitral valve. Trivial eccentric mitral valve insufficiency. Tricuspid Valve Normal tricuspid valve. Mild (1+) tricuspid valve insufficiency. Pulmonary artery systolic pressure is 24 mmHg. Aortic Valve Normal aortic valve. Trisinus/trileaflet aortic valve. Pulmonic Valve Normal pulmonic valve. Great Vessels Normal aortic root. The pulmonary artery is normal size. Normal inferior vena cava. Pericardium/Pleural No pericardial effusion. MMode/2D Measurements & Calculations LVIDd: 4.7 cm IVSd: 1.1 cm LVOT diam: 2.0 cm LVIDs: 2.7 cm LVPWd: 0.81 cm LVOT area: 3.1 cm2 RVDd: 3.0 cm FS: 42.3 % Ao root diam: 2.8 cm LAV(MOD-bp): 52.1 ml LA A4 area: 17.6 cm2 LA dimension: 3.7 cm LAV(MOD-bp) Indexed: 26.6 ml/m2 LAV(MOD-sp2): 53.3 ml LAV(MOD-sp4): 49.9 ml RA A4 area: 17.2 cm2 Time Measurements MV dec time: 0.21 sec Doppler Measurements & Calculations MV E max sayra: 91.7 cm/sec Lat Peak E' Sayra: 14.0 cm/sec Med Peak E' Sayra: 8.3 cm/sec MV A max sayra: 68.2 cm/sec E/E' lat: 6.6 E/E' med: 11.1 MV E/A: 1.3 MV V2 max: 101.6 cm/sec MV P1/2t max sayra: 96.4 cm/sec Ao V2 max: 143.5 cm/sec MV max P.1 mmHg MV P1/2t: 63.0 msec Ao max P.2 mmHg MV V2 mean: 60.2 cm/sec MV dec slope: 447.9 cm/sec2 ALBERTO(V,D): 2.9 cm2 MV mean P.6 mmHg MVA(P1/2t): 3.5 cm2 MV V2 VTI: 28.9 cm LV V1 max: 136.9 cm/sec MR max sayra: 320.3 cm/sec PI end-d sayra: 75.1 cm/sec LV V1 max P.5 mmHg MR max P.0 mmHg TR max sayra: 227.5 cm/sec TR max P.8 mmHg Interpretation Summary Normal LV size. Left ventricular systolic function is normal. The estimated ejection fraction is 55 %. Mild (1+) tricuspid valve insufficiency. Pulmonary artery systolic pressure is 24 mmHg. Ordering Physician: Sarah Beth Steeel Referring Physician: Sarah Beth Steele M.D. Performed By: Havran, Edda, RDCS 11/21/16 1240 Date Helder Ballesteros MD CC: Sarah Beth Steele DO Date Dictated: 11/21/16 1055 Date Transcribed: 11/21/16 1240 Wellness Program Manager: Signed Sarah Beth Steele Work Phone: Start: 11-18-2016 End: 11-18-2016 Abdomen Limited Comments: See Note; NOTES: [facility] Imaging Services [address] [place] [address] [place] 4d Abdomen Limited MR#: [id number] Acct: [id number] Name: LISA CHEN Rep #: [id number] : 1970 F 46 From: Nichole Browning MD PCP: Sarah Beth Steele DO Status: REG CLI Study: Abdomen Limited Date of Exam: 11/18/16 Exam# [id number] Ordering Dr: Sarah Beth Steele DO STUDY: ABDOMINAL ULTRASOUND - RIGHT UPPER QUADRANT REASON FOR VISIT: Female, 46 years old. Epigastric pain. Patient has history of autoimmune hepatitis. TECHNIQUE: Ultrasound evaluation of the right upper quadrant was performed with real-time and static terrell-scale imaging. TECHNICAL QUALITY: Adequate. COMPARISON: None. FINDINGS: Liver: The liver measures 14 cm. There is a heterogeneous echogenicity of the liver. The bile ducts are within normal limits. There is hepatic color flow. The direction of portal flow is hepatopetal. There is no demonstrated mass lesion. Gallbladder: Normal distended gallbladder. The gallbladder wall measures 2.8 mm. There is a negative sonographic Erwin's sign. There is no pericholecystic fluid. There are no gallstones. Common Bile Duct (C.B.D.): The common bile duct measures 4.3 mm. Pancreas: Normal size of the head, body of the pancreas. There is normal echogenicity of the pancreas. There is no demonstrated pancreatic mass or cyst. Right Kidney: Normal size of the right kidney. The right kidney measures 12x5.5 x 5.5 cm. Normal renal cortex. The right cortex measures 2.2 cm. There is no demonstrated renal mass or cyst. There is no right hydronephrosis. US/Abdomen Limited IMPRESSION: Fatty infiltration of the liver. Electronically Signed: Nichole Browning MD at 9:06 EST Tel , Service support [phone], CC: Sarah Beth Steele DO Wellness Program Manager: Signed Sarah Beth Steele Work Phone: Start: 07-28-2014 End: 07-28-2014 Spmtry w/vc expiratory sneha w/wo mxml vol vntj _ Sarah Beth Steele Work Phone: Comment on above: mild obstruction Plan of Treatment Date Care Activity Detail Author Start: 09-20-2023 Patient referral [facility] Work Phone: Start: 03-31-2023 Vitamin D, 1,25-dihydroxy measurement [facility] Start: 06-15-2020 Procedure Education Eprescribed prescriptions (G8553) [facility] Work Phone: Start: 06-15-2020 Provider Instructions for Treatment Follow up if no improvement or if symptoms worsen [facility] Work Phone: Start: 05-26-2020 Troponin I.cardiac [Mass/Vol] Troponin I (17063) [facility] Work Phone: Start: 05-26-2020 Blood count complete auto&auto difrntl wbc CBC, Platelets & Auto Diff (11626) [facility] Work Phone: Start: 05-26-2020 TSH Qn TSH (THYROID STIMULATING HORMONE) (15492) [facility] Work Phone: Start: 05-26-2020 Comprehensive metabolic panel Metabolic Panel, [facility] (72906) [facility] Work Phone: Start: 05-26-2020 Procedure Education Eprescribed prescriptions (G8553) [facility] Work Phone: Start: 05-26-2020 Provider Instructions for Treatment Follow up in 2 weeks [facility] Work Phone: Start: 12-08-2016 Procedure Education Eprescribed prescriptions (G8553) [facility] Work Phone: Start: 12-08-2016 Provider Instructions for Treatment MDI Education [facility] Work Phone: Start: 11-16-2016 Procedure Education Eprescribed prescriptions (G8553) [facility] Work Phone: Start: 11-16-2016 Provider Instructions for Treatment HTN/CAD Red Flags [facility] Work Phone: Start: 07-28-2014 Provider Instructions for Treatment [facility] Work Phone: Start: 11-12-2013 Provider Instructions for Treatment [facility] Work Phone: Start: 05-13-2013 Provider Instructions for Treatment Follow up in 6 months [facility] Work Phone: Start: 06-27-2012 Patient Education Itching: itching [facility] Work Phone: Start: 01-06-2012 Provider Instructions for Treatment Follow up in 2 weeks [facility] Work Phone: Start: 12-28-2011 Provider Instructions for Treatment Reviewed Lab [facility] Work Phone: Start: 12-26-2011 Provider Instructions for Treatment [facility] Work Phone: Start: 12-26-2011 Heterophile antibodies screen MONOSPOT TEST (17683) [facility] Work Phone: Start: 12-26-2011 Iaadiadoo influenza Rapid Flu (66262 x 2) [facility] Work Phone: Start: 07-13-2011 Provider Instructions for Treatment Follow up in 6 weeks [facility] Work Phone: Start: 06-27-2011 Provider Instructions for Treatment [facility] Work Phone: Start: 03-21-2011 Provider Instructions for Treatment [facility] Work Phone: Start: 01-13-2009 Lipid panel Lipid Panel (74004) [facility] Work Phone: Start: 08-27-2007 Provider Instructions for Treatment FOLLOW UP IN 1 YEAR [facility] Work Phone: Start: 07-23-2007 Provider Instructions for Treatment [facility] Work Phone: Start: 07-23-2007 Hepatic function panel HEPATIC FUNCTION PANEL (93887) [facility] Work Phone: Comment on above: every 4 w Start: 07-23-2007 Microsomal antibodies each Anti-TPO Antibody (11437) [facility] Work Phone: Start: 07-23-2007 Assay of thyroid stimulating hormone tsh TSH (37267) [facility]; [facility] Work Phone: Start: 07-23-2007 TSH Qn TSH (26322) [facility] Work Phone: Start: 07-23-2007 Cobalamin (Vitamin B12) [Mass/Vol] Vitamin B-12 (cyanocobalamin) (72751) [facility] Work Phone: Start: 07-23-2007 Cyanocobalamin vitamin b-12 Vitamin B-12 (cyanocobalamin) (05118) [facility]; [facility] Work Phone: Start: 07-23-2007 Blood count complete automated CBC (Auto) (83790) [facility] Work Phone: Comment on above: now and evry 4 w Start: 07-23-2007 Comprehensive metabolic panel Metabolic Panel, [facility] (55883) [facility] Work Phone: Cardiovascular stres s testing [facility] Electrocardiographic procedure [facility] Evaluation of diagno stic study results [facility] MG Breast - bilatera l Screening [facility] Patient Education ED Chest Pain, Uncertain Cause ED Palpitations [facility] Work Phone: Patient referral [facility] Work Phone: [facility] Work Phone: [facility] Work Phone: [facility] Work Phone: [facility] Work Phone: [facility] Work Phone: [facility] Work Phone: [facility] Work Phone: [facility] Work Phone: [facility] Work Phone: [facility] Work Phone: [facility] Work Phone: [facility] Work Phone: [facility] Work Phone: [facility] Work Phone: [facility] Work Phone: Payers Date Payer Category Payer Unknown [id number] 2024 Self-pay [id number] 2024 Unknown [id number] Unknown Unknown [id number] 2.16.8 [id number] Unknown [id number] 2.16.8 [id number] Unknown [id number] 2.16.8 [id number] Unknown [id number] 2.16.8 [id number] Unknown [id number] 2.16.8 [id number] Unknown [id number] 2.16.8 [id number] Unknown [id number] 2.16.8 [id number] Unknown [id number] 2.16.8 [id number] Unknown [id number] 2.16.8 [id number] Unknown [id number] 2.16.8 [id number] Social History Date Type Detail Facility Caffeine Use Caffeine Use [facility] Work Phone: Comment on above: rare Unemployed not looki ng for work [place] lives with 2 daughters--97, 01 2 Smokes 1 pack of cig arettes per daysame status -- has not smoked d/t illness since Monday -- 2.27.11 Tobacco use: Tobacco use: [facility] Work Phone: Tobacco use: Tobacco use: [facility]; [facility] Work Phone: Start: 01-23-2022 End: 10-18-2023 Tobacco smoking status [facility] Unknown if ever smoked [facility] Start: 12-23-2020 Non-smoker [facility] Start: 1970 Sex Assigned At Female [facility] Start: 10-18-2023 End: 06-13-2025 Tobacco smoking status [facility] Ex-smoker (finding) [facility] Clinical Notes 02-16-2025 Note Date & Type Note Facility 02-16-2025 Evaluation note Diagnosis Onset Date Resolution Sinusitis acute February 16 9:34am Climacteric acute May 06 10:00am Obesity, unspecified acute May 06, 2025 10:00am Encounter for routine gynecological examination noneactive May 06, 2025 10:00am [facility] Work Phone: Chief complaint+Reason for visit Narrative* Chief Complaint HEADACHE, FATIGUE, C ONGESTED Reason for Visit COVID-19 [facility] Work Phone: Evaluation note* Diagnosis Onset Date Resolution Status BMI 30.0-30.9,adult acute Climacteric acute [facility] Work Phone: Evaluation note* Diagnosis Onset Date Resolution Status Climacteric acute Weight gain acute Encounter for routine gynecological examination noneactive [facility] Work Phone: Evaluation note* Diagnosis Onset Date Resolution Status Climacteric acute Weight gain acute Encounter for routine gynecological examination noneactive Binge-eating disorder, mild acute BMI 34.0-34.9,adult acute Climacteric acute Other obesity acute Pre-diabetes acute [facility] Work Phone: Evaluation note* Diagnosis Onset Date Resolution Status Binge-eating disorder, mild acute BMI 34.0-34.9,adult acute Climacteric acute High cholesterol acute Other obesity acute Pre-diabetes acute Binge-eating disorder, mild acute BMI 34.0-34.9,adult acute High cholesterol acute Other obesity acute Pre-diabetes acute Binge-eating disorder, mild acute BMI 34.0-34.9,adult acute Climacteric acute High cholesterol acute Other obesity acute Pre-diabetes acute Acute bacterial sinusitis ac alfonso Borderline type 2 diabetes mellitus acute Encounter to establish care acute Hyperlipidemia acute Preventative health care acu te [facility] Work Phone: Evaluation note* Diagnosis Onset Date Resolution Status COVID-19 acute [facility] Work Phone: Instructions* Name Dates Details How to access health informa tion online Indication:Smoker Start:15-Jun-2020 Instruction Type:Patient Education How to access health informa tion online - Detail Indication:Smoker Start:15-Jun-2020 Instruction Type:Patient Education Patient Instructions Indication:BMI 28.0-28.9,adult Start:15-Jun-2020 Instruction Type:Provider Instructions for Treatment How to access health informa tion online Indication:Smoker Start:26-May-2020 Instruction Type:Patient Education How to access health informa tion online - Detail Indication:Smoker Start:26-May-2020 Instruction Type:Patient Education Patient Instructions Indication:Smoker Start:26-May-2020 Instruction Type:Provider Instructions for Treatment How to access health informa tion online Indication:Smoker Start:08-Dec-2016 Instruction Type:Patient Education How to access health informa tion online - Detail Indication:Smoker Start:08-Dec-2016 Instruction Type:Patient Education Patient Instructions Indication:Smoker Start:08-Dec-2016 Instruction Type:Provider Instructions for Treatment How to access health informa tion online Indication:Smoker Start:16-Nov-2016 Instruction Type:Patient Education How to access health informa tion online - Detail Indication:Smoker Start:16-Nov-2016 Instruction Type:Patient Education Patient Instructions Indication:Smoker Start:16-Nov-2016 Instruction Type:Provider Instructions for Treatment Patient Instructions Indication:Arm wound Start:18-Nov-2013 Instruction Type:Provider Instructions for Treatment Patient Instructions Indication:Arm wound Start:12-Nov-2013 Instruction Type:Provider Instructions for Treatment Patient Instructions Indication:Arm wound Start:12-Nov-2013 Instruction Type:Provider Instructions for Treatment Patient Instructions Indication:Arm wound Start:12-Nov-2013 Instruction Type:Provider Instructions for Treatment Patient Instructions Indication:Depression Start:13-May-2013 Instruction Type:Provider Instructions for Treatment Patient Instructions: cont calamine lotion to dry Indication:Poison jose manuel Start:27-Jun-2012 Instruction Type:Provider Instructions for Treatment [facility] Work Phone: Instructions* Name Dates Details How to access health informa tion online Indication:Smoker Start:15-Jun-2020 Instruction Type:Patient Education How to access health informa tion online - Detail Indication:Smoker Start:15-Jun-2020 Instruction Type:Patient Education Patient Instructions Indication:BMI 28.0-28.9,adult Start:15-Jun-2020 Instruction Type:Provider Instructions for Treatment How to access health informa tion online Indication:Smoker Start:26-May-2020 Instruction Type:Patient Education How to access health informa tion online - Detail Indication:Smoker Start:26-May-2020 Instruction Type:Patient Education Patient Instructions Indication:Smoker Start:26-May-2020 Instruction Type:Provider Instructions for Treatment How to access health informa tion online Indication:Smoker Start:08-Dec-2016 Instruction Type:Patient Education How to access health informa tion online - Detail Indication:Smoker Start:08-Dec-2016 Instruction Type:Patient Education Patient Instructions Indication:Smoker Start:08-Dec-2016 Instruction Type:Provider Instructions for Treatment How to access health informa tion online Indication:Smoker Start:16-Nov-2016 Instruction Type:Patient Education How to access health informa tion online - Detail Indication:Smoker Start:16-Nov-2016 Instruction Type:Patient Education Patient Instructions Indication:Smoker Start:16-Nov-2016 Instruction Type:Provider Instructions for Treatment Patient Instructions Indication:Arm wound Start:18-Nov-2013 Instruction Type:Provider Instructions for Treatment Patient Instructions Indication:Arm wound Start:12-Nov-2013 Instruction Type:Provider Instructions for Treatment Patient Instructions Indication:Arm wound Start:12-Nov-2013 Instruction Type:Provider Instructions for Treatment Patient Instructions Indication:Arm wound Start:12-Nov-2013 Instruction Type:Provider Instructions for Treatment Patient Instructions Indication:Depression Start:13-May-2013 Instruction Type:Provider Instructions for Treatment Patient Instructions: cont calamine lotion to dry Indication:Poison jose manuel Start:27-Jun-2012 Instruction Type:Provider Instructions for Treatment [facility] Work Phone: Instructions* Name Dates Details How to access health informa tion online Indication:Smoker Start:15-Jun-2020 Instruction Type:Patient Education How to access health informa tion online - Detail Indication:Smoker Start:15-Jun-2020 Instruction Type:Patient Education Patient Instructions Indication:BMI 28.0-28.9,adult Start:15-Jun-2020 Instruction Type:Provider Instructions for Treatment How to access health informa tion online Indication:Smoker Start:26-May-2020 Instruction Type:Patient Education How to access health informa tion online - Detail Indication:Smoker Start:26-May-2020 Instruction Type:Patient Education Patient Instructions Indication:Smoker Start:26-May-2020 Instruction Type:Provider Instructions for Treatment How to access health informa tion online Indication:Smoker Start:08-Dec-2016 Instruction Type:Patient Education How to access health informa tion online - Detail Indication:Smoker Start:08-Dec-2016 Instruction Type:Patient Education Patient Instructions Indication:Smoker Start:08-Dec-2016 Instruction Type:Provider Instructions for Treatment How to access health informa tion online Indication:Smoker Start:16-Nov-2016 Instruction Type:Patient Education How to access health informa tion online - Detail Indication:Smoker Start:16-Nov-2016 Instruction Type:Patient Education Patient Instructions Indication:Smoker Start:16-Nov-2016 Instruction Type:Provider Instructions for Treatment Patient Instructions Indication:Arm wound Start:18-Nov-2013 Instruction Type:Provider Instructions for Treatment Patient Instructions Indication:Arm wound Start:12-Nov-2013 Instruction Type:Provider Instructions for Treatment Patient Instructions Indication:Arm wound Start:12-Nov-2013 Instruction Type:Provider Instructions for Treatment Patient Instructions Indication:Arm wound Start:12-Nov-2013 Instruction Type:Provider Instructions for Treatment Patient Instructions Indication:Depression Start:13-May-2013 Instruction Type:Provider Instructions for Treatment Patient Instructions: cont calamine lotion to dry Indication:Poison jose manuel Start:27-Jun-2012 Instruction Type:Provider Instructions for Treatment [facility] Work Phone: reason for referral (narrative)No reason for referral information [facility]: Family History No Family History Records FoundUnknown Family Member Name Dates Details Father Comments:Diabetes Type 1, [place] F, Heart disease, HTN, Bone Cancer at age 55 Status:Active Maternal Grandmother Comments:Leukemia Status:Active Paternal Grandmother Comments:Colon cancer Status:Active Unknown Family Member Name Dates Details Father Comments:Diabetes Type 1, [place] F, Heart disease, HTN, Bone Cancer at age 55 Status:Active Maternal Grandmother Comments:Leukemia Status:Active Paternal Grandmother Comments:Colon cancer Status:Active Unknown Family Member Name Dates Details Father Comments:Diabetes Type 1, [place] F, Heart disease, HTN, Bone Cancer at age 55 Status:Active Maternal Grandmother Comments:Leukemia Status:Active Paternal Grandmother Comments:Colon cancer Status:Active Unknown Family Member Name Dates Details Father Comments:Diabetes Type 1, [place] F, Heart disease, HTN, Bone Cancer at age 55 Status:Active Maternal Grandmother Comments:Leukemia Status:Active Paternal Grandmother Comments:Colon cancer Status:Active Unknown Family Member Name Dates Details Father Comments:Diabetes Type 1, [place] F, Heart disease, HTN, Bone Cancer at age 55 Status:Active Maternal Grandmother Comments:Leukemia Status:Active Paternal Grandmother Comments:Colon cancer Status:Active Unknown Family Member Name Dates Details Father Comments:Diabetes Type 1, [place] F, Heart disease, HTN, Bone Cancer at age 55 Status:Active Maternal Grandmother Comments:Leukemia Status:Active Paternal Grandmother Comments:Colon cancer Status:Active Unknown Family Member Name Dates Details Father Comments:Diabetes Type 1, [place] F, Heart disease, HTN, Bone Cancer at age 55 Status:Active Maternal Grandmother Comments:Leukemia Status:Active Paternal Grandmother Comments:Colon cancer Status:Active Unknown Family Member Name Dates Details Father Comments:Diabetes Type 1, [place] F, Heart disease, HTN, Bone Cancer at age 55 Status:Active Maternal Grandmother Comments:Leukemia Status:Active Paternal Grandmother Comments:Colon cancer Status:Active Unknown Family Member Name Dates Details Father Comments:Diabetes Type 1, [place] F, Heart disease, HTN, Bone Cancer at age 55 Status:Active Maternal Grandmother Comments:Leukemia Status:Active Paternal Grandmother Comments:Colon cancer Status:Active Unknown Family Member Name Dates Details Father Comments:Diabetes Type 1, [place] F, Heart disease, HTN, Bone Cancer at age 55 Status:Active Maternal Grandmother Comments:Leukemia Status:Active Paternal Grandmother Comments:Colon cancer Status:Active Unknown Family Member Name Dates Details Father Comments:Diabetes Type 1, [place] F, Heart disease, HTN, Bone Cancer at age 55 Status:Active Maternal Grandmother Comments:Leukemia Status:Active Paternal Grandmother Comments:Colon cancer Status:Active Unknown Family Member Name Dates Details Father Comments:Diabetes Type 1, [place] F, Heart disease, HTN, Bone Cancer at age 55 Status:Active Maternal Grandmother Comments:Leukemia Status:Active Paternal Grandmother Comments:Colon cancer Status:Active Unknown Family Member Name Dates Details Father Comments:Diabetes Type 1, [place] F, Heart disease, HTN, Bone Cancer at age 55 Status:Active Maternal Grandmother Comments:Leukemia Status:Active Paternal Grandmother Comments:Colon cancer Status:Active Relationship Condition Age at Onset Recorded Date/T robin Not Specified Malignant neoplasm of colon Unknown Diabetes mellitus Unknown Arthritis Unknown Malignant neoplasm of lung Unknown mother Malignant neoplasm of thyroid gland Unkno wn Cerebral aneurysm Unknown father Malignant neoplasm Unknown Cardiac disease Unknown Hypertension Unknown Congestive heart failure Unknown Unknown Family Member Name Dates Details Father Comments:Diabetes Type 1, [place] F, Heart disease, HTN, Bone Cancer at age 55 Status:Active Maternal Grandmother Comments:Leukemia Status:Active Paternal Grandmother Comments:Colon cancer Status:Active Unknown Family Member Name Dates Details Father Comments:Diabetes Type 1, [place] F, Heart disease, HTN, Bone Cancer at age 55 Status:Active Maternal Grandmother Comments:Leukemia Status:Active Paternal Grandmother Comments:Colon cancer Status:Active Instructions Name Dates Details How to access O&P Proa tion online Indication:Smoker Start:26-May-2020 Instruction Type:Patient Education How to access health informa tion online - Detail Indication:Smoker Start:26-May-2020 Instruction Type:Patient Education Patient Instructions Indication:Smoker Start:26-May-2020 Instruction Type:Provider Instructions for Treatment How to access health informa tion online Indication:Smoker Start:08-Dec-2016 Instruction Type:Patient Education How to access health informa tion online - Detail Indication:Smoker Start:08-Dec-2016 Instruction Type:Patient Education Patient Instructions Indication:Smoker Start:08-Dec-2016 Instruction Type:Provider Instructions for Treatment How to access health informa tion online Indication:Smoker Start:16-Nov-2016 Instruction Type:Patient Education How to access health informa tion online - Detail Indication:Smoker Start:16-Nov-2016 Instruction Type:Patient Education Patient Instructions Indication:Smoker Start:16-Nov-2016 Instruction Type:Provider Instructions for Treatment Patient Instructions Indication:Arm wound Start:18-Nov-2013 Instruction Type:Provider Instructions for Treatment Patient Instructions Indication:Arm wound Start:12-Nov-2013 Instruction Type:Provider Instructions for Treatment Patient Instructions Indication:Depression Start:13-May-2013 Instruction Type:Provider Instructions for Treatment Patient Instructions: cont calamine lotion to dry Indication:Poison jose manuel Start:27-Jun-2012 Instruction Type:Provider Instructions for Treatment Name Dates Details How to access health informa tion online Indication:Smoker Start:26-May-2020 Instruction Type:Patient Education How to access health informa tion online - Detail Indication:Smoker Start:26-May-2020 Instruction Type:Patient Education Patient Instructions Indication:Smoker Start:26-May-2020 Instruction Type:Provider Instructions for Treatment How to access health informa tion online Indication:Smoker Start:08-Dec-2016 Instruction Type:Patient Education How to access health informa tion online - Detail Indication:Smoker Start:08-Dec-2016 Instruction Type:Patient Education Patient Instructions Indication:Smoker Start:08-Dec-2016 Instruction Type:Provider Instructions for Treatment How to access health informa tion online Indication:Smoker Start:16-Nov-2016 Instruction Type:Patient Education How to access health informa tion online - Detail Indication:Smoker Start:16-Nov-2016 Instruction Type:Patient Education Patient Instructions Indication:Smoker Start:16-Nov-2016 Instruction Type:Provider Instructions for Treatment Patient Instructions Indication:Arm wound Start:18-Nov-2013 Instruction Type:Provider Instructions for Treatment Patient Instructions Indication:Arm wound Start:12-Nov-2013 Instruction Type:Provider Instructions for Treatment Patient Instructions Indication:Depression Start:13-May-2013 Instruction Type:Provider Instructions for Treatment Patient Instructions: cont calamine lotion to dry Indication:Poison jose manuel Start:27-Jun-2012 Instruction Type:Provider Instructions for Treatment Name Dates Details How to access health informa tion online Indication:Smoker Start:15-Jun-2020 Instruction Type:Patient Education How to access health informa tion online - Detail Indication:Smoker Start:15-Jun-2020 Instruction Type:Patient Education Patient Instructions Indication:Smoker Start:15-Jun-2020 Instruction Type:Provider Instructions for Treatment How to access health informa tion online Indication:Smoker Start:26-May-2020 Instruction Type:Patient Education How to access health informa tion online - Detail Indication:Smoker Start:26-May-2020 Instruction Type:Patient Education Patient Instructions Indication:Smoker Start:26-May-2020 Instruction Type:Provider Instructions for Treatment How to access health informa tion online Indication:Smoker Start:08-Dec-2016 Instruction Type:Patient Education How to access health informa tion online - Detail Indication:Smoker Start:08-Dec-2016 Instruction Type:Patient Education Patient Instructions Indication:Smoker Start:08-Dec-2016 Instruction Type:Provider Instructions for Treatment How to access health informa tion online Indication:Smoker Start:16-Nov-2016 Instruction Type:Patient Education How to access health informa tion online - Detail Indication:Smoker Start:16-Nov-2016 Instruction Type:Patient Education Patient Instructions Indication:Smoker Start:16-Nov-2016 Instruction Type:Provider Instructions for Treatment Patient Instructions Indication:Arm wound Start:18-Nov-2013 Instruction Type:Provider Instructions for Treatment Patient Instructions Indication:Arm wound Start:12-Nov-2013 Instruction Type:Provider Instructions for Treatment Patient Instructions Indication:Depression Start:13-May-2013 Instruction Type:Provider Instructions for Treatment Patient Instructions: cont calamine lotion to dry Indication:Poison jose manuel Start:27-Jun-2012 Instruction Type:Provider Instructions for Treatment Name Dates Details How to access health informa tion online Indication:Smoker Start:15-Jun-2020 Instruction Type:Patient Education How to access health informa tion online - Detail Indication:Smoker Start:15-Jun-2020 Instruction Type:Patient Education Patient Instructions Indication:BMI 28.0-28.9,adult Start:15-Jun-2020 Instruction Type:Provider Instructions for Treatment How to access health informa tion online Indication:Smoker Start:26-May-2020 Instruction Type:Patient Education How to access health informa tion online - Detail Indication:Smoker Start:26-May-2020 Instruction Type:Patient Education Patient Instructions Indication:Smoker Start:26-May-2020 Instruction Type:Provider Instructions for Treatment How to access health informa tion online Indication:Smoker Start:08-Dec-2016 Instruction Type:Patient Education How to access health informa tion online - Detail Indication:Smoker Start:08-Dec-2016 Instruction Type:Patient Education Patient Instructions Indication:Smoker Start:08-Dec-2016 Instruction Type:Provider Instructions for Treatment How to access health informa tion online Indication:Smoker Start:16-Nov-2016 Instruction Type:Patient Education How to access health informa tion online - Detail Indication:Smoker Start:16-Nov-2016 Instruction Type:Patient Education Patient Instructions Indication:Smoker Start:16-Nov-2016 Instruction Type:Provider Instructions for Treatment Patient Instructions Indication:Arm wound Start:18-Nov-2013 Instruction Type:Provider Instructions for Treatment Patient Instructions Indication:Arm wound Start:12-Nov-2013 Instruction Type:Provider Instructions for Treatment Patient Instructions Indication:Depression Start:13-May-2013 Instruction Type:Provider Instructions for Treatment Patient Instructions: cont calamine lotion to dry Indication:Poison jose manuel Start:27-Jun-2012 Instruction Type:Provider Instructions for Treatment Name Dates Details How to access health informa tion online Indication:Smoker Start:15-Jun-2020 Instruction Type:Patient Education How to access health informa tion online - Detail Indication:Smoker Start:15-Jun-2020 Instruction Type:Patient Education Patient Instructions Indication:BMI 28.0-28.9,adult Start:15-Jun-2020 Instruction Type:Provider Instructions for Treatment How to access health informa tion online Indication:Smoker Start:26-May-2020 Instruction Type:Patient Education How to access health informa tion online - Detail Indication:Smoker Start:26-May-2020 Instruction Type:Patient Education Patient Instructions Indication:Smoker Start:26-May-2020 Instruction Type:Provider Instructions for Treatment How to access health informa tion online Indication:Smoker Start:08-Dec-2016 Instruction Type:Patient Education How to access health informa tion online - Detail Indication:Smoker Start:08-Dec-2016 Instruction Type:Patient Education Patient Instructions Indication:Smoker Start:08-Dec-2016 Instruction Type:Provider Instructions for Treatment How to access health informa tion online Indication:Smoker Start:16-Nov-2016 Instruction Type:Patient Education How to access health informa tion online - Detail Indication:Smoker Start:16-Nov-2016 Instruction Type:Patient Education Patient Instructions Indication:Smoker Start:16-Nov-2016 Instruction Type:Provider Instructions for Treatment Patient Instructions Indication:Arm wound Start:18-Nov-2013 Instruction Type:Provider Instructions for Treatment Patient Instructions Indication:Arm wound Start:12-Nov-2013 Instruction Type:Provider Instructions for Treatment Patient Instructions Indication:Depression Start:13-May-2013 Instruction Type:Provider Instructions for Treatment Patient Instructions: cont calamine lotion to dry Indication:Poison jose manuel Start:27-Jun-2012 Instruction Type:Provider Instructions for Treatment Name Dates Details How to access health informa tion online Indication:Smoker Start:15-Jun-2020 Instruction Type:Patient Education How to access health informa tion online - Detail Indication:Smoker Start:15-Jun-2020 Instruction Type:Patient Education Patient Instructions Indication:BMI 28.0-28.9,adult Start:15-Jun-2020 Instruction Type:Provider Instructions for Treatment How to access health informa tion online Indication:Smoker Start:26-May-2020 Instruction Type:Patient Education How to access health informa tion online - Detail Indication:Smoker Start:26-May-2020 Instruction Type:Patient Education Patient Instructions Indication:Smoker Start:26-May-2020 Instruction Type:Provider Instructions for Treatment How to access health informa tion online Indication:Smoker Start:08-Dec-2016 Instruction Type:Patient Education How to access health informa tion online - Detail Indication:Smoker Start:08-Dec-2016 Instruction Type:Patient Education Patient Instructions Indication:Smoker Start:08-Dec-2016 Instruction Type:Provider Instructions for Treatment How to access health informa tion online Indication:Smoker Start:16-Nov-2016 Instruction Type:Patient Education How to access health informa tion online - Detail Indication:Smoker Start:16-Nov-2016 Instruction Type:Patient Education Patient Instructions Indication:Smoker Start:16-Nov-2016 Instruction Type:Provider Instructions for Treatment Patient Instructions Indication:Arm wound Start:18-Nov-2013 Instruction Type:Provider Instructions for Treatment Patient Instructions Indication:Arm wound Start:12-Nov-2013 Instruction Type:Provider Instructions for Treatment Patient Instructions Indication:Depression Start:13-May-2013 Instruction Type:Provider Instructions for Treatment Patient Instructions: cont calamine lotion to dry Indication:Poison jose manuel Start:27-Jun-2012 Instruction Type:Provider Instructions for Treatment Name Dates Details How to access health informa tion online Indication:Smoker Start:15-Jun-2020 Instruction Type:Patient Education How to access health informa tion online - Detail Indication:Smoker Start:15-Jun-2020 Instruction Type:Patient Education Patient Instructions Indication:BMI 28.0-28.9,adult Start:15-Jun-2020 Instruction Type:Provider Instructions for Treatment How to access health informa tion online Indication:Smoker Start:26-May-2020 Instruction Type:Patient Education How to access health informa tion online - Detail Indication:Smoker Start:26-May-2020 Instruction Type:Patient Education Patient Instructions Indication:Smoker Start:26-May-2020 Instruction Type:Provider Instructions for Treatment How to access health informa tion online Indication:Smoker Start:08-Dec-2016 Instruction Type:Patient Education How to access health informa tion online - Detail Indication:Smoker Start:08-Dec-2016 Instruction Type:Patient Education Patient Instructions Indication:Smoker Start:08-Dec-2016 Instruction Type:Provider Instructions for Treatment How to access health informa tion online Indication:Smoker Start:16-Nov-2016 Instruction Type:Patient Education How to access health informa tion online - Detail Indication:Smoker Start:16-Nov-2016 Instruction Type:Patient Education Patient Instructions Indication:Smoker Start:16-Nov-2016 Instruction Type:Provider Instructions for Treatment Patient Instructions Indication:Arm wound Start:18-Nov-2013 Instruction Type:Provider Instructions for Treatment Patient Instructions Indication:Arm wound Start:12-Nov-2013 Instruction Type:Provider Instructions for Treatment Patient Instructions Indication:Depression Start:13-May-2013 Instruction Type:Provider Instructions for Treatment Patient Instructions: cont calamine lotion to dry Indication:Poison jose manuel Start:27-Jun-2012 Instruction Type:Provider Instructions for Treatment Name Dates Details How to access health informa tion online Indication:Smoker Start:15-Jun-2020 Instruction Type:Patient Education How to access health informa tion online - Detail Indication:Smoker Start:15-Jun-2020 Instruction Type:Patient Education Patient Instructions Indication:BMI 28.0-28.9,adult Start:15-Jun-2020 Instruction Type:Provider Instructions for Treatment How to access health informa tion online Indication:Smoker Start:26-May-2020 Instruction Type:Patient Education How to access health informa tion online - Detail Indication:Smoker Start:26-May-2020 Instruction Type:Patient Education Patient Instructions Indication:Smoker Start:26-May-2020 Instruction Type:Provider Instructions for Treatment How to access health informa tion online Indication:Smoker Start:08-Dec-2016 Instruction Type:Patient Education How to access health informa tion online - Detail Indication:Smoker Start:08-Dec-2016 Instruction Type:Patient Education Patient Instructions Indication:Smoker Start:08-Dec-2016 Instruction Type:Provider Instructions for Treatment How to access health informa tion online Indication:Smoker Start:16-Nov-2016 Instruction Type:Patient Education How to access health informa tion online - Detail Indication:Smoker Start:16-Nov-2016 Instruction Type:Patient Education Patient Instructions Indication:Smoker Start:16-Nov-2016 Instruction Type:Provider Instructions for Treatment Patient Instructions Indication:Arm wound Start:18-Nov-2013 Instruction Type:Provider Instructions for Treatment Patient Instructions Indication:Arm wound Start:12-Nov-2013 Instruction Type:Provider Instructions for Treatment Patient Instructions Indication:Depression Start:13-May-2013 Instruction Type:Provider Instructions for Treatment Patient Instructions: cont calamine lotion to dry Indication:Poison jose manuel Start:27-Jun-2012 Instruction Type:Provider Instructions for Treatment Name Dates Details How to access health informa tion online Indication:Smoker Start:15-Jun-2020 Instruction Type:Patient Education How to access health informa tion online - Detail Indication:Smoker Start:15-Jun-2020 Instruction Type:Patient Education Patient Instructions Indication:BMI 28.0-28.9,adult Start:15-Jun-2020 Instruction Type:Provider Instructions for Treatment How to access health informa tion online Indication:Smoker Start:26-May-2020 Instruction Type:Patient Education How to access health informa tion online - Detail Indication:Smoker Start:26-May-2020 Instruction Type:Patient Education Patient Instructions Indication:Smoker Start:26-May-2020 Instruction Type:Provider Instructions for Treatment How to access health informa tion online Indication:Smoker Start:08-Dec-2016 Instruction Type:Patient Education How to access health informa tion online - Detail Indication:Smoker Start:08-Dec-2016 Instruction Type:Patient Education Patient Instructions Indication:Smoker Start:08-Dec-2016 Instruction Type:Provider Instructions for Treatment How to access health informa tion online Indication:Smoker Start:16-Nov-2016 Instruction Type:Patient Education How to access health informa tion online - Detail Indication:Smoker Start:16-Nov-2016 Instruction Type:Patient Education Patient Instructions Indication:Smoker Start:16-Nov-2016 Instruction Type:Provider Instructions for Treatment Patient Instructions Indication:Arm wound Start:18-Nov-2013 Instruction Type:Provider Instructions for Treatment Patient Instructions Indication:Arm wound Start:12-Nov-2013 Instruction Type:Provider Instructions for Treatment Patient Instructions Indication:Depression Start:13-May-2013 Instruction Type:Provider Instructions for Treatment Patient Instructions: cont calamine lotion to dry Indication:Poison jose manuel Start:27-Jun-2012 Instruction Type:Provider Instructions for Treatment Name Dates Details How to access health informa tion online Indication:Smoker Start:15-Jun-2020 Instruction Type:Patient Education How to access health informa tion online - Detail Indication:Smoker Start:15-Jun-2020 Instruction Type:Patient Education Patient Instructions Indication:BMI 28.0-28.9,adult Start:15-Jun-2020 Instruction Type:Provider Instructions for Treatment How to access health informa tion online Indication:Smoker Start:26-May-2020 Instruction Type:Patient Education How to access health informa tion online - Detail Indication:Smoker Start:26-May-2020 Instruction Type:Patient Education Patient Instructions Indication:Smoker Start:26-May-2020 Instruction Type:Provider Instructions for Treatment How to access health informa tion online Indication:Smoker Start:08-Dec-2016 Instruction Type:Patient Education How to access health informa tion online - Detail Indication:Smoker Start:08-Dec-2016 Instruction Type:Patient Education Patient Instructions Indication:Smoker Start:08-Dec-2016 Instruction Type:Provider Instructions for Treatment How to access health informa tion online Indication:Smoker Start:16-Nov-2016 Instruction Type:Patient Education How to access health informa tion online - Detail Indication:Smoker Start:16-Nov-2016 Instruction Type:Patient Education Patient Instructions Indication:Smoker Start:16-Nov-2016 Instruction Type:Provider Instructions for Treatment Patient Instructions Indication:Arm wound Start:18-Nov-2013 Instruction Type:Provider Instructions for Treatment Patient Instructions Indication:Arm wound Start:12-Nov-2013 Instruction Type:Provider Instructions for Treatment Patient Instructions Indication:Depression Start:13-May-2013 Instruction Type:Provider Instructions for Treatment Patient Instructions: cont calamine lotion to dry Indication:Poison jose manuel Start:27-Jun-2012 Instruction Type:Provider Instructions for Treatment Name Dates Details How to access health informa tion online Indication:Smoker Start:15-Jun-2020 Instruction Type:Patient Education How to access health informa tion online - Detail Indication:Smoker Start:15-Jun-2020 Instruction Type:Patient Education Patient Instructions Indication:BMI 28.0-28.9,adult Start:15-Jun-2020 Instruction Type:Provider Instructions for Treatment How to access health informa tion online Indication:Smoker Start:26-May-2020 Instruction Type:Patient Education How to access health informa tion online - Detail Indication:Smoker Start:26-May-2020 Instruction Type:Patient Education Patient Instructions Indication:Smoker Start:26-May-2020 Instruction Type:Provider Instructions for Treatment How to access health informa tion online Indication:Smoker Start:08-Dec-2016 Instruction Type:Patient Education How to access health informa tion online - Detail Indication:Smoker Start:08-Dec-2016 Instruction Type:Patient Education Patient Instructions Indication:Smoker Start:08-Dec-2016 Instruction Type:Provider Instructions for Treatment How to access health informa tion online Indication:Smoker Start:16-Nov-2016 Instruction Type:Patient Education How to access health informa tion online - Detail Indication:Smoker Start:16-Nov-2016 Instruction Type:Patient Education Patient Instructions Indication:Smoker Start:16-Nov-2016 Instruction Type:Provider Instructions for Treatment Patient Instructions Indication:Arm wound Start:18-Nov-2013 Instruction Type:Provider Instructions for Treatment Patient Instructions Indication:Arm wound Start:12-Nov-2013 Instruction Type:Provider Instructions for Treatment Patient Instructions Indication:Depression Start:13-May-2013 Instruction Type:Provider Instructions for Treatment Patient Instructions: cont calamine lotion to dry Indication:Poison jose manuel Start:27-Jun-2012 Instruction Type:Provider Instructions for Treatment Name Dates Details How to access health informa tion online Indication:Smoker Start:15-Jun-2020 Instruction Type:Patient Education How to access health informa tion online - Detail Indication:Smoker Start:15-Jun-2020 Instruction Type:Patient Education Patient Instructions Indication:BMI 28.0-28.9,adult Start:15-Jun-2020 Instruction Type:Provider Instructions for Treatment How to access health informa tion online Indication:Smoker Start:26-May-2020 Instruction Type:Patient Education How to access health informa tion online - Detail Indication:Smoker Start:26-May-2020 Instruction Type:Patient Education Patient Instructions Indication:Smoker Start:26-May-2020 Instruction Type:Provider Instructions for Treatment How to access health informa tion online Indication:Smoker Start:08-Dec-2016 Instruction Type:Patient Education How to access health informa tion online - Detail Indication:Smoker Start:08-Dec-2016 Instruction Type:Patient Education Patient Instructions Indication:Smoker Start:08-Dec-2016 Instruction Type:Provider Instructions for Treatment How to access health informa tion online Indication:Smoker Start:16-Nov-2016 Instruction Type:Patient Education How to access health informa tion online - Detail Indication:Smoker Start:16-Nov-2016 Instruction Type:Patient Education Patient Instructions Indication:Smoker Start:16-Nov-2016 Instruction Type:Provider Instructions for Treatment Patient Instructions Indication:Arm wound Start:18-Nov-2013 Instruction Type:Provider Instructions for Treatment Patient Instructions Indication:Arm wound Start:12-Nov-2013 Instruction Type:Provider Instructions for Treatment Patient Instructions Indication:Depression Start:13-May-2013 Instruction Type:Provider Instructions for Treatment Patient Instructions: cont calamine lotion to dry Indication:Poison jose manuel Start:27-Jun-2012 Instruction Type:Provider Instructions for Treatment Chief Complaint and Reason for Visit Chief Complaint med check NEED ORDER adipex weight check 1st visit SCREENING cp Reason for Visit BMI 30.0-30.9,adult Climacteric Chief Complaint 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 Reason for Visit Climacteric Weight gain Encounter for routine gynecological examination Chief Complaint 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) May 06, 2025 10:00 am Reason for Visit Admit Date Sinusitis February 16, 2025 9:3 4am Climacteric May 06, 2025 10:00 am Obesity, unspecified May 06, 2025 10:0 0am Encounter for routine gynecological exam ination May 06, 2025 10:00am Chief Complaint Admit Date CONCERN FOR SINUS INFECTION February 16, 2025 9:34am 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) May 06, 2025 10:00 am screen for breast cancer May 19, 2025 12:31pm Chief Complaint Admit Date CONCERN FOR SINUS INFECTION February 16, 2025 9:34am 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) May 06, 2025 10:00 am screen for breast cancer May 19, 2025 12:31pm Angina/SOB/Edema/Fatigue (Self) May 302024 2:54pm Advance Directives No Advanced Directives Records Found Advance Directive Response Recorded Date/ Time Living Will No January 23, 2022 12:21am 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 No January 23 12:21am Advance Directive Response Recorded Date/ Time Living Will No July 31 3 3:28pm 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 No July 31 023 3:28pm Advance Directive Response Recorded Date/ Time Living Will No July 31 3 4:28pm 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 No July 31 023 4:28pm Summary Purpose Additional Source Comments Goals (unrecognized section and content) Goals may be documented in a n alternate sectionGoals may be documented in an alternate sectionGoals may be documented in an alternate sectionGoals may be documented in an alternate sectionGoals may be documented in an alternate sectionGoals may be documented in an alternate sectionGoals may be documented in an alternate sectionGoals may be documented in an alternate sectionGoals may be documented in an alternate section Care Teams (unrecognized sec tion and content) Team Status: Active Member Role Status Dates Helen Kerr [employer]S HANDLER, [employer]S HANDLER-C Family Provider Active Lu Harrington [employer]ER-C Primary Care Provider Active Team Status: Inactive Member Role Status Dates Helen Kerr [employer]O PARTS HANDLER, [employer] PARTS HANDLER-C Primary Care Provider, Referring P rovider Active Gail Jacobs CNM Attending Provider Active Team Status: Inactive Member Role Status Dates Lu Harrington [employer]ER-C Primary Care Provider Active Gail Jacobs CNM Attending Provider, Referring Pr ovider Active Team Status: Inactive Member Role Status Dates Lu Harrington , [employer]O PARTS HANDLER-C Primary Care Provider Active Dr. Luann Wren DO Attending Provider, Refe rring Provider Active Team Status: Inactive Member Role Status Dates Helen Kerr [employer]O PARTS HANDLER, [employer] PARTS HANDLER-C Referring Provider Active Dr. Kelsea Chu MD Attending Provider Active Lu Harrington NP-C Primary Care Provider Active Team Status: Inactive Member Role Status Dates Lu Harrington [employer]ER-C Primary Care Provider Active Dr. Kelsea Chu MD Attending Provider, Referr ing Provider Active Team Status: Active Member Role Status Dates Helen Kerr [employer] PARTS HANDLER, [employer] PARTS HANDLER-C Family Provider Active Dr. Chanel Cisneros MD Primary Care Provider Active Team Status: Inactive Member Role Status Dates Lu Harrington NP-C Referring Provider Active Dr. Kelsea Chu MD Attending Provider Active Team Status: Inactive Member Role Status Dates Dr. Kelsea Chu MD Attending Provider Active Team Status: Inactive Member Role Status Dates Dr. Chanel Cisneros MD Attending Provider Active Team Status: Inactive Member Role Status Dates Guerita Waddell PA, PA Attending Provider Active Team Status: Inactive Member Role Status Dates Dr. Chanel Cisneros MD Primary Care P rovider, Attending Provider, Referring Provider Active Team Status: Inactive Member Role Status Dates Dr. Chanel Cisneros MD Primary Care Provider, Refer ring Provider Active Aman Coughlin PA, PA Attending Provider Active Team Status: Inactive Member Role Status Dates Dr. Chanel Cisneros MD Primary Care Provider Active JAK JARAMILLO Attending Provider Active Team Status: Active Member Role/Relationship Status Dates Dr. Chanel Cisneros MD Primary Care Provider Active Team Status: Inactive Member Role/Relationship Status Dates Dr. Chanel Cisneros MD Primary Care Provider Active Start: February 16, 2025 End: February 16, 2025 Dr. Chanel Cisneros MD Referring Provider Active Start: February 16, 2025 End: February 16, 2025 Erick Niño NP, [employer]S HANDLER-C Attending Provider Active S tart: February 16, 2025 End: February 16, 2025 Team Status: Inactive Member Role/Relationship Status Dates Dr. Chanel Cisneros MD Primary Care Provider Active Start: May 06, 2025 End: May 06, 2025 Dr. Chanel Cisneros MD Referring Provider Active Start: May 06, 2025 End: May 06, 2025 VINICIUS Melendez Attending Provider Active Start: May 06, 2025 End: May 06, 2025 Team Status: Active Member Role/Relationship Status Dates VINICIUS Deras Primary Care Provider Active Team Status: Inactive Member Role/Relationship Status Dates VINICIUS Melendez Attending Provider Active Start: May 19, 2025 End: May 19, 2025 VINICIUS Melendez Referring Provider Active Start: May 19, 2025 End: May 19, 2025 VINICIUS Deras Primary Care Provider Active Start: May 19, 2025 End: May 19, 2025 Team Status: Inactive Member Role/Relationship Status Dates VINICIUS Deras Primary Care Provider Active Start: June 13, 2025 End: June 13, 2025 VINICIUS Deras Referring Provider Active Start: June 13, 2025 End: June 13, 2025 Dr. Scott Fleming MD Attending Provider Active Start: June 13, 2025 End: June 13, 2025 INFORMATION SOURCE (unrecogn ized section and content) DATE CREATED AUTHOR 06/22/2025 [facility] FOR RECORDS PERTAINING TO PATIENTS WHO ARE OR HAVE BEEN ENROLLED IN A CHEMICAL DEPENDENCY/SUBSTANCEABUSE PROGRAM, SOME INFORMATION MAY BE OMITTED. This clinical summary was aggregated from multiple sources. Caution should be exercised in using it in the provision of clinical care. This summary normalizes information from multiple sources, and as a consequence, information in this document may materially change the coding, format and clinical context of patient data. In addition, data may be omitted in some cases. CLINICAL DECISIONS SHOULD BE BASED ON THE PRIMARY CLINICAL RECORDS. [employer] [facility]. provides no warranty or guarantee of the accuracy or completeness of information in this document.
--- NOTE | 2025-06-28 13:59 | ED.VIS.GI ---
HPI HPI - GI History of Present Illness Chief Complaint: Flank Pain Informant: patient Abdominal Pain/Flank Pain Onset: Today Context: Sudden Onset Timing: Intermittent Location: Left Flank Current Severity: Moderate Maximum Severity: Moderate Worsened by: Nothing Relieved by: Nothing Nausea/Vomiting/Emesis GI Symptom: Positive for Vomiting Onset: Today Severity: Mild Diarrhea/Melena/Hematochezia GI Symptom: Negative for Diarrhea, Melena or Hematochezia Associated Symptoms Associated Symptoms: Negative for Dysuria, Frequency, Hematuria or Urgency Narrative Narrative: 55-year-old female history of prediabetes, on immune hepatitis prior hernia repair and prior kidney stone. Since she has had urinary symptoms did not drink as much fluids yesterday today had sudden onset left flank pain associated nausea vomiting. Thinks she may have another stone. Denies any dysuria or hematuria. No fall or trauma. Pain is now intermittent. Prior similar symptoms: Yes Recent Illness/Hospitalization: No PFSH PFSH Medical History Autoimmune hepatitis Hyperlipidemia Borderline type 2 diabetes mellitus Kidney stones Hormone deficiency Carpal tunnel syndrome Breast lump in female Back problem Fatigue Home Medications ?Medication ?Instructions ?Recorded ?Last Taken ?Type lactobacillus combination no.9 4 4,000 mmu cells PO DAILY 06/26/20 Unknown History billion cell capsule (Adult 50 Plus Probiotic) multivitamin 1 tab PO DAILY 06/26/20 Unknown History albuterol sulfate 90 mcg/actuation 2 puff inhalation Q4-6H PRN 02/16/25 Unknown Rx aerosol inhaler shortness of breath or wheezing #6.7 grams medroxyprogesterone 2.5 mg tablet 2.5 mg PO DAILY #30 TABLETS 03/17/25 Unknown Rx doxycycline hyclate 20 mg tablet 20 mg PO BID 05/06/25 Unknown History estradiol 0.025 mg/24 hr 1 patch transdermal 2XW #24 ea 05/06/25 Unknown Rx semiweekly transdermal patch topiramate 25 mg tablet 44 mg PO BID 05/06/25 Unknown History cholecalciferol (vitamin D3) 25 25 mcg PO QDAY 06/06/25 Unknown History mcg (1,000 unit) capsule ivermectin 1 % topical cream 1 applic topical QHS 06/06/25 Unknown History metformin 500 mg tablet,extended 500 mg PO QDAY 06/06/25 Unknown History release 24 hr (Glucophage XR) saw palmetto-pumpkin seed oil 1 cap PO DAILY 06/13/25 Unknown History Allergy/AdvReac Type Severity Reaction Status Date / Time No Known Allergies Allergy Verified 06/28/25 12:51 Family History Mother Thyroid cancer Brain aneurysm Father Cancer Heart disease Hypertension CHF (congestive heart failure) Other Arthritis Colon cancer Diabetes Lung cancer Surgical History H/O foot surgery Hx of hernia repair Social History Smoking Status: Former smoker alcohol intake: current alcohol intake frequency: holidays/special occasions only substance use type: does not use caffeine: No what type of physical activity do you participate in: none seatbelt use: always do you feel safe at home: Yes additional social history: - Meet ROS ROS ED ROS Narrative Left flank pain. Nausea vomiting. Constitutional Constitutional ED: Denies chills or fever(s) ENT ENT ED: Denies ear pain Cardiovascular Cardiovascular: Denies chest pain Respiratory/Chest Respiratory/Chest: Denies cough or dyspnea Gastrointestinal Gastrointestinal: Reports abdominal pain, nausea and vomiting Genitourinary Genitourinary ED: Denies dysuria or hematuria Musculoskeletal Musculoskeletal: Denies arthralgias or back pain Integumentary Denies abscess Neurologic Neurologic: Denies headache(s) Psychiatric Psychiatric: Denies anxiety or depression Endocrine Endocrinology: Denies polydipsia Hematologic/Lymphatic Hematologic/Lymphatic: Denies easy bleeding or easy bruising Allergic/Immunologic Allergic/Immunologic ED: Denies mouth swelling, tongue swelling or urticaria EXAM Physical Exam Narrative Exam Narrative: 55-year-old female vital signs stable afebrile. No acute distress. Having intermittent left flank pain. H EENT exam pupils are reactive light. Moist rehemorrhage. Neck nontender no JVD. Lungs clear to auscultation. Heart regular rhythm rate about 90 no murmur. Chest wall ribs nontender. Abdomen soft, nontender nondistended normal bowel sounds no peritoneal signs. No reproducible pain. Back nontender. Moving all 4 extremities. Normal strength. Normal range of motion. She is awake and alert. Answering questions following commands. Const Vital Signs: 06/28/25 12:50 06/28/25 14:07 06/28/25 14:15 Temperature 98.2 F 98.3 F Temperature Source Oral Oral Pulse Rate 93 79 80 Respiratory Rate 20 H 14 16 Blood Pressure 139/87 H 123/70 H 135/84 H Blood Pressure Mean 104 87 101 Pulse Ox 100 93 99 Oxygen Delivery Method Room Air Room Air Positive well nourished and well developed; Negative for cachectic, contractures or unkempt General Appearance ED: well developed and NAD; Negative for unkempt, cachectic, contractures or pallor Nutritional Appearance: Negative for cachectic HEENT Reports moist mucous membranes normocephalic and atraumatic Eyes PERRL and EOMs intact bilaterally Neck no lymphadenopathy, supple and no JVD Resp normal respiratory effort and clear to auscultation bilaterally Cardio regular rate, regular rhythm, S1 normal heart sound, S2 normal heart sound and no murmurs GI non-tender, non-distended and no masses Auscultation: normoactive bowel sounds Palpation: soft; Negative for tender, guarding or rebound tenderness present Back/Spine no CVA tenderness General Back: Negative for CVA tenderness Cervical Spine: Negative for cervical spine tenderness Thoracic Spine / Upper Back: Negative for thoracic spinal tenderness Lumbar Spine / Lower Back: Negative for lumbar spinal tenderness Coccyx: Negative for other Extremity full ROM General Extremety ED: Negative for edema or tenderness General Extremity: Negative for edema Neuro CN's II-XII intact bilaterally and moves all extremities Sensorium / Orientation: alert, oriented to person, oriented to place and oriented to time Motor Exam: strength 5/5 throughout Psych mental status grossly normal and thought process normal Appearance: Negative for unkempt Skin no wounds General Skin Exam: Negative for jaundice or pallor Lesions: no lesions Rashes: no rashes MDM MDM MDM Narrative Medical decision making narrative: 55-year-old female with sudden onset left flank pain today. Differential includes kidney stone versus infection versus other etiology. CAT scan and labs are pending. She will be treated with Zofran for nausea and morphine for pain and Toradol. Repeat exam at 3:20 PM. Patient doing well. Pain-free. Went over test results. She is comfortable being discharged home. She did not want any further pain meds from show use Motrin and Tylenol. Follow-up as needed. History & Record Review Discussion w/independent historian: Patient Additional record(s) reviewed:: Prior inpatient record, Prior outpatient record, Prior ED visit and Prior labs Lab Data Attestation: I reviewed the patient's lab results. Lab results narrative: CBC normal. White count 9. H&H 14 and 43. Platelets 234. Electrolytes unremarkable gap 13 normal BUN and creatinine. Glucose 122. Urinalysis 250 occult blood no nitrates. Greater than 100 red cells. No white cells rare bacteria. CAT scan consistent with a left UVJ stone. Labs: Laboratory Results - last 24 hr 06/28/25 13:09 WBC 9.4 RBC 4.73 Hgb 14.3 Hct 43.0 MCV 90.9 MCH 30.2 MCHC 33.3 RDW Std Deviation 45.2 H RDW Coeff of Gloria 13.4 Plt Count 234 MPV 10.6 Immature Gran % (Auto) 0.300 Neut % (Auto) 81.2 H Lymph % (Auto) 9.4 L [place] % (Auto) 6.1 Eos % (Auto) 2.4 Baso % (Auto) 0.6 Absolute Neuts (auto) 7.6 Absolute Lymphs (auto) 0.88 Nucleated RBC % 0 Sodium 138 Potassium 3.8 Chloride 104 Carbon Dioxide 20.5 L Anion Gap 13 BUN 6 Creatinine 0.64 L Estim Creat Clear Calc 109.16 Est GFR (MDRD) Non-Af 104 BUN/Creatinine Ratio 10.1 Glucose 122 H Calcium 9.2 Urine Color Yellow Urine Clarity Cloudy Urine pH 5.0 Ur Specific [place] 1.020 Urine Protein 100 H Urine Glucose (UA) Normal Urine Ketones Negative Urine Occult Blood 250 H Urine Nitrite Negative Urine Bilirubin Negative Urine Urobilinogen Normal Ur Leukocyte Esterase 25 H Urine RBC > 100 SEEN Urine WBC 0-5 SEEN Ur Squamous Epith Cells 0-5 SEEN Urine Bacteria RARE Urine Mucus 2+ Radiography Diagnostic Testing: Clinical Impression(s) from Imaging Studies Abdomen/Pelvis CT 06/28/25 14:22 IMPRESSION: Minimally obstructing stone left UVJ measuring 3 mm. Correlate for pain and hematuria. Reading Location: [facility] Discharge Plan Triage Chief Complaint: Flank Pain ED Provider: Kelton Bowman Dx/Rx/DC Orders Clinical Impression: Acute flank pain, Kidney stone on left side Instructions: ED Kidney Stone with Pain Prescriptions: No Action multivitamin Tablet 1 tab PO DAILY Adult 50 Plus Probiotic 4 billion cell capsule 4,000 mmu cells PO DAILY Rx Instructions: administer with a meal albuterol sulfate 90 mcg/actuation HFA aerosol inhaler 2 puff inhalation Q4-6H PRN (Reason: shortness of breath or wheezing) Qty: 6.7 0RF topiramate 25 mg tablet 44 mg PO BID doxycycline hyclate 20 mg tablet 20 mg PO BID estradiol 0.025 mg/24 hr patch semiweekly 1 patch transdermal 2XW Qty: 24 3RF Rx Instructions: apply 1 patch for 3 days alternating with 1 patch for 4 days each week metformin [Glucophage XR] 500 mg tablet extended release 24 hr 500 mg PO QDAY cholecalciferol (vitamin D3) 25 mcg (1,000 unit) capsule 25 mcg PO QDAY ivermectin 1 % cream 1 applic topical QHS saw palmetto-pumpkin seed oil 1 cap PO DAILY medroxyprogesterone 2.5 mg tablet 2.5 mg PO DAILY Qty: 30 5RF Primary Care Provider: Lu Harrington Referrals: Lu Harrington, INTERNET DESIGNER-C [Primary Care Provider] - As Needed Activity Restrictions/Additional Instructions: Plenty of fluids. Motrin and Tylenol for pain. You have a kidney stone that is just above your bladder once it passes in your bladder your pain should resolve. Print Language: Australian Disposition Disposition: Home, Self Care
[2025-06-28 14:07] VITALS: BP 123/70; PULSE 79; RESP 14; TEMP 36.8; O2SAT 93
[2025-06-28] MEDS: 0.9% Normal Saline (1000mL) 1,000 ML 999 ML IV (14:08)
[2025-06-28] MEDS: Ketorolac 30 MG/ML Syringe IV (14:09)
[2025-06-28 14:13] LABS: Color, Urine Yellow (Yellow); Glucose, Dipstick Normal (Normal); Hematocrit 43.0 % (37-47); Hemoglobin 14.3 g/dL (12.0-15.0); Immature Granulocytes Count 0.030 X10^3/uL (0.0-0.0); Ketone-Dipstick Negative (Negative); Leukocyte Esterase-Dipstick 25 /ul (Negative); Mean Corp Hgb Conc 33.3 g/dL (32-36); Mean Corpuscular Volume 90.9 fL (81-99); Mean Platelet Vol. 10.6 fl (6.2-12.0); NRBC Flagged by Analyzer 0 % (0-5); Nitrite-Dipstick Negative (Negative); Occult Blood-Urine 250 /ul (Negative); Platelet Count 234 K/mm3 (150-450); Protein-Dipstick 100 mg/dl (Negative); RBC Distribution Width CV 13.4 % (11.6-14.6); RBC Distribution Width SD 45.2 fl (35.1-43.9); Red Blood Count 4.73 M/mm3 (4.2-5.4); Specific Gravity, Urine 1.020 (1.002-1.030); Urine Bilirubin Dipstick Negative (Negative); White Blood Count 9.4 K/mm3 (4.4-11.0)
[2025-06-28 14:15] VITALS: BP 135/84; PULSE 80; RESP 16; O2SAT 99
--- NOTE | 2025-06-28 14:22 | CT_ITS ---
PROCEDURE: ABDOMEN/PELVIS WITHOUT CONT 06/28/2025 REASON FOR EXAM: PAIN TECHNIQUE: Procedure Code: CTABDPEL Modality: CT Procedure: ABDOMEN/PELVIS WITHOUT CONT Noncontrast technique limits evaluation of the abdominal and pelvic viscera. Coronal and Sagittal reconstruction series were provided. One or more dose reduction techniques were used (e.g., Automated exposure control, adjustment of the mA and/or kV according to patient size, use of iterative reconstruction technique). RADIATION DOSE SUMMARY: CTDlvol: 18 mGy DLP: 1002 mGycm COMPARISON: None FINDINGS: Noncontrast appearance of the liver and gallbladder are unremarkable. Normal appearance to the spleen. No pancreatic inflammation. Nonobstructing 3 mm stone in the lower pole of the right kidney. There is a small stone at the left UVJ measuring 3 mm. Subtle fullness of the left ureter. Mild dilatation of the left renal collecting system. This is minimal. CT/Abdomen/Pelvis without Cont IMPRESSION: Minimally obstructing stone left UVJ measuring 3 mm. Correlate for pain and he maturia. Reading [facility]
[2025-06-28 14:24] LABS: Mucous, Urine 2+ /hpf (<or=2+); Red Blood Cells-Urine > 100 SEEN /hpf (0-5); Squamous Epithelial Cells - UA 0-5 SEEN /hpf (5-10)
--- NOTE | 2025-06-28 15:09 | ED.RN ---
lab called at this time to check on pt's chemistry blood results. skilled labor states that she just came on shift and she will check the instrument. skilled labor states that lab results are about done and should result in a few mins. pt updated on delay of care
[2025-06-28 15:11] LABS: Anion Gap 13 (5-15); BUN 6 mg/dL (4-19); BUN/Creat Ratio 10.1 RATIO (10-20); Calcium,Total 9.2 mg/dL (7.6-11.0); Carbon Dioxide 20.5 mmol/L (21.0-32.0); Chloride 104 mmol/L (98-108); Estimated Creatinine Clearance 109.16 ml/min (50-250); Glucose 122 mg/dL (70-99); Potassium 3.8 mmol/L (3.3-5.1)
[2025-06-28 15:35] VITALS: BP 123/69; PULSE 74; RESP 16; TEMP 36.8; O2SAT 99
== END 2025-06-28 15:36 | disposition home or self-care (01) ==
PROVIDERS: Emergency Provider Emergency Medicine; PCP Nurse Practitioner Family; Visit Provider Emergency Medicine
DX: R10.9 Unspecified abdominal pain (principal); E78.5 Hyperlipidemia, unspecified; N20.2 Calculus of kidney with calculus of ureter; Z87.891 Personal history of nicotine dependence; R11.2 Nausea with vomiting, unspecified
CPT/HCPCS: 74176; 80048; 81001; 85025; 96361; 96374; 96375; 99283; A4216; J2405

== ENCOUNTER → 2025-07-22 | Outpatient (CLI) | payer OTHER, SELFPAY ==
--- NOTE | 2025-07-22 20:06 | STRESSREP ---
Stress Test Report Exercise myocardial perfusion stress test. 55-year-old female with a history of chest pain. Stress protocol: Resting EKG demonstrates normal sinus rhythm with a rate of 67 bpm resting blood pressure is 130/88 mmHg. The patient exercised according to the regular Roman protocol for a total duration of 8 minutes attaining a maximum heart rate of 160 bpm which was 96% of maximum predicted heart rate; the maximum workload was 10.1 metabolic equivalents. At rest there were no ST or T wave changes noted to suggest ischemia and at peak exercise upsloping ST changes only were noted which did not meet the criteria for ischemia. No clinical angina was noted the test was terminated due to the target heart rate being achieved/fatigue. The peak blood pressure was 188/90 mmHg. Rate-pressure product was 30,000. Conclusion Normal exercise stress test with no EKG for ischemia at a high workload
== END | disposition home or self-care (01) ==
PROVIDERS: PCP Nurse Practitioner Family; Referring Provider Internal Medicine Cardiovascular Disease; Visit Provider Internal Medicine Cardiovascular Disease
DX: R07.9 Chest pain, unspecified (principal); R06.09 Other forms of dyspnea
CPT/HCPCS: 93017

== ENCOUNTER 2025-08-21 09:28 | Emergency (ER) | payer OTHER, SELFPAY ==
[2025-08-21 09:29] VITALS: BP 128/83; PULSE 73; RESP 20; TEMP 36.6; O2SAT 100
--- NOTE | 2025-08-21 09:51 | EDS_ITS ---
HPI HPI - GI History of Present Illness Chief Complaint: Abd Pain Informant: patient Abdominal Pain/Flank Pain Onset: Today Context: Sudden Onset Timing: Continuous Quality: Burning and - (Tightness) Location: Diffuse Worsened by: - (Sitting) Relieved by: - (Pepto-Bismol) Nausea/Vomiting/Emesis GI Symptom: Positive for Nausea; Negative for Vomiting Diarrhea/Melena/Hematochezia GI Symptom: Negative for Diarrhea, Melena or Hematochezia Associated Symptoms Associated Symptoms: Negative for Dysuria, Frequency or Hematuria Narrative Narrative: Patient presents with abdominal pain that began this morning. Patient states it began rather suddenly. Patient states it has been constant. Patient describes it as burning and tightness. Patient states it is diffuse across her entire abdomen. Patient states it has improved since arriving to the emergency department. Patient states it did get worse when she sat up. Patient states he got somewhat better after taking Pepto-Bismol. Patient admits to some nausea but denies any vomiting. Patient denies any diarrhea, melena, or hematochezia. Patient denies any dysuria, frequency, or hematuria. [facility] Medical History Autoimmune hepatitis Hyperlipidemia Borderline type 2 diabetes mellitus Kidney stones Hormone deficiency Carpal tunnel syndrome Breast lump in female Back problem Fatigue Home Medications ?Medication ?Instructions ?Recorded ?Last Taken ?Type lactobacillus combination no.9 4 4,000 mmu cells PO DA VIVIANA 06/26/20 Unknown History billion cell capsule (Adult 50 Plus Probiotic) multivitamin 1 tab PO DAILY 06/26/20 Unkn own History albuterol sulfate 90 mcg/actuation 2 puff inhalation Q 4-6H PRN 02/16/25 Unknown Rx aerosol inhaler shortness of breath or wheez ing #6.7 grams medroxyprogesterone 2.5 mg tablet 2.5 mg PO DAILY #30 TABLETS 03/17/25 Unknown Rx doxycycline hyclate 20 mg tablet 20 mg PO BID 05/06/25 Unknown History estradiol 0.025 mg/24 hr 1 patch transdermal 2XW #24 ea 05/06/25 Unknown Rx semiweekly transdermal patch topiramate 25 mg tablet 44 mg PO BID 05/06/25 Unknow n History cholecalciferol (vitamin D3) 25 25 mcg PO QDAY 5 Unknown History mcg (1,000 unit) capsule ivermectin 1 % topical cream 1 applic topical QHS 06/23 Unknown History metformin 500 mg tablet,extended 500 mg PO QDAY Unknown History release 24 hr (Glucophage XR) saw palmetto-pumpkin seed oil 1 cap PO DAILY 06/13/25 Unknown History 2.5ml 08/21/25 Unknown History Allergy/AdvReac Type Severity Reaction Status Date / Time No Known Allergies Allergy Verified 08/21/25 09:29 Family History Mother Thyroid cancer Brain aneurysm Father Cancer Heart disease Hypertension CHF (congestive heart failure) Other Arthritis Colon cancer Diabetes Lung cancer Surgical History H/O foot surgery Hx of hernia repair Social History Smoking Status: Former smoker alcohol intake: current alcohol intake frequency: holidays/special occasions only substance use type: does not use caffeine: No what type of physical activity do you participate in: none seatbelt use: always do you feel safe at home: Yes additional social history: - Meet ROS ROS ED Constitutional Constitutional ED: Denies chills or fever(s) Eyes Eyes: Denies blurry vision or change in vision ENT ENT ED: Denies rhinorrhea or sore throat Cardiovascular Cardiovascular: Denies chest pain or palpitations Respiratory/Chest Respiratory/Chest: Denies cough or dyspnea Gastrointestinal Gastrointestinal: Reports abdominal pain and nausea; Denies diarrhea or vomiting Genitourinary Genitourinary ED: Denies dysuria or hematuria Musculoskeletal Musculoskeletal: Reports back pain; Denies neck pain Integumentary Denies abscess or rash Neurologic Neurologic: Denies headache(s) or weakness Allergic/Immunologic Allergic/Immunologic ED: Denies mouth swelling or urticaria EXAM Physical Exam Const Vital Signs: 08/21/25 09:29 08/21/25 10:29 08/21/25 11:00 Temperature 98 F Temperature Source Temporal Pulse Rate 73 84 82 Respiratory Rate 20 H 16 16 Blood Pressure 128/83 H Blood Pressure Mean 98 Pulse Ox 100 99 99 Oxygen Delivery Method Room Air Room Air Room Air Positive well nourished and well developed General Appearance ED: well developed and NAD HEENT Reports moist mucous membranes Neck supple and no JVD Resp normal respiratory effort and clear to auscultation bilaterally Cardio regular rate and regular rhythm GI non-distended Palpation: soft and tender epigastric and RUQ; Negative for guarding or rebound tenderness present Neuro CN's II-XII intact bilaterally, moves all extremities and no sensory deficits noted Sensorium / Orientation: alert Motor Exam: strength 5/5 throughout Psych mental status grossly normal MDM MDM MDM Narrative Medical decision making narrative: Differential diagnosis includes bowel obstruction, perforation, pancreatitis, gastritis, colitis, diverticulitis, pyelonephritis, urinary tract infection, and viral illness. CBC will be obtained to assess for leukocytosis and anemia. Comprehensive metabolic profile will be obtained to assess for hepatic function, renal function, and electrolyte abnormality. Urinalysis will be obtained to assess for urinary tract infection and hematuria. Lipase will be obtained to assess for pancreatitis. CT scan of the abdomen and pelvis will be obtained to assess for bowel obstruction and perforation. Lab Data Attestation: I reviewed the patient's lab results. Lab results narrative: CBC was reviewed and was within normal limits. Comprehensive metabolic profile was reviewed. Glucose was mildly elevated at 140. The remainder is within normal limits. Lipase was reviewed and was normal at 39. Urinalysis was reviewed. There is no evidence of urinary tract infection or hematuria. Labs: Laboratory Results - last 24 hr 08/21/25 08/21/25 09:44 11:47 WBC 4.9 RBC 4.77 Hgb 14.2 Hct 42.9 MCV 89.9 MCH 29.8 MCHC 33.1 RDW Std Deviation 45.5 H RDW Coeff of [place] 13.6 Plt Count 261 MPV 10.3 Immature Gran % (Auto) 0.200 Neut % (Auto) 61.5 Lymph % (Auto) 28.6 [place] % (Auto) 5.7 Eos % (Auto) 3.0 Baso % (Auto) 1.0 Absolute Neuts (auto) 3.0 Absolute Lymphs (auto) 1.41 Nucleated RBC % 0 Sodium 139 Potassium 4.2 Chloride 106 Carbon Dioxide 23.0 Anion Gap 11 BUN 11 Creatinine 0.59 L Est GFR (MDRD) Non-Af 106 BUN/Creatinine Ratio 18.6 Glucose 140 H Calcium 9.0 Total Bilirubin 0.42 AST 29 ALT 23 Alkaline Phosphatase 93 Total Protein 6.8 Albumin 4.1 Globulin 2.6 Albumin/Globulin Ratio 1.6 Lipase 39 Urine Color Yellow Urine Clarity Clear Urine pH 7.0 Ur Specific [place] 1.005 Urine Protein Negative Urine Glucose (UA) Normal Urine Ketones Negative Urine Occult Blood Negative Urine Nitrite Negative Urine Bilirubin Negative Urine Urobilinogen Normal Ur Leukocyte Esterase 25 H Urine RBC 0 SEEN Urine WBC 0 SEEN Ur Squamous Epith Cells 0-5 SEEN Urine Bacteria 0 SEEN Urine Mucus 0 SEEN Radiography Diagnostic Testing: Clinical Impression(s) from Imaging Studies Abdomen/Pelvis CT 08/21/25 10:45 IMPRESSION: Sigmoid diverticulosis without evidence of diverticulitis. Reading Location: [facility] scan of the abdomen and pelvis was obtained. There is diverticulosis but no evidence of diverticulitis. There is no evidence of obstruction or perforation. There is no free air or free fluid. This was interpreted by the radiologist and was also independently reviewed by myself. Treatment and Re-Evaluation :: Patient was given IV fluids and Zofran. Patient was feeling better on reevaluation. Patient was advised of her findings. Patient was instructed to follow-up with her primary care physician in 5 to 7 days. Patient was instructed to return if worse in any way. Patient understood and was agreeable with the plan. All questions were answered. Discharge Plan Triage Chief Complaint: Abd Pain ED Provider: Brett García Dx/Rx/DC Orders Clinical Impression: Abdominal pain, Borderline type 2 diabetes mellitus Instructions: ED Abdominal Pain Unkn Cause Fem Prescriptions: No Action multivitamin Tablet 1 tab PO DAILY Adult 50 Plus Probiotic 4 billion cell capsule 4,000 mmu cells PO DAILY Rx Instructions: administer with a meal albuterol sulfate 90 mcg/actuation HFA aerosol inhaler 2 puff inhalation Q4-6H PRN (Reason: shortness of breath or wheezing) Qty: 6.7 0RF topiramate 25 mg tablet 44 mg PO BID doxycycline hyclate 20 mg tablet 20 mg PO BID estradiol 0.025 mg/24 hr patch semiweekly 1 patch transdermal 2XW Qty: 24 3RF Rx Instructions: apply 1 patch for 3 days alternating with 1 patch for 4 days each week metformin [Glucophage XR] 500 mg tablet extended release 24 hr 500 mg PO QDAY cholecalciferol (vitamin D3) 25 mcg (1,000 unit) capsule 25 mcg PO QDAY ivermectin 1 % cream 1 applic topical QHS saw palmetto-pumpkin seed oil 1 cap PO DAILY 2.5ml medroxyprogesterone 2.5 mg tablet 2.5 mg PO DAILY Qty: 30 5RF Primary Care Provider: Sarah Beth Steele Referrals: Lu Harrington NP-C [Med Staff - [facility] Prof, Internal Medicine] - 5-7 Days Print Language: French Disposition Disposition: Home, Self Care
[2025-08-21 10:29] VITALS: PULSE 84; RESP 16; O2SAT 99
[2025-08-21] MEDS: 0.9% Normal Saline (1000mL) 1,000 ML 999 ML IV (10:30)
[2025-08-21 10:35] LABS: Hematocrit 42.9 % (37-47); Hemoglobin 14.2 g/dL (12.0-15.0); Immature Granulocytes Count 0.010 X10^3/uL (0.0-0.0); Mean Corp Hgb Conc 33.1 g/dL (32-36); Mean Corpuscular Volume 89.9 fL (81-99); Mean Platelet Vol. 10.3 fl (6.2-12.0); NRBC Flagged by Analyzer 0 % (0-5); Platelet Count 261 K/mm3 (150-450); RBC Distribution Width CV 13.6 % (11.6-14.6); RBC Distribution Width SD 45.5 fl (35.1-43.9); Red Blood Count 4.77 M/mm3 (4.2-5.4); White Blood Count 4.9 K/mm3 (4.4-11.0)
--- NOTE | 2025-08-21 10:45 | CT_ITS ---
PROCEDURE: ABDOMEN/PELVIS W IV CONT ONLY 08/21/2025 REASON FOR EXAM: ABDOMINAL PAIN Cramping abdominal pain. TECHNIQUE: Procedure Code: CTABDPELIV Modality: CT Procedure: ABDOMEN/PELVIS W IV CONT ONLY Coronal and Sagittal reconstruction series were provided. CONTRAST: Isovue-300 VOLUME: 100 mL One or more dose reduction techniques were used (e.g., Automated exposure control, adjustment of the mA and/or kV according to patient size, use of iterative reconstruction technique. Isovue-300 RADIATION DOSE SUMMARY: CTDlvol: 14.8 mGy DLP: 1119.88 mGycm COMPARISON: Prior study dated June 28, 2025. FINDINGS: Lung bases: Stable minimal increased markings at the left lung base suggestive of linear scarring. Liver: Normal size. No mass. Gallbladder: Unremarkable. Spleen: Normal size. Pancreas: Normal size without evidence of mass surrounding inflammation or ductal dilation. Adrenals: Unremarkable Kidneys: Normal renal sizes. No hydronephrosis. Bladder: Unremarkable Reproductive Organs: Normal uterine size and contour. Ovaries are unremarkable. Bowel: Colonic diverticulosis without diverticulitis. Appendix: Unremarkable. Lymph nodes: Unremarkable. Vasculature: The abdominal aorta and IVC are normal. Peritoneum / Retroperitoneum: Unremarkable Bones: Degenerative changes of the spine. CT/Abdomen/Pelvis W IV Cont ONLY IMPRESSION: Sigmoid diverticulosis without evidence of diverticulitis. Reading Location: [place] [id number]
[2025-08-21 11:00] VITALS: PULSE 82; RESP 16; O2SAT 99
--- OUTSIDE RECORDS SUMMARY | 2025-08-21 11:15 | XMS RPT_ITS | CCD ---
Author Organization [facility] Care Team Providers Care Claims Service Representative Name Role Phone EmmayoniHelen E Unavailable Lupe Murillo Unavailable Lela Rabago Unavailable [...] Unavailable Lucero French LPN Unavailable Unavailable Gravius HYDROTREATER OPERATOR, Kaycee Unavailable Unavailable Unavailable Unavailable Ciesa VIDEO GAME ENGINEER, VIDEO GAME ENGINEER-C [facility] Primary Care Provider Ciesa VIDEO GAME ENGINEER, VIDEO GAME ENGINEER-C Helen Referring Provider [phone] Dr. Kelsea Chu Attending Provider Marv VIDEO GAME ENGINEER, VIDEO GAME ENGINEER-C Tiffany Attending Provider Usha Helen Unavailable Cibarbara Helen Unavailable Ciesa VIDEO GAME ENGINEER, VIDEO GAME ENGINEER-C [facility] Primary Care Provider Ciesa VIDEO GAME ENGINEER, VIDEO GAME ENGINEER-C Helen Referring Provider [phone] ABIGAIL Jacobs Attending Provider Dr. Kelsea Chu Attending Provider Len, VIDEO GAME ENGINEER-C Lu Primary Care Provider Len, VIDEO GAME ENGINEER-C Lu Referring Provider Dr. Kelsea Chu Attending Provider Bairon GRANGER, PA Guerita Newman Attending Provider Dr. Chanel Cisneros Attending Provider [phone] Dr. Chanel Cisneros Primary Care Provider [phone] Dr. Chanel Cisneros Referring Provider [phone] Ced GRANGER PA Aman Attending Provider Blayne TAPIA, Dr. Buchanan Primary Care Provider Blayne TAPIA, Dr. Buchanan Referring Provider [phone] [place]inas VIDEO GAME ENGINEER-CErick Attending Provider [phone] Kendall VIDEO GAME ENGINEER-CSisi Attending Provider Kendall VIDEO GAME ENGINEER-C, Sisi Referring Provider Len VIDEO GAME ENGINEER-C, Lu Primary Care Provider Len VIDEO GAME ENGINEER-C, Lu Referring Provider Dr. Scott Fleming MD Attending Provider Blayne TAPIA, Dr. Buchanan Primary Care Provider Blayne TAPIA, Dr. Buchanan Referring Provider [phone] Dr. Kelton Bowman MD Emergency Provider Blayne TAPIA, Dr. Buchanan Primary Care Physician Kendall PARKS-CSisi Attending Physician Len PARKS-CLu Primary Care Physician Dr. Scott Fleming MD Attending Physician Colby TAPIA, Dr. Melara Attending Physician [phone] Kelton Bowman MD Emergency Department Physici an Dr. Scott Fleming MD Referring Provider Dr. Scott Fleming MD Nurse Practitioner Favian TAPIA, Dr. Pendleton Attending Physician Aman Triana Attending Unavailable Aman Triana Referring Unavailable Oleghe, Efewongbe Primary Care Unavailable Oleghe, Efewongbe Primary Care Unavailable Lu Harrington Attending Unavailable Len, Lu Referring Unavailable Oleghe, Efewongbe Primary Care Unavailable LenLu Attending Unavailable Len, Lu Referring Unavailable Sisi Argueta Attending Unavailable Sisi Argueta Referring Unavailable Len, Lu Primary Care Unavailable Kelton Bowman Attending Unavailable Len, Lu Primary Care Unavailable Scott Fleming Attending Unavailable Scott Fleming Referring Unavailable Len, Lu Primary Care Unavailable Lonnie, Scott Attending Unavailable Len, Lu Primary Care Unavailable Len, Lu Referring Unavailable Oleghe, Efewongbe Primary Care Unavailable Oleghe, Efewongbe Referring Unavailable Michael Childers Attending Unavailable Oleghe, Efewongbe Primary Care Unavailable Aman Triana Attending Unavailable Oleghe, Efewongbe Referring Unavailable Oleghe, Efewongbe Referring Unavailable Oleghe, Efewongbe Primary Care Unavailable [place] VIDEO GAME ENGINEER, Erick Huitron Attending Unavailable Oleghe, Efewongbe Referring Unavailable Oleghe, Efewongbe Primary Care Unavailable Sisi Argueta Attending Unavailable Helder Ballesteros Attending Unavailable Scott Fleming Consulting Unavailable Scott Fleming Referring Unavailable Len, Lu Primary Care Unavailable Medications Current Medications Medication Drug Class(es) Dates Sig (Normalized) Sig (Original) [id number] 200 actuat albuterol 0.09 mg/actuat metered dose inhaler (20 sources) beta2-Adrenergic Agonist Start: 02-16-2025 Start: 07-28-2014 End: 11-16-2016 Proventil HFA 108 [...] 16-Nov-2016 Inactive cholecalciferol 0.025 mg oral capsule (3 sources) Vitamin D Start: 06-06-2025 take 1 capsule by mouth once daily doxycycline hyclate 20 mg oral tablet (20 sources) Tetracycline-class Drug Start: 05-06-2025 take 1 tablet by mouth twice daily Start: 02-16-2025 End: 02-23-2025 take 1 capsule [...] 09-Jan-2012 Inactive ivermectin 10 mg/ml topical cream (8 sources) Antiparasitic, Pediculicide Start: 06-06-2025 Start: 03-12-2024 End: 02-16-2025 Ivermectin 1 % cream Discont inued 1 NMA TOPICAL DAILY March 12, 2024 12:00am February 16, 2025 9:43am Lactobacillus Combination No.9 (Adult 50 Plus Probiotic) 4 billion cell capsule (11 sources) Start: 06-26-2020 take 4 capsules by mouth once daily Lactobacillus Combination No.9 (Adult 50 Plus Probiotic) 4 billion cell capsule Active 4000 MMU CELLS PO DAILY June 26, 2020 2:41pm administer with a meal Start: 06-26-2020 take 4 capsules by m outh once daily Start: 06-26-2020 take 4 capsules by m [...] administer with a meal 24 hr metFORMIN hydrochlorid e 500 mg extended release oral tablet (8 sources) Biguanide Start: 06-06-2025 take 1 tablet by fred th once daily Start: 05-06-2025 End: 06-06-2025 Metformin 1,000 mg [...] DAILY June 26, 2020 12:00am Multivitamin tablet (5 sources) Start: 06-26-2020 Start: 06-26-2020 Multivitamin t ablet Active 1 {tbl} PO DAILY June 26, 2020 12:00am saw palmetto-pumpkin seed oi l (3 sources) Start: 06-13-2025 Start: 06-13-2025 saw palmetto-p umpkin seed oil Active 1 NMA PO DAILY June 13, 2025 12:00am topiramate 25 mg oral tablet (12 sources) Start: 05-06-2025 Start: 07-31-2023 End: 03-12-2024 take 1 tablet by mouth twice daily before breakfast Topiramate (Topamax) 25 mg tablet Discontinued 25 mg PO TWICE A DAY 60 July 31, 2023 12:00am March 12, 2024 3:22pm take before breakfast and before dinner Completed/Discontinued Medications Medication Drug Class(es) Dates Sig (Normalized) Sig (Original) amoxicillin 500 mg oral capsule (7 sources) Penicillin-class Antibacterial Start: 08-13-2023 End: 08-23-2023 take 1 capsule by mouth twice daily Amoxicillin 500 mg capsule Discontinued 500 mg PO TWICE A DAY 20 August 13, 2023 12:00am August 22, 2023 [...] on above: This order discontin ued per [facility]. azaTHIOprine 50 mg oral tablet (17 sources) [...] Refills: 1 Ordered: 07-Jul-2021 Helen Kerr CNP, CNP, Mary E Start : 07-Jul-2021 Active Start: 01-04-2021 take [...] by mouth once daily CALCIUM + D, [id number] (Oral Tablet) 1 qd for 0 days [...] Complex Active dexamethasone 6 mg oral tablet (6 sources) Corticosteroid Start: 10-19-2023 End: 09-11-2024 take [...] capsule by mouth two times weekly ERGOCALCIFEROL, [id number] (Oral Capsule) 1 Capsule twice weekly for 0 days Quantity: 24 {Capsule} Refills: 0 Ordered: 27-Jun-2012 Jelena Frost Start : 28-Dec-2011 End : 27-Jun-2012 Inactive 84 hr estradiol 0.37913 mg/hr transdermal system (20 sources) Estrogen Start: 05-24-2022 End: 05-06-2025 apply 1 dose transdermal route two times weekly, then apply 1 dose transdermal route once Estradiol 0.025 mg/24 hr patch semiweekly Discontinued 1 NMA TD TWICE A WEEK 24 April 23, 2025 9:15am May 06, 2025 [...] Discontinued 1 PATCH TD TWICE A WEEK October 15, 2021 2:17pm February 08, 2023 [...] 1 PATCH TD TWICE A WEEK 8 January 25, 2021 1:12pm October 15, 2021 2:25pm apply 1 patch for 3 days alternating with 1 patch for 4 days each week 84 hr estradiol 0.13296 mg/hr / norethindrone acetate 0.47579 mg/hr transdermal system (11 sources) Estrogen Start: 09-16-2020 End: 09-28-2020 Estradiol-Norethindrone Acet (Combipatch) 0.05-0.14 mg/24 hr patch semiweekly Discontinued 1 NMA TD TWICE A WEEK 8 September 16, 2020 1:00am September 28, 2020 12:06pm apply 1 patch every 3 days alternating with 1 patch every 4 days Start: 09-16-2020 End: 09-28-2020 Estradiol-Norethindrone Acet (Combipatch) 0.05-0.14 mg/24 hr patch semiweekly Discontinued 1 PATCH TD TWICE A WEEK September 16, 2020 1:00am September 28, 2020 12:06pm apply 1 patch every 3 days alternating with 1 patch every 4 days hormonal supplement (11 sources) Start: 06-26-2020 End: 01-15-2021 take 1 [...] Inactive magnesium glycinate 100 mg oral tablet (7 sources) Start: 09-20-2023 End: 09-11-2024 take 1 tablet by mouth once daily Magnesium Glycinate 100 mg tablet Discontinued 100 mg PO DAILY September 20, 2023 1:00am September 11, 2024 9:58am magnesium hydroxide 1200 mg chewable tablet (9 sources) Start: 03-31-2023 End: 10-18-2023 Magnesium Hydroxide [...] Acute abdominal pain; Translations: [Generalized abdominal pain] Onset: 07-03-20 25 Resolved : 05-26-20 20 05-26-2020 Episodic Comment [...] when stop. if just situational could take spring. if notice help all round had for years, could stay on. 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 Calculus of urinary tract (13 sources) Kidney stone; Translations: [Calculus of kidney] 09-21-2021 Episodic Cardiac dysrhythmias (11 sources) Palpitations; Translations: [Palpitations] 01-31-2022 Episodic Chronic obstructive pulmonary disease and bronchiectasis (19 sources) Bronchitis; Translations: [Bronchitis] Resolved : 08-27-20 07 05-26-2020 Episodic Chronic obstructive pulmonary disease and bronchiectasis (20 sources) Chronic obstructive pulmonary disease and bronchiectasis Disorders of lipid metabolism (20 sources) Hypercholesterolemia; Translations: [Pure hypercholesterolemia, unspecified] Onset: 10-10-20 24 04-28-2023 Chronic Fever of unknown origin (20 sources) Fever with chills; Translations: [Fever and chills] Resolved : 05-26-20 20 05-26-2020 Episodic Hepatitis (20 sources) Other chronic hepatitis; Translations: [Chronic hepatitis] Onset: 04-29-2005-26-2020 Chronic Comment on above: autoimmune hepatitis on imuran 50mg daily since 2006, [place] [facility] [facility] Jeremiah Abdalla biopsied liver 2007Normal liver function Hepatitis (3 sources) Hepatitis Influenza (18 sources) Influenza due to Influenza A virus subtype H1N1; Translations: [Influenza A (H1N1)] Resolved : 05-26-20 20 05-26-2020 Episodic Malaise and fatigue (20 sources) Fatigue; Translations: [Fatigue] Onset: 06-13-20 Resolved : 05-26-2005-26-2020 Episodic Menopausal disorders (20 sources) Menopausal syndrome; Translations: [Menopausal and female climacteric states] Chronic Comment on above: estradiol patch, ora l progesterone Miscellaneous mental health disorders (14 sources) Binge eating disorder; Translations: [Binge eating disorder] 03-31-2023 Chronic Comment on above: 1-2x monthly. review ed CBT support. recommended book. discussed warning signs with food restrictions. Mood disorders (20 sources) Depression; Translations: [Depressive disorder] Onset: 06-27-20 12 05-26-2020 Chronic Comment on above: better Nonmalignant breast conditions (20 sources) Pain of breast; Translations: [Breast pain] 06-15-2020 Episodic Comment on above: left breast chest wa ll Nonspecific chest pain (20 sources) Chest pain; Translations: [Atypical chest pain] Onset: 08-04-20 25 05-26-2020 Episodic Comment on above: work up normal, [...] Resolved : 05-26-2005-26-2020 Episodic Other endocrine disorders (11 sources) Decreased estradiol level; Translations: [Other specified endocrine disorders] 10-15-2021 Episodic Other injuries and conditions due to external causes (19 sources) Injury of upper extremity; Translations: [Arm wound] Resolved : 11-16-1905-26-2020 Episodic Comment on above: left elbow Other lower respiratory disease (20 sources) Cough; Translations: [Cough] Resolved : 05-26-2005-26-2020 Episodic Other lower respiratory disease (2 sources) Other forms of dyspnea; Translations: [Other forms of dyspnea] Onset: 06-13-20 Episodic Other nervous system disorders (11 sources) Carpal tunnel syndrome; Translations: [Carpal tunnel syndrome, unspecified upper limb] 09-21-2021 Chronic Other nutritional; endocrine; and metabolic disorders (20 sources) Body mass index 30+ - obesity; Translations: [BMI 30.0-30.9,adult] 05-26-2020 Chronic Comment on above: LCHF. plan adipex. 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 added [...] endocrine; and metabolic disorders (5 sources) Weight increased; Translations: [Abnormal weight gain] [...] Influenza-like symptoms; Translations: [Flu-like symptoms] Resolved : 07-28-05-26-2020 Episodic Residual codes; unclassified (11 sources) History of hernia repair; Translations: [Other specified postprocedural states] 09-21-2021 Episodic Comment on above: 1989 Spondylosis; intervertebral disc disorders; other back problems (20 sources) Degeneration of intervertebral disc; Translations: [Degenerative disc disease] 05-26-2020 Chronic Spondylosis; intervertebral disc disorders; other back problems (11 sources) Back problem; Translations: [Dorsopathy, unspecified] 09-21-2021 Episodic Substance-related disorders (20 sources) Smoker; Translations: [Smoker] 05-26-2020 Chronic Syncope (18 sources) Vasovagal syncope; Translations: [Vasovagal episode] Resolved : 05-26-2005-26-2020 Episodic Comment on above: occured during sutur [...] (20 sources) Chronic prednisone use Resolved : 05-26-20 20 05-26-2020 Unclassified (16 sources) Screening for lipid disorders [...] Documented Date Episodic/Chronic Diabetes mellitus without complication (20 sources) Prediabetes; Translations: [Prediabetes] Onset: 09-11-2024 04-03-2023 [...] Test Name Value Interpretation Reference Range Facility Cardiovascular stress test r eportOrdered By: Helder Ballesteros on 07-22-2025 Study report [facility] [address] [place] [address] MR#: [id number] Acct: [id number] Name: LISA CHEN Rep #: [id number] : 1970 55 From: Helder Ballesteros MD Primary Care: Lu Harrington NP-C Status : REG CLI Referring Dr: Scott Fleming MD Sex: F C Stress Test Report Exercise myocardial perfusion stress test. 55-year-old female with a history of chest pain. Stress protocol: Resting EKG demonstrates normal sinus rhythm with a rate of 67 bpm resting bloodpressure is 130/88 mmHg. The patient exercised according to the regular Roman protocol for a total duration of 8 minutes attaining a maximum heart rate of 160bpm which was 96% of maximum predicted heart rate; the maximum workload was 10.1metabolic equivalents. At rest there were no ST or T wave changes noted to suggest ischemia and at peak exercise upsloping ST changes only were noted whichdid not meet the criteria for ischemia. No clinical angina was noted the test was terminated due to the target heart rate being achieved/fatigue. The peak blood pressure was 188/90 mmHg. Rate-pressure product was 30,000. Conclusion Normal exercise stress test with no EKG for ischemia at a high workload 07/22/252006 _ Helder Ballesteros MD CC: VIDEO GAME ENGINEER-C Lu Harrington; Dr. Scott Fleming MD ~ Date Dictated: 07/22/252005 Date Transcribed: 07/22/252005 Bilingual Medical Receptionist: [place] Signed [facility] Work Phone: Abdomen/Pelvis without Conto n 06-28-2025 Abdomen/Pelvis without Cont [facility] [address] [place] [address] [id number] Abdomen/Pelvis without Cont MR#: [id number] Acct: [id number] Name: LISA CHEN Rep #: [id number] : 1970 F 55 From: Farhan Stack MD PCP: VINICIUS Deras Status: REG ER Study: Abdomen/Pelvis without Cont Date of Exam: 06/01 Exam# [id number] Ordering Dr: Kelton Bowman MD PROCEDURE: ABDOMEN/PELVIS WITHOUT CONT 06/28/2025 REASON FOR EXAM: PAIN TECHNIQUE: Procedure Code: CTABDPEL Modality: CT Procedure: ABDOMEN/PELVIS WITHOUT CONT Noncontrast technique limits evaluation of the abdominal and pelvic viscera. Coronal and Sagittal reconstruction series were provided. One or more dose reduction techniques were used (e.g., Automated exposure control, adjustment of the mA and/or kV according to patient size, use of iterative reconstruction technique). RADIATION DOSE SUMMARY: CTDlvol: 18 mGy DLP: 1002 mGycm COMPARISON: None FINDINGS: Noncontrast appearance of the liver and gallbladder are unremarkable. Normal appearance to the spleen. No pancreatic inflammation. Nonobstructing 3 mm stone in the lower pole of the right kidney. There is a small stone at the left UVJ measuring 3 mm. Subtle fullness of the left ureter. Mild dilatation of the left renal collecting system. This is minimal. CT/Abdomen/Pelvis without Cont IMPRESSION: Minimally obstructing stone left UVJ measuring 3 mm. Correlate for pain and hematuria. Reading [facility] CC: VINICIUS Harrington; Dr. Kelton Bowman MD Bilingual Medical Receptionist: Signed Normal [facility] Absolute lymphocyte countOrd ered By: Kelton Bowman on 06-28-2025 Lymphocytes Auto (Unsp spec) [#/Vol] 0.88 10*3/uL 0.83-4.51 [facility] Absolute neutrophil countOrd ered By: Kelton Bowamn on 06-28-2025 Neutrophils (Bld) [#/Vol] 7.6 10*3/uL 2.0-7.7 [facility] Anion gap in Serum or Plasma Ordered By: Kelton Bowman on 06-28-2025 Anion gap [Moles/Vol] 13 mmol/L 5-15 [facility] Automated lymphocyte count a s percentage of total leukocytesOrdered By: Kelton Bowman on 06-28-2025 Lymphocytes/100 WBC Auto (Unsp spec) 9.4 % Low 19-41 [facility] BUN/creatinine ratioOrdered By: Kelton Bowman on 06-28-2025 Urea nitrogen/Creatinine [Mass ratio] 10.1 mg/mg 10-20 [facility] Basic Metabolic Profile (BMP )on 06-28-2025 BUN/CRE 10.1 RATIO Normal 10-20 [facility] Comment on above: Performed By: #### L 100.0100, L500.2500 ####[facility] [address] [place], [address] Calcium [Mass/Vol] 9.2 mg/dL Normal 7.6-11.0 [facility] Comment on above: Performed By: #### L 100.0100, L500.2500 ####[facility] [address] [place], [address] Chloride [Moles/Vol] 104 mmol/L Normal 98-108 [facility] Comment on above: Performed By: #### L 100.0100, L500.2500 ####[facility] [address] [place], [address] CO2 [Moles/Vol] 20.5 mmol/L Low 21.0-32.0 [facility] Comment on above: Performed By: #### L 100.0100, L500.2500 ####[facility] [address] [place], [address] Creatinine [Mass/Vol] 0.64 mg/dL Low 0.70-1.20 [facility] Comment on above: Performed By: #### L 100.0100, L500.2500 ####[facility] [address] [place], [address] ECRCL 109.16 ml/min Normal 50-250 [facility] Comment on above: Performed By: #### L 100.0100, L500.2500 ####[facility] [address] [place], [address] GAP 13 Normal 5-15 [facility] Comment on above: Performed By: #### L 100.0100, L500.2500 ####[facility] [address] [place], [address] GFR/1.73 sq M.predicted among non-blacks MDRD (S/P/Bld) [Vol rate/Area] 104 mL/min/{1.73_m2} Normal >60 [facility] Comment on above: Result Comment: mL/m in/1.73m2 CKD-EPI Creatinine Equation (2020) Performed By: #### L 100.0100, L500.2500 ####[facility] [address] [place], [address] Glucose [Mass/Vol] 122 mg/dL High 70-99 [facility] Comment on above: Performed By: #### L 100.0100, L500.2500 ####[facility] [address] [place], [address] Potassium [Moles/Vol] 3.8 mmol/L Normal 3.3-5.1 [facility] Comment on above: Performed By: #### L 100.0100, L500.2500 ####[facility] [address] [place], [address] Sodium [Moles/Vol] 138 mmol/L Normal 133-145 [facility] Comment on above: Performed By: #### L 100.0100, L500.2500 ####[facility] [address] [place], [address] Urea nitrogen [Mass/Vol] 6 mg/dL Normal 4-19 [facility] Comment on above: Performed By: #### L 100.0100, L500.2500 ####[facility] [address] [place], [address] Basophil percentageOrdered B y: Kelton Bowman on 06-28-2025 Basophils/100 WBC (Bld) 0.6 % 0-1 [facility] Bilirubin Test strip Ql (U)O rdered By: Kelton Bowman on 06-28-2025 Bilirubin Ql (U) Negative Negative [facility] CBC W/Diff, Automatedon 06-01 Absolute Lymph 0.88 X10 3/uL Normal 0.83-4.51 [facility] Comment on above: Performed By: #### L 100.0100, L500.2500 ####[facility] [address] [place], [address] Absolute Neut 7.6 X10 3/uL Normal 2.0-7.7 [facility] Comment on above: Performed By: #### L 100.0100, L500.2500 ####[facility] [address] [place], [address] Basophils/100 WBC (Bld) 0.6 % Normal 0-1 [facility] Comment on above: Performed By: #### L 100.0100, L500.2500 ####[facility] [address] [place], [address] Eosinophils/100 WBC (Bld) 2.4 % Normal 0-5 [facility] Comment on above: Performed By: #### L 100.0100, L500.2500 ####[facility] [address] [place], [address] Erythrocyte distribution width (RBC) [Ratio] 13.4 % Normal 11.6-14.6 [facility] Comment on above: Performed By: #### L 100.0100, L500.2500 ####[facility] [address] [place], [address] Hematocrit (Bld) [Volume fraction] 43.0 % Normal 37-47 [facility] Comment on above: Performed By: #### L 100.0100, L500.2500 ####[facility] [address] [place], [address] Hemoglobin (Bld) [Mass/Vol] 14.3 g/dL Normal 12.0-15.0 [facility] Comment on above: Performed By: #### L 100.0100, L500.2500 ####[facility] [address] [place], [address] IG% 0.300 Normal 0.0-0.9 [facility] Comment on above: Result Comment: IG% - Immature Granulocytes (promyelocytes, myelocytes and metamyelocytes) > 1% indicates that a LEFT SHIFT is Present. Performed By: #### L 100.0100, L500.2500 ####[facility] [address] [place], [address] Lymphocytes/100 WBC (Bld) 9.4 % Low 19-41 [facility] Comment on above: Performed By: #### L 100.0100, L500.2500 ####[facility] [address] [place], [address] MCH (RBC) [Entitic mass] 30.2 pg Normal 27.0-32.0 [facility] Comment on above: Performed By: #### L 100.0100, L500.2500 ####[facility] [address] [place], [address] MCHC (RBC) [Mass/Vol] 33.3 g/dL Normal 32-36 [facility] Comment on above: Performed By: #### L 100.0100, L500.2500 ####[facility] [address] [place], [address] MCV (RBC) [Entitic vol] 90.9 fL Normal 81-99 [facility] Comment on above: Performed By: #### L 100.0100, L500.2500 ####[facility] [address] [place], [address] Monocytes/100 WBC (Bld) 6.1 % Normal 0-10 [facility] Comment on above: Performed By: #### L 100.0100, L500.2500 ####[facility] [address] [place], [address] Neutrophils/100 WBC (Bld) 81.2 % High 47-70 [facility] Comment on above: Performed By: #### L 100.0100, L500.2500 ####[facility] [address] [place], [address] Nucleated RBC (Bld) [#/Vol] 0 10*3/uL Normal 0-5 [facility] Comment on above: Performed By: #### L 100.0100, L500.2500 ####[facility] [address] [place], [address] Platelet mean volume (Bld) [Entitic vol] 10.6 fL Normal 6.2-12.0 [facility] Comment on above: Performed By: #### L 100.0100, L500.2500 ####[facility] [address] [place], [address] Platelets (Bld) [#/Vol] 234 10*3/uL Normal 150-450 [facility] Comment on above: Performed By: #### L 100.0100, L500.2500 ####[facility] [address] [place], [address] RBC (Bld) [#/Vol] 4.73 10*6/uL Normal 4.2-5.4 [facility] Comment on above: Performed By: #### L 100.0100, L500.2500 ####[facility] [address] [place], [address] RDW SD 45.2 fl High 35.1-43.9 [facility] Comment on above: Performed By: #### L 100.0100, L500.2500 ####[facility] [address] [place], [address] WBC (Bld) [#/Vol] 9.4 10*3/uL Normal 4.4-11.0 [facility] Comment on above: Performed By: #### L 100.0100, L500.2500 ####[facility] [address] [place], [address] Carbon dioxide, total [Moles /volume] in Central venous bloodOrdered By: Kelton Bowman on 06-28-2025 CO2 [Moles/Vol] 20.5 mmol/L Low 21.0-32.0 [facility] Chloride assayOrdered By: Wayne Bowman on 06-28-2025 Chloride [Moles/Vol] 104 mmol/L 98-108 [facility] Emergency Department Summary on 06-28-2025 Emergency Department Summary [facility] Medical Records Department [address] [place] [address] Emergency Department Summary 06/28/25 MR#: [id number] Acct: [id number] Name: LISA CHEN Rep #: [id number] : 1970 55 From: Kelton Bowman MD PCP: Lu Harrington NP-C Status:REG ER Location: ED HPI HPI - GI History of Present Illness Chief Complaint: Flank Pain Informant: patient Abdominal Pain/Flank Pain Onset: Today Context: Sudden Onset Timing: Intermittent Location: Left Flank Current Severity: Moderate Maximum Severity: Moderate Worsened by: Nothing Relieved by: Nothing Nausea/Vomiting/Emesi s GI Symptom: Positive for Vomiting Onset: Today Severity: Mild Diarrhea/Melena/Hemat ochezia GI Symptom: Negative for Diarrhea, Melena or Hematochezia Associated Symptoms Associated Symptoms: Negative for Dysuria, Frequency, Hematuria or Urgency Narrative Narrative: 55-year-old female history of prediabetes, on immune hepatitis prior hernia repair and prior kidney stone. Since she has had urinary symptoms did not drink as much fluids yesterday today had sudden onset left flank pain associated nausea vomiting. Thinks she may have another stone. Denies any dysuria or hematuria. No fall or trauma. Pain is now intermittent. Prior similar symptoms: Yes Recent Illness/Hospitalizati on: No PFSH PFSH Medical History Autoimmune hepatitis Hyperlipidemia Borderline type 2 diabetes mellitus Kidney stones Hormone deficiency Carpal tunnel syndrome Breast lump in female Back problem Fatigue Home Medications ???Medication ???Instructions ???Recorded ???Last Taken ???Type lactobacillus combination no.9 4 4,000 mmu cells PO DAILY 06/26/20 Unknown History billion cell capsule (Adult 50 Plus Probiotic) multivitamin 1 tab PO DAILY 06/26/20 Unknown Hi story albuterol sulfate 90 mcg/actuation 2 puff inhalation Q4-6H PRN 01/29 Unknown Rx aerosol inhaler shortness of breath or wheezing #6.7 grams medroxyprogesterone 2.5 mg tablet 2.5 mg PO DAILY #30 TABLETS 03/17 Unknown Rx doxycycline hyclate 20 mg tablet 20 mg PO BID 05/06/25 Unknown Hist ory estradiol 0.025 mg/24 hr 1 patch transdermal 2XW #24 ea 06/23 Unknown Rx semiweekly transdermal patch topiramate 25 mg tablet 44 mg PO BID 05/06/25 Unknown Hist ory cholecalciferol (vitamin D3) 25 25 mcg PO QDAY 06/06/25 Unknown Hi story mcg (1,000 unit) capsule ivermectin 1 % topical cream 1 applic topical QHS 06/06/25 Unkn own History metformin 500 mg tablet,extended 500 mg PO QDAY 06/06/25 Unknown Hi story release 24 hr (Glucophage XR) saw palmetto-pumpkin seed oil 1 cap PO DAILY 06/13/25 Unknown Hi story Allergy/AdvReac Type Severity Reaction Status Date / Time No Known Allergies Allergy Verified 06/28/25 12:51 Family History Mother Thyroid cancer Brain aneurysm Father Cancer Heart disease Hypertension CHF (congestive heart failure) Other Arthritis Colon cancer Diabetes Lung cancer Surgical History H/O foot surgery Hx of hernia repair Social History Smoking Status: Former smoker alcohol intake: current alcohol intake frequency: holidays/special occasions only substance use type: does not use caffeine: No what type of physical activity do you participate in: none seatbelt use: always do you feel safe at home: Yes additional social history: - Meet ROS ROS ED ROS Narrative Left flank pain. Nausea vomiting. Constitutional Constitutional ED: Denies chills or fever(s) ENT ENT ED: Denies ear pain Cardiovascular Cardiovascular: Denies chest pain Respiratory/Chest Respiratory/Chest: Denies cough or dyspnea Gastrointestinal Gastrointestinal: Reports abdominal pain, nausea and vomiting Genitourinary Genitourinary ED: Denies dysuria or hematuria Musculoskeletal Musculoskeletal: Denies arthralgias or back pain Integumentary Denies abscess Neurologic Neurologic: Denies headache(s) Psychiatric Psychiatric: Denies anxiety or depression Endocrine Endocrinology: Denies polydipsia Hematologic/Lymphatic Hematologic/Lymphatic : Denies easy bleeding or easy bruising Allergic/Immunologic Allergic/Immunologic ED: Denies mouth swelling, tongue swelling or urticaria EXAM Physical Exam Narrative Exam Narrative: 55-year-old female vital signs stable afebrile. No acute distress. Having intermittent left flank pain. H EENT exam pupils are reactive light. Moist rehemorrhage. Neck nontender no JVD. Lungs clear to auscultation. Heart regular rhythm rate about 90 no murmur. Chest wall ribs nontender. Abdomen soft, no (more content not included)... Normal [facility] Eosinophil percentageOrdered By: Kelton Bowman on 06-28-2025 Eosinophils/100 WBC (Bld) 2.4 % 0-5 [facility] Erythrocyte distribution wid th ratioOrdered By: Kelton Bowman on 06-28-2025 Erythrocyte distribution width (RBC) [Ratio] 13.4 % 11.6-14.6 [facility] Erythrocyte distribution wid th standard deviationOrdered By: Kelton Bowman on 06-28-2025 Erythrocyte distribution width (RBC) [Ratio] 45.2 fl High 35.1-43.9 [facility] Glomerular filtration rate ( GFR) estimation/1.73 sq m using serum, plasma, or whole bOrdered By: Kelton Bowman on 06-28-2025 GFR/1.73 sq M.predicted among non-blacks MDRD (S/P/Bld) [Vol rate/Area] 104 mL/min/{1.73_m2} >60 [facility] Comment on above: mL/min/1.73m2 CKD-EP I Creatinine Equation (2020) Hematocrit Auto (Bld) [Volum e fraction]Ordered By: Kelton Bowman on 06-28-2025 Hematocrit (Bld) [Volume fraction] 43.0 % 37-47 [facility] Hemoglobin measurementOrdere d By: Kelton Bowman on 06-28-2025 Hemoglobin (Bld) [Mass/Vol] 14.3 g/dL 12.0-15.0 [facility] Immature granulocytes/100 WB C Auto (Bld)Ordered By: Kelton Bowman on 06-28-2025 Immature granulocytes/100 WBC (Bld) 0.300 % 0.0-0.9 [facility] Comment on above: IG% - Immature Granu locytes (promyelocytes, myelocytes and metamyelocytes) > 1% indicates that a LEFT SHIFT is Present. Ketones Test strip Ql (U)Ord ered By: Kelton Bowman on 06-28-2025 Ketones Ql (U) Negative Negative [facility] MCV (mean corpuscular volume ) determinationOrdered By: Kelton Bowman on 06-28-2025 MCV (RBC) [Entitic vol] 90.9 fL 81-99 [facility] Mean corpuscular hemoglobin (MCH) determinationOrdered By: Kelton Bowman on 06-28-2025 MCH (RBC) [Entitic mass] 30.2 pg 27.0-32.0 [facility] Mean corpuscular hemoglobin concentration (MCHC) determinationOrdered By: Kelton Bowman on 06-28-2025 MCHC (RBC) [Mass/Vol] 33.3 g/dL 32-36 [facility] Mean platelet volume determi nationOrdered By: Kelton Bowman on 06-28-2025 Platelet mean volume (Bld) [Entitic vol] 10.6 fL 6.2-12.0 [facility] Microscopic analysis of urin e for red blood cells (RBC)Ordered By: Kelton Bowman on 06-28-2025 Microscopic analysis of urine for red blood cells (RBC) > 100 SEEN /hpf 0-5 [facility] Monocyte percentageOrdered B y: Kelton Bowman on 06-28-2025 Monocytes/100 WBC (Bld) 6.1 % 0-10 [facility] Mucus LM Ql (Urine sed)Order ed By: Kelton Bowman on 06-28-2025 Mucus Ql (Urine sed) 2+ /hpf [facility] Neutrophil percentageOrdered By: Kelton Bowman on 06-28-2025 Neutrophils/100 WBC (Bld) 81.2 % High 47-70 [facility] Nitrite Test strip Ql (U)Ord ered By: Kelton Bowman on 06-28-2025 Nitrite Ql (U) Negative Negative [facility] Nucleated red blood cell per centageOrdered By: Kelton Bowman on 06-28-2025 Nucleated RBC/100 WBC (Bld) [Ratio] 0 % 0-5 [facility] Platelet countOrdered By: Wayne Bowman on 06-28-2025 Platelets (Bld) [#/Vol] 234 10*3/uL 150-450 [facility] Potassium measurement (mass/ volume)Ordered By: Kelton Bowman on 06-28-2025 Potassium (Unsp spec) [Mass/Vol] 3.8 mmol/L 3.3-5.1 [facility] Protein Test strip Ql (U)Ord ered By: Kelton Bowman on 06-28-2025 Protein Ql (U) 100 mg/dl High Negative [facility] RBC Auto (Bld) [#/Vol]Ordere d By: Kelton Bowman on 06-28-2025 RBC (Bld) [#/Vol] 4.73 10*6/uL 4.2-5.4 [facility] Serum creatinine measurement (mass/volume)Ordered By: Kelton Bowman on 06-28-2025 Creatinine [Mass/Vol] 0.64 mg/dL Low 0.70-1.20 [facility] Serum glucose measurement (m ass/volume)Ordered By: Kelton Bowman on 06-28-2025 Glucose [Mass/Vol] 122 mg/dL High 70-99 [facility] Serum or plasma calcium jade urement (mass/volume)Ordered By: Kelton Bowman on 06-28-2025 Calcium [Mass/Vol] 9.2 mg/dL 7.6-11.0 [facility] Serum or plasma urea nitroge n measurement (mass/volume)Ordered By: Kelton Bowman on 06-28-2025 Urea nitrogen [Mass/Vol] 6 mg/dL 4-19 [facility] Sodium levelOrdered By: Kelton Bowman on 06-28-2025 Sodium [Moles/Vol] 138 mmol/L 133-145 [facility] Squamous epithelial cells de tection in urine sediment by light microscopyOrdered By: Kelton Bowman on 06-28-2025 Epithelial cells.squamous LM Ql (Urine sed) 0-5 SEEN /hpf 5-10 [facility] Urinalysis, Completeon 06-28 BACTERIA RARE Normal None Seen [facility] Comment on above: Order Comment: CLEAN CATCH Performed By: #### L 400.0001 ####[facility] [address] [place], [address] EPI,SQUAMOUS 0-5 SEEN Normal 5-10 [facility] Comment on above: Order Comment: CLEAN CATCH Performed By: #### L 400.0001 ####[facility] [address] [place], [address] Mucus Ql (Urine sed) 2+ /hpf Normal [facility] Comment on above: Order Comment: CLEAN CATCH Performed By: #### L 400.0001 ####[facility] [address] [place], [address] RBC > 100 SEEN Normal 0-5 [facility] Comment on above: Order Comment: CLEAN CATCH Performed By: #### L 400.0001 ####[facility] [address] [place], [address] WBC 0-5 SEEN Normal 0-5 [facility] Comment on above: Order Comment: CLEAN CATCH Performed By: #### L 400.0001 ####[facility] [address] [place], [place], [id number] Urine clarityOrdered By: Jitendra Bowman on 06-28-2025 Clarity (U) Cloudy Clear [facility] Urine color determinationOrd ered By: Kelton Bowman on 06-28-2025 Color (U) Yellow Yellow [facility] Urine glucose detectionOrder ed By: Kelton Bowman on 06-28-2025 Glucose Ql (U) Normal mg/dl Normal [facility] Urine leukocyte esterase det ection by dipstickOrdered By: Kelton Bowman on 06-28-2025 Leukocyte esterase Test strip Ql (U) 25 /ul High Negative [facility] Urine pHOrdered By: Kelton hernández on 06-28-2025 pH (U) 5.0 [pH] 5.0 - 8.0 [facility] Urine sediment bacteria coun t by microscopy (number/high power field)Ordered By: Kelton Bowman on 06-28-2025 Bacteria LM.HPF (Urine sed) [#/Area] RARE /hpf None Seen [facility] Urine specific gravity measu rementOrdered By: Kelton Bowman on 06-28-2025 Specific gravity (U) [Rel density] 1.020 1.002-1.030 [facility] Urine urobilinogen measureme ntOrdered By: Kelton Bowman on 06-28-2025 Urobilinogen Ql (U) Normal mg/dl Normal [facility] White blood cell (WBC) count Ordered By: Kelton Bowman on 06-28-2025 WBC (Bld) [#/Vol] 9.4 10*3/uL 4.4-11.0 [facility] White blood cell countOrdere d By: Kelton Bowman on 06-28-2025 White blood cell count 0-5 SEEN /hpf 0-5 [facility] Cardiology Visit Reporton Cardiology Visit Report [facility] [place] [address] OFFICE VISIT Date of Service: 06/13/25 MR#: [id number] Acct: [id number] Name: LISA CHEN Rep #: [id number] : 1970 Provider: Dr. Scott augustin MD Age/Sex: 55/F Location: [facility] Status: Signed HPI HPI History of Present [...] and triglycerides 168. And remote echo in 2017 showed normal LV size and function with [...] Delivery Method room air Intake Visit Reasons: Angina/SOB/Edema/Fati milka (Self) [employer] Machine Helper Required: No Accompanied by: Self Is patient in pain?: No Allergies No Known Allergies Allergy (Verified 06/13/25 14:57) Medications ???Medication ???Instructions ???Recorded ???Confirmed ???Type lactobacillus combination no.9 4 4,000 mmu cells PO DAILY 06/26/20 06/13/25 History billion cell capsule (Adult 50 Plus Probiotic) multivitamin 1 tab PO DAILY 06/26/20 06/13/25 H istory albuterol sulfate 90 mcg/actuation 2 puff inhalation Q4-6H PRN 01/2906/13/25 Rx aerosol inhaler shortness of breath or [...] with acti (more content not included)... Normal [facility] Breast imaging reportOrdered By: Jessica José on 05-19-2025 Study report [facility] [address], [place] [address] SCRN MAMM (CAD)W/MAGUE BILAT MR#: [id number] Acct: [id number] Name: LISA CHEN Rep #: [id number] : 1970 F 55 From: Hubert Gonzalez MD PCP: Lu Harrington VIDEO GAME ENGINEERMaryellenC Status: REG C LI Study:SCRN MAMM (CAD)W/MAGUE BILAT Date of Exa m: 05/19/25 Exam# [id number] Ordering Dr: Sisi Argueta EXAM: Digital screening [...] be mailed to the patient. Reading Location: [facility] CC: VINICIUS Argueta; VINICIUS Harrington ~ Bilingual Medical Receptionist: Signed [facility] SCRN MAMM (CAD)W/MAGUE BILATo n 05-19-2025 SCRN MAMM (CAD)W/MAGUE BILAT [facility] [address] [place] [id number] SCRN MAMM (CAD)W/MAGUE BILAT MR#: [id number] Acct: [id number] Name: LISA CHEN Rep #: [id number] : 1970 F 55 From: Jessica King i, MD PCP: VINICIUS Deras Status: REG CLI Study: SCRN MAMM (CAD)W/MAGUE BILAT Date of Exam: 04/30 11/23 Exam# [id number] Ordering Dr: Sisi Argueta EXAM: Digital screening [...] be mailed to the patient. Reading Location: [facility] CC: VINICIUS Argueta; VINICIUS Harrington Bilingual Medical Receptionist: Signed Normal [facility] Field Irrigation Worker Office Visit Reporton 05-06-2025 Field Irrigation Worker Office Visit Report [facility] [address], [address] [place] [address] OFFICE VISIT Date of Service: 05/06/25 MR#: [id number] Acct: [id number] Name: LISA CHEN Rep #: [id number] : 1970 Provider: VINICIUS Georges Age/Sex: 55/F Location: [facility] [place] Status: Signed Intake Vital Signs 09/11/24 09:00 05/06/25 10:03 Height 5 ft 7 in 5 ft 7 in Weight: 214 lb 6 oz BMI 33.5 BP 117/80 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 Normal [facility] Visit Reporton 0 02-16-2025 Urgent Care Visit Report [facility] [address] [facility], [address] [place] [address] OFFICE VISIT Date of Service: 02/16/25 MR#: [id number] Acct: [id number] Name: LISA CHEN Rep #: [id number] : 1970 Provider: VINICIUS palacios Age/Sex: 54/F Location: [facility] Status: Signed Intake Vital Signs 09/11/24 09:00 [...] Chief Complaint: cough, MANN, drainage, fatigue, congest [employer] Machine Helper Required: No Is patient in pain?: No [...] General: cooperative, (more content not included)... Normal [facility] Low Dose CT Lung Screeningon 12-19-[address] Lung Screening [facility] [address] [place], [place] [address] Low Dose CT Lung Screening MR#: [id number] Acct: [id number] Name: GUSTAVOLISA Rep #: [id number] : 1970 F 54 From: Moody bradley MD PCP: Dr. Chanel Cisneros MD Status: REG CLI Study: Low Dose CT Lung Screening Date of Exam: 12/19 Exam# [id number] Ordering Dr: Lu Harrington VIDEO GAME ENGINEER-C PROCEDURE: LOW DOSE CT LUNG SCREENING REASON [...] centric ri (more content not included)... Normal [facility] Dexa Bone Density Studyon Dexa Bone Density Study [facility] Services [address] [place], [place] [address] Dexa Bone Density Study MR#: [id number] Acct: [id number] Name: LISA CHEN Rep #: [id number] : 1970 F 54 From: Alonzo Connell i DO PCP: Dr. Chanel Cisneros MD Status: REG CLI Study: Dexa Bone Density Study Date of Exam: 12/05/24 Exam# [id number] Ordering Dr: Lu Harrington VIDEO GAME ENGINEERChela PROCEDURE: DEXA BONE DENSITY STUDY REASON FOR [...] is a trademark of the [employer]'s [place] for Metabolic Bone Disease, World Health Organization (WHO) Collaborating [place]. 1-The 10-year probability of fracture may be lower than reported if the patient has received treatment. 2-Major Osteoporotic Fracture: Clinical Spine, Forearm, Hip or Shoulder. The T-scores are also available for review on the [facility] PACS or by accessing the [facility] electronic medical record. BD/Dexa Bone Density Study IMPRESSION: Normal bone mineral density. Reading Location: [facility] CC: VIDEO GAME ENGINEER-Emy Harrington; Dr. Chanel Cisneros MD Bilingual Medical Receptionist: Signed Normal [facility] CBC-Complete Blood Cnt No Di ffon 11-13-2024 Erythrocyte distribution width (RBC) [Ratio] 13.4 % Normal 11.6-14.6 [facility] Comment on above: Performed By: #### L 501.9985, L100.0500, L501.9520, L500.4050, L500.4100 #### [facility] [address] [place], [address] Hematocrit (Bld) [Volume fraction] 42.2 % Normal 37-47 [facility] Comment on above: Performed By: #### L 501.9985, L100.0500, L501.9520, L500.4050, L500.4100 #### [facility] [address] [place], [address] Hemoglobin (Bld) [Mass/Vol] 13.9 g/dL Normal 12.0-15.0 [facility] Comment on above: Performed By: #### L 501.9985, L100.0500, L501.9520, L500.4050, L500.4100 #### [facility] [address] [place], [address] MCH (RBC) [Entitic mass] 30.8 pg Normal 27.0-32.0 [facility] Comment on above: Performed By: #### L 501.9985, L100.0500, L501.9520, L500.4050, L500.4100 #### [facility] [address] [place], [address] MCHC (RBC) [Mass/Vol] 32.9 g/dL Normal 32-36 [facility] Comment on above: Performed By: #### L 501.9985, L100.0500, L501.9520, L500.4050, L500.4100 #### [facility] [address] [place], [address] MCV (RBC) [Entitic vol] 93.6 fL Normal 81-99 [facility] Comment on above: Performed By: #### L 501.9985, L100.0500, L501.9520, L500.4050, L500.4100 #### [facility] [address] [place], [address] Platelet mean volume (Bld) [Entitic vol] 9.9 fL Normal 6.2-12.0 [facility] Comment on above: Performed By: #### L 501.9985, L100.0500, L501.9520, L500.4050, L500.4100 #### [facility] [address] [place], [address] Platelets (Bld) [#/Vol] 292 10*3/uL Normal 150-450 [facility] Comment on above: Performed By: #### L 501.9985, L100.0500, L501.9520, L500.4050, L500.4100 #### [facility] [address] [place], [address] RBC (Bld) [#/Vol] 4.51 10*6/uL Normal 4.2-5.4 [facility] Comment on above: Performed By: #### L 501.9985, L100.0500, L501.9520, L500.4050, L500.4100 #### [facility] [address] [place], [address] RDW SD 45.4 fl High 35.1-43.9 [facility] Comment on above: Performed By: #### L 501.9985, L100.0500, L501.9520, L500.4050, L500.4100 #### [facility] [address] [place], [address] WBC (Bld) [#/Vol] 6.0 10*3/uL Normal 4.4-11.0 [facility] Comment on above: Performed By: #### L 501.9985, L100.0500, L501.9520, L500.4050, L500.4100 #### [facility] [address] [place], [address] Comprehensive Metabolic Prof ilon 09-11-2024 Albumin [Mass/Vol] 3.7 g/dL Normal 3.2-5.0 [facility] Comment on above: Performed By: #### L 501.9985, L100.0500, L501.9520, L500.4050, L500.4100 #### [facility] [address] [place], [address] Albumin/Globulin [Mass ratio] 1.0 {ratio} Normal 0.9-2.4 [facility] Comment on above: Performed By: #### L 501.9985, L100.0500, L501.9520, L500.4050, L500.4100 #### [facility] [address] [place], [address] ALK P 94 U/L Normal 45-117 [facility] Comment on above: Performed By: #### L 501.9985, L100.0500, L501.9520, L500.4050, L500.4100 #### [facility] [address] [place], [address] ALT [Catalytic activity/Vol] 29 U/L Normal 13-56 [facility] Comment on above: Performed By: #### L 501.9985, L100.0500, L501.9520, L500.4050, L500.4100 #### [facility] [address] [place], [address] AST [Catalytic activity/Vol] 18 U/L Normal 15-37 [facility] Comment on above: Performed By: #### L 501.9985, L100.0500, L501.9520, L500.4050, L500.4100 #### [facility] [address] [place], [address] Bilirubin [Mass/Vol] 0.40 mg/dL Normal 0.20-1.00 [facility] Comment on above: Result Comment: For patients on eltrombopag therapy, use of Dimension [place] TBIL is not recommended. Performed By: #### L 501.9985, L100.0500, L501.9520, L500.4050, L500.4100 #### [facility] [address] [place], [address] BUN/CRE 28.6 RATIO High 10-20 [facility] Comment on above: Performed By: #### L 501.9985, L100.0500, L501.9520, L500.4050, L500.4100 #### [facility] [address] [place], [address] CA,Total 9.2 mg/dL Normal 8.5-10.1 [facility] Comment on above: Performed By: #### L 501.9985, L100.0500, L501.9520, L500.4050, L500.4100 #### [facility] [address] [place], [address] Chloride [Moles/Vol] 110 mmol/L High 98-107 [facility] Comment on above: Performed By: #### L 501.9985, L100.0500, L501.9520, L500.4050, L500.4100 #### [facility] [address] [place], [address] CO2 [Moles/Vol] 26.0 mmol/L Normal 21.0-32.0 [facility] Comment on above: Performed By: #### L 501.9985, L100.0500, L501.9520, L500.4050, L500.4100 #### [facility] [address] [place], [address] Creatinine [Mass/Vol] 0.66 mg/dL Normal 0.55-1.02 [facility] Comment on above: Result Comment: The validity of the calculated GFR GFRAA in patients over 70 years has not been determined. Clinical correlation is essential. Performed By: #### L 501.9985, L100.0500, L501.9520, L500.4050, L500.4100 #### [facility] [address] [place], [address] EST GFR - AA 119 mL/min Normal >60 [facility] Comment on above: Result Comment: Afri can [place] Citizen GFR Calc Performed By: #### L 501.9985, L100.0500, L501.9520, L500.4050, L500.4100 #### [facility] [address] [place], [address] GAP 4 Low 5-15 [facility] Comment on above: Performed By: #### L 501.9985, L100.0500, L501.9520, L500.4050, L500.4100 #### [facility] [address] [place], [address] GFR/1.73 sq M.predicted among non-blacks MDRD (S/P/Bld) [Vol rate/Area] 98 mL/min/{1.73_m2} Normal >60 [facility] Comment on above: Result Comment: Non- GFR Calc Performed By: #### L 501.9985, L100.0500, L501.9520, L500.4050, L500.4100 #### [facility] [address] [place], [address] Globulin (S) [Mass/Vol] 3.7 g/dL Normal 2.2-4.2 [facility] Comment on above: Performed By: #### L 501.9985, L100.0500, L501.9520, L500.4050, L500.4100 #### [facility] [address] [place], [address] Glucose [Mass/Vol] 99 mg/dL Normal 74-106 [facility] Comment on above: Performed By: #### L 501.9985, L100.0500, L501.9520, L500.4050, L500.4100 #### [facility] [address] [place], [address] Potassium [Moles/Vol] 4.4 mmol/L Normal 3.5-5.1 [facility] Comment on above: Performed By: #### L 501.9985, L100.0500, L501.9520, L500.4050, L500.4100 #### [facility] [address] [place], [address] Sodium [Moles/Vol] 139 mmol/L Normal 136-145 [facility] Comment on above: Performed By: #### L 501.9985, L100.0500, L501.9520, L500.4050, L500.4100 #### [facility] [address] [place], [address] T PROT 7.4 g/dL Normal 6.4-8.2 [facility] Comment on above: Performed By: #### L 501.9985, L100.0500, L501.9520, L500.4050, L500.4100 #### [facility] [address] [place], [address] Urea nitrogen [Mass/Vol] 19 mg/dL High 7-18 [facility] Comment on above: Performed By: #### L 501.9985, L100.0500, L501.9520, L500.4050, L500.4100 #### [facility] [address] [place], [address] Hemoglobin A1con 09-11-2024 HbA1c (Bld) [Mass fraction] 5.6 % Normal 3.8-5.6 [facility] Comment on above: Result Comment: Norm al < 5.7 % Prediabetic 5.7 - 6.4 % Diabetic >or= 6.5 % Please note range changes. Performed By: #### L 501.9985, L100.0500, L501.9520, L500.4050, L500.4100 #### [facility] [address] 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 Normal [facility] Lipid Profileon 09-11-2024 Cholesterol [Mass/Vol] 232 mg/dL High 200 [facility] Comment on above: Result Comment: <200 mg/dL Desirable 200-240 mg/dL Borderline >240 mg/dL High Risk Performed By: #### L 501.9985, L100.0500, L501.9520, L500.4050, L500.4100 #### [facility] [address] [place], [address] Cholesterol in HDL [Mass/Vol] 49 mg/dL Normal [facility] Comment on above: Result Comment: The drugs N-Acetylcysteine and Metamizole may falsely depress this assay. Reference Range HDL <40 mg/dL Low HDL Cholesterol HDL >or= 60 mg/dL High HDL Cholesterol Performed By: #### L 501.9985, L100.0500, L501.9520, L500.4050, L500.4100 #### [facility] [address] [place], [address] Cholesterol in LDL [Mass/Vol] 149 mg/dL High 0-130 [facility] Comment on above: Performed By: #### L 501.9985, L100.0500, L501.9520, L500.4050, L500.4100 #### [facility] [address] [place], [address] Cholesterol in VLDL [Mass/Vol] 34 mg/dL Normal 5-40 [facility] Comment on above: Performed By: #### L 501.9985, L100.0500, L501.9520, L500.4050, L500.4100 #### [facility] [address] [place], [address] Triglyceride [Mass/Vol] 168 mg/dL Normal [facility] Comment on above: Result Comment: The drugs N-Acetylcysteine and Metamizole may falsely depress this assay. Serum Triglycerides Reference Interval Normal <150 mg/dL Borderline high 150 - 199 mg/dL High 200 - 499 mg/dL Very High > or = 500 mg/dL Performed By: #### L 501.9985, L100.0500, L501.9520, L500.4050, L500.4100 #### [facility] [address] [place], [address] Thyroid Stim Hormone (TSH)on 09-11-2024 TSH 0.973 uIU/mL Normal 0.358-3.740 [facility] Comment on above: Performed By: #### L 501.9985, L100.0500, L501.9520, L500.4050, L500.4100 #### [facility] [address] [place], [address] Urgent Care Visit Reporton 1 11-02-2023 Urgent Care Visit Report [facility] [address], [address] [place] [address] OFFICE VISIT Date of Service: 09/02/24 MR#: [id number] Acct: [id number] Name: LISA CHEN Rep #: [id number] : 1970 Provider: ELKIN Borges Age/Sex: 54/F Location: [facility] Status: Signed Intake Vital Signs 03/12/24 15:23 09/02/24 11:46 Height 5 ft 7 in BP 122/60 H Blood Pressure Location Rt brachial Position Sitting Respiration 16 Pulse 83 Pulse Source NIBP Temp 98.3 F Temp Source Oral Pulse Oximetry (%) 96 Oxygen Delivery Method room air Intake Visit Reasons: fever/st/cough/mann Chief Complaint: ST, MANN, fever, cough [employer] Helper Required: No Is patient in pain?: Yes [...] strep. considering covid/flu testing, unsure if willing. [facility] Medical History (Updated 03/12/24 @ 15:46 by Tiffany Fair VIDEO GAME ENGINEER, VIDEO GAME ENGINEER-C) Hyperlipidemia Borderline type 2 diabetes mellitus Kidney [...] recently dx???d w/ similar URI complaints. No [id number] taken to assist. No other associated symptoms and no other alleviating/aggravati ng factors. ROS Const Constitutional: No other (As [...] grossly no (more content not included)... Normal [facility] Absolute lymphocyte counton 01-15-2024 Lymphocytes Auto (Unsp spec) [#/Vol] 1.62 10*3/uL 0.83-4.51 [facility] Automated lymphocyte count a s percentage of total leukocyteson 01-15-2024 Lymphocytes/100 WBC Auto (Unsp spec) 32.8 % 19-41 [facility] Basophil percentageon 2023 Basophils/100 WBC (Bld) 0.8 % 0-1 [facility] Bilirubin [Mass/Vol] 0.40 mg/dL 0.20-1.00 [facility] Comment on above: For patients on eltr ombopag therapy, use of Dimension [place] TBIL is not recommended. Chloride [Moles/Vol] 108 mmol/L 98-107 [facility] Cholesterol [Mass/Vol] 197 mg/dL <200 [facility] Comment on above: <200 mg/dL Desirable 200-240 mg/dL Borderline >240 mg/dL High Risk Eosinophils/100 WBC (Bld) 2.6 % 0-5 [facility] Glucose [Mass/Vol] 98 mg/dL 74-106 [facility] Hemoglobin (Bld) [Mass/Vol] 13.4 g/dL 12.0-15.0 [facility] Monocytes/100 WBC (Bld) 5.7 % 0-10 [facility] Neutrophils (Bld) [#/Vol] 2.9 10*3/uL 2.0-7.7 [facility] Neutrophils/100 WBC (Bld) 57.9 % 47-70 [facility] Potassium [Moles/Vol] 4.0 mmol/L 3.5-5.1 [facility] Protein [Mass/Vol] 6.8 g/dL 6.4-8.2 [facility] Sodium [Moles/Vol] 140 mmol/L 136-145 [facility] Triglyceride [Mass/Vol] 393 mg/dL <199 [facility] Comment on above: The drugs N-Acetylcy steine and Metamizole may falsely depress this assay.Serum Triglycerides Reference Interval Normal <150 mg/dL Borderline high 150 - 199 mg/dL High 200 - 499 mg/dL Very High > or = 500 mg/dL WBC (Bld) [#/Vol] 4.9 10*3/uL 4.4-11.0 [facility] Determination of erythrocyte mean corpuscular volume (MCV)on 01-15-2024 MCV (RBC) [Entitic vol] 93.2 fL 81-99 [facility] Erythrocyte distribution wid th ratioon 01-15-2024 Erythrocyte distribution width (RBC) [Ratio] 13.4 % 11.6-14.6 [facility] Erythrocyte distribution wid th standard deviationon 01-15-2024 Erythrocyte distribution width (RBC) [Entitic vol] 45.8 fL 35.1-43.9 [facility] Hematocrit Auto (Bld) [Volum e fraction]on 01-15-2024 Hematocrit (Bld) [Volume fraction] 42.2 % 37-47 [facility] Immature granulocytes/100 WB C Auto (Bld)on 01-15-2024 Immature granulocytes/100 WBC (Bld) 0.200 % 0.0-0.9 [facility] Comment on above: IG% - Immature Granu locytes (promyelocytes, myelocytes and metamyelocytes) > 1% indicates that a LEFT SHIFT is Present. Laboratory - Chemistry and C hemistry - challengeon 01-15-2024 Albumin/Globulin [Mass ratio] 1.2 {ratio} 0.9-2.4 [facility] ALP [Catalytic activity/Vol] 89 U/L 45-117 [facility] ALT [Catalytic activity/Vol] 23 U/L 13-56 [facility] Cholesterol in HDL [Mass/Vol] 51 mg/dL >40 [facility] Comment on above: The drugs N-Acetylcy steine and Metamizole may falsely depress this assay. Reference Range HDL <40 mg/dL Low HDL Cholesterol HDL >or= 60 mg/dL High HDL Cholesterol Cholesterol in LDL [Mass/Vol] 67 mg/dL 0-130 [facility] CO2 [Moles/Vol] 28.0 mmol/L 21.0-32.0 [facility] Cobalamin (Vitamin B12) [Mass/Vol] 481 pg/mL 211-911 [facility] Globulin (S) [Mass/Vol] 3.1 g/dL 2.2-4.2 [facility] Urea nitrogen/Creatinine [Mass ratio] 19.9 mg/mg 10-20 [facility] - Hematology and Cell countson 01-15-2024 MCH (RBC) [Entitic mass] 29.6 pg 27.0-32.0 [facility] MCHC (RBC) [Mass/Vol] 31.8 g/dL 32-36 [facility] Nucleated RBC/100 WBC (Bld) [Ratio] 0 % 0-5 [facility] Platelet mean volume (Bld) [Entitic vol] 10.3 fL 6.2-12.0 [facility] Platelets (Bld) [#/Vol] 238 10*3/uL 150-450 [facility] No Panel Informationon 01-14 Estimated GFR (MDRD) Amer 133 mL/min >60 [facility] Comment on above: GFR Calc Estimated GFR (MDRD) Non-Af Amer 110 mL/min >60 [facility] Comment on above: Non- GFR Calc Folate 30.60 ng/mL 3.1-55.4 [facility] Comment on above: Slight Hemolysis, Re sult may be falsely increased. VLDL Cholesterol 79 mg/dL 5-40 [facility] RBC Auto (Bld) [#/Vol]on RBC (Bld) [#/Vol] 4.53 10*6/uL 4.2-5.4 [facility] Serum or plasma calcium jade urement (mass/volume)on 01-15-2024 Calcium [Mass/Vol] 8.8 mg/dL 8.5-10.1 [facility] Serum or plasma creatinine m easurement (mass/volume)on 01-15-2024 Creatinine [Mass/Vol] 0.60 mg/dL 0.55-1.02 [facility] Comment on above: The validity of the calculated GFR & GFRAA in patients over 70 years has not been determined. Clinical correlation is essential. Serum or plasma thyroid stim ulating hormone (TSH) measurement (units/volume)on 01-15-2024 TSH Qn 0.94 uIU/mL 0.358-3.74 [facility] Serum or plasma urea nitroge n measurement (mass/volume)on 01-15-2024 Urea nitrogen [Mass/Vol] 12 mg/dL 7-18 [facility] Thin prep Papanicolaou smear with manual screeningon 01-15-2024 Thin prep Papanicolaou smear with manual screening 3.7 g/dL 3.2-5.0 [facility] Thin prep Papanicolaou smear with manual screening 21 U/L 15-37 [facility] Thin prep Papanicolaou smear with manual screening 4 5-15 [facility] Whole blood hemoglobin A1c/t otal hemoglobin ratio (mass fraction)on 01-15-2024 HbA1c (Bld) [Mass fraction] 5.6 % 3.8-5.6 [facility] Comment on above: Normal < 5.7 % Predi abetic 5.7 - 6.4 % Diabetic >or= 6.5 % Please note range changes. Laboratory - Microbiology an d Antimicrobial susceptibilityon 10-18-2023 SARS-CoV-2 (COVID-19) RNA TOM+probe Ql (Unsp spec) Detected [facility] No Panel Informationon 10-18 Influenza Types A,B Rapid (Clinic) Not detected [facility] Absolute lymphocyte countOrd ered By: Chanel Cisneros on 09-20-2023 Lymphocytes Auto (Unsp spec) [#/Vol] 1.58 10*3/uL 0.83-4.51 [facility] Basophil percentageOrdered B y: Chanel Cisneros on 09-20-2023 Basophils/100 WBC (Bld) 0.3 % 0-1 [facility] Bilirubin [Mass/Vol] 0.30 mg/dL 0.20-1.00 [facility] Comment on above: For patients on eltr ombopag therapy, use of Dim[place] TBIL is not recommended. Chloride [Moles/Vol] 107 mmol/L 98-107 [facility] Cholesterol [Mass/Vol] 184 mg/dL <200 [facility] Comment on above: <200 mg/dL Desirable 200-240 mg/dL Borderline >240 mg/dL High Risk Eosinophils/100 WBC (Bld) 1.3 % 0-5 [facility] Glucose [Mass/Vol] 86 mg/dL 74-106 [facility] Neutrophils (Bld) [#/Vol] 4.0 10*3/uL 2.0-7.7 [facility] Neutrophils/100 WBC (Bld) 67.2 % 47-70 [facility] Potassium [Moles/Vol] 3.8 mmol/L 3.5-5.1 [facility] Protein [Mass/Vol] 7.1 g/dL 6.4-8.2 [facility] Sodium [Moles/Vol] 140 mmol/L 136-145 [facility] Triglyceride [Mass/Vol] 143 mg/dL <199 [facility] Comment on above: The drugs N-Acetylcy steine and Metamizole may falsely depress this assay.Serum Triglycerides Reference Interval Normal <150 mg/dL Borderline high 150 - 199 mg/dL High 200 - 499 mg/dL Very High > or = 500 mg/dL WBC (Bld) [#/Vol] 5.9 10*3/uL 4.4-11.0 [facility] Blood erythrocytes count (nu mber/volume)Ordered By: Chanel Cisneros on 09-20-2023 RBC (Bld) [#/Vol] 4.46 10*6/uL 4.2-5.4 [facility] Blood hemoglobin measurement (mass/volume)Ordered By: Chanel Cisneros on 09-20-2023 Hemoglobin (Bld) [Mass/Vol] 13.5 g/dL 12.0-15.0 [facility] Blood lymphocytes/100 leukoc ytesOrdered By: Chanel Cisneros on 09-20-2023 Lymphocytes/100 WBC (Bld) 26.6 % 19-41 [facility] Blood monocytes/100 leukocyt esOrdered By: Chanel Cisneros on 09-20-2023 Monocytes/100 WBC (Bld) 4.4 % 0-10 [facility] Blood platelet mean volumeOr dered By: Chanel Cisneros on 09-20-2023 Platelet mean volume (Bld) [Entitic vol] 10.0 fL 6.2-12.0 [facility] Determination of erythrocyte mean corpuscular volume (MCV)Ordered By: Chanel Cisneros on 09-20-2023 MCV (RBC) [Entitic vol] 93.9 fL 81-99 [facility] Hematocrit Auto (Bld) [Volum e fraction]Ordered By: [facility] Cisneros on 09-20-2023 Hematocrit (Bld) [Volume fraction] 41.9 % 37-47 [facility] - Chemistry and C hemistry - challengeOrdered By: [facility]ha Ramirezobey on 09-20-2023 ALP [Catalytic activity/Vol] 100 U/L 45-117 [facility] ALT [Catalytic activity/Vol] 21 U/L 13-56 [facility] CO2 [Moles/Vol] 25.0 mmol/L 21.0-32.0 [facility] Globulin (S) [Mass/Vol] 3.3 g/dL 2.2-4.2 [facility] Urea nitrogen/Creatinine [Mass ratio] 36.7 mg/mg 10-20 [facility] - Hematology and Cell countsOrdered By: vanessanorwood young americaniesha Ramirezobey on 09-20-2023 Erythrocyte distribution width (RBC) [Entitic vol] 47.0 fL 35.1-43.9 [facility] Erythrocyte distribution width (RBC) [Ratio] 13.6 % 11.6-14.6 [facility] Immature granulocytes/100 WBC (Bld) 0.200 % 0.0-0.9 [facility] Comment on above: IG% - Immature Granu locytes (promyelocytes, myelocytes and metamyelocytes) > 1% indicates that a LEFT SHIFT is Present. MCH (RBC) [Entitic mass] 30.3 pg 27.0-32.0 [facility] Nucleated RBC/100 WBC (Bld) [Ratio] 0 % 0-5 [facility] MCHC Auto (RBC) [Mass/Vol]Or dered By: vanessanorwood young americaniesha Cisneros on 09-20-2023 MCHC (RBC) [Mass/Vol] 32.2 g/dL 32-36 [facility] No Panel InformationOrdered By: Chanel Cisneros on 09-20-2023 Estimated GFR (MDRD) Amer 135 mL/min >60 [facility] Comment on above: GFR Calc Estimated GFR (MDRD) Non-Af Amer 111 mL/min >60 [facility] Comment on above: Non- GFR Calc Platelets bldOrdered By: Jostin maryniesha Cisneros on 09-20-2023 Platelets (Bld) [#/Vol] 249 10*3/uL 150-450 [facility] Serum or plasma albumin jade urement (mass/volume)Ordered By: Chanel Cisneros on 09-20-2023 Albumin [Mass/Vol] 3.8 g/dL 3.2-5.0 [facility] Serum or plasma albumin/glob ulin mass ratioOrdered By: Chanel Cisneros on 09-20-2023 Albumin/Globulin [Mass ratio] 1.2 {ratio} 0.9-2.4 [facility] Serum or plasma calcium jade urement (mass/volume)Ordered By: Chanel Cisneros on 09-20-2023 Calcium [Mass/Vol] 8.8 mg/dL 8.5-10.1 [facility] Serum or plasma cholesterol in HDL measurement (mass/volume)Ordered By: Chanel Cisneros on 09-20-2023 Cholesterol in HDL [Mass/Vol] 56 mg/dL >40 [facility] Comment on above: The drugs N-Acetylcy steine and Metamizole may falsely depress this assay. Reference Range HDL <40 mg/dL Low HDL Cholesterol HDL >or= 60 mg/dL High HDL Cholesterol Serum or plasma cholesterol in VLDL measurement (mass/volume)Ordered By: Chanel Cisneros on 09-20-2023 Cholesterol in VLDL [Mass/Vol] 29 mg/dL 5-40 [facility] Serum or plasma creatinine m easurement (mass/volume)Ordered By: Chanel Cisneros on 09-20-2023 Creatinine [Mass/Vol] 0.60 mg/dL 0.55-1.02 [facility] Comment on above: The validity of the calculated GFR & GFRAA in patients over 70 years has not been determined. Clinical correlation is essential. Serum or plasma low density lipoprotein (LDL) cholesterol measurement (mass/volume)Ordered By: Chanel Cisneros on 09-20-2023 Cholesterol in LDL [Mass/Vol] 99 mg/dL 0-130 [facility] Serum or plasma urea nitroge n measurement (mass/volume)Ordered By: [facility] Cisneros on 09-20-2023 Urea nitrogen [Mass/Vol] 22 mg/dL 7-18 [facility] Thin prep Papanicolaou smear with manual screeningOrdered By: [facility] Cisneros on 09-20-2023 Thin prep Papanicolaou smear with manual screening 17 U/L 15-37 [facility] Thin prep Papanicolaou smear with manual screening 8 5-15 [facility] Whole blood hemoglobin A1c/t otal hemoglobin ratio (mass fraction)Ordered By: vanessanorwood young americaniesha Cisneros on 09-20-2023 HbA1c (Bld) [Mass fraction] 5.5 % 3.8-5.6 [facility] Comment on above: Normal < 5.7 % Predi abetic 5.7 - 6.4 % Diabetic >or= 6.5 % Please note range changes. Absolute lymphocyte countOrd ered By: Dr. Chu on 03-31-2023 Lymphocytes Auto (Unsp spec) [#/Vol] 1.51 10*3/uL 0.83-4.51 [facility] Basophil percentageOrdered B y: Dr. Chu on 03-31-2023 Basophils/100 WBC (Bld) 0.9 % 0-1 [facility] Bilirubin [Mass/Vol] 0.30 mg/dL 0.20-1.00 [facility] Comment on above: For patients on eltr ombopag therapy, use of Dim[place] TBIL is not recommended. Chloride [Moles/Vol] 110 mmol/L 98-107 [facility] Cholesterol [Mass/Vol] 220 mg/dL <200 [facility] Comment on above: <200 mg/dL Desirable 200-240 mg/dL Borderline >240 mg/dL High Risk Eosinophils/100 WBC (Bld) 2.4 % 0-5 [facility] Glucose [Mass/Vol] 102 mg/dL 74-106 [facility] Comment on above: Fasting Glucose resu lt from 100 to 125 mg/dL suggests IMPAIRED HOMEOSTASIS per A.D.A. criteria. Neutrophils (Bld) [#/Vol] 2.7 10*3/uL 2.0-7.7 [facility] Neutrophils/100 WBC (Bld) 57.8 % 47-70 [facility] Potassium [Moles/Vol] 4.3 mmol/L 3.5-5.1 [facility] Protein [Mass/Vol] 7.3 g/dL 6.4-8.2 [facility] Sodium [Moles/Vol] 142 mmol/L 136-145 [facility] Triglyceride [Mass/Vol] 127 mg/dL <199 [facility] Comment on above: The drugs N-Acetylcy steine and Metamizole may falsely depress this assay.Serum Triglycerides Reference Interval Normal <150 mg/dL Borderline high 150 - 199 mg/dL High 200 - 499 mg/dL Very High > or = 500 mg/dL WBC (Bld) [#/Vol] 4.6 10*3/uL 4.4-11.0 [facility] Blood erythrocytes count (nu mber/volume)Ordered By: Dr. Chu on 03-31-2023 RBC (Bld) [#/Vol] 4.63 10*6/uL 4.2-5.4 [facility] Blood hemoglobin measurement (mass/volume)Ordered By: Dr. Chu on 03-31-2023 Hemoglobin (Bld) [Mass/Vol] 13.9 g/dL 12.0-15.0 [facility] Blood lymphocytes/100 leukoc ytesOrdered By: Dr. Chu on 03-31-2023 Lymphocytes/100 WBC (Bld) 32.7 % 19-41 [facility] Blood monocytes/100 leukocyt esOrdered By: Dr. Chu on 03-31-2023 Monocytes/100 WBC (Bld) 5.6 % 0-10 [facility] Blood platelet mean volumeOr dered By: Dr. Chu on 03-31-2023 Platelet mean volume (Bld) [Entitic vol] 10.0 fL 6.2-12.0 [facility] Determination of erythrocyte mean corpuscular volume (MCV)Ordered By: Dr. Chu on 03-31-2023 MCV (RBC) [Entitic vol] 93.7 fL 81-99 [facility] Hematocrit Auto (Bld) [Volum e fraction]Ordered By: Dr. Chu on 03-31-2023 Hematocrit (Bld) [Volume fraction] 43.4 % 37-47 [facility] - Chemistry and C hemistry - challengeOrdered By: Dr. Chu on 03-31-2023 ALP [Catalytic activity/Vol] 114 U/L 45-117 [facility] ALT [Catalytic activity/Vol] 22 U/L 13-56 [facility] CO2 [Moles/Vol] 26.0 mmol/L 21.0-32.0 [facility] Globulin (S) [Mass/Vol] 3.5 g/dL 2.2-4.2 [facility] Urea nitrogen/Creatinine [Mass ratio] 24.2 mg/mg 10-20 [facility] - Hematology and Cell countsOrdered By: Dr. Chu on 03-31-2023 Erythrocyte distribution width (RBC) [Entitic vol] 46.4 fL 35.1-43.9 [facility] Erythrocyte distribution width (RBC) [Ratio] 13.6 % 11.6-14.6 [facility] Immature granulocytes/100 WBC (Bld) 0.600 % 0.0-0.9 [facility] Comment on above: IG% - Immature Granu locytes (promyelocytes, myelocytes and metamyelocytes) > 1% indicates that a LEFT SHIFT is Present. MCH (RBC) [Entitic mass] 30.0 pg 27.0-32.0 [facility] Nucleated RBC/100 WBC (Bld) [Ratio] 0 % 0-5 [facility] MCHC Auto (RBC) [Mass/Vol]Or dered By: Dr. Chu on 03-31-2023 MCHC (RBC) [Mass/Vol] 32.0 g/dL 32-36 [facility] No Panel InformationOrdered By: Dr. Chu on 03-31-2023 Estimated GFR (MDRD) Amer 129 mL/min >60 [facility] Comment on above: GFR Calc Estimated GFR (MDRD) Non-Af Amer 107 mL/min >60 [facility] Comment on above: Non- GFR Calc Platelets bldOrdered By: Dr. Chu on 03-31-2023 Platelets (Bld) [#/Vol] 258 10*3/uL 150-450 [facility] Serum or plasma albumin jade urement (mass/volume)Ordered By: Dr. Chu on 03-31-2023 Albumin [Mass/Vol] 3.8 g/dL 3.2-5.0 [facility] Serum or plasma albumin/glob ulin mass ratioOrdered By: Dr. Chu on 03-31-2023 Albumin/Globulin [Mass ratio] 1.1 {ratio} 0.9-2.4 [facility] Serum or plasma calcitriol m easurement (mass/volume)Ordered By: Dr. Chu on 03-31-2023 1,25-dihydroxyvitamin D3 [Mass/Vol] 58.1 pg/mL 24.8-81.5 [facility] Comment on above: Performed at: [employer] [address] [id number] Director: Angie Reyes MD, Phone: [phone] Serum or plasma calcium jade urement (mass/volume)Ordered By: Dr. Chu on 03-31-2023 Calcium [Mass/Vol] 9.1 mg/dL 8.5-10.1 [facility] Serum or plasma cholesterol in HDL measurement (mass/volume)Ordered By: Dr. Chu on 03-31-2023 Cholesterol in HDL [Mass/Vol] 55 mg/dL >40 [facility] Comment on above: The drugs N-Acetylcy steine and Metamizole may falsely depress this assay. Reference Range HDL <40 mg/dL Low HDL Cholesterol HDL >or= 60 mg/dL High HDL Cholesterol Serum or plasma cholesterol in VLDL measurement (mass/volume)Ordered By: Dr. Chu on 03-31-2023 Cholesterol in VLDL [Mass/Vol] 25 mg/dL 5-40 [facility] Serum or plasma creatinine m easurement (mass/volume)Ordered By: Dr. Chu on 03-31-2023 Creatinine [Mass/Vol] 0.62 mg/dL 0.55-1.02 [facility] Comment on above: The validity of the calculated GFR & GFRAA in patients over 70 years has not been determined. Clinical correlation is essential. Serum or plasma low density lipoprotein (LDL) cholesterol measurement (mass/volume)Ordered By: Dr. Chu on 03-31-2023 Cholesterol in LDL [Mass/Vol] 140 mg/dL 0-130 [facility] Serum or plasma urea nitroge n measurement (mass/volume)Ordered By: Dr. Chu on 03-31-2023 Urea nitrogen [Mass/Vol] 15 mg/dL 7-18 [facility] Thin prep Papanicolaou smear with manual screeningOrdered By: Dr. Chu on 03-31-2023 Thin prep Papanicolaou smear with manual screening 17 U/L 15-37 [facility] Thin prep Papanicolaou smear with manual screening 6 5-15 [facility] Urine creatinine measurement (mass/volume)Ordered By: Dr. Chu on 03-31-2023 Creatinine (U) [Mass/Vol] 18.40 mg/dL NO RANGE EST. [facility] Urine protein measurement (m ass/volume)Ordered By: Dr. Chu on 03-31-2023 Protein (U) [Mass/Vol] mg/dL 0.0-11.8 [facility] Urine protein/creatinine mas s ratioOrdered By: Dr. Chu on 03-31-2023 Protein/Creatinine (U) [Mass ratio] TNP [facility] Comment on above: Test not performed Laboratory - Chemistry and C hemistry - challengeOrdered By: Gail Jacobs on 02-08-2023 Free T4 [Mass/Vol] 0.93 ng/dL 0.76-1.46 [facility] No Panel InformationOrdered By: Gail Jacobs on 02-08-2023 Thyroid Stimulating Hormone (TSH) 1.62 uIU/mL 0.358-3.74 [facility] Whole blood hemoglobin A1c/t otal hemoglobin ratio (mass fraction)Ordered By: Gail Jacobs on 02-08-2023 HbA1c (Bld) [Mass fraction] 5.8 % 3.8-5.6 [facility] Comment on above: Normal < 5.7 % Predi abetic 5.7 - 6.4 % Diabetic >or= 6.5 % Please note range changes. Absolute lymphocyte counton 01-23-2022 Lymphocytes Auto (Unsp spec) [#/Vol] 1.40 10*3/uL 0.83-4.51 [facility] Work Phone: Basophil percentageon 2021 Basophils/100 WBC (Bld) 0.8 % 0-1 [facility] Work Phone: Chloride [Moles/Vol] 109 mmol/L 98-107 [facility] Work Phone: Eosinophils/100 WBC (Bld) 2.2 % 0-5 [facility] Work Phone: Glucose [Mass/Vol] 177 mg/dL 74-106 [facility] Work Phone: Comment on above: Fasting Glucose resu lt greater than or equal to 126 mg/dL suggests DIABETES MELLITUS per A.D.A. criteria. Neutrophils (Bld) [#/Vol] 3.0 10*3/uL 2.0-7.7 [facility] Work Phone: Neutrophils/100 WBC (Bld) 60.6 % 47-70 [facility] Work Phone: Potassium [Moles/Vol] 3.7 mmol/L 3.5-5.1 [facility] Work Phone: Sodium [Moles/Vol] 140 mmol/L 136-145 [facility] Work Phone: WBC (Bld) [#/Vol] 5.0 10*3/uL 4.4-11.0 [facility] Work Phone: Blood erythrocytes count (nu mber/volume)on 01-23-2022 RBC (Bld) [#/Vol] 4.77 10*6/uL 4.2-5.4 [facility] Work Phone: Blood hemoglobin measurement (mass/volume)on 01-23-2022 Hemoglobin (Bld) [Mass/Vol] 15.2 g/dL 12.0-15.0 [facility] Work Phone: Blood lymphocytes/100 leukoc yteson 01-23-2022 Lymphocytes/100 WBC (Bld) 28.3 % 19-41 [facility] Work Phone: Blood monocytes/100 leukocyt eson 01-23-2022 Monocytes/100 WBC (Bld) 7.7 % 0-10 [facility] Work Phone: Blood platelet mean volumeon 01-23-2022 Platelet mean volume (Bld) [Entitic vol] 9.7 fL 6.2-12.0 [facility] Work Phone: Determination of erythrocyte mean corpuscular volume (MCV)on 01-23-2022 MCV (RBC) [Entitic vol] 93.3 fL 81-99 [facility] Work Phone: Hematocrit Auto (Bld) [Volum e fraction]on 01-23-2022 Hematocrit (Bld) [Volume fraction] 44.5 % 37-47 [facility] Work Phone: Laboratory - Chemistry and C hemistry - challengeon 01-23-2022 CO2 [Moles/Vol] 24.0 mmol/L 21.0-32.0 [facility] Work Phone: Urea nitrogen/Creatinine [Mass ratio] 11.7 mg/mg 10-20 [facility] Work Phone: Laboratory - Hematology and Cell countson 01-23-2022 Erythrocyte distribution width (RBC) [Entitic vol] 44.8 fL 35.1-43.9 [facility] Work Phone: Erythrocyte distribution width (RBC) [Ratio] 13.1 % 11.6-14.6 [facility] Work Phone: Immature granulocytes/100 WBC (Bld) 0.400 % 0.0-0.9 [facility] Work Phone: Comment on above: IG% - Immature Granu locytes (promyelocytes, myelocytes and metamyelocytes) > 1% indicates that a LEFT SHIFT is Present. MCH (RBC) [Entitic mass] 31.9 pg 27.0-32.0 [facility] Work Phone: Nucleated RBC/100 WBC (Bld) [Ratio] 0 % 0-5 [facility] Work Phone: MCHC Auto (RBC) [Mass/Vol]on 01-23-2022 MCHC (RBC) [Mass/Vol] 34.2 g/dL 32-36 [facility] Work Phone: No Panel Informationon 01-23 Troponin I High Sensitivity 4 pg/mL 3.0-54.0 [facility] Work Phone: Comment on above: Please Note: New Shara t Units and Gender Specific Reference Ranges. For more information see Policy Stat Procedure [place] High Sensitivity Troponin (TNIH) and attachments. D-Dimer Quantitative (PE/DVT) < 0.27 FEU/ug/m 0.27-0.49 [facility] Work Phone: Comment on above: NORMAL D-Dimer level (<0.50) indicates no DVT or PE. Estimated Creatinine Clearance Calc 96.19 ml/min [facility] Work Phone: Estimated GFR (MDRD) Amer 72 mL/min >60 [facility] Work Phone: Comment on above: GFR Calc Estimated GFR (MDRD) Non-Af Amer 60 mL/min >60 [facility] Work Phone: Comment on above: Non- GFR Calc Thyroid Stimulating Hormone (TSH) 4.18 uIU/mL 0.358-3.74 [facility] Work Phone: Platelets bldon 01-23-2022 Platelets (Bld) [#/Vol] 251 10*3/uL 150-450 [facility] Work Phone: Serum or plasma calcium jade urement (mass/volume)on 01-23-2022 Calcium [Mass/Vol] 9.0 mg/dL 8.5-10.1 [facility] Work Phone: Serum or plasma creatinine m easurement (mass/volume)on 01-23-2022 Creatinine [Mass/Vol] 1.03 mg/dL 0.55-1.02 [facility] Work Phone: Comment on above: The validity of the calculated GFR & GFRAA in patients over 70 years has not been determined. Clinical correlation is essential. Serum or plasma urea nitroge n measurement (mass/volume)on 01-23-2022 Urea nitrogen [Mass/Vol] 12 mg/dL 7-18 [facility] Work Phone: Thin prep Papanicolaou smear with manual screeningon 01-23-2022 Thin prep Papanicolaou smear with manual screening 7 5-15 [facility] Work Phone: Basophil percentageon 2020 Cholesterol [Mass/Vol] 159 mg/dL <200 [facility] Work Phone: Comment on above: <200 mg/dL Desirable 200-240 mg/dL Borderline >240 mg/dL High Risk Glucose [Mass/Vol] 91 mg/dL 74-106 [facility] Work Phone: Comment on above: Please note revised GLUCOSE reference range effective 2017. Triglyceride [Mass/Vol] 69 mg/dL [facility] Work Phone: Comment on above: The drugs N-Acetylcy steine and Metamizole may falsely depress this assay.Serum Triglycerides Reference Interval Normal <150 mg/dL Borderline high 150 - 199 mg/dL High 200 - 499 mg/dL Very High > or = 500 mg/dL No Panel Informationon 10-18 Thyroid Stimulating Hormone (TSH) 0.88 uIU/mL 0.358-3.74 [facility] Work Phone: Vitamin D 25-Hydroxy 45.0 ng/mL [facility] Work Phone: Comment on above: Vitamin D 25(OH) Sta tus Range Deficiency <20 ng/mL (50nmol/L) Insufficiency 20 - 30 ng/mL (50 - 75 nmol/L) Sufficiency 30 - 100 ng/mL (75 - 250 nmol/L) Toxicity >100 ng/mL (>250 nmol/L) Serum or plasma cholesterol in HDL measurement (mass/volume)on 10-18-2021 Cholesterol in HDL [Mass/Vol] 42 mg/dL [facility] Work Phone: Comment on above: The drugs N-Acetylcy steine and Metamizole may falsely depress this assay. Reference Range HDL <40 mg/dL Low HDL Cholesterol HDL >or= 60 mg/dL High HDL Cholesterol Serum or plasma cholesterol in VLDL measurement (mass/volume)on 10-18-2021 Cholesterol in VLDL [Mass/Vol] 14 mg/dL 5-40 [facility] Work Phone: Serum or plasma low density lipoprotein (LDL) cholesterol measurement (mass/volume)on 10-18-2021 Cholesterol in LDL [Mass/Vol] 103 mg/dL 0-130 [facility] Work Phone: CBC, Platelets & Auto Diff ( [id number])Ordered By: Rehabilitation Counsellor on 05-26-2020 Basophils (Bld) [#/Vol] 0.1 {x10E3/uL} Normal 0.0-0.2 [facility] Work Phone: Comment on above: PATIENT NOT FASTINGP ERFORMED BY: CB [facility] Vrxxvp[address] [place] [id number] Basophils (Bld) [#/Vol] 0.1 10*3/uL Normal 0.0-0.2 [facility]; [facility] Work Phone: Comment on above: PATIENT NOT FASTINGP ERFORMED BY: CB [facility] Muhgkc[address] [place] [id number] Basophils/100 WBC (Bld) 1 % Normal [facility] Work Phone: Comment on above: PATIENT NOT FASTINGP ERFORMED BY: CB [facility] Yacphx3914 [address] [place]uD[address] [place] [id number] Eosinophils (Bld) [#/Vol] 0.0 {x10E3/uL} Normal 0.0-0.4 [facility] Work Phone: Comment on above: PATIENT NOT FASTINGP ERFORMED BY: CB [facility] Xbqgzd8082 [address]r RoadDuCarolinas ContinueCARE [facility] [id number] Eosinophils (Bld) [#/Vol] 0.0 10*3/uL Normal 0.0-0.4 [facility]; [facility] Work Phone: Comment on above: PATIENT NOT FASTINGP ERFORMED BY: CB [facility] Dvzguu9141 [address] RoadDublin [place] [id number] Eosinophils/100 WBC (Bld) 1 % Normal [facility] Work Phone: Comment on above: PATIENT NOT FASTINGP ERFORMED BY: CB [facility] Wemvnq7576 [address] RoadCarolinas Continuecare [facility] [place] [id number] Erythrocyte distribution width (RBC) [Ratio] 13.4 % Normal 11.7-15.4 [facility] Work Phone: Comment on above: PATIENT NOT FASTINGP ERFORMED BY: CB [facility] Npfiib[address] [facility] [id number] Hematocrit (Bld) [Volume fraction] 42.5 % Normal 34.0-46.6 [facility] Work Phone: Comment on above: PATIENT NOT FASTINGP ERFORMED BY: CB [facility] Bsigwu1373 Orr RoadNov[facility] [id number] Hemoglobin (Bld) [Mass/Vol] 14.6 g/dL Normal 11.1-15.9 [facility] Work Phone: Comment on above: PATIENT NOT FASTINGP ERFORMED BY: CB [facility] Zzqzme8015 [address] RoadCarolinas Continuecare Hospital [facility]in [place] [id number] Immature granulocytes (Bld) [#/Vol] 0.0 {x10E3/uL} Normal 0.0-0.1 [facility] Work Phone: Comment on above: PATIENT NOT FASTINGP ERFORMED BY: CB [facility] Mzymja4893 [address] Road[address]ublin [place] [id number] Immature granulocytes (Bld) [#/Vol] 0.0 10*3/uL Normal 0.0-0.1 [facility]; [facility] Work Phone: Comment on above: PATIENT NOT FASTINGP ERFORMED BY: CB [facility] Qamwjh5690 [address] RoadDublin [place] [id number] Immature granulocytes/100 WBC (Bld) 0 % Normal [facility] Work Phone: Comment on above: PATIENT NOT FASTINGP ERFORMED BY: BRITTON LabRey VeronicaDypobr[address] [facility] [place] [id number] Lymphocytes (Bld) [#/Vol] 1.5 {x10E3/uL} Normal 0.7-3.1 [facility] Work Phone: Comment on above: PATIENT NOT FASTINGP ERFORMED BY: [facility] Wzxyxr34[address] [facility] [id number] Lymphocytes (Bld) [#/Vol] 1.5 10*3/uL Normal 0.7-3.1 [facility]; [facility] Work Phone: Comment on above: PATIENT NOT FASTINGP ERFORMED BY: BRITTON [facility] Sudqce[address] [facility] [id number] Lymphocytes/100 WBC (Bld) 17 % Normal [facility] Work Phone: Comment on above: PATIENT NOT FASTINGP ERFORMED BY: BRITTON [facility] Ebeuyg[address] [facility] [id number] MCH (RBC) [Entitic mass] 31.3 pg Normal 26.6-33.0 [facility] Work Phone: Comment on above: PATIENT NOT FASTINGP ERFORMED BY: [facility] Jtkndu[address] [facility] [id number] MCHC (RBC) [Mass/Vol] 34.4 g/dL Normal 31.5-35.7 [facility] Work Phone: Comment on above: PATIENT NOT FASTINGP ERFORMED BY: [facility] Lmjtjy55[address] [facility] [place] [id number] MCV (RBC) [Entitic vol] 91 fL Normal 79-97 C [facility]erens[facility] Work Phone: Comment on above: PATIENT NOT FASTINGP ERFORMED BY: [facility] Kqloox[address] [facility] [id number] Monocytes (Bld) [#/Vol] 0.4 {x10E3/uL} Normal 0.1-0.9 [facility] Work Phone: Comment on above: PATIENT NOT FASTINGP ERFORMED BY: CB [facility] Xahtrs7592 [address] RoadDublin [place] [id number] Monocytes (Bld) [#/Vol] 0.4 10*3/uL Normal 0.1-0.9 [facility]; [facility] Work Phone: Comment on above: PATIENT NOT FASTINGP ERFORMED BY: CB [facility] Rewlux[address]Dublin [place] [id number] Monocytes/100 WBC (Bld) 5 % Normal [facility] Work Phone: Comment on above: PATIENT NOT FASTINGP ERFORMED BY: BRITTON [facility] Jbblwj8599 [address] RoadDublin [place] [id number] Neutrophils (Bld) [#/Vol] 6.7 {x10E3/uL} Normal 1.4-7.0 [facility] Work Phone: Comment on above: PATIENT NOT FASTINGP ERFORMED BY: BRITTON [facility] Wawipu8[address] RoadDublin [place] [id number] Neutrophils (Bld) [#/Vol] 6.7 10*3/uL Normal 1.4-7.0 [facility]; [facility] Work Phone: Comment on above: PATIENT NOT FASTINGP ERFORMED BY: CB [facility] Zhvrnm6525 [address] RoadDublin [place] [id number] Neutrophils/100 WBC (Bld) 76 % Normal [facility] Work Phone: Comment on above: PATIENT NOT FASTINGP ERFORMED BY: CB [facility] Mcsprh4224 [address] RoadDublin [place] [id number] Platelets (Bld) [#/Vol] 247 {x10E3/uL} Normal 150-450 [facility] Work Phone: Comment on above: PATIENT NOT FASTINGP ERFORMED BY: CB [facility] Uxppwg4404 [address] RoadD[address] [place] [id number] Platelets (Bld) [#/Vol] 247 10*3/uL Normal 150-450 [facility]; [facility] Work Phone: Comment on above: PATIENT NOT FASTINGP ERFORMED BY: CB [facility] Grxwrk2998 [address] RoadDublin [place] [id number] RBC (Bld) [#/Vol] 4.66 {x10E6/uL} Normal 3.77-5.28 [facility] Work Phone: Comment on above: PATIENT NOT FASTINGP ERFORMED BY: CB [facility] Takqin6966 [address] RoadDublin [place] [id number] RBC (Bld) [#/Vol] 4.66 10*6/uL Normal 3.77-5.28 [facility] Internal [facility]; [facility] Work Phone: Comment on above: PATIENT NOT FASTINGP ERFORMED BY: CB [facility] Fznllf2245 [address] RoadDublin [place] [id number] WBC (Bld) [#/Vol] 8.8 {x10E3/uL} Normal 3.4-10.8 [facility] Work Phone: Comment on above: PATIENT NOT FASTINGP ERFORMED BY: CB [facility] Swjghb9748 [address] RoadDublin [place] [id number] WBC (Bld) [#/Vol] 8.8 10*3/uL Normal 3.4-10.8 [facility]; [facility] Work Phone: Comment on above: PATIENT NOT FASTINGP ERFORMED BY: CB [facility] Wgrlvz0530 [address]Dublin [place] [id number] Metabolic Panel, Comprehensi ve ([id number])Ordered By: Rehabilitation Counsellor on 05-26-2020 Albumin [Mass/Vol] 4.5 g/dL Normal 3.8-4.8 [facility] Work Phone: Comment on above: PATIENT NOT FASTINGP ERFORMED BY: CB [facility] Sgkseh6893 [address] RoadDublin [place] [id number] Albumin/Globulin [Mass ratio] 2.0 {ratio} Normal 1.2-2.2 [facility] Work Phone: Comment on above: PATIENT NOT FASTINGP ERFORMED BY: CB [facility] Siiutb8978 [address] RoadDublin [place] [id number] ALP [Catalytic activity/Vol] 79 [iU]/L Normal 39-117 [facility] Work Phone: Comment on above: PATIENT NOT FASTINGP ERFORMED BY: CB [facility] Wmqahi5633 [address] RoadD[address] [place] [id number] ALP [Catalytic activity/Vol] 79 U/L Normal 39-117 [facility]; [facility] Work Phone: Comment on above: PATIENT NOT FASTINGP ERFORMED BY: CB [facility] Hpovrb2486 [address] RoadDublin [place] [id number] ALT [Catalytic activity/Vol] 13 [iU]/L Normal 0-32 [facility] Work Phone: Comment on above: PATIENT NOT FASTINGP ERFORMED BY: CB [facility] Hhlplx2929 [address] [place] [id number] ALT [Catalytic activity/Vol] 13 U/L Normal 0-32 [facility]; [facility] Work Phone: Comment on above: PATIENT NOT FASTINGP ERFORMED BY: CB [facility] Pnvskx8089 [address] RoadD[address] [place] [id number] AST [Catalytic activity/Vol] 17 [iU]/L Normal 0-40 [facility] Work Phone: Comment on above: PATIENT NOT FASTINGP ERFORMED BY: CB [facility] Pomdtf2719 [address] RoadD[address] [place] [id number] AST [Catalytic activity/Vol] 17 U/L Normal 0-40 [facility]; [facility] Work Phone: Comment on above: PATIENT NOT FASTINGP ERFORMED BY: CB [facility] Qsnpdt8982 [address] RoadDublin [place] [id number] Bilirubin [Mass/Vol] 0.3 mg/dL Normal 0.0-1.2 Comp re[facility] Work Phone: Comment on above: PATIENT NOT FASTINGP ERFORMED BY: CB [facility] Zbdeud4276 [address] RoadDublin [place] [id number] Calcium [Mass/Vol] 9.4 mg/dL Normal 8.7-10.2 [facility] Work Phone: Comment on above: PATIENT NOT FASTINGP ERFORMED BY: CB [facility] Xrekvh[address] [place] [id number] Chloride [Moles/Vol] 105 mmol/L Normal 96-106 [facility]erensive [facility] Work Phone: Comment on above: PATIENT NOT FASTINGP ERFORMED BY: CB [facility] Dnjacf8920 [address] RoadDublin [place] [id number] CO2 [Moles/Vol] 24 mmol/L Normal 20-29 [facility] Work Phone: Comment on above: PATIENT NOT FASTINGP ERFORMED BY: CB [facility] Ltpoie0301 [address] RoadDublin [place] [id number] Creatinine [Mass/Vol] 0.66 mg/dL Normal 0.57-1.00 [facility] Work Phone: Comment on above: PATIENT NOT FASTINGP ERFORMED BY: CB [facility] Wppljl9335 [address]Dublin [place] [id number] GFR/1.73 sq M predicted among blacks CKD-EPI (S/P/Bld) [Vol rate/Area] 119 mL/min/1.73 Normal [facility] Work Phone: Comment on above: PATIENT NOT FASTINGP ERFORMED BY: CB [facility] Xotewt2452 [address] RoadD[address] [place] [id number] GFR/1.73 sq M predicted among non-blacks CKD-EPI (S/P/Bld) [Vol rate/Area] 103 mL/min/1.73 Normal [facility] Work Phone: Comment on above: PATIENT NOT FASTINGP ERFORMED BY: CB [facility] Aixtfp9189 [address] RoadDublin [place] [id number] Globulin (S) [Mass/Vol] 2.3 g/dL Normal 1.5-4.5 [facility] Work Phone: Comment on above: PATIENT NOT FASTINGP ERFORMED BY: BRITTON [facility] Xmxpxl7385 [address] RoadDublin [place] [id number] Glucose [Mass/Vol] 99 mg/dL Normal 65-99 [facility] Work Phone: Comment on above: PATIENT NOT FASTINGP ERFORMED BY: CB [facility] Gnndly5012 [address] [place] [id number] Potassium [Moles/Vol] 4.2 mmol/L Normal 3.5-5.2 [facility] Work Phone: Comment on above: PATIENT NOT FASTINGP ERFORMED BY: CB [facility] Kurevm2685 [address] RoadD[address] [place] [id number] Protein [Mass/Vol] 6.8 g/dL Normal 6.0-8.5 [facility] Work Phone: Comment on above: PATIENT NOT FASTINGP ERFORMED BY: BRITTON [facility] Btvrts2594 [address] RoadDublin [place] [id number] Sodium [Moles/Vol] 141 mmol/L Normal 134-144 [facility] Work Phone: Comment on above: PATIENT NOT FASTINGP ERFORMED BY: BRITTON [facility] Rimrah7543 [address] RoadDublin [place] [id number] Urea nitrogen [Mass/Vol] 11 mg/dL Normal 6-24 [facility] Work Phone: Comment on above: PATIENT NOT FASTINGP ERFORMED BY: CB [facility] Dottcv4108 [address] RoadD[address] [place] [id number] Urea nitrogen/Creatinine [Mass ratio] 17 mg/mg Normal 9-23 [facility] Work Phone: Comment on above: PATIENT NOT FASTINGP ERFORMED BY: CB [facility] Vzjimw7718 [address] RoadD[address] [place] [id number] TSH (THYROID STIMULATING HOR JANE) ([id number])Ordered By: Rehabilitation Counsellor on 05-26-2020 TSH Qn 1.150 {uIU/mL} Normal 0.450-4.500 [facility] Work Phone: Comment on above: PATIENT NOT FASTINGP ERFORMED BY: BRITTON LabPeopleMatter Bspsep[address] [facility] [id number] Troponin I ([id number])Ordered By : Rehabilitation Counsellor on 05-26-2020 Troponin I.cardiac [Mass/Vol] ng/mL Normal 0.00-0.04 [facility] Work Phone: Comment on above: PATIENT NOT FASTINGP ERFORMED BY: BRITTON [facility] Ucfzmi6651 [address] SchwabCarolinas [facility] [id number] Troponin I.cardiac [Mass/Vol] ng/mL Normal 0.00-0.04 [facility]; [facility] Work Phone: Comment on above: PATIENT NOT FASTINGP ERFORMED BY: BRITTON [employer] Xpykus2546 [facility] [id number] Rapid Flu (18960 x 2)Ordered By: Brenna Edward on 12-08-2016 FLUAV Ag IA Ql (Throat) Positive Normal [facility] Work Phone: Comment on above: . FLUAV Ag IA Ql (Throat) Positive Normal [facility]; [facility] Work Phone: Comment on above: . HGB A1C (31088)Ordered By: S TidePooltem Biomedical Technician on 11-23-2016 HbA1c (Bld) [Mass fraction] 5.6 % Normal 4.8-5.6 [facility] Work Phone: Comment on above: . Pre-diabetes: 5.7 - 6.4 Diabetes: >6.4 Glycemic control for adults with diabetes: <7.0 PATIENT NOT FASTINGP ERFORMED BY: Zopa LabPeopleMatter Qgbsrg8634 [facility] [id number] CBC, Platelets & Auto Diff ( [id number])Ordered By: Rehabilitation Counsellor on 05-13-2013 Basophils (Bld) [#/Vol] 0.0 {x10E3/uL} Normal 0.0-0.2 [facility] Work Phone: Comment on above: PATIENT NOT FASTINGP ERFORMED BY: BRITTON LabRupa Nxvqyc0253 [facility] [id number] Information: ADD [id number] AND DRAW FEE 99 6660 Basophils (Bld) [#/Vol] 0.0 10*3/uL Normal 0.0-0.2 [facility]; [facility] Work Phone: Comment on above: PATIENT NOT FASTINGP ERFORMED BY: LabCo Lkmxjx2113 [facility] [id number] Information: ADD [id number] AND DRAW FEE 99 6660 Basophils/100 WBC (Bld) 1 % Normal 0-3 [facility] Work Phone: Comment on above: PATIENT NOT FASTINGP ERFORMED BY: Arlet Htoqow3523 [facility] [id number] Information: ADD [id number] AND DRAW FEE 99 6660 Eosinophils (Bld) [#/Vol] 0.1 {x10E3/uL} Normal 0.0-0.4 [facility] Work Phone: Comment on above: PATIENT NOT FASTINGP ERFORMED BY: Arlet Pcpvbd0889 [facility] [id number] Information: ADD [id number] AND DRAW FEE 99 6660 Eosinophils (Bld) [#/Vol] 0.1 10*3/uL Normal 0.0-0.4 [facility]; [facility] Work Phone: Comment on above: PATIENT NOT FASTINGP ERFORMED BY: LabCharles Ville [id number] [facility] [id number] Information: ADD [id number] AND DRAW FEE 99 6660 Eosinophils/100 WBC (Bld) 2 % Normal 0-7 [facility] Work Phone: Comment on above: PATIENT NOT FASTINGP ERFORMED BY: [facility] Ulenef0442 [facility] [id number] Information: ADD [id number] AND DRAW FEE 99 6660 Erythrocyte distribution width (RBC) [Ratio] 13.7 % Normal 12.3-15.4 [facility] Work Phone: Comment on above: PATIENT NOT FASTINGP ERFORMED BY: BRITTON Cabrera [facility] [id number] Information: ADD [id number] AND DRAW FEE 99 6660 Hematocrit (Bld) [Volume fraction] 42.8 % Normal 34.0-46.6 [facility] Work Phone: Comment on above: PATIENT NOT FASTINGP ERFORMED BY: BRITTON Nice Zejwwx44[address] [id number] Information: ADD [id number] AND DRAW FEE 99 6660 Hemoglobin (Bld) [Mass/Vol] 14.2 g/dL Normal 11.1-15.9 [facility] Work Phone: Comment on above: PATIENT NOT FASTINGP ERFORMED BY: BRITTON Nice Gqzdnr29[address] [id number] Information: ADD [id number] AND DRAW FEE 99 6660 Immature granulocytes (Bld) [#/Vol] 0.0 {x10E3/uL} Normal 0.0-0.1 [facility] Work Phone: Comment on above: PATIENT NOT FASTINGP ERFORMED BY: BRITTON Veronica[address] [id number] Information: ADD [id number] AND DRAW FEE 99 6660 Immature granulocytes (Bld) [#/Vol] 0.0 10*3/uL Normal 0.0-0.1 [facility]; [facility] Work Phone: Comment on above: PATIENT NOT FASTINGP ERFORMED BY: BRITTON [address] [id number] Information: ADD [id number] AND DRAW FEE 99 6660 Immature granulocytes/100 WBC (Bld) 0 % Normal 0-2 [facility] Work Phone: Comment on above: PATIENT NOT FASTINGP ERFORMED BY: BRITTON [address] [id number] Information: ADD [id number] AND DRAW FEE 99 6660 Lymphocytes (Bld) [#/Vol] 1.2 {x10E3/uL} Normal 0.7-4.5 [facility] Work Phone: Comment on above: PATIENT NOT FASTINGP ERFORMED BY: BRITTON Inoc[address] [id number] Information: ADD [id number] AND DRAW FEE 99 6660 Lymphocytes (Bld) [#/Vol] 1.2 10*3/uL Normal 0.7-4.5 [facility]; [facility] Work Phone: Comment on above: PATIENT NOT FASTINGP ERFORMED BY: BRITTON [address] [id number] Information: ADD [id number] AND DRAW FEE 99 6660 Lymphocytes/100 WBC (Bld) 22 % Normal 14-46 [facility] Work Phone: Comment on above: PATIENT NOT FASTINGP ERFORMED BY: Inocencia[address] [id number] Information: ADD [id number] AND DRAW FEE 99 6660 MCH (RBC) [Entitic mass] 29.9 pg Normal 26.6-33.0 [facility] Work Phone: Comment on above: PATIENT NOT FASTINGP ERFORMED BY: [address] [id number] Information: ADD Y56540 AND DRAW FEE 99 6660 MCHC (RBC) [Mass/Vol] 33.2 g/dL Normal 31.5-35.7 [facility] Work Phone: Comment on above: PATIENT NOT FASTINGP ERFORMED BY: [address] [id number] Information: ADD [id number] AND DRAW FEE 99 6660 MCV (RBC) [Entitic vol] 90 fL Normal 79-97 [facility]gallup [facility] Work Phone: Comment on above: PATIENT NOT FASTINGP ERFORMED BY: BRITTON [facility]6370 [facility] [id number] Information: ADD [id number] AND DRAW FEE 99 6660 Monocytes (Bld) [#/Vol] 0.4 {x10E3/uL} Normal 0.1-1.0 [facility] Work Phone: Comment on above: PATIENT NOT FASTINGP ERFORMED BY: [facility] Wjfigl5376 [facility] [id number] Information: ADD [id number] AND DRAW FEE 99 6660 Monocytes (Bld) [#/Vol] 0.4 10*3/uL Normal 0.1-1.0 [facility]; [facility] Work Phone: Comment on above: PATIENT NOT FASTINGP ERFORMED BY: [facility] Purmuz1233 [facility] [id number] Information: ADD [id number] AND DRAW FEE 99 6660 Monocytes/100 WBC (Bld) 8 % Normal 4-13 [facility] Work Phone: Comment on above: PATIENT NOT FASTINGP ERFORMED BY: [facility] Tmqbnw8204 [facility] [id number] Information: ADD [id number] AND DRAW FEE 99 6660 Neutrophils (Bld) [#/Vol] 3.7 {x10E3/uL} Normal 1.8-7.8 [facility] Work Phone: Comment on above: PATIENT NOT FASTINGP ERFORMED BY: [facility] Dodqiu3335 [facility] [id number] Information: ADD [id number] AND DRAW FEE 99 6660 Neutrophils (Bld) [#/Vol] 3.7 10*3/uL Normal 1.8-7.8 [facility]; [facility] Work Phone: Comment on above: PATIENT NOT FASTINGP ERFORMED BY: [facility] Jrsqgx7386 [facility] [id number] Information: ADD [id number] AND DRAW FEE 99 6660 Neutrophils/100 WBC (Bld) 67 % Normal 40-74 [facility] Work Phone: Comment on above: PATIENT NOT FASTINGP ERFORMED BY: BRITTON Neyda [address] [facility] [id number] Information: ADD [id number] AND DRAW FEE 99 6660 Platelets (Bld) [#/Vol] 261 {x10E3/uL} Normal 140-415 [facility] Work Phone: Comment on above: PATIENT NOT FASTINGP ERFORMED BY: CB [facility] Qepvcw[address] [facility] [id number] Information: ADD [id number] AND DRAW FEE 99 6660 Platelets (Bld) [#/Vol] 261 10*3/uL Normal 140-415 [facility] Internal Medicine; [facility] Work Phone: Comment on above: PATIENT NOT FASTINGP ERFORMED BY: BRITTON Neyda Gerber6370 [facility] [id number] Information: ADD I74448 AND DRAW FEE 99 6660 RBC (Bld) [#/Vol] 4.75 {x10E6/uL} Normal 3.77-5.28 [facility] Internal Medicine Work Phone: Comment on above: PATIENT NOT FASTINGP ERFORMED BY: BRITTON Neyda Gerber6370 [facility] [id number] Information: ADD [id number] AND DRAW FEE 99 6660 RBC (Bld) [#/Vol] 4.75 10*6/uL Normal 3.77-5.28 [facility] Internal Medicine; [facility] Work Phone: Comment on above: PATIENT NOT FASTINGP ERFORMED BY: BRITTON [facility] Xtwrpc[address] [facility] [id number] Information: ADD R02479 AND DRAW FEE 99 6660 WBC (Bld) [#/Vol] 5.5 {x10E3/uL} Normal 4.0-10.5 [facility] Internal Medicine Work Phone: Comment on above: PATIENT NOT FASTINGP ERFORMED BY: BRITTON [facility] Ribcom9026 [facility] [id number] Information: ADD C17043 AND DRAW FEE 99 6660 WBC (Bld) [#/Vol] 5.5 10*3/uL Normal 4.0-10.5 [facility] Internal Medicine; [facility] Internal Medicine Work Phone: Comment on above: PATIENT NOT FASTINGP ERFORMED BY: CB [facility] Xekyrw0809 [address] Road[address]ublin [place] [id number] Information: ADD J01776 AND DRAW FEE 99 6660 HEPATIC FUNCTION PANEL (8007 6)Ordered By: Rehabilitation Counsellor on 05-13-2013 Bilirubin.direct [Mass/Vol] 0.09 mg/dL Normal 0.00-0.40 [facility] Internal Medicine Work Phone: Comment on above: PATIENT NOT FASTINGP ERFORMED BY: CB [facility] Ymbyeb7075 [address] [place] [id number] Metabolic Panel, Comprehensi ve (02278)Ordered By: Rehabilitation Counsellor on 05-13-2013 Albumin [Mass/Vol] 4.1 g/dL Normal 3.5-5.5 [facility] Internal Medicine Work Phone: Comment on above: PATIENT NOT FASTINGP ERFORMED BY: CB [facility] Fqxoug6182 [address] [place] [id number] Albumin/Globulin [Mass ratio] 1.5 {ratio} Normal 1.1-2.5 [facility] Internal Medicine Work Phone: Comment on above: PATIENT NOT FASTINGP ERFORMED BY: CB [facility] Ajrsqz8812 [address] Road[address]ublin [place] [id number] ALP [Catalytic activity/Vol] 95 [iU]/L Normal 42-107 [facility] Work Phone: Comment on above: Please note refere nce interval change PATIENT NOT FASTINGP ERFORMED BY: CB [facility] Vyaggn1884 [address] RoadDublin [place] [id number] ALP [Catalytic activity/Vol] 95 U/L Normal 42-107 [facility]; [facility] Work Phone: Comment on above: Please note refere nce interval change PATIENT NOT FASTINGP ERFORMED BY: BRITTON [facility] Lwetrn0876 [address] RoadDublin [place] [id number] ALT [Catalytic activity/Vol] 30 [iU]/L Normal 0-32 [facility] Work Phone: Comment on above: PATIENT NOT FASTINGP ERFORMED BY: CB [facility] Iyvopn3769 [address] Road[address] [place] [id number] ALT [Catalytic activity/Vol] 30 U/L Normal 0-32 [facility]; [facility] Work Phone: Comment on above: PATIENT NOT FASTINGP ERFORMED BY: CB [facility] Zlczcf0140 [address] RoadDublin [place] [id number] AST [Catalytic activity/Vol] 23 [iU]/L Normal 0-40 [facility] Work Phone: Comment on above: PATIENT NOT FASTINGP ERFORMED BY: BRITTON [facility] Exyjkj2255 [address] Road[address]ublin [place] [id number] AST [Catalytic activity/Vol] 23 U/L Normal 0-40 [facility]; [facility] Work Phone: Comment on above: PATIENT NOT FASTINGP ERFORMED BY: BRITTON [facility] Eeafxg6278 [address] RoadDublin [place] [id number] Bilirubin [Mass/Vol] 0.3 mg/dL Normal 0.0-1.2 Comp rehensive Internal Medicine Work Phone: Comment on above: PATIENT NOT FASTINGP ERFORMED BY: CB [facility] Phmgsi5252 [address] Road[address]ublin [place] [id number] Calcium [Mass/Vol] 9.1 mg/dL Normal 8.7-10.2 [facility] Internal Medicine Work Phone: Comment on above: PATIENT NOT FASTINGP ERFORMED BY: CB [facility] Ytqait4648 [address] Road[address] [place] [id number] Chloride [Moles/Vol] 105 mmol/L Normal 97-108 Comp rehensive Internal Medicine Work Phone: Comment on above: PATIENT NOT FASTINGP ERFORMED BY: CB [facility] Fswpie1569 [address] RoadDublin [place] [id number] CO2 [Moles/Vol] 21 mmol/L Normal 19-28 [facility] Internal Medicine Work Phone: Comment on above: PATIENT NOT FASTINGP ERFORMED BY: CB [facility] Gdqnvz0388 [address] Roadbl[address] [place] [id number] Creatinine [Mass/Vol] 0.61 mg/dL Normal 0.57-1.00 [facility] Work Phone: Comment on above: PATIENT NOT FASTINGP ERFORMED BY: CB [facility] Yjnagg7287 [address] RoadDublin [place] [id number] GFR/1.73 sq M predicted among blacks CKD-EPI (S/P/Bld) [Vol rate/Area] 128 mL/min/1.73 Normal [facility] Work Phone: Comment on above: PATIENT NOT FASTINGP ERFORMED BY: CB [facility] Dvnckn2367 [address] RoadCarolinas Continuecare Hospital At [facility] Mountainin [place] [id number] GFR/1.73 sq M predicted among non-blacks CKD-EPI (S/P/Bld) [Vol rate/Area] 111 mL/min/1.73 Normal [facility] Work Phone: Comment on above: PATIENT NOT FASTINGP ERFORMED BY: CB [facility] Usksfz2434 [address] [facility] [place] [id number] Globulin (S) [Mass/Vol] 2.7 g/dL Normal 1.5-4.5 [facility] Work Phone: Comment on above: PATIENT NOT FASTINGP ERFORMED BY: CB [facility] Yrsngc6047 [address] RoadDublin [place] [id number] Glucose [Mass/Vol] 94 mg/dL Normal 65-99 [facility] Internal Medicine Work Phone: Comment on above: PATIENT NOT FASTINGP ERFORMED BY: CB [facility] Nreyjb3492 [address] [facility] [place] [id number] Potassium [Moles/Vol] 4.6 mmol/L Normal 3.5-5.2 [facility] Work Phone: Comment on above: PATIENT NOT FASTINGP ERFORMED BY: CB [facility] Lyhbhx1793 [address] RoadDublin [place] [id number] Protein [Mass/Vol] 6.8 g/dL Normal 6.0-8.5 [facility] Internal Medicine Work Phone: Comment on above: PATIENT NOT FASTINGP ERFORMED BY: CB [facility] Ljjzkv8682 [address] RoadDublin [place] [id number] Sodium [Moles/Vol] 138 mmol/L Normal 134-144 [facility] Internal Medicine Work Phone: Comment on above: PATIENT NOT FASTINGP ERFORMED BY: CB [facility] Jxitqh5155 [address] RoadDublin [place] [id number] Urea nitrogen [Mass/Vol] 8 mg/dL Normal 6-24 [facility] Internal Medicine Work Phone: Comment on above: PATIENT NOT FASTINGP ERFORMED BY: CB [facility] Sbfsrw0112 [address] RoadDublin [place] [id number] Urea nitrogen/Creatinine [Mass ratio] 13 mg/mg Normal 9-23 [facility] Internal Medicine Work Phone: Comment on above: PATIENT NOT FASTINGP ERFORMED BY: CB [facility] Tcsdie9331 [address] [place] [id number] TSH (22412)Ordered By: Syste m Biomedical Technician on 05-13-2013 TSH Qn 1.140 {uIU/mL} Normal 0.450-4.500 [facility] Internal Medicine Work Phone: Comment on above: PATIENT NOT FASTINGP ERFORMED BY: CB [facility] Ziyang3672 [address] RoadDublin [place] [id number] CALCIFEDIOL (69461)Ordered B y: Rehabilitation Counsellor on 06-27-2012 25-Hydroxyvitamin D2+25-Hydroxyvitamin D3 [Mass/Vol] 50.7 ng/mL Normal 30.0-100.0 [facility] Internal Medicine Work Phone: Comment on above: Vitamin D deficiency has been defined by the [place] ofMedicine and an Endocrine Society practice guideline as alevel of serum 25-OH vitamin D less than 20 ng/mL (1,2).The Endocrine Society went on to further define vitamin Dinsufficiency as a level between 21 and 29 ng/mL (2).1. IOM ([place] of Medicine). 2010. Dietary reference intakes for calcium and D. [place]: The National Academies Press.2. Gregory Donahue, Kevon MANN, et al. Evaluation, treatment, and prevention of vitamin D deficiency: an Endocrine Society clinical practice guideline. JCEM. 2010; 96(7):1911-30. PATIENT NOT FASTINGP ERFORMED BY: Sunbay6370 Communication Sciencein [place] [id number] Information: 101121,H06413 C-REACTIVE PROTEIN (22769)Or dered By: Rehabilitation Counsellor on 12-26-2011 CRP [Mass/Vol] 9.4 mg/L Abnormal 0.0-4.9 [facility] Internal Medicine Work Phone: Comment on above: PATIENT NOT FASTINGP ERFORMED BY: Zopa [facility] Zekdfs9306 WadeCo Specialtiesblin [place] [id number] CALCIFIDIOL (76152) VIT D 25 Ordered By: Rehabilitation Counsellor on 12-26-2011 25-Hydroxyvitamin D2+25-Hydroxyvitamin D3 [Mass/Vol] 29.6 ng/mL Abnormal 30.0-100.0 [facility] Work Phone: Comment on above: Vitamin D deficiency has been defined by the [place] of[facility] and an Endocrine Society practice guideline as alevel of serum 25-OH vitamin D less than 20 ng/mL (1,2).The Endocrine Society went on to further define vitamin Dinsufficiency as a level between 21 and 29 ng/mL (2).1. IOM ([place] of Medicine). 2010. Dietary reference intakes for calcium and D. [place]: The National Academies Press.2. Gregory Donahue, Kevon MANN, et al. Evaluation, treatment, and prevention of vitamin D deficiency: an Endocrine Society clinical practice guideline. JCEM. 2010; 96(7):1911-30. PATIENT NOT FASTINGP ERFORMED BY: Zopa [facility] Rstpno0834 Orr Charles Schwabblin [place] [id number] CBC (AUTO) ([id number])Ordered By : Rehabilitation Counsellor on 12-26-2011 Erythrocyte distribution width (RBC) [Ratio] 13.5 % Normal 11.7-15.0 [facility] Work Phone: Comment on above: PATIENT NOT FASTINGP ERFORMED BY: BRITTON [facility] Puewbn[address] [facility] [id number] Hematocrit (Bld) [Volume fraction] 39.8 % Normal 34.0-44.0 [facility] Work Phone: Comment on above: PATIENT NOT FASTINGP ERFORMED BY: CB [facility] Vlqixr00[address] [facility] [id number] Hemoglobin (Bld) [Mass/Vol] 13.6 g/dL Normal 11.5-15.0 [facility] Internal Medicine Work Phone: Comment on above: PATIENT NOT FASTINGP ERFORMED BY: BRITTON [facility] Sxckax40[address] [facility] [id number] MCH (RBC) [Entitic mass] 31.1 pg Normal 27.0-34.0 [facility] Internal Medicine Work Phone: Comment on above: PATIENT NOT FASTINGP ERFORMED BY: BRITTON [facility] Zlzrcv[address] [facility] [id number] MCHC (RBC) [Mass/Vol] 34.2 g/dL Normal 32.0-36.0 [facility] Internal Medicine Work Phone: Comment on above: PATIENT NOT FASTINGP ERFORMED BY: CB [facility] Qrzdel[address] [facility] [id number] MCV (RBC) [Entitic vol] 91 fL Normal 80-98 [facility] Internal Medicine Work Phone: Comment on above: PATIENT NOT FASTINGP ERFORMED BY: CB [facility] Vhaubp8746 Or[address] [facility]in [place] [id number] Platelets (Bld) [#/Vol] 227 {x10E3/uL} Normal 140-415 [facility] Work Phone: Comment on above: PATIENT NOT FASTINGP ERFORMED BY: CB [facility] Fsnrfa1215 [address] RoadCarolinas Continuecare Hospital [facility] Mountainin [place] [id number] Platelets (Bld) [#/Vol] 227 10*3/uL Normal 140-415 [facility]; [facility] Work Phone: Comment on above: PATIENT NOT FASTINGP ERFORMED BY: BRITTON [facility] Idhhvk9345 [address] [place] [id number] RBC (Bld) [#/Vol] 4.37 {x10E6/uL} Normal 3.80-5.10 [facility] Internal Medicine Work Phone: Comment on above: PATIENT NOT FASTINGP ERFORMED BY: BRITTON [facility] Nszyjq7804 [address] [place] [id number] RBC (Bld) [#/Vol] 4.37 10*6/uL Normal 3.80-5.10 [facility] Internal Medicine; [facility] Work Phone: Comment on above: PATIENT NOT FASTINGP ERFORMED BY: BRITTON [facility] Iwwzee7047 Or[address] [facility]in [place] [id number] WBC (Bld) [#/Vol] 5.9 {x10E3/uL} Normal 4.0-10.5 [facility] Internal Medicine Work Phone: Comment on above: PATIENT NOT FASTINGP ERFORMED BY: BRITTON [facility] Qmivod5140 [address] [facility] HospitalD[facility] [place] [id number] WBC (Bld) [#/Vol] 5.9 10*3/uL Normal 4.0-10.5 [facility] Internal Medicine; [facility] Work Phone: Comment on above: PATIENT NOT FASTINGP ERFORMED BY: CB [facility] Yekzye6052 [address] [facility]in [place] [id number] EBV Panel ([id number])Ordered By: Rehabilitation Counsellor on 12-26-2011 EBV Panel ([id number]) [facility] Normal [facility] Work Phone: Comment on above: EBV Interpretation C manriquez . Interpretation VCA-IgM EA-IgG VCA-IgG NA-ABS . Susceptible - - - - Acute Infection + +or- +or- - Convalescent Phase +or- +or- + + Chronic or Reactivated - + + +or- Old Infection - - +or- + + Antibody Present - Antibody Absent PATIENT NOT FASTINGP ERFORMED BY: BRITTON TRAILBLAZE FITNESS CONSULTINGCorewell Health Green[facility] Hospital6370 [facility] [id number] EBV Panel (26545) >8.0 Abnormal 0.0-0.8 Compreh ensive Internal Medicine Work Phone: Comment on above: Negative <0.9 Equivo joel 0.9 - 1.0 Positive >1.0 PATIENT NOT FASTINGP ERFORMED BY: BRITTON SparkbrowserCap[facility])Qhbfrt8016 [facility] [id number] EBV Panel (79861) <0.2 Normal 0.0-0.8 Compreh ensive Internal Medicine Work Phone: Comment on above: Negative <0.9 Equivo joel 0.9 - 1.0 Positive >1.0 PATIENT NOT FASTINGP ERFORMED BY: Sparkbrowser Aufhci6989 [facility] [id number] EBV Panel (90157) 0.5 {AI} Normal 0.0-0.8 Compreh ensive Internal Medicine Work Phone: Comment on above: Negative <0.9 Equivo joel 0.9 - 1.0 Positive >1.0 PATIENT NOT FASTINGP ERFORMED BY: BRITTON Sparkbrowser Pmnqib1401 [facility] [id number] Influenza A&B Viral Culture (26107)Ordered By: Rehabilitation Counsellor on 12-26-2011 FLUV identified Org specific cx Nom (Unsp spec) FLUABN Normal [facility] Work Phone: Comment on above: Negative:No Influenz a A or B detected. PATIENT NOT FASTINGP ERFORMED BY: TRAILBLAZE FITNESS CONSULTINGCorewell Health [facility] Hospital6370 [facility] [id number] Information: SRC:NOS [id number] METABOLIC PANEL, COMPREHENSI VE (68368)Ordered By: Rehabilitation Counsellor on 12-26-2011 Albumin [Mass/Vol] 3.8 g/dL Normal 3.5-5.5 Compre hensive Internal Medicine Work Phone: Comment on above: PATIENT NOT FASTINGP ERFORMED BY: CB [facility] Fcstcd1240 [address] RoadDublin [place] [id number] Albumin/Globulin [Mass ratio] 1.5 {ratio} Normal 1.1-2.5 [facility] Work Phone: Comment on above: PATIENT NOT FASTINGP ERFORMED BY: CB [facility] Gyxvsd3573 [address] RoadDublin [place] [id number] ALP [Catalytic activity/Vol] 77 [iU]/L Normal 25-150 [facility] Work Phone: Comment on above: PATIENT NOT FASTINGP ERFORMED BY: CB [facility] Dnljpy0928 [address] RoadDublin [place] [id number] ALP [Catalytic activity/Vol] 77 U/L Normal 25-150 [facility]; [facility] Work Phone: Comment on above: PATIENT NOT FASTINGP ERFORMED BY: CB [facility] Yvrhxd9417 [address] RoadD[address] [place] [id number] ALT [Catalytic activity/Vol] 11 [iU]/L Normal 0-40 [facility] Work Phone: Comment on above: PATIENT NOT FASTINGP ERFORMED BY: CB [facility] Ofseye2515 [address] [place] [id number] ALT [Catalytic activity/Vol] 11 U/L Normal 0-40 [facility]; [facility] Work Phone: Comment on above: PATIENT NOT FASTINGP ERFORMED BY: CB [facility] Yxmhsw3179 [address] RoadD[address] [place] [id number] AST [Catalytic activity/Vol] 16 [iU]/L Normal 0-40 [facility] Work Phone: Comment on above: PATIENT NOT FASTINGP ERFORMED BY: CB [facility] Rniigi4316 [address] RoadDublin [place] [id number] AST [Catalytic activity/Vol] 16 U/L Normal 0-40 [facility]; [facility] Work Phone: Comment on above: PATIENT NOT FASTINGP ERFORMED BY: CB [facility] Fgoorc4138 [address] RoadD[address] [place] [id number] Bilirubin [Mass/Vol] 0.3 mg/dL Normal 0.0-1.2 Comp rehensive Internal Medicine Work Phone: Comment on above: PATIENT NOT FASTINGP ERFORMED BY: CB [facility] Dnwoax6568 [address] Road[address]ublin [place] [id number] Calcium [Mass/Vol] 8.8 mg/dL Normal 8.7-10.2 [facility] Internal Medicine Work Phone: Comment on above: PATIENT NOT FASTINGP ERFORMED BY: CB [facility] Diesfi6841 [address] RoadD[address] [place] [id number] Chloride [Moles/Vol] 105 mmol/L Normal 97-108 [facility] Work Phone: Comment on above: PATIENT NOT FASTINGP ERFORMED BY: CB [facility] Aqijsw7476 [address] RoadD[address] [place] [id number] CO2 [Moles/Vol] 23 mmol/L Normal 20-32 [facility] Internal Medicine Work Phone: Comment on above: PATIENT NOT FASTINGP ERFORMED BY: CB [facility] Yvrmhb9199 [address] Road[address] [place] [id number] Creatinine [Mass/Vol] 0.58 mg/dL Normal 0.57-1.00 [facility] Internal Medicine Work Phone: Comment on above: PATIENT NOT FASTINGP ERFORMED BY: CB [facility] Wsaniy0129 [address] [place] [id number] GFR/1.73 sq M predicted among blacks MDRD (S/P/Bld) [Vol rate/Area] 132 mL/min/{1.73_m2} Normal Comprehensi ve Internal Medicine Work Phone: Comment on above: Note: A persistent e GFR <60 mL/min/1.73 m2 (3 months or more) mayindicate chronic kidney disease. An eGFR >59 mL/min/1.73 m2 with anelevated urine protein also may indicate chronic kidney disease.Calculated using CKD-EPI formula. PATIENT NOT FASTINGP ERFORMED BY: CB [facility] Ftcpxz8714 [address] [place] [id number] GFR/1.73 sq M predicted among non-blacks CKD-EPI (S/P/Bld) [Vol rate/Area] 115 mL/min/1.73 Normal [facility] Work Phone: Comment on above: PATIENT NOT FASTINGP ERFORMED BY: BRITTON LabCorhonda VeronicaVkemnj7396 [facility] [id number] Globulin (S) [Mass/Vol] 2.6 g/dL Normal 1.5-4.5 [facility] Work Phone: Comment on above: PATIENT NOT FASTINGP ERFORMED BY: BRITTON [facility] Weuyro[address] [facility] [id number] Glucose [Mass/Vol] 85 mg/dL Normal 65-99 [facility] Internal Medicine Work Phone: Comment on above: PATIENT NOT FASTINGP ERFORMED BY: BRITTON LabRey VeronicaKimqsw5758 [facility] [id number] Potassium [Moles/Vol] 4.3 mmol/L Normal 3.5-5.2 [facility] Internal Medicine Work Phone: Comment on above: PATIENT NOT FASTINGP ERFORMED BY: BRITTON LabRey VeronicaUbexlh1988 [facility] [id number] Protein [Mass/Vol] 6.4 g/dL Normal 6.0-8.5 [facility] Internal Medicine Work Phone: Comment on above: PATIENT NOT FASTINGP ERFORMED BY: BRITTON [facility] Uwdnis8652 [facility] [id number] Sodium [Moles/Vol] 140 mmol/L Normal 134-144 [facility] Internal Medicine Work Phone: Comment on above: PATIENT NOT FASTINGP ERFORMED BY: BRITTON [facility] Vcyyzb8214 [facility] [id number] Urea nitrogen [Mass/Vol] 7 mg/dL Normal 6-24 [facility] Work Phone: Comment on above: PATIENT NOT FASTINGP ERFORMED BY: BRITTON [facility] Ydivqt2977 [address] RoadDublin [place] [id number] Urea nitrogen/Creatinine [Mass ratio] 12 mg/mg Normal 9-23 [facility] Internal Medicine Work Phone: Comment on above: PATIENT NOT FASTINGP ERFORMED BY: CB [facility] Dnjgvd2456 [address] [place] [id number] TSH ([id number])Ordered By: Gagee m Biomedical Technician on 12-26-2011 TSH Qn 1.070 {uIU/mL} Normal 0.450-4.500 [facility] Internal Medicine Work Phone: Comment on above: PATIENT NOT FASTINGP ERFORMED BY: CB [facility] Vwtmbe5889 [address] Road[address] [place] [id number] CALCIFEDIOL (29931)Ordered B y: Rehabilitation Counsellor on 06-27-2011 Calcitriol [Mass/Vol] 57.0 ng/mL Normal 32.0-100.0 [facility] Internal Medicine Work Phone: Comment on above: Recent studies consi shivam the lower limit of 32.0 ng/mL to be athreshold for optimal health.Sixto KINGSLEY. J Nutr. 2004;135(2):317-22. PATIENT NOT FASTINGP ERFORMED BY: CB [facility] Uuxlwx0481 [address] Road[address]ublin [place] [id number] TSH (22531)Ordered By: Ryann m Biomedical Technician on 06-27-2011 TSH Qn 0.709 {uIU/mL} Normal 0.450-4.500 [facility] Internal Medicine Work Phone: Comment on above: PATIENT NOT FASTINGP ERFORMED BY: CB [facility] Qtybud4705 [address] RoadDublin [place] [id number] Information: [id number],[id number] Amylase (47527)Ordered By: Jose Rabago on 11-02-2007 Amylase [Catalytic activity/Vol] 56 U/L Normal 0-99 [facility] Internal Medicine Work Phone: Comment on above: PATIENT NOT FASTINGP ERFORMED BY: CB [facility] Ahttbz3322 [address] [place] [id number] CBC (Auto) (37292)Ordered By : Lela Rabago on 11-02-2007 Erythrocyte distribution width (RBC) [Ratio] 14.3 % Normal 11.7-15.0 [facility] Work Phone: Comment on above: PATIENT NOT FASTINGP ERFORMED BY: CB [facility] Zxfufn6533 [address] Road[address] [place] [id number] Hematocrit (Bld) [Volume fraction] 41.9 % Normal 34.0-44.0 [facility] Work Phone: Comment on above: PATIENT NOT FASTINGP ERFORMED BY: CB [facility] Zweyad1656 [address] Road[address]ublin [place] [id number] Hemoglobin (Bld) [Mass/Vol] 14.7 g/dL Normal 11.5-15.0 [facility] Work Phone: Comment on above: PATIENT NOT FASTINGP ERFORMED BY: CB [facility] Epanrj2512 [address] RoadCarolinas Continuecare Hospital [facility] Mountainin [place] [id number] MCH (RBC) [Entitic mass] 32.4 pg Normal 27.0-34.0 [facility] Work Phone: Comment on above: PATIENT NOT FASTINGP ERFORMED BY: CB [facility] Isflnu0304 [address]bl[address] [place] [id number] MCHC (RBC) [Mass/Vol] 35.1 g/dL Normal 32.0-36.0 [facility] [facility] Work Phone: Comment on above: PATIENT NOT FASTINGP ERFORMED BY: CB [facility] [id number] Orr RoadCarolinas Continuecare Hospital [facility] Mountainin [place] [id number] MCV (RBC) [Entitic vol] 92 fL Normal 80-98 [facility] Internal Medicine Work Phone: Comment on above: PATIENT NOT FASTINGP ERFORMED BY: CB [facility] [id number] [address] RoadDublin [place] [id number] Platelets (Bld) [#/Vol] 240 {x10E3/uL} Normal 140-415 [facility] Work Phone: Comment on above: PATIENT NOT FASTINGP ERFORMED BY: CB [facility] [id number] Or[address] RoadDuin [place] [id number] Platelets (Bld) [#/Vol] 240 10*3/uL Normal 140-415 [facility] Internal Medicine; [facility] Internal Medicine Work Phone: Comment on above: PATIENT NOT FASTINGP ERFORMED BY: CB [facility] [id number] [address]blin [place] [id number] RBC (Bld) [#/Vol] 4.54 {x10E6/uL} Normal 3.80-5.10 [facility] Internal Medicine Work Phone: Comment on above: PATIENT NOT FASTINGP ERFORMED BY: CB [facility] Cieqpw1035 [address] RoadDublin [place] [id number] RBC (Bld) [#/Vol] 4.54 10*6/uL Normal 3.80-5.10 [facility] Internal Medicine; [facility] Internal Medicine Work Phone: Comment on above: PATIENT NOT FASTINGP ERFORMED BY: CB [facility] [address] [facility] [id number] WBC (Bld) [#/Vol] 10.1 {x10E3/uL} Normal 4.0-10.5 [facility] Internal Medicine Work Phone: Comment on above: PATIENT NOT FASTINGP ERFORMED BY: CB [facility] [id number] [address]bl[address] [place] [id number] WBC (Bld) [#/Vol] 10.1 10*3/uL Normal 4.0-10.5 [facility] Internal Medicine; [facility] Internal Medicine Work Phone: Comment on above: PATIENT NOT FASTINGP ERFORMED BY: CB [facility] Yrlysj50[address]blin [place] [id number] Lipase ([id number])Ordered By: Yash Rabago on 11-02-2007 Lipase [Catalytic activity/Vol] 27 U/L Normal 0-59 [facility] Work Phone: Comment on above: PATIENT NOT FASTINGP ERFORMED BY: CB [facility] Ydqjie0466 [address] RoadDublin [place] [id number] Metabolic Panel, Comprehensi ve ([id number])Ordered By: Lela Rabago on 11-02-2007 Albumin [Mass/Vol] 4.1 g/dL Normal 3.5-5.5 [facility] Internal Medicine Work Phone: Comment on above: PATIENT NOT FASTINGC linical Information: ADD DRAW FEE [id number] A DD [id number] PERFORMED BY: BRITTON [facility] Axaeaz0972 [address]Dublin [place] [id number] Albumin/Globulin [Mass ratio] 1.7 {ratio} Normal 1.1-2.5 [facility] Work Phone: Comment on above: PATIENT NOT FASTINGC linical Information: ADD DRAW FEE [id number] A DD [id number] PERFORMED BY: BRITTNO [facility] [id number] [address] RoadDublin [place] [id number] ALP [Catalytic activity/Vol] 72 [iU]/L Normal 25-150 [facility] Work Phone: Comment on above: PATIENT NOT FASTINGC linical Information: ADD DRAW FEE [id number] A DD [id number] PERFORMED BY: BRITTON [facility] [id number] [address] RoadDublin [place] [id number] ALP [Catalytic activity/Vol] 72 U/L Normal 25-150 [facility]; [facility] Work Phone: Comment on above: PATIENT NOT FASTINGC linical Information: ADD DRAW FEE [id number] A DD [id number] PERFORMED BY: BRITTON [facility] Pycaaq2282 Orr RoadCarolinas Continuecare Hospital [facility] Mountainin [place] [id number] ALT [Catalytic activity/Vol] 22 [iU]/L Normal 0-40 [facility] Work Phone: Comment on above: PATIENT NOT FASTINGC linical Information: ADD DRAW FEE [id number] A DD [id number] PERFORMED BY: BRITTON [facility] Tcekeo52[address]bl[address] [place] [id number] ALT [Catalytic activity/Vol] 22 U/L Normal 0-40 [facility]; [facility] Work Phone: Comment on above: PATIENT NOT FASTINGC linical Information: ADD DRAW FEE [id number] A DD [id number] PERFORMED BY: [facility]Foavog[address] [facility] [id number] AST [Catalytic activity/Vol] 21 [iU]/L Normal 0-40 [facility] Work Phone: Comment on above: PATIENT NOT FASTINGC linical Information: ADD DRAW FEE [id number] A DD [id number] PERFORMED BY: BR[facility]TON [facility] [id number] [facility] [id number] AST [Catalytic activity/Vol] 21 U/L Normal 0-40 [facility]; [facility] Work Phone: Comment on above: PATIENT NOT FASTINGC linical Information: ADD DRAW FEE [id number] A DD [id number] PERFORMED BY: BRITTON [facility] Chkkaf[address] [facility] [id number] Bilirubin [Mass/Vol] 0.4 mg/dL Normal 0.1-1.2 [facility] Work Phone: Comment on above: PATIENT NOT FASTINGC linical Information: ADD DRAW FEE [id number] A DD [id number] PERFORMED BY: [facility] [facility] [id number] Calcium [Mass/Vol] 9.3 mg/dL Normal 8.5-10.6 [facility] Internal Medicine Work Phone: Comment on above: PATIENT NOT FASTINGC linical Information: ADD DRAW FEE [id number] A DD [id number] PERFORMED BY: BRITTON [facility] Epwrvg[address] [facility] [id number] Chloride [Moles/Vol] 106 mmol/L Normal 96-109 [facility] Internal Medicine Work Phone: Comment on above: PATIENT NOT FASTINGC linical Information: ADD DRAW FEE [id number] A DD [id number] PERFORMED BY: [facility] Tazxwz[address] [facility] [id number] CO2 [Moles/Vol] 22 mmol/L Normal 20-32 [facility] Internal Medicine Work Phone: Comment on above: PATIENT NOT FASTINGC linical Information: ADD DRAW FEE [id number] A DD [id number] PERFORMED BY: [facility]Ystyir0460 [facility] [id number] Creatinine [Mass/Vol] 0.7 mg/dL Normal 0.5-1.5 [facility] Work Phone: Comment on above: PATIENT NOT FASTINGC linical Information: ADD DRAW FEE [id number] A DD [id number] PERFORMED BY: [facility]6370 [facility] [id number] Globulin (S) [Mass/Vol] 2.4 g/dL Normal 1.5-4.5 [facility] Work Phone: Comment on above: PATIENT NOT FASTINGC linical Information: ADD DRAW FEE [id number] A MELO [id number] PERFORMED BY: [address] [id number] Glucose [Mass/Vol] 104 mg/dL Abnormal 65-99 [facility] Internal Medicine Work Phone: Comment on above: PATIENT NOT FASTINGC linical Information: ADD DRAW FEE [id number] A DD [id number] PERFORMED BY: [facility]6370 [facility] [id number] Potassium [Moles/Vol] 4.5 mmol/L Normal 3.5-5.5 [facility] Work Phone: Comment on above: PATIENT NOT FASTINGC linical Information: ADD DRAW FEE [id number] A DD [id number] PERFORMED BY: [facility]6370 [facility] [id number] Protein [Mass/Vol] 6.5 g/dL Normal 6.0-8.5 [facility] Internal Medicine Work Phone: Comment on above: PATIENT NOT FASTINGC linical Information: ADD DRAW FEE [id number] A DD [id number] PERFORMED BY: LabCharles Ville [id number] [facility] [id number] Sodium [Moles/Vol] 142 mmol/L Normal 135-148 [facility] Internal Medicine Work Phone: Comment on above: PATIENT NOT FASTINGC linical Information: ADD DRAW FEE [id number] A DD [id number] PERFORMED BY: [facility] [facility] SchwabCarolinas [facility] [id number] Urea nitrogen [Mass/Vol] 13 mg/dL Normal 5-26 [facility] Work Phone: Comment on above: PATIENT NOT FASTINGC linical Information: ADD DRAW FEE [id number] A DD [id number] PERFORMED BY: [facility] [facility] SchwabCarolinas [facility] [id number] Urea nitrogen/Creatinine [Mass ratio] 19 mg/mg Normal 8-27 [facility] Work Phone: Comment on above: PATIENT NOT FASTINGC linical Information: ADD DRAW FEE [id number] A DD [id number] PERFORMED BY: [id number] Wade[facility] SpecialtiesCarolinas [facility] [id number] Sed Rate Erythrocyte ([id number]) Ordered By: Lela Rabago on 11-02-2007 ESR (Bld) [Velocity] 2 mm/h Normal 0-20 [facility] Internal Medicine Work Phone: Comment on above: PATIENT NOT FASTINGP ERFORMED BY: [facility] [facility]Nov[facility] [id number] Urinalysis, Office ([id number])Or dered By: MARIA Minor on 11-02-2007 Bilirubin [...] Time Vital Sign Value Performing Clinician Facility 06-28-2025 15:35-0400 Body temperature 98.2 [degF] Dr. Chanel Cisneros MD Work Phone: [facility] 06-28-2025 15:35-0400 Diastolic blood pressure 69 mm[Hg] Dr. Chanel Cisneros MD Work Phone: [facility] 06-28-2025 15:35-0400 Heart rate 74 /min Dr. Chanel Cisneros MD Work Phone: [facility] 06-28-2025 15:35-0400 Respiratory rate 16 /min Dr. Chanel Cisneros MD Work Phone: [facility] 06-28-2025 15:35-0400 SaO2% (BldA) [Mass fraction] 99 % Dr. Chanel Cisneros MD Work Phone: [facility] 06-28-2025 15:35-0400 Systolic blood pressure 123 mm[Hg] Dr. Chanel Cisneros MD Work Phone: [facility] 06-28-2025 12:50-0400 Body height 170.[address] Chanel Cisneros MD Work Phone: [facility] 06-28-2025 12:50-0400 Body mass index (BMI) [Ratio] 28.1 kg/m2 Dr. Chanel Cisneros MD Work Phone: [facility] 06-28-2025 12:50-0400 Body weight 81.[address] Chanel Cisneros MD Work Phone: [facility] 06-13-2025 14:57-0400 Body height 170.[address] Chanel Cisneros MD Work Phone: [facility] 06-13-2025 14:57-0400 Body mass index (BMI) [Ratio] 33.5 kg/m2 Dr. Chanel Cisneros MD Work Phone: [facility] 06-13-2025 14:57-0400 Body weight 97.[address] Chanel Cisneros MD Work Phone: [facility] 06-13-2025 14:57-0400 Diastolic blood pressure 80 mm[Hg] Dr. Chanel Cisneros MD Work Phone: [facility] 06-13-2025 14:57-0400 Heart rate 72 /min Dr. Chanel Cisneros MD Work Phone: [facility] 06-13-2025 14:57-0400 Respiratory rate 18 /min Dr. Chanel Cisneros MD Work Phone: [facility] 06-13-2025 14:57-0400 SaO2% (BldA) [Mass fraction] 92 % Dr. Chanel Cisneros MD Work Phone: [facility] 06-13-2025 14:57-0400 Systolic blood pressure 119 mm[Hg] Dr. Chanel Cisneros MD Work Phone: [facility] 05-06-2025 10:03-0400 Body height 170.[address] Chanel Cisneros MD Work Phone: [facility] 05-06-2025 10:03-0400 Body mass index (BMI) [Ratio] 33.5 kg/m2 Dr. Chanel Cisneros MD Work Phone: [facility] 05-06-2025 10:03-0400 Body weight 97.[address] Chanel Cisneros MD Work Phone: [facility] 05-06-2025 10:03-0400 Diastolic blood pressure 80 mm[Hg] Dr. Chanel Cisneros MD Work Phone: [facility] 05-06-2025 10:03-0400 Systolic blood pressure 117 mm[Hg] Dr. Chanel Cisneros MD Work Phone: [facility] 02-16-2025 09:42-0400 Body temperature 98.5 [degF] Dr. Chanel Cisneros MD Work Phone: [facility] 02-16-2025 09:42-0400 Diastolic blood pressure 78 mm[Hg] Dr. Chanel Cisneros MD Work Phone: [facility] 02-16-2025 09:42-0400 Heart rate 65 /min Dr. Chanel Cisneros MD Work Phone: [facility] 02-16-2025 09:42-0400 Respiratory rate 16 /min Dr. Chanel Cisneros MD Work Phone: [facility] 02-16-2025 09:42-0400 SaO2% (BldA) [Mass fraction] 98 % Dr. Chanel Cisneros MD Work Phone: [facility] 02-16-2025 09:42-0400 Systolic blood pressure 120 mm[Hg] Dr. Chanel Cisneros MD Work Phone: [facility] 10-18-2023 16:20-0500 Body temperature 98.4 [degF] Dr. Chanel Cisneros Work Phone: [facility] 10-18-2023 16:20-0500 Diastolic blood pressure 74 mm[Hg] Dr. Chanel Cisneros Work Phone: [facility] 10-18-2023 16:20-0500 Heart rate 92 /min Dr. Chanel Cisneros Work Phone: [facility] 10-18-2023 16:20-0500 Respiratory rate 15 /min Dr. Chanel Cisneros Work Phone: [facility] 10-18-2023 16:20-0500 SaO2% (BldA) [Mass fraction] 97 % Dr. Chanel Cisneros Work Phone: [facility] 10-18-2023 16:20-0500 Systolic blood pressure 136 mm[Hg] Dr. Chanel Cisneros Work Phone: [facility] 09-20-2023 15:23-0500 Body height 170.18 cm VIDEO GAME ENGINEER-Emy Harrington Work Phone: [facility] 09-20-2023 15:23-0500 Body mass index (BMI) [Ratio] 31.3 kg/m2 VIDEO GAME ENGINEER-Emy Harrington Work Phone: [facility] 09-20-2023 15:23-0500 Body temperature 99.1 [degF] VIDEO GAME ENGINEER-Emy Harrington Work Phone: [facility] 09-20-2023 15:23-0500 Body weight 90.71 kg VIDEO GAME ENGINEER-Emy Harrington Work Phone: [facility] 09-20-2023 15:23-0500 Diastolic blood pressure 86 mm[Hg] VIDEO GAME ENGINEER-Emy Harrington Work Phone: [facility] 09-20-2023 15:23-0500 Heart rate 78 /min VIDEO GAME ENGINEER-C Lu Len Work Phone: [facility] 09-20-2023 15:23-0500 Respiratory rate 16 /min VIDEO GAME ENGINEER-C Lu Len Work Phone: [facility] 09-20-2023 15:23-0500 SaO2% (BldA) [Mass fraction] 96 % VIDEO GAME ENGINEER-C Lu Len Work Phone: [facility] 09-20-2023 15:23-0500 Systolic blood pressure 116 mm[Hg] VIDEO GAME ENGINEER-C Lu Len Work Phone: [facility] 08-13-2023 11:26-0400 Body mass index (BMI) [Ratio] 30.9 kg/m2 VIDEO GAME ENGINEER-C Lu Len Work Phone: [facility] 08-13-2023 11:26-0400 Body temperature 98.6 [degF] VIDEO GAME ENGINEER-C Lu Len Work Phone: [facility] 08-13-2023 11:26-0400 Body weight 89.41 kg VIDEO GAME ENGINEER-C Lu Len Work Phone: [facility] 08-13-2023 11:26-0400 Diastolic blood pressure 78 mm[Hg] VIDEO GAME ENGINEER-C Lu Len Work Phone: [facility] 08-13-2023 11:26-0400 Heart rate 109 /min VIDEO GAME ENGINEER-C Lu Len Work Phone: [facility] 08-13-2023 11:26-0400 Respiratory rate 12 /min VIDEO GAME ENGINEER-C Lu Len Work Phone: [facility] 08-13-2023 11:26-0400 SaO2% (BldA) [Mass fraction] 97 % VIDEO GAME ENGINEER-C Lu Len Work Phone: [facility] 08-13-2023 11:26-0400 Systolic blood pressure 110 mm[Hg] VIDEO GAME ENGINEER-C Lu Len Work Phone: [facility] 07-31-2023 15:36-0400 Body mass index (BMI) [Ratio] 31.1 kg/m2 VIDEO GAME ENGINEER-C Lu Len Work Phone: [facility] 07-31-2023 15:36-0400 Body weight 90.26 kg VIDEO GAME ENGINEER-C Lu Len Work Phone: [facility] 07-31-2023 15:36-0400 Diastolic blood pressure 82 mm[Hg] VIDEO GAME ENGINEER-C Lu Len Work Phone: [facility] 07-31-2023 15:36-0400 Heart rate 81 /min VIDEO GAME ENGINEER-C Lu Len Work Phone: [facility] 07-31-2023 15:36-0400 Systolic blood pressure 128 mm[Hg] VIDEO GAME ENGINEER-C Lu Len Work Phone: [facility] 06-26-2023 15:29-0400 Body mass index (BMI) [Ratio] 31.1 kg/m2 VIDEO GAME ENGINEER-C Lu Len Work Phone: [facility] 06-26-2023 15:29-0400 Body weight 90.32 kg VIDEO GAME ENGINEER-C Lu Len Work Phone: [facility] 06-26-2023 15:29-0400 Diastolic blood pressure 82 mm[Hg] VIDEO GAME ENGINEER-C Lu Len Work Phone: [facility] 06-26-2023 15:29-0400 Heart rate 75 /min VIDEO GAME ENGINEER-C Lu Len Work Phone: [facility] 06-26-2023 15:29-0400 Systolic blood pressure 124 mm[Hg] VIDEO GAME ENGINEER-C Lu Len Work Phone: [facility] 05-29-2023 14:08-0400 Body mass index (BMI) [Ratio] 32.2 kg/m2 VIDEO GAME ENGINEER-C Lu Len Work Phone: [facility] 05-29-2023 14:08-0400 Body weight 93.44 kg VIDEO GAME ENGINEER-C Lu Harrington Work Phone: [facility] 05-29-2023 14:08-0400 Diastolic blood pressure 70 mm[Hg] VIDEO GAME ENGINEER-C Lu Harrington Work Phone: [facility] 05-29-2023 14:08-0400 Heart rate 85 /min VIDEO GAME ENGINEER-C Lu Harrington Work Phone: [facility] 05-29-2023 14:08-0400 Systolic blood pressure 99 mm[Hg] VIDEO GAME ENGINEER-C Lu Harrington Work Phone: [facility] 03-31-2023 10:44-0400 Body height 170.18 cm VIDEO GAME ENGINEER-C Helen Ciesa VIDEO GAME ENGINEER Work Phone: [facility] 03-31-2023 10:44-0400 Body mass index (BMI) [Ratio] 34.6 kg/m2 VIDEO GAME ENGINEER-C Helen Ciesa VIDEO GAME ENGINEER Work Phone: [facility] 03-31-2023 10:44-0400 Body weight 100.3 kg VIDEO GAME ENGINEER-C Helen Ciesa VIDEO GAME ENGINEER Work Phone: [facility] 03-31-2023 10:44-0400 Diastolic blood pressure 86 mm[Hg] VIDEO GAME ENGINEER-C Helen Ciesa VIDEO GAME ENGINEER Work Phone: [facility] 03-31-2023 10:44-0400 Heart rate 64 /min VIDEO GAME ENGINEER-C Helen Ciesa VIDEO GAME ENGINEER Work Phone: [facility] 03-31-2023 10:44-0400 Respiratory rate 16 /min VIDEO GAME ENGINEER-C Helen Ciesa VIDEO GAME ENGINEER Work Phone: [facility] 03-31-2023 10:44-0400 Systolic blood pressure 132 mm[Hg] VIDEO GAME ENGINEER-C Helen Ciesa VIDEO GAME ENGINEER Work Phone: [facility] 02-08-2023 11:42-0400 Body height 170.18 cm VIDEO GAME ENGINEER-C Helen Ciesa VIDEO GAME ENGINEER Work Phone: [facility] 02-08-2023 11:42-0400 Body mass index (BMI) [Ratio] 33.6 kg/m2 VIDEO GAME ENGINEER-C Helen Cartera VIDEO GAME ENGINEER Work Phone: [facility] 02-08-2023 11:42-0400 Body weight 97.52 kg VIDEO GAME ENGINEER-C Helen Cartera VIDEO GAME ENGINEER Work Phone: [facility] 02-08-2023 11:42-0400 Diastolic blood pressure 86 mm[Hg] VIDEO GAME ENGINEER-C Helen Cartera VIDEO GAME ENGINEER Work Phone: [facility] 02-08-2023 11:42-0400 Systolic blood pressure 143 mm[Hg] VIDEO GAME ENGINEER-C Helen Cartera VIDEO GAME ENGINEER Work Phone: [facility] 01-23-2022 02:55-0400 Diastolic blood pressure 87 mm[Hg] VIDEO GAME ENGINEER-C Helen Cartera VIDEO GAME ENGINEER Work Phone: [facility] Work Phone: 01-23-2022 02:55-0400 Heart rate 68 /min VIDEO GAME ENGINEER-C Helen Cartera VIDEO GAME ENGINEER Work Phone: [facility] Work Phone: 01-23-2022 02:55-0400 Respiratory rate 17 /min VIDEO GAME ENGINEER-C Helen Cartera VIDEO GAME ENGINEER Work Phone: [facility] Work Phone: 01-23-2022 02:55-0400 SaO2% (BldA) [Mass fraction] 99 % VIDEO GAME ENGINEER-C Helen Cartera VIDEO GAME ENGINEER Work Phone: [facility] Work Phone: 01-23-2022 02:55-0400 Systolic blood pressure 153 mm[Hg] VIDEO GAME ENGINEER-C Helen Cartera VIDEO GAME ENGINEER Work Phone: [facility] Work Phone: 01-23-2022 00:17-0400 Body height 213.36 cm VIDEO GAME ENGINEER-C Helen Cartera VIDEO GAME ENGINEER Work Phone: [facility] Work Phone: 01-23-2022 00:17-0400 Body mass index (BMI) [Ratio] 20.7 kg/m2 VIDEO GAME ENGINEER-C Helen Cartera VIDEO GAME ENGINEER Work Phone: [facility] Work Phone: 01-23-2022 00:17-0400 Body temperature 98.4 [degF] VIDEO GAME ENGINEER-C Helen Cartera VIDEO GAME ENGINEER Work Phone: [facility] Work Phone: 01-23-2022 00:17-0400 Body weight 94.3 kg VIDEO GAME ENGINEER-C Helen Cartera VIDEO GAME ENGINEER Work Phone: [facility] Work Phone: 11-24-2021 09:54-0500 Body mass index (BMI) [Ratio] 30.2 kg/m2 VIDEO GAME ENGINEER-C Helen Cartera VIDEO GAME ENGINEER Work Phone: [facility] Work Phone: 11-24-2021 09:54-0500 Body weight 92.98 kg VIDEO GAME ENGINEER-C Helen Cartera VIDEO GAME ENGINEER Work Phone: [facility] Work Phone: 11-24-2021 09:54-0500 Diastolic blood pressure 90 mm[Hg] VIDEO GAME ENGINEER-C Helen Cartera VIDEO GAME ENGINEER Work Phone: [facility] Work Phone: 11-24-2021 09:54-0500 Systolic blood pressure 129 mm[Hg] VIDEO GAME ENGINEER-C Helen Cartera VIDEO GAME ENGINEER Work Phone: [facility] Work Phone: 10-15-2021 12:03-0500 Body mass index (BMI) [Ratio] 30.4 kg/m2 VIDEO GAME ENGINEER-C Helen Cartera VIDEO GAME ENGINEER Work Phone: [facility] Work Phone: 10-15-2021 12:03-0500 Body weight 93.44 kg VIDEO GAME ENGINEER-C Helen Cartera VIDEO GAME ENGINEER Work Phone: [facility] Work Phone: 10-15-2021 12:03-0500 Diastolic blood pressure 82 mm[Hg] VIDEO GAME ENGINEER-C Helen Kerr VIDEO GAME ENGINEER Work Phone: [facility] Work Phone: 10-15-2021 12:03-0500 Systolic blood pressure 112 mm[Hg] VIDEO GAME ENGINEER-C Helen Kerr VIDEO GAME ENGINEER Work Phone: [facility] Work Phone: 06-15-2020 10:15-0400 BMI (Body Mass Index) 28.63 kg/m2 Gene Parikh LPN [facility] Work Phone: 06-15-2020 10:15-0400 Body Temperature 97.1 [degF] Gene Parikh LPN [facility] Work Phone: Comment on above: Method: Infrared 06-15-2020 10:15-0400 Body weight 78.03 kg Helen Condonbarbara [facility] Internal Medicine Work Phone: 06-15-2020 10:15-0400 Body weight 78.04 kg Gene Parikh LPN [facility] Work Phone: 06-15-2020 10:15-0400 BP Diastolic 70 mm[Hg] Gene Parikh LPN [facility] Work Phone: Comment on above: Patient Position: Sitting; Cuff Location : Left Arm; Cuff Size: Standard 06-15-2020 10:15-0400 BP Systolic 110 mm[Hg] Gene Parikh LPN [facility] Internal Medicine Work Phone: Comment on above: Patient Position: Sitting; Cuff Location : Left Arm; Cuff Size: Standard 06-15-2020 10:15-0400 BSA (Body Surface Area) 1.86 m2 Gene Parikh LPN [facility] Work Phone: 06-15-2020 10:15-0400 Height 165.1 cm Gene Parikh LPN [facility] Work Phone: 06-15-2020 10:15-0400 Pulse (Heart Rate) 81 /min Gene Parikh LPN Comprehensiv e [facility] Medicine Work Phone: Comment on above: Pattern: Regular 06-15-2020 10:15-0400 Pulse Oximetry 97 % Helen Usha [facility] Internal Medicine Work Phone: Comment on above: Room air 06-15-2020 10:15-0400 Respiratory Rate 16 /min Gene Parikh LPN [facility] Internal Medicine Work Phone: Comment on above: Pattern: Unlabored 06-15-2020 10:15-0400 SaO2% (BldA) [Mass fraction] 97 % Gene Parikh LPN [facility]; [facility] Work Phone: Comment on above: Room air 05-26-2020 13:59-0400 BMI (Body Mass Index) 28.63 kg/m2 Gene Parikh LPN [facility] Work Phone: 05-26-2020 13:59-0400 Body Temperature 97.1 [degF] Gene Parikh LPN [facility] Internal Medicine Work Phone: Comment on above: Method: Infrared 05-26-2020 13:59-0400 Body weight 78.03 kg Gene Parikh LPN [facility] Internal Medicine Work Phone: 05-26-2020 13:59-0400 BP Diastolic 70 mm[Hg] Gene Pairkh LPN [facility] Internal Medicine Work Phone: Comment on above: Patient Position: Sitting; Cuff Location : Left Arm; Cuff Size: Standard 05-26-2020 13:59-0400 BP Systolic 122 mm[Hg] Gene Parikh LPN [facility] Internal Medicine Work Phone: Comment on above: Patient Position: Sitting; Cuff Location : Left Arm; Cuff Size: Standard 05-26-2020 13:59-0400 BSA (Body Surface Area) 1.86 m2 Gene Parikh LPN [facility] Work Phone: 05-26-2020 13:59-0400 Height 165.1 cm Gene Parikh LPN [facility] Internal Medicine Work Phone: 05-26-2020 13:59-0400 Pulse (Heart Rate) 84 /min Gene Parikh LPN Comprehens[facility] e [facility] Work Phone: Comment on above: Pattern: Regular 05-26-2020 13:59-0400 Pulse Oximetry 94 % Helen Usha [facility] Work Phone: Comment on [...] 12-08-2016 11:52-0500 Pulse Oximetry 97 % Helen Roseannabarbara [facility] Work Phone: Comment on [...] (Body Mass Index) 30.83 kg/m2 Helen Kerr [facility] Internal Medicine Work Phone: 11-12-2013 09:27-0500 Body Temperature 98.2 [degF] Helen Kerr [facility] Internal Medicine Work Phone: Comment on above: Method: Oral 11-12-2013 09:27-0500 Body weight 84.03 kg Helen Kerr [facility] Internal Medicine Work Phone: 11-12-2013 09:27-0500 BP Diastolic 80 mm[Hg] Helen Kerr [facility] Work Phone: Comment on above: Patient Position: Sitting; Cuff Location : Left Arm; Cuff Size: Standard 11-12-2013 09:27-0500 BP Systolic 120 mm[Hg] Helen Kerr [facility] Internal Medicine Work Phone: Comment on above: Patient Position: Sitting; Cuff Location : Left Arm; Cuff Size: Standard 11-12-2013 09:27-0500 BSA (Body Surface Area) 1.91 m2 Helen Kerr [facility] Internal Medicine Work Phone: 11-12-2013 09:27-0500 Height 165.1 cm Helen Kerr [facility] Work Phone: 11-12-2013 09:27-0500 Pulse (Heart Rate) 94 /min Helen Kerr [facility] Work Phone: Comment on above: Pattern: Regular 11-12-2013 09:27-0500 Pulse Oximetry 98 % Helen Kerr [facility] Work Phone: Comment on above: Room air 11-12-2013 09:27-0500 SaO2% (BldA) [Mass fraction] 98 % Helen Kerr [facility] Work Phone: [facility]; [facility] Work Phone: Comment on above: Room air 05-13-2013 14:41-0400 BMI (Body Mass Index) 30.83 kg/m2 Helen Kerr [facility] Internal Medicine Work Phone: 05-13-2013 14:41-0400 Body Temperature 98.1 [degF] Helen Kerr [facility] Internal Medicine Work Phone: Comment on above: Method: Oral 05-13-2013 14:41-0400 Body weight 84.03 kg Helen Kerr [facility] Internal Medicine Work Phone: 05-13-2013 14:41-0400 BP Diastolic 72 mm[Hg] Helen Kerr [facility] Internal Medicine Work Phone: Comment on above: Patient Position: Sitting; Cuff Location : Left Arm; Cuff Size: Standard 05-13-2013 14:41-0400 BP Systolic 112 mm[Hg] Helen Kerr [facility] Internal Medicine Work Phone: Comment on above: Patient Position: Sitting; Cuff Location : Left Arm; Cuff Size: Standard 05-13-2013 14:41-0400 BSA (Body Surface Area) 1.91 m2 Helen Kerr [facility] Internal Medicine Work Phone: 05-13-2013 14:41-0400 Height 165.1 cm Helen Kerr [facility] Internal Medicine Work Phone: 05-13-2013 14:41-0400 Pulse (Heart Rate) 70 /min Helen Kerr [facility] Internal Medicine Work Phone: Comment on above: Pattern: Regular 05-13-2013 14:41-0400 Pulse Oximetry 98 % Helen Kerr [facility] Internal Medicine Work Phone: Comment on above: Room air 05-13-2013 14:41-0400 SaO2% (BldA) [Mass fraction] 98 % Helen Krer [facility] Work Phone: [facility] Internal Medicine; [facility] Internal Medicine Work Phone: Comment on above: Room air 06-27-2012 11:140400 BMI (Body Mass Index) 28.12 kg/m2 [facility] Work Phone: 06-27-2012 11:140400 Body Temperature 98.2 [degF] Jelena Frost [facility] Internal Medicine Work Phone: Comment on above: Method: Oral 06-27-2012 11:140400 Body weight 76.66 kg Jelena Frost [facility] Internal Medicine Work Phone: 06-27-2012 11:14-0400 BP Diastolic 78 mm[Hg] Jelena [facility] Internal Medicine Work Phone: Comment on above: Patient Position: Sitting; Cuff Location : Left Arm; Cuff Size: Standard 06-27-2012 11:14-0400 BP Systolic 118 mm[Hg] Jelena [facility] Internal Medicine Work Phone: Comment on above: Patient Position: Sitting; Cuff Location : Left Arm; Cuff Size: Standard 06-27-2012 11:14-0400 BSA (Body Surface Area) 1.84 m2 Jelena [facility] Internal Medicine Work Phone: 06-27-2012 11:14-0400 [facility]: 06-27-2012 11:14-0400 Pulse (Heart Rate) 68 /min Jelena [facility] Internal Medicine Work Phone: Comment on above: Pattern: Regular 06-27-2012 11:14-0400 Respiratory Rate 16 /min Jelena [facility] Internal Medicine Work Phone: Comment on above: Pattern: Unlabored 01-06-2012 14:54-0500 BMI (Body Mass Index) 23.96 kg/m2 Helen Kerr [facility] Internal Medicine Work Phone: 01-06-2012 14:54-0500 Body Temperature 98.4 [degF] [facility] Work Phone: Comment on above: Method: Oral 01-06-2012 14:54-0500 Body weight 65.32 kg [facility] Internal Medicine Work Phone: 01-06-2012 14:54-0500 BP Diastolic 70 mm[Hg] [facility] Internal Medicine Work Phone: Comment on above: Patient Position: Sitting; Cuff Location : Left Arm; Cuff Size: Standard 01-06-2012 14:54-0500 BP Systolic 112 mm[Hg] [facility] Work Phone: Comment on above: Patient Position: Sitting; Cuff Location : Left Arm; Cuff Size: Standard 01-06-2012 14:54-0500 BSA (Body Surface Area) 1.72 m2 Helen Kerr [facility] Internal Medicine Work Phone: 01-06-2012 14:54-0500 Height 165.1 cm Helen Kerr [facility] Internal Medicine Work Phone: 01-06-2012 14:54-0500 Pulse (Heart Rate) 76 /min Helen Kerr [facility] Internal Medicine Work Phone: Comment on above: Pattern: Regular 01-06-2012 14:54-0500 Pulse Oximetry 97 % Helen Kerr [facility] Internal Medicine Work Phone: Comment on above: Room air 01-06-2012 14:54-0500 SaO2% (BldA) [Mass fraction] 97 % Helen Kerr [facility] Work Phone: [facility] Internal Medicine; [facility] Internal Medicine Work Phone: Comment on above: Room air 12-28-2011 11:23-0500 BMI (Body Mass Index) 23.96 kg/m2 Helen Kerr [facility] Internal Medicine Work Phone: 12-28-2011 11:23-0500 Body Temperature 98.3 [degF] [facility] Work Phone: Comment on above: Method: Oral 12-28-2011 11:23-0500 Body weight 65.32 kg Helen Kerr [facility] Internal Medicine Work Phone: 12-28-2011 11:23-0500 BP Diastolic 68 mm[Hg] [facility] Work Phone: Comment on above: Patient Position: Sitting; Cuff Location : Left Arm; Cuff Size: Standard 12-28-2011 11:23-0500 BP Systolic 112 mm[Hg] [facility] Work Phone: Comment on above: Patient Position: Sitting; Cuff Location : Left Arm; Cuff Size: Standard 12-28-2011 11:23-0500 BSA (Body Surface Area) 1.72 m2 Helen Kerr [facility] Internal Medicine Work Phone: 12-28-2011 11:23-0500 Height 165.1 cm Helen Ciesa [facility] Work Phone: 12-28-2011 11:23-0500 Pulse (Heart Rate) 82 /min Helen Kerr [facility] Work Phone: Comment on above: Pattern: Regular 12-28-2011 11:23-0500 Pulse Oximetry 97 % Helen Kerr [facility] Work Phone: Comment on above: Room air 12-28-2011 11:23-0500 Respiratory Rate 15 /min Helen Kerr [facility] Work Phone: 12-28-2011 11:23-0500 SaO2% (BldA) [Mass fraction] 97 % Helen Kerr [facility] Work Phone: [facility]; [facility] [...] BMI (Body Mass Index) 23.96 kg/m2 Kim Quintana [facility] Internal Medicine Work Phone: 08-25-2011 09:24-0400 Body [...] BMI (Body Mass Index) 25.5 kg/m2 Helen Usha [facility] Internal Medicine Work Phone: 07-13-2011 09:48-0400 Body Temperature 99 [degF] Helen Usha [facility] Work Phone: Comment on above: Method: Oral 07-13-2011 09:48-0400 Body weight 69.51 kg Helen Kerr [facility] Internal Medicine Work Phone: 07-13-2011 09:48-0400 BP Diastolic 68 mm[Hg] Helen Kerr [facility] Internal Medicine Work Phone: Comment on above: Patient Position: Sitting; Cuff Location : Left Arm; Cuff Size: Standard 07-13-2011 09:48-0400 BP Systolic 102 mm[Hg] Helen Kerr [facility] Internal Medicine Work Phone: Comment on above: Patient Position: Sitting; Cuff Location : Left Arm; Cuff Size: Standard 07-13-2011 09:48-0400 BSA (Body Surface Area) 1.77 m2 Helen Kerr [facility] Internal Medicine Work Phone: 07-13-2011 09:48-0400 Height 165.1 cm Helen Kerr [facility] Internal Medicine Work Phone: 07-13-2011 09:48-0400 Pulse (Heart Rate) 74 /min Helen Kerr [facility] Internal Medicine Work Phone: Comment on above: Pattern: Regular 07-13-2011 09:48-0400 Respiratory Rate 16 /min Helen Kerr [facility] Internal Medicine Work Phone: 06-27-2011 11:02-0400 BMI (Body Mass Index) 25.5 kg/m2 Helen Kerr [facility] Internal Medicine Work Phone: 06-27-2011 11:02-0400 Body Temperature 98.5 [degF] Helen Kerr [facility] Internal Medicine Work Phone: Comment on above: Method: Oral 06-27-2011 11:02-0400 Body weight 69.51 kg Helen Kerr [facility] Internal Medicine Work Phone: 06-27-2011 11:02-0400 BP Diastolic 70 mm[Hg] Helen Kerr [facility] Internal Medicine Work Phone: Comment on above: Patient Position: Sitting; Cuff Location : Left Arm; Cuff Size: Standard 06-27-2011 11:02-0400 BP Systolic 118 mm[Hg] Helen Kerr [facility] Internal Medicine Work Phone: Comment on above: Patient Position: Sitting; Cuff Location : Left Arm; Cuff Size: Standard 06-27-2011 11:02-0400 BSA (Body Surface Area) 1.77 m2 Helen Kerr [facility] Work Phone: 06-27-2011 11:02-0400 Height 165.1 cm Helen Kerr [facility] Internal Medicine Work Phone: 06-27-2011 11:02-0400 Pulse (Heart Rate) 72 /min Helen Kerr [facility] Internal Medicine Work Phone: Comment on above: Pattern: Regular 06-27-2011 11:02-040 Respiratory Rate 16 /min Helen Kerr [facility] Work Phone: [...] BP Diastolic 78 mm[Hg] MARIA Minor LPN [facility] Internal Medicine Work Phone: Comment on above: Patient Position: Sitting; Cuff Location : Left Arm; Cuff Size: Large 01-13-2009 10:18-0400 BP Systolic 104 mm[Hg] MARIA Minor LPN [facility] Internal Medicine Work Phone: Comment on above: Patient Position: Sitting; Cuff Location : Left Arm; Cuff Size: Large 01-13-2009 10:18-0400 Head Circumference 0 cm Helen Kerr [facility] Internal Medicine Work Phone: 01-13-2009 10:18-0400 Head Occipital-frontal circumference 0 cm MARIA Minor LPN [facility] Internal Medicine; [facility] Work Phone: 01-13-2009 10:18-0400 Height 0 cm MARIA Minor LPN [facility] Internal Medicine Work Phone: 01-13-2009 10:18-0400 Pulse (Heart Rate) 62 /min MARIA Minor LPN [facility] Work Phone: Comment on above: Pattern: Regular 01-13-2009 10:18-0400 Respiratory Rate 16 /min MARIA Minor LPN [facility] Internal Medicine Work Phone: Comment on above: Pattern: Unlabored 11-09-2007 08:53-0500 Body Temperature 97.8 [degF] MARIA Minor LPN [facility] Internal Medicine Work Phone: Comment on above: Method: Oral 11-09-2007 08:53-0500 Body weight 0 kg MARIA Minor LPN [facility] Internal Medicine Work Phone: 11-09-2007 08:53-0500 BP Diastolic 76 mm[Hg] MARIA Minor LPN [facility] Internal Medicine Work Phone: Comment on above: Patient Position: Sitting; Cuff Location : Left Arm; Cuff Size: Standard 11-09-2007 08:53-0500 BP Systolic 114 mm[Hg] MARIA Minor LPN [facility] Internal Medicine Work Phone: Comment on [...] 14:36-0500 Head Circumference 0 cm Helen Kerr [facility] Work Phone: 11-02-2007 14:36-0500 Head [...] 11:56-0400 Body weight 0 kg MARIA Minor LPN [facility] Work Phone: 08-27-2007 11:56-0400 BP Diastolic 76 mm[Hg] MARIA Minor LPN [facility] Work Phone: Comment on above: Patient Position: Sitting; Cuff Location : Left Arm; Cuff Size: Standard 08-27-2007 11:56-0400 BP Systolic 120 mm[Hg] MARIA Minor LPN [facility] Work Phone: Comment on above: Patient Position: Sitting; Cuff Location : Left Arm; Cuff Size: Standard 08-27-2007 11:56-0400 Head Circumference 0 cm Helen Kerr [facility] Work Phone: 08-27-2007 11:56-0400 Head [...] Date Encounter Type Care Provider Facility Start: 07-22-2025 ambulatory Helder Ballesteros Facility:[facility] Start: 07-22-2025 Non-patient / Non-visit Dr. Pendleton Santana [facility] Start: 07-22-2025 End: 07-22-[address] Chanel Cisneros MD Work Phone: -Cardiovascular Services Start: 07-22-2025 End: 07-22-[address] Scott Fleming MD -Cardiovascular Services Work Phone: Start: 07-22-2025 End: 07-22-2025 ambulatory Scott Fleming Facility:[facility] Start: 06-28-2025 End: 06-28-2025 Emergency department patient visit Dr. Chanel Cisneros MD Work Phone: -Emergency Department Work Phone: Start: 06-13-2025 End: 06-13-[address] Scott Fleming MD -[facility] Work Phone: Start: 06-13-2025 End: 06-13-[address] Chanel Cisneros MD Work Phone: -[facility] Start: 05-19-2025 End: 05-19-[address] Chanel Cisneros MD Work Phone: -Outpatient Breast Imaging Start: 05-19-2025 End: 05-19-2025 Patient encounter procedure Sisi RODRIGUEZC -Outpatient Breast Imaging Work Phone: Start: 05-19-2025 End: 05-19-2025 ambulatory Sisi Argueta Facility:[facility] Start: 05-06-2025 End: 05-06-2025 Patient encounter procedure Sisi RODRIGUEZC -[facility] Work Phone: Start: 05-06-2025 End: 05-06-2025 Patient encounter status Sisi COLVIN [facility] Start: 05-06-2025 End: 05-06-[address] Chanel Cisneros MD Work Phone: -[facility] Start: 02-16-2025 End: 02-16-2025 Patient encounter procedure Erick H Roof VIDEO GAME ENGINEER-C [facility] Work Phone: Start: 02-16-2025 End: 02-16-2025 ambulatory Brittney Blayne [facility] Start: 12-19-2024 End: 12-19-2024 ambulatory [facility] Facility:[facility] Start: 12-05-2024 End: 12-05-2024 ambulatory [facility] Facility:[facility] Start: 09-11-[address] Chanel Cisneros MD Work Phone: [facility] Start: 09-11-2024 End: 09-11-2024 ambulatory [facility] Facility:[facility] Start: 09-11-2024 End: 09-11-2024 ambulatory Aman GRANGER Facility:[facility] Start: 09-02-2024 End: 09-02-2024 [facility] Start: 01-15-2024 End: 01-15-[address] Chanel Cisneros Work Phone: [facility] Work Phone: Start: 01-15-2024 End: 01-15-[address] Chanel Cisneros Work Phone: [facility]atory, [place] Start: 10-18-2023 End: 10-18-[address] Chanel Cisneros Work Phone: [facility] Work Phone: Start: 09-20-2023 End: 09-20-2023 ambulatory VIDEO GAME ENGINEER-C Lu Harrington Work Phone: [facility] Work Phone: Start: 09-20-2023 Patient encounter status VIDEO GAME ENGINEER-Emy Harrington Work Phone: [facility] Start: 09-20-2023 End: 09-20-2023 Encounter for general adult medical examination without abnormal findings VIDEO GAME ENGINEER-Emy Harrington Work Phone: [facility] Start: 09-20-2023 End: 09-20-2023 Patient encounter procedure VIDEO GAME ENGINEER-C Lu Harrington Work Phone: [facility] Internal Medicine Work Phone: Start: 08-13-2023 End: 08-13-2023 Patient encounter procedure VIDEO GAME ENGINEER-C Lu Harrington Work Phone: [facility] Work Phone: Start: 07-31-2023 End: 07-31-2023 Patient encounter procedure VIDEO GAME ENGINEER-C Lu Harrington Work Phone: [facility] Work Phone: Start: 06-26-2023 End: 06-26-2023 Patient encounter procedure VIDEO GAME ENGINEER-C Lu Harrington Work Phone: [facility] Work Phone: Start: 05-29-2023 End: 05-29-2023 Patient encounter procedure VIDEO GAME ENGINEER-C Lu Harrington Work Phone: [facility] Work Phone: Start: 04-17-2023 End: 04-17-2023 ambulatory VIDEO GAME ENGINEER-C Helen Cartera VIDEO GAME ENGINEER Work Phone: [facility] Work Phone: Start: 04-17-2023 End: 04-17-2023 Patient encounter procedure VIDEO GAME ENGINEER-C Helen Cartera VIDEO GAME ENGINEER Work Phone: [facility]-Pulmonary Services/Neurology Start: 03-31-2023 End: 03-31-2023 ambulatory VIDEO GAME ENGINEER-C Helen Cartera VIDEO GAME ENGINEER Work Phone: [facility] Work Phone: Start: 03-31-2023 End: 03-31-2023 Patient encounter procedure VIDEO GAME ENGINEER-C Helen Cartera VIDEO GAME ENGINEER Work Phone: [facility]Laboratory, [facility] Start: 03-31-2023 End: 03-31-2023 Patient encounter procedure VIDEO GAME ENGINEER-C Helen Cartera VIDEO GAME ENGINEER Work Phone: [facility] Start: 02-22-2023 End: 02-22-2023 ambulatory VIDEO GAME ENGINEER-C Helen Cartera VIDEO GAME ENGINEER Work Phone: [facility] Work Phone: Start: 02-22-2023 End: 02-22-2023 Patient encounter procedure VIDEO GAME ENGINEER-C Helen Cartera VIDEO GAME ENGINEER Work Phone: [facility]-Outpatient Breast Imaging Start: 02-08-2023 End: 02-08-2023 Patient encounter procedure VIDEO GAME ENGINEER-C Helen Cartera VIDEO GAME ENGINEER Work Phone: [facility] Start: 01-23-2022 End: 01-23-2022 Emergency department patient visit VIDEO GAME ENGINEER-C Helen Cartera VIDEO GAME ENGINEER Work Phone: [facility]-Emergency Department Start: 12-31-2021 End: 12-31-2021 Patient encounter procedure VIDEO GAME ENGINEER-C Helen Cartera VIDEO GAME ENGINEER Work Phone: [facility]-Outpatient Breast Imaging Start: 11-24-2021 End: 11-24-2021 Patient encounter procedure VIDEO GAME ENGINEER-C Helen Cartera VIDEO GAME ENGINEER Work Phone: [facility] Start: 10-18-2021 Patient encounter procedure VIDEO GAME ENGINEER-C Helen Cartera VIDEO GAME ENGINEER Work Phone: [facility]-Laboratory Start: 10-15-2021 End: 10-15-2021 Patient encounter procedure VIDEO GAME ENGINEER-C Helen Cartera VIDEO GAME ENGINEER Work Phone: [facility] Start: 01-01-2021 End: 01-01-2021 Annotation/Addendum Helen Emmaa [facility] Secretary al Medicine Start: 06-26-2020 End: 06-26-2020 Annotation/Addendum Helen Cartera [facility] Medicine Start: 06-26-2020 End: 06-26-2020 Annotation/Addendum Helen Cartera [facility] Start: 06-24-2020 End: 06-24-2020 Annotation/Addendum Helen Alvarado Unit Secretary al Medicine Start: 06-18-2020 End: 06-18-2020 Phone Encounter Helen Alvarado Unit Secretary al Medicine Start: 06-15-2020 End: 06-15-2020 Office outpatient visit 15 minutes Helen Alvarado Internal Medicine Start: 06-15-2020 Review Helen Condoncharliyoni thornton Internal Medicine Start: 05-26-2020 End: 05-26-2020 Office outpatient new 45 minutes Helen Alvarado Internal Medicine Start: 12-08-2016 End: 12-08-2016 Office outpatient visit 25 minutes Helen Alvarado Internal Medicine Start: 11-18-2016 End: 11-18-2016 Lab Order Helen Alvarado Unit Secretary al Medicine Start: 11-16-2016 End: 11-16-2016 Office [...] 01-13-2009 End: 01-13-2009 Patient encounter procedure Helen Kerr [facility] Internal Medicine Start: 11-09-2007 End: 11-09-2007 Office outpatient visit 15 minutes Helen Kerr [facility] Internal Medicine Start: 11-02-2007 End: 11-06-2007 Patient encounter procedure Helen Kerr [facility] Internal Medicine Start: 08-27-2007 End: 08-27-2007 Office outpatient visit 15 minutes Helen Kerr [facility] Internal Medicine Start: 07-23-2007 End: 07-23-2007 Patient encounter procedure Helen Condonyoni [facility] Internal [facility] Procedures Date Procedure Procedure Detail Performing Clinician Start: 06-28-2025 CT of abdomen and pelvis without contrast Dr. Chanel Cisneros MD Work Phone: Start: 06-28-[address] Chanel Cisneros MD Work Phone: Start: 06-28-2025 Urnls dip stick/tablet reagent auto microscopy Dr. Chanel Cisneros MD Work Phone: Start: 05-19-[address] Chanel Cisneros MD Work Phone: Start: 02-22-2023 Screening mammography VIDEO GAME ENGINEER-C Helen Usha CHARLY Work Phone: Start: 02-22-2023 End: 02-22-2023 SCRN MAMM (CAD)W/MAGUE BILAT Procedure Note: See Note; NOTES: [facility] Imaging Services [address] [place] [id number] SCRN MAMM (CAD)W/MAGUE BILAT MR#: [id number] Acct: [id number] Name: LISA CHEN Rep #: [id number] : 1970 F 52 From: Moody bradley MD PCP: VINICIUS Deras Status: REG CLI Study: SCRN MAMM (CAD)W/MAGUE BILAT Date of Exam: 01/29 04/21 Exam# [id number] Ordering Dr: Luann Wren DO MAMMOGRAPHY - [...] delay biopsy of a clinically suspicious abnormality. [id number] Electronically Signed: Moody Campbell MD at 9:41 EDT , CC: VINICIUS Harrington; Dr. Luann Wren DO Bilingual Medical Receptionist: Signed Helen Kerr Work Phone: Start: 02-08-2023 End: 02-10-2023 Field Irrigation Worker Office Visit Report Procedure Note: See Note; NOTES: [facility] 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 Luann Wren, DO T4 [employer] Direct 02/08/23 R53.83 - Other [...] Kerr Work Phone: Start: 01-26-2022 End: 01-26-2022 Field Irrigation Worker Office Visit Report Comments: See Note; NOTES: [facility] [address] [place] [address] OFFICE VISIT Date of Service: 01/26/22 MR#: [id number] Acct: [id number] Name: LISA CHEN Rep #: [id number] : 1970 Provider: Dr. 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 Is patient in pain?: No [...] Del Locatn Provider FOB Unknown Efrain Unknown [place]yer HPI Encounter for routine gynecological examination: Details: [...] acute distress, well developed and well groomed HENMT Head: normal to inspection and normocephalic [...] BILAT 12/31/21 01/26/22 0950 <Electronically signed by uLann Wren DO> Date Luann Wren DO Cosigner Signature: Date (if applicable) CC: Helen Kerr Work Phone: Start: 01-23-2022 End: 01-23-2022 Chest 1 View (Portable) Comments: See Note; NOTES: [facility] Imaging Services [address] [place] [address] Chest 1 View (Portable) MR#: [id number] Acct: [id number] Name: LISA CHEN Rep #: [id number] : 1970 F 51 From: Ivan Hermosillo MD PCP: Helen Kerr NP-C Status: REG ER Study: Chest 1 View (Portable) Date of Exam: 01/23/22 Exam# [id number] Ordering Dr: Luann Brothers MD STUDY: AP [...] CC: VINICIUS Kerr; Dr. Luann Brothers MD Bilingual Medical Receptionist: Signed Helen Kerr Work Phone: Start: 01-23-2022 Plain chest X-ray VIDEO GAME ENGINEER-C Helen Kerr VIDEO GAME ENGINEER Work Phone: Start: 01-23-2022 End: 01-23-2022 Emergency Department Summary Comments: See Note; NOTES: [facility] Medical Records Department [address] [place] [address] Emergency Department Summary 01/23/22 MR#: [id number] Acct: [id number] Name: LISA CHEN Rep #: [id number] : 1970 51 From: Luann Brothers MD [...] pressure and noted it to be elevated. [facility] Medical History Back problem Breast lump in [...] % (Auto) 60.6 Lymph % (Auto) 28.3 Ransom % (Auto) 7.7 Eos % (Auto) 2.2 [...] (Auto) Neut % (Auto) Lymph % (Auto) Ransom % (Auto) Eos % (Auto) Baso % [...] Provider: Helen Kerr NP Referrals: Helen Kerr VIDEO GAME ENGINEER, VIDEO GAME ENGINEER-C [Primary Care Provider] - 5-7 Days Disposition Disposition: Home, Self Care Discharge Date/Time: 01/23/22 02:58 What to do if you have Problems For any increased pain, shortness of breath, bleeding, nausea or vomiting, chest pain, or any unexpected problems, contact your Primary Care Provider. Call [facility] ([phone]) or report to the closest Emergency Room. Call 911 if necessary. 01/23/22 0410 <Electronically signed by Luann Brothers MD> Cosigner Signature (if applicable): CC: VINICIUS Kerr Signed Helen Kerr Work Phone: Start: 01-23-2022 End: 01-25-2022 12 Lead EKG Comments: See Note; NOTES: [facility] [address] [place] [address] 12 Lead EKG 01/23/22 0023 MR#: [id number] Acct: [id number] Name: LISA CHEN Rep #: [id number] : 1970 51 From: Helder Ballesteros MD [...] T wave abnormality Abnormal ECG Confirmed by FAVIAN TAPIA, HELDER ([id number]), legal editor KVNG SCHWARTZ ([id number]) on 01/25/2022 10:49:05 AM Referred By: Confirmed By:HELDER BALLESTEROS MD 01/25/22 104 Date Helder Ballesteros MD CC: VIDEO GAME ENGINEER-C Helen Kerr; Dr. Luann Brothers MD Signed Helen Kerr Work Phone: Start: 12-31-2021 Screening mammography VIDEO GAME ENGINEER-C Helen Kerr VIDEO GAME ENGINEER Work Phone: Start: 12-31-2021 End: 12-31-2021 SCRN MAMM (CAD)W/MAGUE BILAT Comments: See Note; NOTES: [facility] Imaging Services [address] [place] [address] SCRN MAMM (CAD)W/MAGUE BILAT MR#: [id number] Acct: [id number] Name: LISA CHEN Rep #: [id number] : 1970 F 51 From: Moody bradley MD PCP: VINICIUS Childers Status: REG CLI Study: SCRN MAMM (CAD)W/MAGUE BILAT Date of Exam: 02/18 Exam# [id number] Ordering Dr: Kelsae Chu MAMMOGRAPHY - BILATERAL SCREENING REASON FOR [...] delay biopsy of a clinically suspicious abnormality. [id number] Electronically Signed: Moody Campbell MD at 12:25 EST , CC: VINICIUS Kerr; Dr. 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 11/24/21 1112 <Electronically signed by Tiffany COLVIN> Date Tiffanyodalys Markss VIDEO GAME ENGINEER VIDEO GAME ENGINEER-C Cosigner Signature: Date (if applicable) CC: Helen Kerr Work Phone: Start: 10-15-2021 End: 10-15-2021 Field Irrigation Worker Office Visit Report Comments: See Note; NOTES: [facility] [address] [place] [address]. [address] [place] [address] OFFICE VISIT Date of Service: 10/15/21 MR#: [id number] Acct: [id number] Name: LISA CHEN Rep #: [id number] : 1970 Provider: Dr. 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 Is patient in pain?: No [...] menopausal: No Patient : No : No [facility] Medical History (Updated 10/15/21 @ 13:36 by [...] Signature: Date (if applicable) CC: Helen Kerr CNP Work Phone: Start: 01-01-2021 End: 01-01-2021 Operative Report - CC Letter Comments: See Note; NOTES: [facility] Medical Records Department [address] [place] [address] Operative Report - CC Letter MR#: [id number] Acct: [id number] Name: LISA CHEN Rep #: [id number] : 1970 50 From: Manohar Snyder MD PCP: VINICIUS Childers [place] [facility] [place]/01/2021 Helen Kerr NP [address] [facility] [place] [address] Re : Colonoscopy procedure for Lisa Chen Dear Ms. Kerr This procedure was performed on Friday, January [...] signed electronically. 01/01/21838 Date [facility] Signature: Date (if indicated) CC: VIDEO GAME ENGINEER-C Helen Kerr; Dr. Manohar Snyder MD Date Dictated: 01/01/21802 Date Transcribed: Bilingual Medical Receptionist: AMBER Signed Helen Kerr Start: 01-01-2021 End: 01-01-2021 Colonoscopy Report Comments: See Note; NOTES: [facility] Medical Records Department [address] [place] [address] Colonoscopy Report MR#: [id number] Acct: [id number] Name: LISA CHEN Rep #: [id number] : 1970 50 From: Manohar Snyder MD PCP: Helen Kerr NP-C [place] [facility] Patient Name: Lisa Chen Procedure Date: 01/01/2021 [...] pathology results. Procedure Code(s): --- Professional --- 37051, Colonoscopy, flexible; with removal of tumor(s), polyp(s), or other lesion(s) by snare technique Diagnosis Code(s): --- Professional --- Z12.11, Encounter for screening for malignant neoplasm of colon D12.5, Benign neoplasm of sigmoid colon CPT copyright 2017 [employer]. All rights reserved. The codes documented in this report are preliminary and upon resource economist review may be revised to meet current compliance requirements. Manohar Snyder MD 01/01/2021 8:39:40 AM This report has been signed electronically. Number of Addenda: 0 Note Initiated On: 01/01/2021 8:03 AM 01/01/21 0839 Date Manohar Snyder MD Cosigner Signature: Date (if indicated) CC: VIDEO GAME ENGINEER-C Helen Kerr; Dr. Mnaohar Snyder MD Date Dictated: 01/01/21 0803 Date Transcribed: Bilingual Medical Receptionist: AMBER Signed Helen Kerr Start: 01-01-2021 End: 01-01-2021 History and Physical Exam Comments: See Note; NOTES: [facility] Medical Records Department [address] [place] [address] History and Physical 01/01/21 0801 MR#: [id number] Acct: [id number] Name: LISA CHEN Rep #: [id number] : 1970 50 From: Manohar Snyder MD PCP: VINICIUS Childers Status:[facility] Location: [place] [address]- History of Present Illness Date of Admission: [...] - Discharge Is Pt Admitted From a Senior Living, or a Halfway: No After D/C, Where Do you Plan [...] proceed with procedure. Manohar Snyder MD Pager: [facility] [address] [place] [address], [address] [place] [address] Office: Surgery Risks - Colonoscopy Risks Include but are not Limited To: Risks include but are not limited to: Bleeding, perforation requiring further surgery, inability to complete colonoscopy requiring barium enema. 01/01/21 0803 <Electronically signed by Manohar Snyder MD> Date Manohar Snyder MD Cosign Signature: Date (if applicable) CC: VIDEO GAME ENGINEER-C Helen Kerr; Dr. Manohar Snyder MD Signed Helen Kerr Start: 12-30-2020 End: 12-30-2020 Breast Limited Unilateral Comments: See Note; NOTES: [facility] Imaging Services [address] [place] [address] Breast Limited Unilateral MR#: [id number] Acct: [id number] Name: LISA CHEN Rep #: [id number] : 1970 F 50 From: Moody bradley MD PCP: VINICIUS Childers Status: REG CLI Study: Breast Limited Unilateral Date of Exam: Exam# [id number] Ordering Dr: Manohar Snyder STUDY: ULTRASOUND BREAST [...] 10:37 EST , Service support , CC: VINICIUS Kerr; Dr. Manohar Snyder MD Bilingual Medical Receptionist: Signed Manohar Snyder Work Phone: Start: 12-30-2020 End: 12-30-2020 DIAG MAMM W/CAD, UNILAT Comments: See Note; NOTES: [facility] [address] [place] [address] DIAG MAMM W/CAD, UNILAT MR#: [id number] Acct: [id number] Name: LISA CHEN Rep #: [id number] : 1970 F 50 From: Moody bradley MD PCP: VINICIUS Childers Status: [facility] CLI Study: DIAG MAMM W/CAD, UNILAT Date of Exam: 12/30/20 Exam# [id number] Ordering Dr: Manohar Snyder MAMMOGRAPHY - UNILATERAL [...] CC: VINICIUS Kerr; Dr. Manohar Snyder MD Bilingual Medical Receptionist: Signed Manohar Snyder Work Phone: Start: 11-05-2020 End: 11-05-2020 Field Irrigation Worker Office Visit Report Comments: See Note; NOTES: [facility] [address] [place], [place] [address] OFFICE VISIT Date of Service: 11/05/20 MR#: [id number] Acct: [id number] Name: LISA CHEN Rep #: [id number] : 1970 Provider: Dr. Mariama man MD Age/Sex: 50/F Location: [facility] Status: Signed Intake Vital Signs 11/05/20 BP [...] Gen Labor Lgth Anesthesia Del Locatn Provider FO[facility]astasia Mitchell [facility] 2 mo FU/med check: Details: LISA CHEN [...] to improve diet and exercise. Last PAP: 2017 History of abnormal PAP: Denies Last mammogram: [...] CC: Helen Kerr Start: 09-16-2020 End: 09-16-2020 Field Irrigation Worker Office Visit Report Comments: See Note; NOTES: [facility] [address] [place] [address]. [address] [place] [address] OFFICE VISIT Date of Service: 09/16/20 MR#: [id number] Acct: [id number] Name: LISA CHEN Rep #: [id number] : 1970 Provider: Dr. 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 [address] [place] [address] OFFICE VISIT Date of Service: 06/26/20 MR#: [id number] Acct: [id number] Name: LISA CHEN Rep #: [id number] : 1970 Provider: Dr. 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 Alert Santos Yes Biopsy Breast Biopsy: 40072 US Guidance Procedure Time Out Time Out [...] her with results. Manohar Snyder MD Pager: [facility] [address] [place] [address], [address] [place] [address] Office: Orders Orders: Biopsy 06/26/20 N63.20 Coding Level of Care Code Attention Web Knitter Diagnoses Left breast mass N63.20 Additional Codes Biopsy - Breast Biopsy: 13207 US Guidance (55273) 06/29/20 0937 <Electronically signed by Manohar Snyder MD> Date Manohar Snyder MD Cosigner Signature: Date (if applicable) CC: VIDEO GAME ENGINEER-C Helen Kerr Start: 06-24-2020 End: 06-24-2020 Breast Limited Unilateral Comments: See Note; NOTES: [facility] [address] [place] [address] Breast Limited Unilateral MR#: [id number] Acct: [id number] Name: LISA CHEN Rep #: [id number] : 1970 F 50 From: Moody bradley MD PCP: VINICIUS Childers Status: REG CLI Study: Breast Limited Unilateral Date of Exam: Exam# [id number] Ordering Dr: Helen Kerr STUDY: ULTRASOUND BREAST [...] , Service support , CC: VINICIUS Kerr Bilingual Medical Receptionist: Signed Helen Kerr Work Phone: Start: 06-24-2020 End: 06-24-2020 DIAG MAMM W/CAD, BILAT Comments: See Note; NOTES: [facility] [address] [place] [address] DIAG MAMM W/CAD, BILAT MR#: [id number] Acct: [id number] Name: LISA CHEN Rep #: [id number] : 1970 F 50 From: Moody bradley MD PCP: VINICIUS Childers Status: [facility] Study: DIAG MAMM W/CAD, BILAT Date of Exam: 06/24/20 Exam# [id number] Ordering Dr: Hleen Kerr MAMMOGRAPHY - BILATERAL DIAGNOSTIC REASON FOR [...] a clinically suspicious abnormality. Electronically Signed: Moody Campbell, at 13:30 EDT , Service support , CC: VINICIUS Kerr Bilingual Medical Receptionist: Signed Helen Kerr Work Phone: Start: 05-26-2020 End: 05-26-2020 Chest PA and Lateral Comments: See Note; NOTES: [facility] [address] [place] [address] Chest PA and Lateral MR#: [id number] Acct: [id number] Name: LISA CHEN Rep #: [id number] : 1970 F 50 From: Davidson Arana i, MD PCP: VINICIUS Childers Status: REG CLI Study: Chest PA and Lateral Date of Exam: 05/26/20 Exam# [id number] Ordering Dr: Helen Kerr STUDY: X-RAY CHEST [...] , Service support , CC: VINICIUS Kerr Bilingual Medical Receptionist: Signed Helen Kerr Work Phone: Start: 10-21-2019 End: 10-22-2019 SCREEN MAMM (CAD) W/MAGUE BILAT Comments: See Note; NOTES: [facility] Services [address] [place] [address] SCREEN MAMM (CAD) W/MAGUE BILAT MR#: [id number] Acct: [id number] Name: LISA CHEN Rep #: [id number] : 1970 F 49 From: Nestor Mathis MD PCP: VINICIUS Childers Status: REG CLI Study: SCREEN MAMM (CAD) W/MAGUE BILAT Date of Exam: 10/21/19 Exam# [id number] Ordering Dr: Vane Cruz MD MAMMOGRAPHY - [...] Nestor Mathis MD at 13:15 EST Tel [phone], Service support , CC: VINICIUS Kerr; Vane Cruz MD Bilingual Medical Receptionist: Signed Helen Kerr Start: 09-20-2017 End: 09-22-2017 SCREENING MAMM (CAD), BILAT Comments: See Note; NOTES: [facility] [address] [place] [address] SCREENING MAMM (CAD), BILAT MR#: [id number] Acct: [id number] Name: LISA CHEN Rep #: [id number] : 1970 F 47 From: Moody Campbell MD PCP: Sarah Beth Steele DO Status: [facility] Study: SCREENING MAMM (CAD), BILAT Date of Exam: 09/20/17 Exam# [id number] Ordering Dr: Vane Cruz MD MAMMOGRAPHY - [...] delay biopsy of a clinically suspicious abnormality. [id number] Electronically Signed: Moody Campbell MD at 8:01 EST Tel [phone], Service support , CC: Vane Cruz MD; Sarah Beth Steele DO Bilingual Medical Receptionist: Signed Helen Kerr Start: 11-21-2016 End: 11-21-2016 Echocardiogram Complete Comments: See Note; NOTES: [facility] [address] [place] [address] Echo Complete 11/21/16 1055 MR#: [id number] Acct: [id number] Name: LISA CHEN Rep #: [id number] : 1970 46 From: Helder Ballesteros MD Attending Dr: Sarah Beth Steele DO Status: REG CLI Ordering Dr: Sarah Beth Steele DO Date: 11/21/16 Location: [facility] Sex: F C Admitted: Reason For Study: [...] is 24 mmHg. Ordering Physician: Sarah Beth Steele Referring Physician: Sarah Beth Steele M.D. Performed By: Edda Vang RDCS 11/21/16 1240 Date Helder Ballesteros MD CC: Sarah Beth Steele DO Date Dictated: 11/21/16 1055 Date Transcribed: 11/21/16 1240 Bilingual Medical Receptionist: Signed Sarah Beth Steele Work Phone: Start: 11-18-2016 End: 11-18-2016 Abdomen Limited Comments: See Note; NOTES: [facility] [address] [place] [address] Verdana 4d Abdomen Limited MR#: [id number] Acct: [id number] Name: LISA CHEN Rep #: [id number] : 1970 F 46 From: Nichole Browning MD PCP: Sarah Beth Steele DO Status: REG CLI Study: Abdomen Limited Date of Exam: 11/18/16 Exam# [id number] Ordering Dr: Sarah Beth Steele DO STUDY: [...] at 9:06 EST Tel , Service support [phone], CC: Sarah Beth Steele DO Bilingual Medical Receptionist: Signed Sarah Beth Steele Work Phone: Start: 07-28-2014 End: 07-28-2014 Spmtry w/vc expiratory sneha w/wo mxml vol vntj _ Sarah Beth Steele Work Phone: Comment on above: mild obstruction Plan of Treatment Date Care Activity Detail Author Start: 06-28-2025 [facility] Start: 06-13-2025 Evaluation of diagnostic study results [facility] Start: 09-20-2023 Patient referral [facility] Work Phone: Start: 03-31-2023 Vitamin D, 1,25-dihydroxy measurement [facility] Start: 06-15-2020 Procedure Education Eprescribed prescriptions (G8553) [facility] Work Phone: Start: 06-15-2020 Provider Instructions for Treatment Follow up if no improvement or if symptoms worsen [facility] Work Phone: Start: 05-26-2020 Troponin I.cardiac [Mass/Vol] Troponin I (18293) [facility] Work Phone: Start: 05-26-2020 Blood count complete auto&auto difrntl wbc CBC, Platelets & Auto Diff (50240) [facility] Work Phone: Start: 05-26-2020 TSH Qn TSH (THYROID STIMULATING HORMONE) (99942) [facility] Work Phone: Start: 05-26-2020 Comprehensive metabolic panel Metabolic Panel, Comprehensive (51419) [facility] Work Phone: Start: 05-26-2020 [...] Start: 12-26-2011 Heterophile antibodies screen MONOSPOT TEST (00281) [facility] Work Phone: Start: 12-26-2011 Iaadiadoo influenza Rapid Flu (71869 x 2) [facility] Work Phone: Start: 07-13-2011 Provider Instructions for Treatment Follow up in 6 weeks [facility] Work Phone: Start: 06-27-2011 Provider Instructions for Treatment [facility] Work Phone: Start: 03-21-2011 Provider Instructions for Treatment [facility] Work Phone: Start: 01-13-2009 Lipid panel Lipid Panel (30862) [facility] Work Phone: Start: 08-27-2007 Provider Instructions for Treatment FOLLOW UP IN 1 YEAR [facility] Work Phone: Start: 07-23-2007 Provider Instructions for Treatment [facility] Work Phone: Start: 07-23-2007 Hepatic function panel HEPATIC FUNCTION PANEL (68310) [facility] Work Phone: Comment on above: every 4 w Start: 07-23-2007 Microsomal antibodies each Anti-TPO Antibody (26935) [facility] Work Phone: Start: 07-23-2007 Assay of thyroid stimulating hormone tsh TSH (79683) [facility]; [facility] Work Phone: Start: 07-23-2007 TSH Qn TSH (10303) [facility] Work Phone: Start: 07-23-2007 Cobalamin (Vitamin B12) [Mass/Vol] Vitamin B-12 (cyanocobalamin) (55634) [facility] Work Phone: Start: 07-23-2007 Cyanocobalamin vitamin b-12 Vitamin B-12 (cyanocobalamin) (26101) [facility]; [facility] Work Phone: Start: 07-23-2007 Blood count complete automated CBC (Auto) (87399) [facility] Work Phone: Comment on above: rozina and gideon 4 w Start: 07-23-2007 Comprehensive metabolic panel Metabolic Panel, [facility] (17428) [facility] Work Phone: Cardiovascular stres s testing [facility] Electrocardiographic procedure [facility] MG Breast - bilatera l Screening [facility] Patient Education [facility] Work Phone: Patient referral [facility] Work Phone: [facility] Work [...] Phone: Payers Date Payer Category Payer Unknown [id number] 2024 Self-pay [id number] 2024 Unknown [id number] Unknown Unknown [id number] 2.16.8 [id number] Unknown [id number] 2.16.8 [id number] Unknown [id number] 2.16.8 [id number] Unknown [id number] 2.16.8 [id number] Unknown [id number] 2.16.8 [id number] Unknown [id number] 2.16.8 [id number] Unknown [id number] 2.16.8 [id number] Unknown [id number] 2.16.8 40.1.287975.3.579.2.462 Unknown [id number] 2.16.8 [id number] Unknown [id number] 2.16.8 [id number] Unknown [id number] 2.16.8 [id number] Unknown [id number] 2.16.8 [id number] Social History Date Type Detail Facility Caffeine Use Caffeine Use [facility] Work Phone: Comment on above: rare Unemployed not looki ng for work Light lives with 2 daughters--97, 01 2 Smokes 1 pack of cig arettes per daysame status -- has not smoked d/t illness since Monday -- 12.26. Tobacco use: Tobacco use: [facility] Work Phone: Tobacco use: Tobacco use: [facility]; [facility] Work Phone: Start: 01-23-2022 End: 10-18-2023 Tobacco smoking status NHIS Unknown if ever smoked [facility] Start: 12-23-2020 Non-smoker [facility] Start: 1970 Sex Assigned At Female [facility] Start: 10-18-2023 End: 06-28-2025 Tobacco smoking status NHIS Ex-smoker (finding) [facility] Sex Female [facility] Clinical Notes 02-16-2025 to 06-28-2025 Note Date & Type Note Facility 06-28-2025 Discharge summary [facility] 06-28-2025 Radiology Diagnostic study note [facility] [address] [place], [place] [address] Abdomen/Pelvis without Cont MR#: [id number] Acct: [id number] Name: LISA CHEN Rep #: [id number] : 1970 F 55 From: Stefanie Stack MD PCP: VINICIUS Deras Status: REG E R Study:Abdomen/Pelvis without Cont Date of Exa m: 06/28/25 Exam# [id number] Ordering Dr: Misbah Bowman MD PROCEDURE: ABDOMEN/PELVIS WITHOUT CONT 06/28/2025 REASON FOR EXAM: PAIN TECHNIQUE: Procedure Code: CTABDPEL Modality: CT Procedure: ABDOMEN/PELVIS WITHOUT CONT Noncontrast technique limits evaluation of the abdominal and pelvic viscera. Coronal and Sagittal reconstruction series were provided. One or more dose reduction techniques were used (e.g., Automated exposure control, adjustment of the mA and/or kV according to patient size, use of iterative reconstruction technique). RADIATION DOSE SUMMARY: CTDlvol: 18 mGy DLP: 1002 mGycm COMPARISON: None FINDINGS: Noncontrast appearance of the liver and gallbladder are unremarkable. Normal appearance to the spleen. No pancreatic inflammation. Nonobstructing 3 mm stone in the lower pole of the right kidney. There is a small stone at the left UVJ measuring 3 mm. Subtle fullness of the left ureter. Mild dilatation of the left renal collecting system. This is minimal. CT/Abdomen/Pelvis without Cont IMPRESSION: Minimally obstructing stone left UVJ measuring 3 mm. Correlate for pain and hematuria. Reading [facility] CC: VIDEO GAME ENGINEER-C Lu Harrington; Dr. Kelton Bowman MD ~ Bilingual Medical Receptionist: Signed [facility] 06-28-2025 Discharge summary Note Date/Time June 28, 2025 3:26pm [facility] Medical Records Department [address] [place] [address] Emergency Department Summary 06/28/25 MR#: [id number] Acct: [id number] Name: LISA CHEN Rep #:[id number] : 1970 55 From: Kelton Bowman MD PCP: MICHAEL DerasC Status:REG E R Location: ED HPI HPI - GI History of Present Illness Chief Complaint: Flank Pain Informant: patient Abdominal Pain/Flank Pain Onset: Today Context: Sudden Onset Timing: Intermittent Location: Left Flank Current Severity: Moderate Maximum Severity: Moderate Worsened by: Nothing Relieved by: Nothing Nausea/Vomiting/Emesis GI Symptom: Positive for Vomiting Onset: Today Severity: Mild Diarrhea/Melena/Hematochezia GI Symptom: Negative for Diarrhea, Melena or Hematochezia Associated Symptoms Associated Symptoms: Negative for Dysuria, Frequency, Hematuria or Urgency Narrative Narrative: 55-year-old female history of prediabetes, on immune hepatitis prior hernia repair and prior kidney stone. Since she has had urinary symptoms did not drinkas much fluids yesterday today had sudden onset left flank pain associated nausea vomiting. Thinks she may have another stone. Denies any dysuria or hematuria. No fall or trauma. Pain is now intermittent. Prior similar symptoms: Yes Recent Illness/Hospitalization: No PFSH PFSH Medical History Autoimmune hepatitis Hyperlipidemia Borderline type 2 diabetes mellitus Kidney stones Hormone deficiency Carpal tunnel syndrome Breast lump in female Back problem Fatigue Home Medications ?Medication ?Instructions ?Recorded ?Last Taken ?Type lactobacillus combination no.9 4 4,000 mmu cells PO DA VIVIANA 06/26/20 Unknown History billion cell capsule (Adult 50 Plus Probiotic) multivitamin 1 tab PO DAILY 06/26/20 Unkn own History albuterol sulfate 90 mcg/actuation 2 puff inhalation Q 4-6H PRN 02/16/25 Unknown Rx aerosol inhaler shortness of breath or wheez ing #6.7 grams medroxyprogesterone 2.5 mg tablet 2.5 mg PO DAILY #30 TABLETS 03/17/25 Unknown Rx doxycycline hyclate 20 mg tablet 20 mg PO BID 05/06/25 Unknown History estradiol 0.025 mg/24 hr 1 patch transdermal 2XW #24 ea 05/06/25 Unknown Rx semiweekly transdermal patch topiramate 25 mg tablet 44 mg PO BID 05/06/25 Unknow n History cholecalciferol (vitamin D3) 25 25 mcg PO QDAY 5 Unknown History mcg (1,000 unit) capsule ivermectin 1 % topical cream 1 applic topical QHS 06/23 Unknown History metformin 500 mg tablet,extended 500 mg PO QDAY Unknown History release 24 hr (Glucophage XR) saw palmetto-pumpkin seed oil 1 cap PO DAILY 06/13/25 Unknown History Allergy/AdvReac Type Severity Reaction Status Date / Time No Known Allergies Allergy Verified 06/28/25 12:51 Family History Mother Thyroid cancer Brain aneurysm Father Cancer Heart disease Hypertension CHF (congestive heart failure) Other Arthritis Colon cancer Diabetes Lung cancer Surgical History H/O foot surgery Hx of hernia repair Social History Smoking Status: Former smoker alcohol intake: current alcohol intake frequency: holidays/special occasions only substance use type: does not use caffeine: No what type of physical activity do you participate in: none seatbelt use: always do you feel safe at home: Yes additional social history: - Meet ROS ROS ED ROS Narrative Left flank pain. Nausea vomiting. Constitutional Constitutional ED: Denies chills or fever(s) ENT ENT ED: Denies ear pain Cardiovascular Cardiovascular: Denies chest pain Respiratory/Chest Respiratory/Chest: Denies cough or dyspnea Gastrointestinal Gastrointestinal: Reports abdominal pain, nausea and vomiting Genitourinary Genitourinary ED: Denies dysuria or hematuria Musculoskeletal Musculoskeletal: Denies arthralgias or back pain Integumentary Denies abscess Neurologic Neurologic: Denies headache(s) Psychiatric Psychiatric: Denies anxiety or depression Endocrine Endocrinology: Denies polydipsia Hematologic/Lymphatic Hematologic/Lymphatic: Denies easy bleeding or easy bruising Allergic/Immunologic Allergic/Immunologic ED: Denies mouth swelling, tongue swelling or urticaria EXAM Physical Exam Narrative Exam Narrative: 55-year-old female vital signs stable afebrile. No acute distress. Having intermittent left flank pain. H EENT exam pupils are reactive light. Moist rehemorrhage. Neck nontender no JVD. Lungs clear to auscultation. Heart regular rhythm rate about 90 no murmur. Chest wall ribs nontender. Abdomen soft, nontender nondistended normal bowel sounds no peritoneal signs. No reproducible pain. Back nontender. Moving all 4 extremities. Normal strength. Normal range of motion. She is awake and alert. Answering questions followingcommands. Const Vital Signs: 06/28/25 12:50 06/28/25 14:07 06/28/25 14:15 Temperature 98.2 F 98.3 F Temperature Source Oral Oral Pulse Rate 93 79 80 Respiratory Rate 20 H 14 16 Blood Pressure 139/87 H 123/70 H 135/84 H Blood Pressure Mean 104 87 101 Pulse Ox 100 93 99 Oxygen Delivery Method Room Air Room Air Positive well nourished and well developed; Negative for cachectic, contracturesor unkempt General Appearance ED: well developed and NAD; Negative for unkempt, cachectic, contractures or pallor Nutritional Appearance: Negative for cachectic HEENT Reports moist mucous membranes normocephalic and atraumatic Eyes PERRL and EOMs intact bilaterally Neck no lymphadenopathy, supple and no JVD Resp normal respiratory effort and clear to auscultation bilaterally Cardio regular rate, regular rhythm, S1 normal heart sound, S2 normal heart sound and no murmurs GI non-tender, non-distended and no masses Auscultation: normoactive bowel sounds Palpation: soft; Negative for tender, guarding or rebound tenderness present Back/Spine no CVA tenderness General Back: Negative for CVA tenderness Cervical Spine: Negative for cervical spine tenderness Thoracic Spine / Upper Back: Negative for thoracic spinal tenderness Lumbar Spine / Lower Back: Negative for lumbar spinal tenderness Coccyx: Negative for other Extremity full ROM General Extremety ED: Negative for edema or tenderness General Extremity: Negative for edema Neuro CN's II-XII intact bilaterally and moves all extremities Sensorium / Orientation: alert, oriented to person, oriented to place and oriented to time Motor Exam: strength 5/5 throughout Psych mental status grossly normal and thought process normal Appearance: Negative for unkempt Skin no wounds General Skin Exam: Negative for jaundice or pallor Lesions: no lesions Rashes: no rashes MDM MDM MDM Narrative Medical decision making narrative: 55-year-old female with sudden onset left flank pain today. Differential includes kidney stone versus infection versus other etiology. CAT scan and labs are pending. She will be treated with Zofran for nausea and morphine for pain and Toradol. Repeat exam at 3:20 PM. Patient doing well. Pain-free. Went over test results. She is comfortable being discharged home. She did not want any further pain meds from show use Motrin and Tylenol. Follow-up as needed. History & Record Review Discussion w/independent historian: Patient Additional record(s) reviewed:: Prior inpatient record, Prior outpatient record,Prior ED visit and Prior labs Lab Data Attestation: I reviewed the patient's lab results. Lab results narrative: CBC normal. White count 9. H&H 14 and 43. Platelets 234. Electrolytes unremarkable gap 13 normal BUN and creatinine. Glucose 122. Urinalysis 250 occult blood no nitrates. Greater than 100 red cells. No white cells rare bacteria. CAT scan consistent with a left UVJ stone. Labs: Laboratory Results - last 24 hr 06/28/25 13:09 WBC 9.4 RBC 4.73 Hgb 14.3 Hct 43.0 MCV 90.9 MCH 30.2 MCHC 33.3 RDW Std Deviation 45.2 H RDW Coeff of Gloria 13.4 Plt Count 234 MPV 10.6 Immature Gran % (Auto) 0.300 Neut % (Auto) 81.2 H Lymph % (Auto) 9.4 L Ransom % (Auto) 6.1 Eos % (Auto) 2.4 Baso % (Auto) 0.6 Absolute Neuts (auto) 7.6 Absolute Lymphs (auto) 0.88 Nucleated RBC % 0 Sodium 138 Potassium 3.8 Chloride 104 Carbon Dioxide 20.5 L Anion Gap 13 BUN 6 Creatinine 0.64 L Estim Creat Clear Calc 109.16 Est GFR (MDRD) Non-Af 104 BUN/Creatinine Ratio 10.1 Glucose 122 H Calcium 9.2 Urine Color Yellow Urine Clarity Cloudy Urine pH 5.0 Ur Specific [place] 1.020 Urine Protein 100 H Urine Glucose (UA) Normal Urine Ketones Negative Urine Occult Blood 250 H Urine Nitrite Negative Urine Bilirubin Negative Urine Urobilinogen Normal Ur Leukocyte Esterase 25 H Urine RBC > 100 SEEN Urine WBC 0-5 SEEN Ur Squamous Epith Cells 0-5 SEEN Urine Bacteria RARE Urine Mucus 2+ Radiography Diagnostic Testing: Clinical Impression(s) from Imaging Studies Abdomen/Pelvis CT 06/28/25 14:22 IMPRESSION: Minimally obstructing stone left UVJ measuring 3 mm. Correlate for pain and hematuria. Reading Location: [facility] Discharge Plan Triage Chief Complaint: Flank Pain ED Provider: Kelton Bowman Dx/Rx/DC Orders Clinical Impression: Acute flank pain, Kidney stone on left side Instructions: ED Kidney Stone with Pain Prescriptions: No Action multivitamin Tablet 1 tab PO DAILY Adult 50 Plus Probiotic 4 billion cell capsule 4,000 mmu cells PO DAILY Rx Instructions: administer with a meal albuterol sulfate 90 mcg/actuation HFA aerosol inhaler 2 puff inhalation Q4-6H PRN (Reason: shortness of breath or wheezing) Qty: 6.7 0RF topiramate 25 mg tablet 44 mg PO BID doxycycline hyclate 20 mg tablet 20 mg PO BID estradiol 0.025 mg/24 hr patch semiweekly 1 patch transdermal 2XW Qty: 24 3RF Rx Instructions: apply 1 patch for 3 days alternating with 1 patch for 4 days each week metformin [Glucophage XR] 500 mg tablet extended release 24 hr 500 mg PO QDAY cholecalciferol (vitamin D3) 25 mcg (1,000 unit) capsule 25 mcg PO QDAY ivermectin 1 % cream 1 applic topical QHS saw palmetto-pumpkin seed oil 1 cap PO DAILY medroxyprogesterone 2.5 mg tablet 2.5 mg PO DAILY Qty: 30 5RF Primary Care Provider: Lu Harrington Referrals: Lu Harrington, CHARLY-C [Primary Care Provider] - As Needed Activity Restrictions/Additional Instructions: Plenty of fluids. Motrin and Tylenol for pain. You have a kidney stone that is just above your bladder once it passes in your bladder your pain should resolve. Print Language: Amharic Disposition Disposition: Home, Self Care What to do if you have Problems For any increased pain, shortness of breath, bleeding, nausea or vomiting, chestpain, or any unexpected problems, contact your Primary Care Provider. Call [facility] ([phone]) or report to the closest Emergency Room. Call 911 if necessary. 06/28/25 1526 <Electronically signed by Kelton Bowman MD> Cosigner Signature (if applicable): CC: VINICIUS Harrington ~ Signed [facility] Work Phone: [phone]) 791-101707-08-2025 Evaluation note* Diagnosis Onset Date Resolution Status Admit Date Climacteric acute May 06 10:00am Obesity, unspecified acute May 06, 2025 10:00am Encounter for routine gynecological examination noneactive May 062024 10:00am Chest pain acute June 13, 025 2:54pm High cholesterol acute May 302024 2:54pm Pre-diabetes acute June 13, 2025 2:54pm [facility] Work Phone: 1(670) 270-706404-20-2025 Evaluation note* Diagnosis Onset Date Resolution Status Admit Date Sinusitis acute February 16 9:34am Climacteric acute May 06 10:00am Obesity, unspecified acute May 06, 2025 10:00am Encounter for routine gynecological examination noneactive May 062024 10:00am [facility] Work Phone: Chiwr complaint+Reason for visit Narrative* Chief Complaint HEADACHE, FATIGUE, C ONGESTED Reason for Visit COVID-19 [facility] Work Phone: Evaluation note* Diagnosis Onset Date Resolution Status BMI 30.0-30.9,adult acute Climacteric acute [facility] Work Phone: Evaluation note* Diagnosis Onset Date Resolution Status Climacteric acute Weight gain acute Encounter for routine gynecological examination noneactive [facility] Work Phone: Evaluation note* Diagnosis Onset Date Resolution Status Climacteric acute Weight gain acute Encounter for routine gynecological examination noneactive Binge-eating disorder, mild acute BMI 34.0-34.9,adult acute Climacteric acute Other obesity acute Pre-diabetes acute [facility] Work Phone: Evaluation note* Diagnosis Onset Date [...] Hyperlipidemia acute Preventative health care acu te [facility] Work Phone: Evaluation note* Diagnosis Onset Date Resolution Status COVID-19 acute [facility] Work Phone: Hospital Discharge instructionsAdditional Instructions Plenty of fluids. Motrin and Tylenol for pain. You have a kidney stone that is just above your bladder once it passes in your bladder your pain should resolve.[facility] Work Phone: Instructions* Name Dates Details How [...] for referral (narrative)No reason for referral information [facility] Work Phone: Family History No Family History [...] Instructions Name Dates Details How to access health [...] Visit BMI 30.0-30.9,adult Climacteric Chief Complaint Annual (GEOGRAPHIC ANALYST) E ORDERS SCREENING Reason for Visit Climacteric Weight gain Encounter for routine gynecological examination Chief Complaint Annual (GEOGRAPHIC ANALYST) E ORDERS SCREENING Weight Management Consult Reason for Visit Climacteric Weight gain Encounter for routine gynecological examination Binge-eating disorder, mild BMI 34.0-34.9,adult Climacteric Other obesity Pre-diabetes Chief Complaint Annual (GEOGRAPHIC ANALYST) E ORDERS SCREENING Weight Management Consult PREDIABETES Reason for Visit Climacteric Weight gain Encounter for routine gynecological examination Binge-eating disorder, mild BMI 34.0-34.9,adult Climacteric Other obesity Pre-diabetes Chief Complaint 1 M FU WEIGHT/BP CHECK 1 M FU CONCERN FOR SINUS INFECTION VIDEO GAME ENGINEER. EST CARE - PPW SENT Reason for [...] SINUS INFECTION February 16, 2025 9:34am Annual (GEOGRAPHIC ANALYST) May 06, 2025 10:00 am Reason for Visit Admit Date Sinusitis February 16, 2025 9:3 4am Climacteric May 06, 2025 10:00 am Obesity, unspecified May 06, 2025 10:0 0am Encounter for routine gynecological exam ination May 06, 2025 10:00am Chief Complaint Admit Date CONCERN FOR SINUS INFECTION February 16, 2025 9:34am Annual (GEOGRAPHIC ANALYST) May 06, 2025 10:00 am screen for breast cancer May 19, 2025 12:31pm Chief Complaint Admit Date CONCERN FOR SINUS INFECTION February 16, 2025 9:34am Annual (GEOGRAPHIC ANALYST) May 06, 2025 10:00 am screen for breast cancer May 19, 2025 12:31pm Angina/SOB/Edema/Fatigue (Self) May 302024 2:54pm Chief Complaint Admit Date Annual (GEOGRAPHIC ANALYST) May 06, 2025 10:00 am screen for breast cancer May 19, 2025 12:31pm Angina/SOB/Edema/Fatigue (Self) May 302024 2:54pm FLANK PAIN June 28, 2025 12 :50pm Reason for Visit Admit Date Climacteric May 06, 2025 10:00 am Obesity, unspecified May 06, 2025 10:0 0am Encounter for routine gynecological exam ination May 06, 2025 10:00am Chest pain June 13, 2025 2: 54pm High cholesterol June 13, 2025 2: 54pm Pre-diabetes June 13, 2025 2: 54pm Chief Complaint Admit Date Annual (GEOGRAPHIC ANALYST) May 06, 2025 10:00 am screen for breast cancer May 19, 2025 12:31pm Angina/SOB/Edema/Fatigue (Self) May 302024 2:54pm FLANK PAIN June 28, 2025 12 :50pm CP July 22, 2025 9:55am CP July 22, 2025 8:06pm Advance Directives No Advanced Directives Records Found Advance Directive Response Recorded Date/ Time Living Will No January 23, 2022 12:21am Power of Vibrator Operator No January 23 12:21am Advance Directive Response Recorded Date/ Time Living Will No July 31 3:28pm Power of Vibrator Operator No July 31 023 3:28pm Advance Directive Response Recorded Date/ Time Living Will No July 31 3 4:28pm Power of Vibrator Operator No July 31 023 4:28pm Advance Directive Response Recorded Date/ Time Do you have a Healthcare Power of Vibrator Operator? No June 28, 2025 12:51pm Summary Purpose Additional Source Comments Goals (unrecognized [...] Active Member Role Status Dates Helen Kerr VIDEO GAME ENGINEER, VIDEO GAME ENGINEER-C Family Provider Active Lu Harrington NP-C Primary Care Provider Active Team Status: Inactive Member Role Status Dates Helen Kerr NP, VIDEO GAME ENGINEER-C Primary Care Provider, Referring P rovider Active Gail Jacobs CNM Attending Provider Active Team Status: Inactive Member Role Status Dates Lu Harrington NP-C Primary Care Provider Active Gail Jacobs CNM Attending Provider, Referring Pr ovider Active Team Status: Inactive Member Role Status Dates Lu Harrington NP-C Primary Care Provider Active Dr. Luann Wren DO Attending Provider, Refe rring Provider Active Team Status: Inactive Member Role Status Dates Helen Kerr NP, VIDEO GAME ENGINEER-C Referring Provider Active Dr. Kelsea Chu MD Attending Provider Active Lu Harrington NP-C Primary Care Provider Active Team Status: Inactive Member Role Status Dates Lu Harrington NP-C Primary Care Provider Active Dr. Kelsea Chu MD Attending Provider, Referr ing Provider Active Team Status: Active Member Role Status Dates Helen Ciesa VIDEO GAME ENGINEER, VIDEO GAME ENGINEER-C Family Provider Active Dr. Chanel Cisneros MD Primary Care Provider Active Team Status: Inactive Member Role Status Dates VINICIUS Deras Referring Provider Active Dr. Kelsea Chu MD [...] Care Provider, Refer ring Provider Active Aman GRANGER, PA Attending Provider Active Team Status: Inactive [...] End: February 16, 2025 Erick Niño NP, VIDEO GAME ENGINEER-C Attending Provider Active S tart: February 16, [...] May 19, 2025 End: May 19, 2025 Lu Harrington VIDEO GAME ENGINEER-C Primary Care Provider Active Start: May 19, 2025 End: May 19, 2025 Team Status: Inactive Member Role/Relationship Status Dates Lu Harrington VIDEO GAME ENGINEER-C Primary Care Provider Active Start: June 13, 2025 End: June 13, 2025 Lu Harrington VIDEO GAME ENGINEER-C Referring Provider Active Start: June 13, 2025 End: June 13, 2025 Dr. Scott Fleming MD Attending Provider Active Start: June 13, 2025 End: June 13, 2025 Team Status: Inactive Member Role/Relationship Status Dates Dr. Chanel Cisneros MD Primary Care Provider Active Start: May 06, 2025 End: May 06, 2025 Dr. Chanel Cisneros MD Referring Provider Active Start: May 06, 2025 End: May 06, 2025 Sisi Argueta NP-C Attending Provider Active Start: May 06, 2025 End: May 06, 2025 Team Status: Inactive Member Role/Relationship Status Dates Sisi Argueta NP-C Attending Provider Active Start: May 19, 2025 End: May 19, 2025 Sisi Argueta NP-C Referring Provider Active Start: May 19, 2025 End: May 19, 2025 Lu Harrington VIDEO GAME ENGINEER-C Primary Care Provider Active Start: May 19, 2025 End: May 19, 2025 Team Status: Inactive Member Role/Relationship Status Dates Lu Harrington VIDEO GAME ENGINEER-C Primary Care Provider Active Start: June 13, 2025 End: June 13, 2025 Lu Harrington VIDEO GAME ENGINEER-C Referring Provider Active Start: June 13, 2025 End: June 13, 2025 Dr. Scott Fleming MD Attending Provider Active Start: June 13, 2025 End: June 13, 2025 Team Status: Inactive Member Role/Relationship Status Dates Lu Harrington VIDEO GAME ENGINEER-C Primary Care Provider Active Start: June 28, 2025 End: June 28, 2025 Dr. Kelton Bowman MD Emergency Provider Active S tart: June 28, 2025 End: June 28, 2025 Team Status: Active Member Role/Relationship Status Dates Lu Harrington VIDEO GAME ENGINEER-C Primary care physician Active Team Status: Inactive Member Role/Relationship Status Dates Dr. Chanel Cisneros MD Primary care physician Activ e Start: May 06, 2025 End: May 06, 2025 Dr. Chanel Cisneros MD Referring Provider Active Start: May 06, 2025 End: May 06, 2025 VINICIUS Melendez Attending physician Active Start: May 06, 2025 End: May 06, 2025 Team Status: Inactive Member Role/Relationship Status Dates MICHAEL MelendezC Attending physician Active Start: May 19, 2025 End: May 19, 2025 VINICIUS Melendez Referring Provider Active Start: May 19, 2025 End: May 19, 2025 Lu Harrington NP-C Primary care physician Active Start: May 19, 2025 End: May 19, 2025 Team Status: Inactive Member Role/Relationship Status Dates Lu Harrington NP-C Primary care physician Active Start: June 13, 2025 End: June 13, 2025 Lu Harrington NP-C Referring Provider Active Start: June 13, 2025 End: June 13, 2025 Dr. Scott Fleming MD Attending physician Active Start: June 13, 2025 End: June 13, 2025 Team Status: Inactive Member Role/Relationship Status Dates Lu Harrington NP-C Primary care physician Active Start: June 28, 2025 End: June 28, 2025 Dr. Kelton Bowman MD Attending physician Active Start: June 28, 2025 End: June 28, 2025 Dr. Kelton Bowman MD Emergency Department Physician Ac tive Start: June 28, 2025 End: June 28, 2025 Team Status: Inactive Member Role/Relationship Status Dates Lu Harrington NP-C Primary care physician Active Start: July 22, 2025 End: July 22, 2025 Dr. Scott Fleming MD Attending physician Active Start: July 22, 2025 End: July 22, 2025 Dr. Scott Fleming MD Referring Provider Active Start: July 22, 2025 End: July 22, 2025 Team Status: Active Member Role/Relationship Status Dates Lu Harrington NP-C Primary care physician Active Start: July 22, 2025 Dr. Scott Fleming MD Referring Provider Active Start: July 22, 2025 Dr. Scott Fleming MD Nurse Practitioner Active Start: July 22, 2025 Dr. Helder Ballesteros MD Attending physician Active Start: July 22, 2025 INFORMATION SOURCE (unrecogn ized section and content) DATE CREATED AUTHOR 08/05/2025 [facility] FOR RECORDS PERTAINING TO PATIENTS WHO ARE [...] BE BASED ON THE PRIMARY CLINICAL RECORDS. [email or web address]. provides no warranty or guarantee of the accuracy or completeness of information in this document.
[2025-08-21 11:42] LABS: AST(SGOT) 29 U/L (<=31); Alanine Aminotransfer ALT/SGPT 23 U/L (<=34); Albumin, Serum 4.1 g/dL (3.5-5.0); Alkaline Phosphatase 93 U/L (35-104); Anion Gap 11 (5-15); BUN 11 mg/dL (4-19); BUN/Creat Ratio 18.6 RATIO (10-20); Calcium,Total 9.0 mg/dL (7.6-11.0); Carbon Dioxide 23.0 mmol/L (21.0-32.0); Chloride 106 mmol/L (98-108); Globulin 2.6 g/dL (2.2-4.2); Glucose 140 mg/dL (70-99); Lipase 39 U/L (13-75); Potassium 4.2 mmol/L (3.3-5.1)
[2025-08-21 11:55] LABS: Mucous, Urine 0 SEEN /hpf (<or=2+); Red Blood Cells-Urine 0 SEEN /hpf (0-5)
[2025-08-21 11:57] LABS: Color, Urine Yellow (Yellow); Glucose, Dipstick Normal (Normal); Ketone-Dipstick Negative (Negative); Leukocyte Esterase-Dipstick 25 /ul (Negative); Nitrite-Dipstick Negative (Negative); Occult Blood-Urine Negative /ul (Negative); Protein-Dipstick Negative (Negative); Specific Gravity, Urine 1.005 (1.002-1.030); Urine Bilirubin Dipstick Negative (Negative)
[2025-08-21 12:03] LABS: Squamous Epithelial Cells - UA 0-5 SEEN /hpf (5-10)
[2025-08-21 12:40] VITALS: BP 134/81; PULSE 84; RESP 16; TEMP 36.8; O2SAT 100
== END 2025-08-21 12:41 | disposition home or self-care (01) ==
PROVIDERS: Emergency Provider Emergency Medicine; PCP Internal Medicine; Visit Provider Emergency Medicine
DX: R10.9 Unspecified abdominal pain (principal); E11.9 Type 2 diabetes mellitus without complications; Z87.891 Personal history of nicotine dependence; R11.2 Nausea with vomiting, unspecified; E78.5 Hyperlipidemia, unspecified; Z79.84 Long term (current) use of oral hypoglycemic drugs
CPT/HCPCS: 74177; 80053; 81001; 83690; 85025; 93005; 96361; 96374; 99283; Q9967; A4216; J2405